=== PATIENT | male | born 1960 | race Hispanic/Latino ===

== ENCOUNTER 2016-06-25 11:46 | Inpatient (IN) | payer MEDICAID ==
[2016-06-25] MEDS ORDERED: ZOFRAN ONE (12:04)
[2016-06-25] MEDS ORDERED: DILAUDID ONE (12:04)
[2016-06-25] MEDS ORDERED: ZOFRAN IV ONE (12:32)
[2016-06-25] MEDS ORDERED: DILAUDID IV ONE ×2 (12:32→15:14)
--- NOTE | 2016-06-25 12:42 | Emergency Department Report ---
HPI - General Chief Complaint: Dyspnea/Respdistress Time Seen by Provider: 06/25/16 12:20 - HPI HPI: Chief complaint: Tachycardia and SVT HPI: Patient is a 56-year-old male with a history of hypertension, diabetes, SVT , chronic left hip pain status post hip replacement with a neuro stimulator in place as well as 3 back surgeries presents with a rapid heartbeat since about 7: 00 this morning. Patient tried numerous vagal maneuvers without success and therefore came to the emergency department. Patient states he felt lightheaded upon standing but did not completely pass out. Patient states he has been taking all of his medications. Patient states she's been having polyuria and polydipsia for the last 3-4 days but states his sugar last night was 180. Patient did not check his blood sugar this morning. Patient was seen by me previously for similar problem and converted his SVT with Adenocard. Patient was seen in consultation with [facility] and was to follow up as an outpatient for possible ablation but never followed up. Patient has had a negative cardiac cath. Mode of arrival: [private car] Source: [Patient] [old chart] Began: Upon awakening this morning Duration: From 7 this morning until arrival in the emergency department Context: See above Quality: Left hip pain no chest pain Severity: Chronic left hip pain Improved with: Nothing Worsened with: Nothing Associated signs and symptoms: Left hip pain ED Past Medical Hx - Past Medical History Hx Hypertension: Yes Hx Congestive Heart Failure: No Hx Diabetes: Yes Hx Asthma: No Hx COPD: No Additional medical history: back injury-2010. RSD, peripheral neuropathy. AVN LEFT HIP. OBESITY - Surgical History Additional Surgical History: 3 back surgeries, foot surg ,NEURO STIMULATOR - Social History Smoking Status: Unknown if ever smoked Substance Use Type: None - Medications Home Medications: Home Medications Medication Instructions Recorded Confirmed Last Taken Type Pregabalin [Lyrica] 100 mg PO TID 04/22/14 06/25/16 06/06/15 History metFORMIN [Glucophage] 500 mg PO QDAY 05/13/15 06/25/16 06/06/15 History Lisinopril [Zestril TAB] 5 mg PO QDAY #30 tablet 05/16/15 06/25/16 06/06/15 Rx Metoprolol [Lopressor TAB] 50 mg PO BID #60 tablet 05/16/15 06/25/1616 Rx oxyCODONE /ACETAMINOPHEN [Percocet 1 tab PO Q6HR PRN #10 tablet 09/08/15 Unknown Rx 5/325] Metoprolol [Lopressor TAB] 50 mg PO BID #60 tablet 04/03/16 06/25/16 Unknown Rx Oxycodone HCl/Acetaminophen 1 each PO Q6HR PRN #20 tablet 04/03/16 06/25/16 Unknown Rx [Percocet 10/325 mg] ED Review of Systems ROS: Stated complaint: ELEVATED HR/DIZZY/SOB Other details as noted in HPI ROS Constitutional: No fever ENT: No uri symptoms Cardiovascular: No chest pain Respiratory: No cough GI: No nausea vomiting or diarrhea : No dysuria Skin: No rash Neuro: No focal weakness or numbness Psych: No depression Dean/lymph: No edema Musculoskeletal: Chronic back and left hip pain Physical Exam - Physical Exam Vital Signs: Vital Signs 06/25/16 11:54 Temperature 98.0 F Pulse Rate 162 H Respiratory 26 H Rate Blood Pressure 135/104 O2 Sat by Pulse 96 Oximetry Physical Exam: GENERAL: The patient is an obese male with a rapid heartbeat and mild diaphoresis. HEENT: Normocephalic. Atraumatic. Extraocular motions are intact. Patient has moist mucous membranes. NECK: Supple. No meningitic signs are noted. There is no adenopathy noted. CHEST/LUNGS: Clear to auscultation. There is no respiratory distress noted. HEART/CARDIOVASCULAR: Regular. There is tachycardia. There is no gallop rub or murmur. ABDOMEN: Abdomen is soft, nontender. Patient has normal bowel sounds. There is no abdominal distention. SKIN: There is no rash. There is no edema. There is no diaphoresis. NEURO: The patient is awake, alert, and oriented. The patient is cooperative. The patient has normal speech. MUSCULOSKELETAL: There is pain to range of motion of the patient's left hip. ED Course Vital Signs 06/25/16 11:54 Temperature 98.0 F Pulse Rate 162 H Respiratory 26 H Rate Blood Pressure 135/104 O2 Sat by Pulse 96 Oximetry - Reevaluation(s) Reevaluation #1: 06/25/16 1 Patient cardioverted with 12 mg of IV Adenocard after failing 6 mg IV. Because of his elevated blood sugar patient was given 2 L of normal saline and 5 units of regular insulin IV. Patient will be admitted to the hospitalist. ED Medical Decision Making - Lab Data Result diagrams: 06/25/16 12:54 06/25/16 12:54 Laboratory Tests 06/25/16 06/25/16 06/25/16 12:54 12:54 15:55 VBG pH 7.397 Calcium 9.7 Total Creatine Kinase 83 CK-MB (CK-2) 2.8 CK-MB (CK-2) Rel Index 3.3 Troponin T < 0.010 - EKG Data -: EKG Interpreted by Me Rate: tachycardia (SVT at rate of 164) Critical care attestation.: If time is entered above; I have spent that time in minutes in the direct care of this critically ill patient, excluding procedure time. ED Disposition Clinical Impression: Left hip pain, SVT (supraventricular tachycardia), Hyperglycemia Disposition: OP ADMITTED IP TO THIS HOSP Is pt being admited?: Yes Does the pt Need Aspirin: Yes Condition: Fair Referrals: PRIMARY CARE, [Primary Care Provider] - 3-5 Days Time of Disposition: 16:00 (admit to the hospitalist)
--- NOTE | 2016-06-25 12:55 | Admit Criteria Form ---
Admission Criteria Documentation: CARDIOLOGY GRG Clinical Indications for Admission to Inpatient Care ( Place 'X' for any and all applicable criteria): Hospital admission is needed for appropriate care of the patient because of ANY ONE of the following (1): [ X] I. Hemodynamic instability as indicated by ALL of the following (1)(2)(3 )(4)(5) [X ]a) Vital signs or other findings not as expected for chronic patient condition or baseline [X ]b) Instability indicated by ANY ONE of the following: [ ]i) Hypotension [ X]ii) Symptomatic Tachycardia unresponsive to treatment ( e.g., analgesia, fluids, sedation as indicated) [ ]iii) Inadequate perfusion indicated by ANY ONE of the following: [ ] 1) Lactic acidosis (> 2 mmol/L) [ ] 2) New abnormal capillary refill (> 3 seconds) [ ] 3) Reduced urine output [ ] 4) New altered mental status [ ]iv) Orthostatic vital sign changes unresponsive to treatment (e.g., fluids) [ ]v) IV inotropic or vasopressor medication required to maintain adequate blood pressure or perfusion [ ] II. Severe heart failure as indicated by ANY ONE of the following(17)(18) [ ]a) Respiratory distress [ ]b) Hypotension [ ]c) Anasarca (refractory to outpatient therapy) [ ]d) Cardiac arrhythmias of immediate concern [ ]e) Myocardial ischemia [ ] III. Cardiac arrhythmias or findings of immediate concern indicated by ANY ONE of the following (19)(20): [ ] a) Heart rhythms that are inherently dangerous or unstable indicated by ANY ONE of the following (21)(22)(23): [ ] i) Resuscitated ventricular fibrillation or cardiac arrest [ ] ii) Ventricular escape rhythm [ ] iii) Sustained ventricular tachycardia (30 seconds or more of ventricular rhythm at greater than 100 beats per minute) [ ] iv) Nonsustained ventricular tachycardia and ANY ONE of the following: [ ] 1) Suspected cardiac ischemia as cause or consequence of ventricular tachycardia [ ] 2) In setting of acute myocarditis [ ] b) Unstable cardiac conduction defects indicated by ANY ONE of the following(23)(24)(25) [ ] i) Type II second-degree atrioventricular block [ ]ii) Third-degree atrioventricular block [ ]iii) New-onset left bundle branch block with suspected myocardial ischemia [ ]c) Any heart rhythm and ANY ONE of the following (21)(22)(26)(27) (28) [ ] i) Continuous long-term ECG monitoring needed (e.g., initiation of drug requiring monitoring for more than 24 hours) [ ] ii) Patient has automatic implanted cardioverter defibrillator that is repeatedly firing, malfunctioning, or in need of immediate adjustment of settings beyond the scope of ambulatory or observation care [ ]d) Heart rhythms of concern due to ANY ONE of the following: [ ] i) Hypotension [ ] ii) Respiratory distress [ ] iii) Association with other significant symptoms (e.g., bradycardia with syncope or ongoing dizziness, supraventricular tachycardia with chest pain (14)(15)(17) [ ] IV. Monitoring for cardiac contusion beyond the scope of observation care needed [A](30)(31)(32) [ ] V. Surgical or device complication (e.g., valve replacement complication , pacemaker dysfunction) (35)(41)(44)(45)(46) [ ] . Inpatient palliative care needed. [B](49) Also use Inpatient Palliative Care Criteria [ ] VII. Nonbacterial thrombotic (marantic) endocarditis (36)(43)(47)(48) [ ] VIII. Cardiology condition, symptom, or finding for which emergency and observation care has failed or are not considered appropriate. [ ] IX. Acute valvular disease requiring inpatient as indicated by ANY ONE of the following (41) [ ]a) Acute valvular regurgitation (42) [ ]b) Noninfectious valvulitis (43) [ ]c) Obstructive valve thrombosis [ ]d) Paravalvular leak [ ]e) Other significant valvular disorder remaining after emergency or observation level of care (as appropriate) [ ]X. Pericardial disease requiring inpatient treatment as indicated by ANY ONE of the following (33)(34)(35)(36)(37) [ ]a) Suspected tamponade (38)(39)(40) [ ]b) Hemopericardium [ ]c) Other significant pericardial disorder remaining after emergency or observation level of care (as appropriate) [ ] XI. Cardiac ischemia beyond scope of emergency and observation care. [ ] XII. Hypertension requiring inpatient treatment as indicated by ANY ONE of the following (6)(7)(8) [ ]a) SBP greater than 220 mm Hg or DBP greater than 120 mmHg despite treatment [ ]b) SBP greater than 140 mm Hg or DBP greater than 100 mm Hg with evidence of acute end organ damage as indicated by ANY ONE of the following [ ] i) Altered mental status [ ] ii) Acute renal failure as indicated by new onset of ANY ONE of the following (9)(10)(11)(12)(13) [ ]1) 3-fold rise in serum creatinine from baseline [ ]2) Serum creatinine greater than 4 mg/dL ( 354 micromoles/L) with acute rise greater than 0.5 mg/dL (44.2 micromoles/L) [ ]3) Reduction of more than 75% in estimated glomerular filtration rate from baseline [ ]4) Estimated glomerular filtration rate less than 35 mL/min/1.73m2 (0.59 mL/sec/1.73m2) in child up to 18 years of age [ ]5) Cessation of urine output indicated by ALL of the following [ ]A. Adequate volume status [ ]B. Inadequate urine output as indicated by ANY ONE of the following [ ]a. Urine output less than 0.3 mL/kg/hr for 24 hours [ ]b. Anuria (urine output less than 0.1 mL/kg/hr) for 12 hours [ ] iii) Aortic dissection [ ] iv) Myocardial Ischemia [ ] v) Left ventricular heart failure [ ]vi) Retinal Hemorrhage [ ]vii) Other significant finding [ ]c) Hypertension in child requiring inpatient treatment as indicated by ALL of the following(14)(15)(16) [ ] i) Outpatient treatment not effective, not available, or not appropriate [ ]ii) SBP or DBP greater than 95th percentile for age [ ]iii) Evidence of acute end organ damage as indicated by ANY ONE of the following [ ]1) Altered mental status [ ]2) Acute renal failure as indicated by new onset of ANY ONE of the following(9)(10)(11)(12)(13) [ ]A. 3-fold rise in serum creatinine from baseline [ ]B. Serum creatinine greater than 4 mg/dL (354 micromoles/L) with acute rise greater than 0.5 mg/dL (44.2 micromoles/L) [ ]C. Reduction of more than 75% in estimated glomerular filtration rate from baseline [ ]D. Estimated glomerular filtration rate less than 35 mL/min/1.73m2 (0.59 mL/sec/1.73m2) in child up to 18 years of age [ ]E. Cessation of urine output indicated by ALL of the following [ ]a. Adequate volume status [ ]b. Inadequate urine output as indicated by ANY ONE of the following [ ]i) Urine output less than 0.3 mL/kg/hr for 24 hours [ ]ii) Anuria ( urine output less than 0.1 mL/kg/hr) for 12 hours [ ]3) Severe headache [ ]4) Visual disturbance [ ]5) Retinal hemorrhage [ ]6) Other significant finding [ ]XIII. Complications of transplanted heart indicated by ANY ONE of the following(61): [ ]a) Acute graft rejection requiring inpatient management (eg, intravenous immunosuppression)(62)(63) [ ]b) Acute graft heart failure indicated by ANY ONE of the following(64): [ ]i) Hemodynamic instability [ ]ii) Cardiac arrhythmias of immediate concern [ ]iii) Pulmonary edema that is very severe (eg, mechanical ventilation needed, imminent or likely, need for 100% oxygen to keep oxygen saturation above 90%) [ ]iv) Pulmonary edema that is persistent as indicated by ALL of the following: [ ]1) New need for oxygen therapy to keep oxygen saturation above 90% (or increased FiO2 need from baseline) [ ]2) Has not improved sufficiently with emergency department or observation care IV diuretics or other heart failure treatments[E] [ ]v) Altered mental status that is severe or persistent [ ]vi) Increased creatinine (new on laboratory test) with reduction of more than 50% in estimated glomerular filtration rate from baseline [ ]vii) Progressively (ongoing) rising creatinine (known from past laboratory test) with reduction of more than 25% in estimated glomerular filtration rate from baseline [ ]viii) Acute renal failure [ ]ix) Acute peripheral ischemia (eg, examination shows pulseless, cool, mottled, or cyanotic extremity) [ ]x) Pulmonary artery catheter monitoring needed [ ]xi) Other sign or symptom of heart failure requiring inpatient treatment (ie, too severe or not responsive to outpatient and observation care treatment) [ ]c) Infection requiring inpatient management (eg, Hemodynamic instability, need for intravenous antimicrobial treatment)(66)(67)(68)(69)(70) [ ]d) Cardiac allograft vasculopathy requiring inpatient management ( eg evidence of cardiac ischemia)(71) [ ]e) Other complication of transplanted heart (eg, stroke, severe pulmonary hypertension, severe valvular dysfunction) requiring inpatient management(72) The original [facility] [employer] content created by [facility] [employer] ([employer]) has been revised. The portions of the content which have been revised are identified through the use of italic text or in bold, and [facility] has neither reviewed nor approved the modified material. All other unmodified content is copyright [facility] [employer] ([employer]). Please see references footnoted in the original [facility] [employer] edition 2016 Admission Criteria Met: Yes
[2016-06-25 13:20] LABS: Basophils % (Auto) 0.6 % (0.0-1.8); Eosinophils % (Auto) 2.1 % (0.0-4.3); Hematocrit 55.9 % (35.5-45.6); Hemoglobin 18.5 gm/dl (11.8-15.2); Mean Corpuscular HGB Conc 33 % (32-34); Mean Corpuscular Hemoglobin 31 pg (28-32); Mean Corpuscular Volume 94 fl (84-94); Platelet Count 162 K/mm3 (140-440); Red Blood Count 5.94 M/mm3 (3.65-5.03); Red Cell Distribution Width 15.3 % (13.2-15.2); White Blood Count 9.1 K/mm3 (4.5-11.0)
[2016-06-25 14:20] LABS: Creatine Kinase MB 2.8 ng/mL (0.0-4.0)
[2016-06-25 14:21] LABS: Anion Gap 32 mmol/L; BUN/Creatinine Ratio 24.28; Blood Urea Nitrogen 17 mg/dL (9-20); Calcium 9.7 mg/dL (8.4-10.2); Carbon Dioxide 15 mmol/L (22-30); Chloride 95.3 mmol/L (98-107); Creatine Kinase 83 units/L (55-170); Glucose 410 mg/dL (75-100); Sodium 137 mmol/L (137-145)
[2016-06-25] MEDS ORDERED: NACL 0.9% 1000 ML IV ONE (15:10)
--- NOTE | 2016-06-25 15:48 | XRay Report ---
LEFT HIP, 2 VIEWS History: Left hip pain. Findings: Left hip prosthesis with surrounding heterotopic calcifications appears unchanged since 04/03/16. No fracture or malalignment is appreciated on x-ray. Impression: No acute injury appreciated.
--- NOTE | 2016-06-25 15:49 | XRay Report ---
AP CHEST: HISTORY: Short of breath AP view of the chest demonstrates a normal mediastinal and cardiac contour with clear lungs and normal bony and soft tissue structures. IMPRESSION: Unremarkable AP chest.
[2016-06-25] MEDS ORDERED: PERCOCET 5/325 PO PRN (16:06)
[2016-06-25] MEDS ORDERED: D50W (25GM) IV PRN (16:11)
--- NOTE | 2016-06-25 16:21 | History and Physical Report ---
History of Present Illness Date of examination: 06/25/16 Chief complaint: Shortness of breath History of present illness: Patient is a 56-year-old man with history of SVT, type 2 diabetes mellitus, hypertension, chronic pain syndrome due to arthritis status post left hip replacement with neurostimulator who presents with shortness of breath that started around 7 AM this morning. Patient did try multiple vagal maneuvers without success therefore he came to emergency department. Patient states is compliant with his medication. Patient admits to having polyuria and his polydipsia for last 3-4 pains. Patient denies any chest pain, nausea vomiting. He was diaphoretic when his heart rate was found to be 162. He was given Adenocard and converted. He was told by doctor at [facility] that he needs ablation but he did not following up. Medications and Allergies Allergies Allergy/AdvReac Type Severity Reaction Status Date / Time No Known Allergies Allergy Verified 06/07/15 11:18 Home Medications Medication Instructions Recorded Confirmed Last Taken Type Pregabalin [Lyrica] 100 mg PO TID 04/22/14 06/25/16 06/06/15 History metFORMIN [Glucophage] 500 mg PO QDAY 05/13/15 06/25/16 06/06/15 History Lisinopril [Zestril TAB] 5 mg PO QDAY #30 tablet 05/16/15 06/25/16 06/06/15 Rx Metoprolol [Lopressor TAB] 50 mg PO BID #60 tablet 05/16/15 06/25/16 06/06/15 Rx oxyCODONE /ACETAMINOPHEN [Percocet 1 tab PO Q6HR PRN #10 tablet 09/08/15 Unknown Rx 5/325] Metoprolol [Lopressor TAB] 50 mg PO BID #60 tablet 04/03/16 06/25/16 Unknown Rx Oxycodone HCl/Acetaminophen 1 each PO Q6HR PRN #20 tablet 04/03/16 06/25/16 Unknown Rx [Percocet 10/325 mg] Active Meds: Active Medications Dextrose (D50w (25gm)) 50 ml IV PRN PRN PRN Reason: Hypoglycemia Heparin Sodium (Porcine) (Heparin) 5,000 unit SUB-Q Q8HR YAEL Insulin Aspart (Novolog) 0 units SUB-Q ACHS YAEL PRN Reason: Protocol Lisinopril (Zestril) 5 mg PO QDAY YAEL Metformin HCl (Glucophage) 500 mg PO QDDIAB YAEL Metoprolol Tartrate (Lopressor) 50 mg PO BID YAEL Oxycodone/Acetaminophen (Percocet 5/325) 1 tab PO Q6HR PRN PRN Reason: Pain Pregabalin (Lyrica) 75 mg PO TID YAEL Pregabalin (Lyrica) 25 mg PO TID YAEL Review of Systems All systems: negative (as HPI and all other ROS reviewed and negative.) Exam - Physical Exam Narrative exam: GEN: WDWN, obese NAD, AWAKE, ALERT, ORIENTATED 3 HEENT: NCAT, PERRL, EOMI, OP CLEAR NECK: SUPPLE, NO THYROMEGALY, NO JVD, NO LAD CVS: Regular tachycardic, NORMAL S1S2 LUNGS/CHEST: CTA B, NORMAL CHEST EXPANSION B, GOOD AIR ENTRY B ABD: SOFT NTND, GBS, NO REBOUND OR GUARDING EXT/SKIN: NO SIGNIFICANT EDEMA OR RASH MSK:LROM left hip NEURO: CN 2-12 GROSSLY INTACT, NO FOCAL NEW DEFICITS PSY: CALM - Constitutional Vitals: Temp Pulse Resp BP Pulse Ox 98.0 F 108 H 20 126/96 100 06/25/16 11:54 06/25/16 13:03 06/25/16 13:03 06/25/16 13:03 06/25/16 13:03 Results - Labs CBC & Chem 7: 06/25/16 12:54 06/25/16 12:54 Labs: Abnormal lab results 06/25/16 06/25/16 Range/Units 12:54 12:54 RBC 5.94 H (3.65-5.03) M/mm3 Hgb 18.5 H (11.8-15.2) gm/dl Hct 55.9 H (35.5-45.6) % RDW 15.3 H (13.2-15.2) % [place] % (Auto) 7.8 H (0.0-7.3) % Chloride 95.3 L (98-107) mmol/L Carbon Dioxide 15 L (22-30) mmol/L Creatinine 0.7 L (0.8-1.5) mg/dL Glucose 410 H (75-100) mg/dL - Imaging and Cardiology EKG: image reviewed Assessment and Plan Patient is a 56-year-old man with a history of SVT, type 2 diabetes mellitus, hypertension, chronic pain syndrome due to arthritis status post left hip replacement with neurostimulator who presents with severe constant acute shortness of breath w/o aggravating and relieving factors that started around 7 AM this morning. Patient did try multiple vagal maneuvers without success; therefore, he came to emergency department. Patient states is compliant with his medications. Patient admits to having polyuria and polydipsia for last 3-4 days. Patient denies any chest pain, nausea vomiting. He was diaphoretic when his heart rate was found to be 162. He was given Adenocard and converted. He was told by doctor at [facility] that he needs ablation but he did not following up. 1. SVT: Consult cardiology, continue beta tonia 2. Uncontrolled type 2 diabetes mellitus: As sliding scale insulin 3. Hypertension, chronic stable Hopefully can be discharge after [employer] evaluation
[2016-06-25] MEDS ORDERED: ASPIRIN PO ONE (16:23)
--- NOTE | 2016-06-25 16:40 | Consultation ---
History of Present Illness Consult date: 06/25/16 Requesting physician: BO PRICE Consult reason: other (SVT) History of present illness: The patient is a 56 year old male with a history of paroxysmal SVT, hypertension , diabetes, chronic pain who presented with acute onset palpitations and shortness of breath that started this morning at 7:00am. He tried numerous vagal maneuvers without success and therefore came to the emergency department. He states that he felt lightheaded upon standing but did not lose consciousness. No chest pain. EKG showed SVT with HR 160s. He received adenosine 6mg followed by 12mg and subsequently converted to sinus rhythm. He states he has about 8 episodes of SVT within the past one year. He reports compliance with all of his medications including lopressor. Past History Past Medical History: diabetes, hypertension, hyperlipidemia, other (paroxysmal SVT, chronic back pain) Past Surgical History: total hip replacement (left hip), Other (back surgery x 3 ) Family history: no significant family history Medications and Allergies Allergies Allergy/AdvReac Type Severity Reaction Status Date / Time No Known Allergies Allergy Verified 06/07/15 11:18 Home Medications Medication Instructions Recorded Confirmed Last Taken Type Pregabalin [Lyrica] 100 mg PO TID 04/22/14 06/25/16 06/06/15 History metFORMIN [Glucophage] 500 mg PO QDAY 05/13/15 06/25/16 06/06/15 History Lisinopril [Zestril TAB] 5 mg PO QDAY #30 tablet 05/16/15 06/25/16 06/06/15 Rx Metoprolol [Lopressor TAB] 50 mg PO BID #60 tablet 05/16/15 06/25/16 06/06/15 Rx oxyCODONE /ACETAMINOPHEN [Percocet 1 tab PO Q6HR PRN #10 tablet 09/08/15 Unknown Rx 5/325] Metoprolol [Lopressor TAB] 50 mg PO BID #60 tablet 04/03/16 06/25/16 Unknown Rx Oxycodone HCl/Acetaminophen 1 each PO Q6HR PRN #20 tablet 04/03/16 06/25/16 Unknown Rx [Percocet 10/325 mg] Active Meds: Active Medications Dextrose (D50w (25gm)) 50 ml IV PRN PRN PRN Reason: Hypoglycemia Heparin Sodium (Porcine) (Heparin) 5,000 unit SUB-Q Q8HR [facility] Insulin Aspart (Novolog) 0 units SUB-Q ACHS [facility] PRN Reason: Protocol Lisinopril (Zestril) 5 mg PO QDAY [facility] Metformin HCl (Glucophage) 500 mg PO QDDIAB [facility] Metoprolol Tartrate (Lopressor) 50 mg PO BID [facility] Oxycodone/Acetaminophen (Percocet 5/325) 1 tab PO Q6HR PRN PRN Reason: Pain Pregabalin (Lyrica) 75 mg PO TID [facility] Pregabalin (Lyrica) 25 mg PO TID [facility] Review of Systems Constitutional: no fever, no chills Ears, nose, mouth and throat: no nasal congestion, no nasal discharge, no sinus pressure Cardiovascular: palpitations, lightheadedness, shortness of breath, no chest pain Respiratory: shortness of breath, no cough, no congestion Gastrointestinal: no abdominal pain, no nausea, no vomiting, no diarrhea Genitourinary Male: no dysuria, no hematuria Musculoskeletal: no neck stiffness, no neck pain, no myalgias Integumentary: no rash, no pruritis Neurological: no parathesias, no numbness, no tingling, no headaches Endocrine: no cold intolerance, no heat intolerance Hematologic/Lymphatic: no easy bruising, no easy bleeding Allergic/Immunologic: no urticaria, no wheezing Physical Examination Vital Signs Temp Pulse Resp BP Pulse Ox 98.0 F 162 H 26 H 135/104 96 06/25/16 11:54 06/25/16 11:54 06/25/16 11:54 06/25/16 11:54 06/25/16 11:54 General appearance: no acute distress, obese HEENT: Positive: Normocephaly, Mucus Membranes Moist Neck: Positive: neck supple, trachea midline Cardiac: Positive: Reg Rate and Rhythm, S1/S2 Lungs: Positive: clear to auscultation Neuro: Positive: Grossly Intact Abdomen: Positive: Soft, Active Bowel Sounds. Negative: Tender Skin: Positive: Clear Extremities: Present: normal. Absent: edema Results 06/25/16 12:54 06/25/16 12:54 Cardiac Enzymes 06/25/16 06/25/16 06/25/16 Range/Units 12:54 12:54 12:54 WBC 9.1 (4.5-11.0) K/mm3 RBC 5.94 H (3.65-5.03) M/mm3 Hgb 18.5 H (11.8-15.2) gm/dl Hct 55.9 H (35.5-45.6) % MCV 94 (84-94) fl MCH 31 (28-32) pg MCHC 33 (32-34) % RDW 15.3 H (13.2-15.2) % Plt Count 162 (140-440) K/mm3 Lymph % (Auto) 20.8 (13.4-35.0) % Garrard % (Auto) 7.8 H (0.0-7.3) % Eos % (Auto) 2.1 (0.0-4.3) % Baso % (Auto) 0.6 (0.0-1.8) % Lymph # 1.9 (1.2-5.4) K/mm3 Garrard # 0.7 (0.0-0.8) K/mm3 Eos # 0.2 (0.0-0.4) K/mm3 Baso # 0.1 (0.0-0.1) K/mm3 Seg Neutrophils % 68.7 (40.0-70.0) % Seg Neutrophils # 6.3 (1.8-7.7) K/mm3 VBG pH (7.320-7.420) Sodium 137 (137-145) mmol/L Potassium 5.0 (3.6-5.0) mmol/L Chloride 95.3 L (98-107) mmol/L Carbon Dioxide 15 L (22-30) mmol/L Anion Gap 32 mmol/L BUN 17 (9-20) mg/dL Creatinine 0.7 L (0.8-1.5) mg/dL Estimated GFR > 60 ml/min BUN/Creatinine Ratio 24.28 % Glucose 410 H (75-100) mg/dL Calcium 9.7 (8.4-10.2) mg/dL Total Creatine Kinase 83 (55-170) units/L CK-MB (CK-2) 2.8 (0.0-4.0) ng/mL CK-MB (CK-2) Rel Index 3.3 (0-4) Troponin T < 0.010 (0.00-0.029) ng/mL Ketones (0.2-2.8) mg/dL 06/25/16 06/25/16 Range/Units 15:55 15:55 WBC (4.5-11.0) K/mm3 RBC (3.65-5.03) M/mm3 Hgb (11.8-15.2) gm/dl Hct (35.5-45.6) % MCV (84-94) fl MCH (28-32) pg MCHC (32-34) % RDW (13.2-15.2) % Plt Count (140-440) K/mm3 Lymph % (Auto) (13.4-35.0) % Garrard % (Auto) (0.0-7.3) % Eos % (Auto) (0.0-4.3) % Baso % (Auto) (0.0-1.8) % Lymph # (1.2-5.4) K/mm3 Garrard # (0.0-0.8) K/mm3 Eos # (0.0-0.4) K/mm3 Baso # (0.0-0.1) K/mm3 Seg Neutrophils % (40.0-70.0) % Seg Neutrophils # (1.8-7.7) K/mm3 VBG pH 7.397 (7.320-7.420) Sodium (137-145) mmol/L Potassium (3.6-5.0) mmol/L Chloride (98-107) mmol/L Carbon Dioxide (22-30) mmol/L Anion Gap mmol/L BUN (9-20) mg/dL Creatinine (0.8-1.5) mg/dL Estimated GFR ml/min BUN/Creatinine Ratio % Glucose (75-100) mg/dL Calcium (8.4-10.2) mg/dL Total Creatine Kinase (55-170) units/L CK-MB (CK-2) (0.0-4.0) ng/mL CK-MB (CK-2) Rel Index (0-4) Troponin T (0.00-0.029) ng/mL Ketones 2.3 (0.2-2.8) mg/dL CBC 06/25/16 Range/Units 12:54 WBC 9.1 (4.5-11.0) K/mm3 RBC 5.94 H (3.65-5.03) M/mm3 Hgb 18.5 H (11.8-15.2) gm/dl Hct 55.9 H (35.5-45.6) % Plt Count 162 (140-440) K/mm3 Lymph # 1.9 (1.2-5.4) K/mm3 Garrard # 0.7 (0.0-0.8) K/mm3 Eos # 0.2 (0.0-0.4) K/mm3 Baso # 0.1 (0.0-0.1) K/mm3 Comprehensive Metabolic Panel 06/25/16 Range/Units 12:54 Sodium 137 (137-145) mmol/L Potassium 5.0 (3.6-5.0) mmol/L Chloride 95.3 L (98-107) mmol/L Carbon Dioxide 15 L (22-30) mmol/L BUN 17 (9-20) mg/dL Creatinine 0.7 L (0.8-1.5) mg/dL Glucose 410 H (75-100) mg/dL Calcium 9.7 (8.4-10.2) mg/dL - Imaging and Cardiology Echo: pending, report reviewed (04/2015: EF 55%) EKG: image reviewed EKG interpretations - Telemetry EKG Rhythm: Sinus Rhythm - EKG Ventricular dysrhythmias: sustained ventricular tac Assessment and Plan Paroxysmal SVT converted to SR following IV adenosine continue PO lopressor 50mg BID [facility] 04/2015: patent coronaries, normal LV function Echo 04/2015: EF 55%, await repeat schedule EP consult for SVT ablation as an OP Hypertension stable continue loperssor, lisinopril Diabetes Hyperlipidemia Chronic back pain s/p TENS unit placement 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 Lopez who agrees with the assessment and plan of care. Thank you Dr. Price for allowing us to participate in the care of this patient.
[2016-06-25] MEDS: NOVOLOG SUB-Q SCH ×2 (17:47→22:25)
[2016-06-25] MEDS ORDERED: NON-FORMULARY (Pregabalin [Lyrica] 100 MG) PO SCH (20:00)
[2016-06-25] MEDS: LYRICA PO SCH ×2 (20:21)
[2016-06-25] MEDS ORDERED: LEVEMIR SUB-Q SCH (22:00)
[2016-06-25] MEDS: HEPARIN SUB-Q SCH (22:06)
[2016-06-25] MEDS: LOPRESSOR PO SCH (22:06)
[2016-06-25] MEDS ORDERED: ZOFRAN IV PRN (23:04)
[2016-06-25] MEDS: DILAUDID IV PRN (23:12)
[2016-06-26] MEDS: HEPARIN SUB-Q SCH ×2 (04:44→05:29)
[2016-06-26] MEDS: DILAUDID IV PRN ×3 (04:44→14:10)
[2016-06-26] MEDS ORDERED: GLUCOPHAGE PO SCH (08:00)
[2016-06-26 08:32] VITALS: BP 162/88
[2016-06-26] MEDS: NOVOLOG SUB-Q SCH ×2 (09:30→14:10)
[2016-06-26 09:38] LABS: Hematocrit 48.7 % (35.5-45.6); Hemoglobin 16.7 gm/dl (11.8-15.2); Mean Corpuscular HGB Conc 34 % (32-34); Mean Corpuscular Hemoglobin 32 pg (28-32); Mean Corpuscular Volume 92 fl (84-94); Platelet Count 170 K/mm3 (140-440); Red Blood Count 5.31 M/mm3 (3.65-5.03); White Blood Count 8.7 K/mm3 (4.5-11.0)
[2016-06-26 09:52] LABS: Anion Gap 22 mmol/L; BUN/Creatinine Ratio 21.66; Blood Urea Nitrogen 13 mg/dL (9-20); Calcium 8.7 mg/dL (8.4-10.2); Carbon Dioxide 21 mmol/L (22-30); Chloride 96.3 mmol/L (98-107); Glucose 224 mg/dL (75-100); Potassium 4.4 mmol/L (3.6-5.0); Sodium 135 mmol/L (137-145)
[2016-06-26] MEDS ORDERED: ZESTRIL PO SCH (10:00)
--- NOTE | 2016-06-26 10:18 | Progress Note ---
Assessment and Plan Paroxysmal SVT converted to SR following IV adenosine continue PO lopressor 50mg BID 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 Await echo findings. Follow up appointment with Dr. Recinos in the [facility] office on 07/03/16 at 1:30 pm. The patient has been seen in conjunction with Dr. Lopez who agrees with the assessment and plan of care. Subjective Date of service: 06/26/16 Principal diagnosis: paroxysmal SVT Interval history: The patient is resting in bed. He feels fatigued. Sinus rhythm on the monitor. No further SVT noted on the monitor overnight. Objective Last Vital Signs Temp 97.9 F 06/26/16 08:00 Pulse 78 06/26/16 08:00 Resp 20 06/26/16 08:00 BP 162/88 06/26/16 08:00 Pulse Ox 95 06/26/16 08:00 - Physical Examination General: No Apparent Distress HEENT: Positive: Normocephaly, Mucus Membranes Moist Neck: Positive: neck supple, trachea midline Cardiac: Positive: Reg Rate and Rhythm, S1/S2 Lungs: Positive: clear to auscultation Neuro: Positive: Grossly Intact Abdomen: Positive: Soft, Active Bowel Sounds. Negative: Tender Skin: Positive: Clear Extremities: Present: normal. Absent: edema - Labs and Meds CBC 06/26/16 Range/Units 09:13 WBC 8.7 (4.5-11.0) K/mm3 RBC 5.31 H (3.65-5.03) M/mm3 Hgb 16.7 H (11.8-15.2) gm/dl Hct 48.7 H D (35.5-45.6) % Plt Count 170 (140-440) K/mm3 Comprehensive Metabolic Panel 06/26/16 Range/Units 09:13 Sodium 135 L (137-145) mmol/L Potassium 4.4 (3.6-5.0) mmol/L Chloride 96.3 L (98-107) mmol/L Carbon Dioxide 21 L (22-30) mmol/L BUN 13 (9-20) mg/dL Creatinine 0.6 L (0.8-1.5) mg/dL Glucose 224 H (75-100) mg/dL Calcium 8.7 (8.4-10.2) mg/dL - Imaging and Cardiology EKG: image reviewed Echo: pending, report reviewed (04/2015: EF 55%) - Telemetry EKG Rhythm: Sinus Rhythm - EKG Ventricular dysrhythmias: sustained ventricular tac
[2016-06-26] MEDS: LYRICA PO SCH ×4 (10:20→14:09)
[2016-06-26] MEDS: LOPRESSOR PO SCH (10:21)
--- NOTE | 2016-06-26 10:50 | Discharge Summary ---
Providers - Providers Date of Admission: 06/25/16 16:04 Date of discharge: 06/26/16 Attending physician: HEMALATHA SEBASTIAN 06/25/16 16:08 Consult to Physician [CONS] Routine Consulting Provider: HARLAN ZHU Reason For Exam: SVT, pt known to you Place consult to:: Marino AYALA Notified:: y Was contact made?: Yes If yes, spoke with:: ana Time called:: 16:20 Primary care physician: DIRECTOR OF STRATEGY & MOBILE Hospitalization Reason for admission: PSVT Condition: Fair Procedures: ECHO- technical suboptimal; normal EF Hospital course: Mr. Duron presented to the ER with palpitations and was found to be in SVT; he was cardioverted using adenosine back to sinus; he was seen by the nut process helper and was cleared for discharge by the nut process helper; he had no recurrence while he was in the hospital. He was advised to follow up with for EP evalaution and possible ablation. condition at discharge-stable 31 minutes spent on discharge Disposition: DISCHARGED TO HOME OR SELFCARE - Discharge Diagnoses (1) Left hip pain Status: Acute (2) SVT (supraventricular tachycardia) Status: Acute (3) Diabetes mellitus Status: Chronic Qualifiers: Diabetes mellitus type: D Diabetes mellitus complication status: D Diabetes mellitus complication detail: D Diabetic retinopathy severity: D Proliferative retinopathy type: P Diabetes mellitus macular edema: D Diabetes mellitus director long term care insulin use: D Laterality: L Chronic kidney disease stage: C (4) Obesity (BMI 35.0-39.9 without comorbidity) Status: Chronic Core Measure Documentation - Palliative Care Palliative Care/ Comfort Measures: Not Applicable - Core Measures Any of the following diagnoses?: none Exam - Constitutional Vitals: Temp Pulse Resp BP Pulse Ox 97.9 F 78 20 162/88 95 06/26/16 08:00 06/26/16 08:00 06/26/16 08:00 06/26/16 08:00 06/26/16 08:00 General appearance: Present: no acute distress, well-nourished - EENT Eyes: Present: PERRL, EOM intact. Absent: scleral icterus, conjunctival injection ENT: hearing intact, clear oral mucosa, no oropharyngeal erythema, no poor dentition - Neck Neck: Present: supple. Absent: enlarged thyroid, masses or JVD - Respiratory Respiratory: negative: diminished, rales, rhonchi, wheezing - Cardiovascular Rhythm: regular Heart Sounds: Present: S1 & S2. Absent: gallop - Extremities Extremities: no ischemia, pulses intact, pulses symmetrical, No edema Peripheral Pulses: within normal limits - Abdominal General gastrointestinal: Present: soft, non-tender, non-distended Male genitourinary: Present: deferred - Rectal Rectal Exam: deferred - Integumentary Integumentary: Present: clear - Musculoskeletal Musculoskeletal: strength equal bilaterally - Psychiatric Psychiatric: appropriate mood/affect, intact judgment & insight - Neurologic Neurologic: CNII-XII intact, moves all extremities Plan Activity: no restrictions Weight Bearing Status: Weight Bear as Tolerated Diet: low fat, low cholesterol, low salt Follow up with: PRIMARY CARE, [Primary Care Provider] - 3-5 Days MISTI MA MD [Staff Physician] - 07/03/16 1:30 pm Prescriptions: oxyCODONE /ACETAMINOPHEN [Percocet 5/325 mg] 1 tab PO Q6HR PRN #10 tablet PRN Reason: Pain
[2016-06-26] MEDS ORDERED: FLUARIX QUAD 2016-2017(36 MOS+) IM ONE (12:00)
== END 2016-06-26 15:13 | disposition home or self-care (01) | DRG 309 ==
LOC: ED 11:46 → 4A 16:04
PROVIDERS: ADMIT Internal Medicine; ATTEND Hospitalist
DX: I47.1 Supraventricular tachycardia (principal); M87.9 Osteonecrosis, unspecified; Z68.41 Body mass index [BMI] 40.0-44.9, adult; E66.9 Obesity, unspecified; I10 Essential (primary) hypertension; E11.65 Type 2 diabetes mellitus with hyperglycemia; G89.4 Chronic pain syndrome; Z96.642 Presence of left artificial hip joint; M19.90 Unspecified osteoarthritis, unspecified site; E78.5 Hyperlipidemia, unspecified; M54.9 Dorsalgia, unspecified; Z79.899 Other long term (current) drug therapy
CPT/HCPCS: 36415; 71010; 80048; 82010; 82550; 82553; 82805; 82962; 84443; 84484; 85025; 85027; 90686; 93005; 93010; 93306; 96374; 96375; 96376; J0153; J1170; J1644; J1815; J1818; J2405; J7030

== ENCOUNTER 2016-09-13 15:57 | Emergency (ER) | payer MEDICAID ==
[2016-09-13] MEDS ORDERED: VALIUM IM ONE ×2 (16:30→19:00)
[2016-09-13 17:36] LABS: Basophils % (Auto) 0.7 % (0.0-1.8); Eosinophils % (Auto) 0.7 % (0.0-4.3); Hematocrit 41.7 % (35.5-45.6); Hemoglobin 13.8 gm/dl (11.8-15.2); Mean Corpuscular HGB Conc 33 % (32-34); Mean Corpuscular Hemoglobin 32 pg (28-32); Mean Corpuscular Volume 96 fl (84-94); Platelet Count 203 K/mm3 (140-440); Red Blood Count 4.35 M/mm3 (3.65-5.03); Red Cell Distribution Width 17.6 % (13.2-15.2); White Blood Count 9.3 K/mm3 (4.5-11.0)
[2016-09-13 17:51] LABS: Anion Gap 22 mmol/L; BUN/Creatinine Ratio 18.33; Blood Urea Nitrogen 11 mg/dL (9-20); Calcium 9.4 mg/dL (8.4-10.2); Carbon Dioxide 20 mmol/L (22-30); Chloride 98.6 mmol/L (98-107); Creatine Kinase 87 units/L (55-170); Glucose 185 mg/dL (75-100); Potassium 4.1 mmol/L (3.6-5.0); Sodium 136 mmol/L (137-145)
[2016-09-13 18:17] LABS: Urine Drugs of Abuse Note Disclamer
--- NOTE | 2016-09-13 19:03 | Emergency Department Report ---
HPI - General Chief Complaint: Weakness Time Seen by Provider: 09/13/16 16:25 - HPI HPI: The patient is a 56-year-old male with a history of chronic back pain, presents for evaluation recurrence of back pain, and new onset shakiness in the hands. The patient states that his back pain recurred earlier today, one at 2 hours prior to arrival, he has because this is onset, 10/10 in severity, throbbing in quality. He also states that he has experienced shaking and jitteriness of the bilateral hands after taking a by mouth given to him by a friend that he thought was Percocet but does not believe that it was. He states that he typically takes Percocet daily for his back pain. The patient denies recent blunt trauma to the back, fall, fever, saddle anesthesia, paresthesias, numbness or tingling in the legs, leg weakness, urine or bowel incontinence or retention, difficulty ambulating, focal neurological deficits, headache, neck pain or stiffness. ED Past Medical Hx - Past Medical History Hx Hypertension: Yes Hx Congestive Heart Failure: No Hx Diabetes: Yes Hx Asthma: No Hx COPD: No Additional medical history: back injury-2010. RSD, peripheral neuropathy. AVN LEFT HIP. OBESITY - Surgical History Additional Surgical History: 3 back surgeries, foot surg ,NEURO STIMULATOR - Social History Smoking Status: Unknown if ever smoked - Medications Home Medications: Home Medications Medication Instructions Recorded Confirmed Last Taken Type metFORMIN [Glucophage] 500 mg PO QDAY 05/13/15 06/25/16 06/06/15 History Lisinopril [Zestril TAB] 5 mg PO QDAY #30 tablet 05/16/15 06/25/16 06/06/15 Rx Metoprolol [Lopressor TAB] 50 mg PO BID #60 tablet 05/16/15 06/25/16 06/06/15 Rx Metoprolol [Lopressor TAB] 50 mg PO BID #60 tablet 04/03/16 06/25/16 Unknown Rx Oxycodone HCl/Acetaminophen 1 each PO Q6HR PRN #20 tablet 04/03/16 06/25/16 Unknown Rx [Percocet 10/325 mg] oxyCODONE /ACETAMINOPHEN [Percocet 1 tab PO Q6HR PRN #10 tablet 06/26/16 Unknown Rx 5/325 mg] Pregabalin [Lyrica] 100 mg PO TID #20 capsule 09/13/16 Unknown Rx ED Review of Systems ROS: Stated complaint: TOOK TO MUCH RX Other details as noted in HPI Constitutional: denies: fever; reports tremor ENT: denies: throat or neck pain Respiratory: denies: cough, shortness of breath Cardiovascular: denies: chest pain Endocrine: denies unexplained weight loss or gain Gastrointestinal: denies: abdominal pain, nausea Genitourinary: denies: dysuria Musculoskeletal: reports back pain denies: leg swelling Skin: denies: rash Neurological: denies: headache Hematological/Lymphatic: denies: easy bleeding or easy bruising Psych: denies sadness or hopelessness Physical Exam - Physical Exam Vital Signs: Vital Signs 09/13/16 09/13/16 09/13/16 16:00 16:10 16:20 Temperature Pulse Rate 140 H 102 H Respiratory 17 22 Rate Blood Pressure 149/89 O2 Sat by Pulse 98 94 95 Oximetry 09/13/16 09/13/16 09/13/16 16:24 16:30 16:40 Temperature 99 F Pulse Rate 110 H 97 H 99 H Respiratory 22 24 23 Rate Blood Pressure 149/89 149/89 127/87 O2 Sat by Pulse 95 93 97 Oximetry 09/13/16 09/13/16 09/13/16 16:50 17:00 17:11 Temperature Pulse Rate 103 H 102 H 98 H Respiratory 24 19 28 H Rate Blood Pressure 132/106 132/106 O2 Sat by Pulse 94 94 96 Oximetry 09/13/16 09/13/16 09/13/16 17:21 17:31 17:41 Temperature Pulse Rate 103 H 98 H 96 H Respiratory 23 24 22 Rate Blood Pressure 122/81 120/85 120/85 O2 Sat by Pulse 96 95 96 Oximetry 09/13/16 09/13/16 17:51 17:56 Temperature Pulse Rate 110 H Respiratory 32 H 20 Rate Blood Pressure 130/76 O2 Sat by Pulse 94 97 Oximetry Physical Exam: General: well-nourished, well-developed, no acute distress Head: Normocephalic, atraumatic Eyes: normal sclera ENT: Mucous membranes are pale and dry Neck: trachea midline, neck supple, No neck stiffness, no cervical adenopathy Respiratory: Breath sounds equal bilaterally, no wheezing, rales, or rhonchi Cardio: S1 and S2 present, no murmurs, rubs, gallops, capillary refill is delayed Abdomen: Normoactive bowel sounds, soft abdomen, no rigidity, no guarding or rebound tenderness Musc: Tenderness to palpation present to bilateral lumbar paraspinal musculature , no midline tenderness, pain is elicited with flexion at the hip, normal active range of motion at the hips intact, no spinous step-off or obvious deformity, ipsi-lateral and contralateral straight leg raise tests are negative. On extremity testing, compartments are soft and pliable, no obvious gross motor strength deficit, 5+ motor strength, including extension of the great toe bilaterally, no muscular atrophy, spasticity, fasciculations, or clonus, no obvious gross sensation deficit including web space between 1st and 2nd toes, reflexes 2+ & symmetric on DTR testing at the knee and ankle joints, distal pulses intact. Skin: No rash Neuro: no facial drooping, normal speech Psych: Normal affect ED Course Vital Signs 09/13/16 09/13/16 09/13/16 16:00 16:10 16:20 Temperature Pulse Rate 140 H 102 H Respiratory 17 22 Rate Blood Pressure 149/89 O2 Sat by Pulse 98 94 95 Oximetry 09/13/16 09/13/16 09/13/16 16:24 16:30 16:40 Temperature 99 F Pulse Rate 110 H 97 H 99 H Respiratory 22 24 23 Rate Blood Pressure 149/89 149/89 127/87 O2 Sat by Pulse 95 93 97 Oximetry 09/13/16 09/13/16 09/13/16 16:50 17:00 17:11 Temperature Pulse Rate 103 H 102 H 98 H Respiratory 24 19 28 H Rate Blood Pressure 132/106 132/106 O2 Sat by Pulse 94 94 96 Oximetry 09/13/16 09/13/16 09/13/16 17:21 17:31 17:41 Temperature Pulse Rate 103 H 98 H 96 H Respiratory 23 24 22 Rate Blood Pressure 122/81 120/85 120/85 O2 Sat by Pulse 96 95 96 Oximetry 09/13/16 09/13/16 17:51 17:56 Temperature Pulse Rate 110 H Respiratory 32 H 20 Rate Blood Pressure 130/76 O2 Sat by Pulse 94 97 Oximetry ED Medical Decision Making - Lab Data Result diagrams: 09/13/16 17:08 09/13/16 17:08 - Medical Decision Making The patient was seen and examined by myself. The patient is placed on a cafeteria monitor and continuous pulse ox. On initial evaluation, the patient was found to be in no distress. No findings on exam concerning for cauda equina syndrome, spinal stenosis, or epidural abscess . As the patient has no midline tenderness on exam, no neuro deficits, and no findings concerning for emergent etiology of their back pain, imaging will not be obtained at this time. The patient is given IM Valium for his back pain. The patient was reevaluated and reported that their pain was significantly improved. Additionally the patient' s intention tremor has resolved, and the patient has no intention or resting tremor, and he remains without any neuro deficits on exam. The patient is stable for discharge with outpatient follow-up. The patient is given follow-up and return instructions. The patient expressed understanding and agreed with the plan. The patient is discharged in stable condition. Critical care attestation.: If time is entered above; I have spent that time in minutes in the direct care of this critically ill patient, excluding procedure time. ED Disposition Clinical Impression: Acute bilateral low back pain without sciatica, Tremor of both hands, Hyperglycemia, Dehydration Disposition: DISCHARGED TO HOME OR SELFCARE Is pt being admited?: No Does the pt Need Aspirin: No Condition: Stable Instructions: Musculoskeletal Pain (ED) Referrals: PRIMARY CARE [Primary Care Provider] - 3-5 Days Time of Disposition: 19:03
[2016-09-13 21:26] VITALS: BP 119/73
== END 2016-09-13 22:12 | disposition home or self-care (01) ==
LOC: ED 15:57
DX: E86.0 Dehydration (principal); M54.5 Low back pain; E11.65 Type 2 diabetes mellitus with hyperglycemia
CPT/HCPCS: 36415; 80048; 80307; 82010; 82550; 84443; 85025; 93005; 93010; 96372; 99284; G0480; J3360; 80320

== ENCOUNTER 2016-12-08 13:03 | Outpatient (CLI) | payer MEDICAID ==
[2016-12-08] MEDS ORDERED: XYLOCAINE TOPICAL 4% TP ONE ×2 (13:39→13:40)
[2016-12-08] MEDS ORDERED: SODIUM CHLORIDE FLUSH SYRINGE 10 ML IV ONE (15:01)
== END 2016-12-08 13:04 | disposition home or self-care (01) ==
LOC: WOUND 13:03
PROVIDERS: ATTEND Surgery
DX: E11.622 Type 2 diabetes mellitus with other skin ulcer (principal); L97.811 Non-pressure chronic ulcer of other part of right lower leg limited to breakdown of skin; H53.8 Other visual disturbances; I10 Essential (primary) hypertension; Z72.89 Other problems related to lifestyle; Z96.642 Presence of left artificial hip joint; Z96.651 Presence of right artificial knee joint
CPT/HCPCS: 11042; G0463

== ENCOUNTER 2016-12-15 11:10 | Outpatient (CLI) | payer MEDICAID ==
[2016-12-15] MEDS ORDERED: XYLOCAINE TOPICAL 2% TP ONE ×2 (11:31→11:42)
== END 2016-12-15 11:11 | disposition home or self-care (01) ==
LOC: WOUND 11:10
PROVIDERS: ATTEND Surgery
DX: E11.622 Type 2 diabetes mellitus with other skin ulcer (principal); L97.812 Non-pressure chronic ulcer of other part of right lower leg with fat layer exposed; I10 Essential (primary) hypertension; Z96.653 Presence of artificial knee joint, bilateral; Z72.89 Other problems related to lifestyle

== ENCOUNTER 2016-12-22 11:05 | Outpatient (CLI) | payer MEDICAID ==
[2016-12-22] MEDS ORDERED: XYLOCAINE TOPICAL 4% TP ONE ×2 (11:24→12:00)
== END 2016-12-22 11:06 | disposition home or self-care (01) ==
LOC: WOUND 11:05
PROVIDERS: ATTEND Surgery
DX: E11.622 Type 2 diabetes mellitus with other skin ulcer (principal); L97.812 Non-pressure chronic ulcer of other part of right lower leg with fat layer exposed; E11.9 Type 2 diabetes mellitus without complications; I10 Essential (primary) hypertension; Z96.642 Presence of left artificial hip joint; Z96.651 Presence of right artificial knee joint; Z72.89 Other problems related to lifestyle
CPT/HCPCS: 87075; 87116

== ENCOUNTER 2016-12-29 11:12 | Outpatient (CLI) | payer MEDICAID ==
[2016-12-29] MEDS ORDERED: XYLOCAINE TOPICAL 2% TP ONE ×2 (11:54)
[2016-12-29] MEDS ORDERED: AD OINTMENT TP ONE (12:10)
[2016-12-30] MEDS ORDERED: AD OINTMENT TP SCH (10:00)
== END 2016-12-29 11:13 | disposition home or self-care (01) ==
LOC: WOUND 11:12
PROVIDERS: ATTEND Surgery
DX: E11.622 Type 2 diabetes mellitus with other skin ulcer (principal); L97.812 Non-pressure chronic ulcer of other part of right lower leg with fat layer exposed; I10 Essential (primary) hypertension; Z96.651 Presence of right artificial knee joint; Z96.642 Presence of left artificial hip joint; Z72.89 Other problems related to lifestyle
CPT/HCPCS: 99215; A6250; G0463

== ENCOUNTER 2017-01-05 11:09 | Outpatient (CLI) | payer MEDICAID ==
[2017-01-05] MEDS ORDERED: XYLOCAINE TOPICAL 4% TP ONE ×2 (11:39→11:49)
[2017-01-05] MEDS ORDERED: LOTRISONE TP ONE (11:57)
[2017-01-05] MEDS ORDERED: LOTRISONE TP SCH (12:00)
== END 2017-01-05 11:10 | disposition home or self-care (01) ==
LOC: WOUND 11:09
PROVIDERS: ATTEND Surgery
DX: E11.622 Type 2 diabetes mellitus with other skin ulcer (principal); L97.812 Non-pressure chronic ulcer of other part of right lower leg with fat layer exposed; I10 Essential (primary) hypertension; Z96.642 Presence of left artificial hip joint; Z96.641 Presence of right artificial hip joint
CPT/HCPCS: 97597

== ENCOUNTER 2017-01-12 11:10 | Outpatient (CLI) | payer MEDICAID ==
[2017-01-12] MEDS ORDERED: XYLOCAINE TOPICAL 4% TP ONE (11:35)
[2017-01-12] MEDS ORDERED: XYLOCAINE TOPICAL 2% ONE (11:36)
[2017-01-12] MEDS ORDERED: XYLOCAINE TOPICAL 2% TP ONE (12:42)
== END 2017-01-12 11:11 | disposition home or self-care (01) ==
LOC: WOUND 11:10
PROVIDERS: ATTEND Surgery
DX: E11.622 Type 2 diabetes mellitus with other skin ulcer (principal); L97.811 Non-pressure chronic ulcer of other part of right lower leg limited to breakdown of skin; I10 Essential (primary) hypertension; Z96.643 Presence of artificial hip joint, bilateral; Z72.89 Other problems related to lifestyle

== ENCOUNTER 2017-01-19 11:03 | Outpatient (CLI) | payer MEDICAID ==
[2017-01-19] MEDS ORDERED: XYLOCAINE TOPICAL 2% ONE (11:24)
[2017-01-19] MEDS ORDERED: XYLOCAINE TOPICAL 2% TP ONE (16:31)
== END 2017-01-19 11:04 | disposition home or self-care (01) ==
LOC: WOUND 11:03
PROVIDERS: ATTEND Surgery
DX: E11.622 Type 2 diabetes mellitus with other skin ulcer (principal); L97.812 Non-pressure chronic ulcer of other part of right lower leg with fat layer exposed; I10 Essential (primary) hypertension; Z96.642 Presence of left artificial hip joint; Z96.641 Presence of right artificial hip joint; Z72.89 Other problems related to lifestyle

== ENCOUNTER 2018-11-18 12:20 | Inpatient (IN) | payer MEDICAID ==
[2018-11-18] MEDS ORDERED: TYLENOL PO PRN (14:12)
[2018-11-18] MEDS ORDERED: ZOFRAN IV PRN (14:12)
[2018-11-18] MEDS ORDERED: SODIUM CHLORIDE FLUSH SYRINGE 10 ML IV PRN (14:12)
--- NOTE | 2018-11-18 14:12 | History and Physical Report ---
History of Present Illness Date of examination: 11/18/18 Date of admission: 10/18/18 Chief complaint: L Leg redness for 2 months History of present illness: 58 year old male with pmh of T2dm,HTN and HLD+Obesity comes to office with severe redness and a open ulcer on LLE below knee.Patient has been having this peoblem for past few monthhs and was treated with oral abx.patient was advised admission and follow up with wound clinic but did not comply. Patient had L Knee replacement following which he developed recurrent infection of soft tissue below knee.Worsening over last week.No fever or chills.No SOB.No recent travel. Past History Past Medical History: arthritis, diabetes, hypertension, hyperlipidemia, other (Obesity) Past Surgical History: total knee replacement ([place]) Social history: lives with family, full code. denies: smoking Family history: hypertension Medications and Allergies Allergies Allergy/AdvReac Type Severity Reaction Status Date / Time No Known Allergies Allergy Verified 06/07/15 11:18 Home Medications Medication Instructions Recorded Confirmed Last Taken Type metFORMIN [Glucophage] 500 mg PO QDAY 05/13/15 11/19/18 06/06/15 History Lisinopril [Zestril TAB] 5 mg PO QDAY #30 tablet 05/16/15 11/19/18 06/06/15 Rx Metoprolol [Lopressor TAB] 50 mg PO BID #60 tablet 05/16/15 11/19/18 06/06/15 Rx Metoprolol [Lopressor TAB] 50 mg PO BID #60 tablet 04/03/16 11/19/18 Unknown Rx Oxycodone HCl/Acetaminophen 1 each PO Q6HR PRN #20 tablet 04/03/16 11/19/18 Unknown Rx [Percocet 10/325 mg] oxyCODONE /ACETAMINOPHEN [Percocet 1 tab PO Q6HR PRN #10 tablet 06/26/16 11/19/18 Unknown Rx 5/325 mg] Pregabalin [Lyrica] 100 mg PO TID #20 capsule 09/13/16 11/19/18 Unknown Rx Review of Systems All systems: negative Integumentary: redness (LLE with 5cmx 5cm open ulcer 1mm depth and Erythema from below knee to ankle.Anteriorlly) Exam - Constitutional General appearance: Present: no acute distress, well-nourished - EENT Eyes: Present: PERRL ENT: hearing intact, clear oral mucosa - Neck Neck: Present: supple, normal ROM - Respiratory Respiratory effort: normal Respiratory: bilateral: CTA - Cardiovascular Heart rate: 78 Rhythm: regular Heart Sounds: Present: S1 & S2. Absent: rub, click - Extremities Extremities: no ischemia, pulses intact, pulses symmetrical, No edema Extremity abnormal: erythema (LLE with open ulcer 5cm x 5cm) Peripheral Pulses: within normal limits - Abdominal General gastrointestinal: Present: soft, non-tender, non-distended, normal bowel sounds Male genitourinary: Present: normal - Integumentary Integumentary: Present: clear, warm, dry - Musculoskeletal Musculoskeletal: gait normal, strength equal bilaterally - Psychiatric Psychiatric: appropriate mood/affect, intact judgment & insight - Neurologic Neurologic: CNII-XII intact, moves all extremities Results - Labs CBC & Chem 7: 11/18/18 17:02 11/18/18 17:02 Labs: Short CBC 11/18/18 Range/Units 17:02 WBC 11.1 H (4.5-11.0) K/mm3 Hgb 16.8 H (11.8-15.2) gm/dl Hct 49.0 H (35.5-45.6) % Plt Count 204 (140-440) K/mm3 BMP 11/18/18 17:02 Sodium 143 Potassium 3.9 Chloride 104.8 Carbon Dioxide 24 BUN 11 Creatinine 0.6 L Glucose 136 H Calcium 9.9 Liver Function 11/18/18 Range/Units 17:02 Total Bilirubin 0.60 (0.1-1.2) mg/dL AST 60 H (5-40) units/L ALT 48 (7-56) units/L Alkaline Phosphatase 93 (35-129) units/L Albumin 4.3 (3.9-5) g/dL - Imaging and Cardiology Imaging and Cardiology: Bilateral Lower extremity Venous and Arterial duplex scan No DVT No occlusions Assessment and Plan Advance Directives: Yes (Full code) VTE prophylaxis?: Chemical Plan of care discussed with patient/family: Yes - Patient Problems (1) Cellulitis of left lower extremity without foot Current Visit: Yes Status: Acute Plan to address problem: IV Unasyn and IV Vancomycin initiated Surgery consult requested Wound care consult requested (2) Diabetes mellitus, type 2 Current Visit: No Status: Chronic Qualifiers: 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 insulin use: without assisted use Plan to address problem: COnt oral Hypoglycemics and coverage (3) Obesity Current Visit: No Status: Chronic Qualifiers: Body mass index: BMI 45.0-49.9 Plan to address problem: [facility]unselled [facility] referral as outpatient (4) HTN (hypertension) Current Visit: Yes Status: Acute Plan to address problem: Cont antihypertensives (5) HLD (hyperlipidemia) Current Visit: Yes Status: Chronic Qualifiers: Hyperlipidemia type: mixed hyperlipidemia Qualified Code(s): E78.2 - Mixed hyperlipidemia Plan to address problem: Cont Fenofibrate and statins (6) DVT prophylaxis Current Visit: No Status: Acute Plan to address problem: On Lovenox and GI prophylaxis
[2018-11-18] MEDS ORDERED: NON-FORMULARY (Oxycodone Hcl/Acetaminophen [Percocet 10/325 Mg] 1 EACH) PO PRN (14:21)
[2018-11-18] MEDS ORDERED: GLUCOPHAGE PO SCH (15:00)
[2018-11-18] MEDS ORDERED: VANCOMYCIN PHARMACY TO DOSE IV SCH (15:00)
[2018-11-18] MEDS ORDERED: NACL 0.9% 1000 ML 1,000 ML IV SCH (16:55)
--- NOTE | 2018-11-18 16:55 | Consultation ---
History of Present Illness Consult date: 11/18/18 Chief complaint: left leg cellulitis - History of present illness History of present illness: 58 yo M with hx of DM, obesity, and bilateral knee replacement presents as a direct admission to the hospital from Dr. Murphy's office. Patient admitted for left leg cellulitis. The patient states that the issue with the leg started after his knee replacement at [place]. Since then he is unable to get around. He has had the redness over the left calf for the past several months. He was treated by Dr. Murphy with oral antibiotics and the patient states he got better. Once he stopped the abx the redness returned. He did not follow up with Dr. Murphy again until today who sent him for admission. He has seen his orthopedic surgeon post op and with his knee complaints. He states he was prescribed some pain medication. No f/c, cp, sob. Denies new wounds, insect bites, etc. Medications and Allergies Allergies Allergy/AdvReac Type Severity Reaction Status Date / Time No Known Allergies Allergy Verified 06/07/15 11:18 Home Medications Medication Instructions Recorded Confirmed Last Taken Type metFORMIN [Glucophage] 500 mg PO QDAY 05/13/15 06/25/16 06/06/15 History Lisinopril [Zestril TAB] 5 mg PO QDAY #30 tablet 05/16/15 06/25/16 06/06/15 Rx Metoprolol [Lopressor TAB] 50 mg PO BID #60 tablet 05/16/15 06/25/16 06/06/15 Rx Metoprolol [Lopressor TAB] 50 mg PO BID #60 tablet 04/03/16 06/25/16 Unknown Rx Oxycodone HCl/Acetaminophen 1 each PO Q6HR PRN #20 tablet 04/03/16 06/25/16 Unknown Rx [Percocet 10/325 mg] oxyCODONE /ACETAMINOPHEN [Percocet 1 tab PO Q6HR PRN #10 tablet 06/26/16 Unknown Rx 5/325 mg] Pregabalin [Lyrica] 100 mg PO TID #20 capsule 09/13/16 Unknown Rx Active Meds: Active Medications Acetaminophen (Tylenol) 650 mg PO Q4H PRN PRN Reason: Pain MILD(1-3)/Fever >100.5/VILLARREAL Enoxaparin Sodium (Lovenox) 40 mg SUB-Q QDAY [facility] Famotidine (Pepcid) 20 mg PO BID [facility] Hydromorphone HCl (Dilaudid) 1 mg IV Q3H PRN PRN Reason: Pain , Severe (7-10) Sodium Chloride (Nacl 0.9% 1000 Ml) 1,000 mls @ 75 mls/hr IV DIRECT YAEL Stop: 11/19/18 09:00 Ampicillin Sodium/Sulbactam Sodium (Unasyn/Ns 3 Gm/100 Ml) 3 gm in 100 mls @ 100 mls/hr IV Q6HR YAEL; Protocol Insulin Glargine (Lantus) 30 units SUB-Q QHS YAEL Insulin Human Lispro (Humalog) 0 unit SUB-Q ACHS YAEL; Protocol Lisinopril (Zestril) 5 mg PO QDAY [facility] Metformin HCl (Glucophage) 500 mg PO QDDIAB [facility] Metoprolol Tartrate (Lopressor) 50 mg PO BID [facility] Miscellaneous Medication (Oxycodone Hcl/Acetaminophen [Percocet 10/325 Mg]) 1 each PO Q6HR PRN PRN Reason: Pain Miscellaneous Medication (Pregabalin [Lyrica]) 100 mg PO TID [facility] Ondansetron HCl (Zofran) 4 mg IV Q8H PRN PRN Reason: Nausea And Vomiting Oxycodone/Acetaminophen (Percocet 5/325) 1 tab PO Q6H PRN PRN Reason: Pain, Moderate (4-6) Sodium Chloride (Sodium Chloride Flush Syringe 10 Ml) 10 ml IV BID [facility] Sodium Chloride (Sodium Chloride Flush Syringe 10 Ml) 10 ml IV PRN PRN PRN Reason: LINE FLUSH Review of Systems All systems: negative (10 PT ROS performed and negative except for that listed in HPI) Exam Narrative exam: Gen: AAOx3. NAD ENT: no scleral icterus or conjunctival pallor CV: s1, S2+ Resp: even and unlabored Ext: LLE cellulitis and edema of lateral and anterior part of calf. No fluctuance or crepitus. Chronic wound of anterior calf. No drainage. Bounding DP pulse. Assessment and Plan 58 yo M with cellulitis of left leg Plan: 1. HbA1C 2. venous duplex and art duplex of LLE 3. IV abx 4. elevation 5. if does not improve over 48-72 hours with IV abx, recommend CT scan of left leg. 6. CBC, BMP pending No surgical intervention planned at this time. Thank you, please call with questions or concerns
[2018-11-18] MEDS: PERCOCET 5/325 PO PRN (17:23)
[2018-11-18] MEDS: LOVENOX SUB-Q SCH (17:26)
[2018-11-18 17:31] LABS: Basophils # (Auto) 0.1 K/mm3 (0.0-0.1); Basophils % (Auto) 1.1 % (0.0-1.8); Eosinophils # (Auto) 0.1 K/mm3 (0.0-0.4); Eosinophils % (Auto) 1.1 % (0.0-4.3); Hemoglobin 16.8 gm/dl (11.8-15.2); Lymphocytes # (Auto) 2.4 K/mm3 (1.2-5.4); Lymphocytes % (Auto) 21.9 % (13.4-35.0); Mean Corpuscular HGB Conc 34 % (32-34); Mean Corpuscular Volume 92 fl (84-94); Monocytes # (Auto) 0.8 K/mm3 (0.0-0.8); Monocytes % (Auto) 6.8 % (0.0-7.3); Platelet Count 204 K/mm3 (140-440); Red Blood Count 5.34 M/mm3 (3.65-5.03); Red Cell Distribution Width 14.9 % (13.2-15.2)
[2018-11-18 17:52] LABS: Alanine Aminotransferase 48 units/L (7-56); Albumin 4.3 g/dL (3.9-5); BUN/Creatinine Ratio 18; Blood Urea Nitrogen 11 mg/dL (9-20); Calcium 9.9 mg/dL (8.4-10.2); Hemolysis Index 7
[2018-11-18] MEDS: LOPRESSOR PO SCH ×2 (19:09→22:23)
[2018-11-18] MEDS: ZESTRIL PO SCH (19:09)
[2018-11-18] MEDS: DILAUDID IV PRN ×2 (19:15→22:21)
[2018-11-18] MEDS: PEPCID PO SCH (19:15)
--- NOTE | 2018-11-18 19:26 | Vascular Lab Report ---
PROCEDURE: VL VENOUS DUPLEX LE LT TECHNIQUE: TECHNIQUE: Real-time color duplex sonography was performed of the deep venous system of t he left lower extremity and images are submitted for interpretation. HISTORY: LLE redness and swelling COMPARISONS: None FINDINGS: Left: There is normal compressibility of the common and superficial femoral veins and the popliteal v ein. Normal venous waveforms are demonstrated throughout. No echogenic thrombus is demonstrated. Linden r flow demonstrated in the posterior tibialis and peroneal veins. IMPRESSION: No evidence of deep venous thrombosis This document is electronically signed by Deepika Hamilton MD., November 18 2018 07:24:47 PM ET
[2018-11-18] MEDS: HumaLOG SUB-Q SCH ×2 (19:38→23:52)
[2018-11-18] MEDS ORDERED: NON-FORMULARY (Pregabalin [Lyrica] 100 MG) PO SCH (20:00)
--- NOTE | 2018-11-18 20:24 | Vascular Lab Report ---
PROCEDURE: VL ARTERIAL DUPLEX LE BILAT TECHNIQUE: Real-time color duplex sonography was performed of the bilateral lower extremity arterial systems and images are submitted for interpretation. Segmental pressures were performed of the bilat eral lower extremities HISTORY: PAD,cellulitis COMPARISONS: None . FINDINGS: Right: There is triphasic flow throughout Velocities: Common femoral artery: Peak systolic 103.7 cm/s Proximal superficial femoral artery: Peak systolic 97.2 cm/s Mid superficial femoral artery: Peak systolic 99.0 cm/s Distal superficial femoral artery: Peak systolic 76.5 cm/s Proximal deep femoral artery: Peak systolic 70.7 cm/s Distal popliteal artery: Peak systolic 102.8 cm/s Distal posterior tibialis artery: Peak systolic 126.5 cm/s Proximal anterior tibialis artery: Peak systolic 106.3 cm/s Proximal dorsalis pedis artery: Peak systolic 90.4 cm/s Left: There is triphasic flow throughout Velocities: Common femoral artery: Peak systolic 124.9 cm/s Proximal superficial femoral artery: Peak systolic 126.8 cm/s Mid superficial femoral artery: Peak systolic 98.3 cm/s Distal superficial femoral artery: Peak systolic 99.2 cm/s Proximal deep femoral artery: Peak systolic 84.5 cm/s Distal popliteal artery: Peak systolic 99.2 cm/s Distal posterior tibialis artery: Peak systolic 117.3 cm/s Proximal anterior tibialis artery: Peak systolic 128.1 cm/s Proximal dorsalis pedis artery: Peak systolic 109.9 cm/s IMPRESSION: No significant stenosis or occlusions This document is electronically signed by Deepika Hamilton MD., November 18 2018 08:22:31 PM ET
[2018-11-18] MEDS: UNASYN/NS 3 GM/100 ML 3 GM/100 ML BAG IV SCH ×2 (20:47→23:53)
[2018-11-18] MEDS: SODIUM CHLORIDE FLUSH SYRINGE 10 ML IV SCH ×2 (20:48→22:03)
--- NOTE | 2018-11-18 21:42 | Event Note ---
Date: 11/18/18 Notified by RN that patient does not have IV access. He is a difficult stick. Using bedside ultrasound, a left EJ was identified and a 20 gauge IV placed using ultrasound guidance. IV slightly positional but did draw back blood through both ports and flushes easily. Secured with tegaderm and tape. Patient tolerated well. Attempted IV in right forearm but unsuccessful due to very small veins. Midline consult ordered for am.
[2018-11-18] MEDS: LYRICA PO SCH (22:22)
[2018-11-18] MEDS: LANTUS SUB-Q SCH (22:26)
[2018-11-18] MEDS: VANCOMYCIN 2,000 MG in NACL 0.9% 500 ML 500 ML IV SCH (22:43)
[2018-11-19] MEDS: DILAUDID IV PRN ×6 (01:25→21:50)
[2018-11-19] MEDS: UNASYN/NS 3 GM/100 ML 3 GM/100 ML BAG IV SCH ×5 (05:04→18:56)
[2018-11-19] MEDS: PERCOCET 5/325 PO PRN (06:55)
[2018-11-19 07:00] LABS: Basophils # (Auto) 0.1 K/mm3 (0.0-0.1); Basophils % (Auto) 1.1 % (0.0-1.8); Eosinophils # (Auto) 0.3 K/mm3 (0.0-0.4); Eosinophils % (Auto) 2.8 % (0.0-4.3); Hematocrit 47.7 % (35.5-45.6); Hemoglobin 16.1 gm/dl (11.8-15.2); Lymphocytes # (Auto) 2.3 K/mm3 (1.2-5.4); Lymphocytes % (Auto) 24.8 % (13.4-35.0); Mean Corpuscular HGB Conc 34 % (32-34); Mean Corpuscular Volume 93 fl (84-94); Monocytes # (Auto) 0.8 K/mm3 (0.0-0.8); Monocytes % (Auto) 8.1 % (0.0-7.3); Platelet Count 195 K/mm3 (140-440); Red Blood Count 5.13 M/mm3 (3.65-5.03); Red Cell Distribution Width 14.7 % (13.2-15.2)
[2018-11-19 07:23] LABS: BUN/Creatinine Ratio 17; Blood Urea Nitrogen 12 mg/dL (9-20); Calcium 8.9 mg/dL (8.4-10.2); Hemolysis Index 18
[2018-11-19] MEDS: GLUCOPHAGE PO SCH ×2 (09:12→09:17)
[2018-11-19] MEDS: LOVENOX SUB-Q SCH ×2 (09:12→09:21)
[2018-11-19] MEDS: LYRICA PO SCH ×3 (09:13→20:13)
[2018-11-19] MEDS: PEPCID PO SCH ×2 (09:13→21:49)
[2018-11-19] MEDS: ZESTRIL PO SCH (09:13)
[2018-11-19] MEDS: HumaLOG SUB-Q SCH ×4 (09:14→22:18)
[2018-11-19] MEDS: LOPRESSOR PO SCH ×2 (09:14→21:49)
[2018-11-19] MEDS: VANCOMYCIN 2,000 MG in NACL 0.9% 500 ML 500 ML IV SCH ×3 (10:24→21:51)
--- NOTE | 2018-11-19 11:56 | Progress Note ---
Assessment and Plan 58 yo M with cellulitis of left leg Plan: 1. HbA1C 9.1 2. venous duplex and art duplex of LLE - negative for DVT or arterial disease 3. IV abx 4. elevation 5. if does not improve over 48-72 hours with IV abx, recommend CT scan of left leg. 6. WBC improved and within normal limits. No surgical intervention planned at this time. Thank you, please call with questions or concerns Subjective Date of service: 11/19/18 Narrative: Pt seen and examined. States he feels better. No f/c. Pain in left leg is controlled. EJ stopped working early this am. PICC nurse placed peripheral IV and will be back to place PICC Objective Vital Signs - 12hr 11/19/18 11/19/18 11/19/18 01:25 01:55 03:42 Temperature Pulse Rate Pulse Rate [ 98 H Apical] Respiratory 18 18 18 Rate Blood Pressure O2 Sat by Pulse 99 Oximetry 11/19/18 11/19/18 11/19/18 05:02 05:21 06:55 Temperature 98.4 F Pulse Rate 67 Pulse Rate [ Apical] Respiratory 18 20 18 Rate Blood Pressure 126/65 O2 Sat by Pulse 93 Oximetry 11/19/18 10:23 Temperature Pulse Rate Pulse Rate [ Apical] Respiratory 16 Rate Blood Pressure O2 Sat by Pulse Oximetry - General physical appearance Narrative Exam: Gen: AAOx3. NAD CV: s1, S2+ resp: even and unlabored Ext: LLE cellulitis mildly improved. Wound on anterior calf is dry without drainage or necrosis. - Labs 11/19/18 06:08 11/19/18 06:08 Diabetes panel 11/18/18 11/18/18 11/19/18 Range/Units 17:02 17:02 06:08 Sodium 143 142 (137-145) mmol/L Potassium 3.9 4.3 (3.6-5.0) mmol/L Chloride 104.8 105.6 (98-107) mmol/L Carbon Dioxide 24 23 (22-30) mmol/L BUN 11 12 (9-20) mg/dL Creatinine 0.6 L 0.7 L (0.8-1.5) mg/dL Glucose 136 H 157 H (75-100) mg/dL Hemoglobin A1c 9.1 H (4-6) % Calcium 9.9 8.9 (8.4-10.2) mg/dL AST 60 H (5-40) units/L ALT 48 (7-56) units/L Alkaline Phosphatase 93 (35-129) units/L Total Protein 7.8 (6.3-8.2) g/dL Albumin 4.3 (3.9-5) g/dL Calcium panel 11/18/18 11/19/18 Range/Units 17:02 06:08 Calcium 9.9 8.9 (8.4-10.2) mg/dL Albumin 4.3 (3.9-5) g/dL Pituitary panel 11/18/18 11/19/18 Range/Units 17:02 06:08 Sodium 143 142 (137-145) mmol/L Potassium 3.9 4.3 (3.6-5.0) mmol/L Chloride 104.8 105.6 (98-107) mmol/L Carbon Dioxide 24 23 (22-30) mmol/L BUN 11 12 (9-20) mg/dL Creatinine 0.6 L 0.7 L (0.8-1.5) mg/dL Glucose 136 H 157 H (75-100) mg/dL Calcium 9.9 8.9 (8.4-10.2) mg/dL Adrenal panel 11/18/18 11/19/18 Range/Units 17:02 06:08 Sodium 143 142 (137-145) mmol/L Potassium 3.9 4.3 (3.6-5.0) mmol/L Chloride 104.8 105.6 (98-107) mmol/L Carbon Dioxide 24 23 (22-30) mmol/L BUN 11 12 (9-20) mg/dL Creatinine 0.6 L 0.7 L (0.8-1.5) mg/dL Glucose 136 H 157 H (75-100) mg/dL Calcium 9.9 8.9 (8.4-10.2) mg/dL Total Bilirubin 0.60 (0.1-1.2) mg/dL AST 60 H (5-40) units/L ALT 48 (7-56) units/L Alkaline Phosphatase 93 (35-129) units/L Total Protein 7.8 (6.3-8.2) g/dL Albumin 4.3 (3.9-5) g/dL
[2018-11-19] MEDS: SODIUM CHLORIDE FLUSH SYRINGE 10 ML IV SCH ×2 (13:57→22:02)
--- NOTE | 2018-11-19 15:17 | XRay Report ---
PROCEDURE: XR CHEST 1V AP TECHNIQUE: Chest, portable upright HISTORY: Left arm PICC placement COMPARISON: 06/25/2016 FINDINGS: There is a left PICC line. Its tip is not well visualized. It may be in the brachiocephalic approachi ng the SVC. The heart size is normal. There is no pulmonary vascular congestion seen. Mediastinal contours are normal. Lungs are clear. There is no pleural effusion seen. There is no pneumothorax seen. IMPRESSION: PICC line tip not well visualized, possibly in the left brachiocephalic vein approaching the SVC. This document is electronically signed by Rachele Becker MD., November 19 2018 03:16:10 PM ET
--- NOTE | 2018-11-19 17:57 | Progress Note ---
Assessment and Plan /Cellulitis of left lower extremity without foot IV Unasyn and IV Vancomycin initiated Surgery consult requested - no plan for surgery Wound care consult requested / Diabetes mellitus, type 2 COnt oral Hypoglycemics and SSI coverage /Obesity COunselled [facility] surgery referral as outpatient if applicable /HTN (hypertension) Cont antihypertensives /HLD (hyperlipidemia) Cont Fenofibrate and statins / DVT prophylaxis On Lovenox and GI prophylaxis Brief history:58 yo M with hx of DM, obesity, and bilateral knee replacement p resents as a direct admission to the hospital from Dr. Murphy's office. Patient admitted for left leg cellulitis. Hospitalist physical: GENERAL: well-developed morbidly obese white male lying on bed appeared to be in no discomfort. HEENT: Normocephalic. Atraumatic. No conjunctival congestion or icterus. Patient has moist mucous membranes. NECK: Supple. Trachea midline. CHEST/LUNGS: Clear to auscultated bilaterally, breathing nonlabored. No wheezes crackles or rhonchi. HEART/CARDIOVASCULAR: Regular in rate and rhythm. S1 and S2 positive. ABDOMEN: Abdomen is soft, nontender. Patient has normal bowel sounds. SKIN: There is no rash. Warm and dry. NEURO: No focal motor deficit. Follows command. MUSCULOSKELETAL: No joint effusion or tenderness. EXTRIMITY: No edema, no cyanosis or clubbing. Extensive left lower extremity erythema, tenderness and mild swelling extending from left ankle to left knee mainly on the anterior mediolateral surface. PSYCH: Cooperative. Subjective Date of service: 11/19/18 Interval history: Patient seen and examined. Medical records and medication list reviewed. No acute event overnight noted by the RN. Patient denies any chest pain or difficulty breathing. Patient is tolerating diet. Complains of left lower extremity pain and swelling Discussed plan of care at bedside with patient. Objective - Constitutional Vitals: Vital Signs - 12hr 11/19/18 11/19/18 11/19/18 06:55 10:23 12:26 Temperature 98.1 F Pulse Rate 64 Respiratory 18 16 15 Rate Blood Pressure 124/59 O2 Sat by Pulse 95 Oximetry - Labs CBC & Chem 7: 11/19/18 06:08 11/19/18 06:08 Labs: Abnormal lab results 11/18/18 11/18/18 11/19/18 Range/Units 19:41 21:22 06:08 RBC 5.13 H (3.65-5.03) M/mm3 Hgb 16.1 H (11.8-15.2) gm/dl Hct 47.7 H (35.5-45.6) % [place]clennan % (Auto) 8.1 H (0.0-7.3) % Creatinine (0.8-1.5) mg/dL Glucose (75-100) mg/dL POC Glucose 200 H 203 H (70-105) 11/19/18 11/19/18 11/19/18 Range/Units 06:08 08:00 12:31 RBC (3.65-5.03) M/mm3 Hgb (11.8-15.2) gm/dl Hct (35.5-45.6) % [place]clennan % (Auto) (0.0-7.3) % Creatinine 0.7 L (0.8-1.5) mg/dL Glucose 157 H (75-100) mg/dL POC Glucose 207 H 190 H (70-105)
[2018-11-19] MEDS: LANTUS SUB-Q SCH (22:17)
[2018-11-20] MEDS: DILAUDID IV PRN ×7 (02:11→21:53)
[2018-11-20] MEDS: UNASYN/NS 3 GM/100 ML 3 GM/100 ML BAG IV SCH ×4 (05:02→18:28)
[2018-11-20] MEDS: VANCOMYCIN 2,000 MG in NACL 0.9% 500 ML 500 ML IV SCH ×3 (05:13→21:57)
[2018-11-20] MEDS: GLUCOPHAGE PO SCH (08:27)
[2018-11-20] MEDS: HumaLOG SUB-Q SCH ×4 (09:44→21:57)
[2018-11-20] MEDS: LOVENOX SUB-Q SCH (09:45)
[2018-11-20] MEDS: LYRICA PO SCH ×5 (09:45→21:57)
[2018-11-20] MEDS: ZESTRIL PO SCH (09:45)
[2018-11-20] MEDS: LOPRESSOR PO SCH ×2 (09:46→21:54)
[2018-11-20] MEDS: PEPCID PO SCH ×2 (09:46→21:53)
--- NOTE | 2018-11-20 11:45 | Progress Note ---
Assessment and Plan /Cellulitis of left lower extremity without foot negative venous doppler IV Unasyn and IV Vancomycin initiated Surgery consult requested - no plan for surgery Wound care consult requested -pending blood cx ordered / Diabetes mellitus, type 2 COnt oral Hypoglycemics and SSI coverage A1c 9.1 /Left knee pain - plan for arthocentesis tomorrow /Obesity COunselled [facility] surgery referral as outpatient if applicable /HTN (hypertension) Cont antihypertensives /HLD (hyperlipidemia) Cont Fenofibrate and statins / DVT prophylaxis On Lovenox and GI prophylaxis Brief history: 58 yo M with hx of DM, obesity, and bilateral knee replacement presents as a direct admission to the hospital from Dr. Murphy's office. Patient admitted for left leg cellulitis. Hospitalist physical: GENERAL: well-developed morbidly obese white male lying on bed appeared to be in no discomfort. HEENT: Normocephalic. Atraumatic. No conjunctival congestion or icterus. Patient has moist mucous membranes. NECK: Supple. Trachea midline. CHEST/LUNGS: Clear to auscultated bilaterally, breathing nonlabored. No wheezes crackles or rhonchi. HEART/CARDIOVASCULAR: Regular in rate and rhythm. S1 and S2 positive. ABDOMEN: Abdomen is soft, nontender. Patient has normal bowel sounds. SKIN: There is no rash. Warm and dry. NEURO: No focal motor deficit. Follows command. MUSCULOSKELETAL: left knee effusion or tenderness. EXTRIMITY: No edema, no cyanosis or clubbing. Extensive left lower extremity e rythema, tenderness and mild swelling extending from left ankle to left knee mainly on the anterior mediolateral surface. PSYCH: Cooperative. Subjective Date of service: 11/20/18 Interval history: Patient seen and examined. Medical records and medication list reviewed. No acute event overnight noted by the RN. Patient denies any chest pain or difficulty breathing. Patient is tolerating diet. Complains of left knee pain and swelling Discussed plan of care at bedside with patient. Objective - Constitutional Vitals: Vital Signs - 12hr 11/19/18 11/20/18 11/20/18 23:52 06:08 08:30 Temperature 97.9 F 98.3 F Pulse Rate 78 65 Respiratory 20 20 16 Rate Blood Pressure 154/72 153/78 O2 Sat by Pulse 94 94 Oximetry - Labs CBC & Chem 7: 11/19/18 06:08 06/29/19 06:08 Labs: Abnormal lab results 11/19/18 11/19/18 11/19/18 Range/Units 12:31 18:19 21:36 POC Glucose 190 H 132 H 163 H (70-105) 11/20/18 Range/Units 08:37 POC Glucose 162 H (70-105)
[2018-11-20] MEDS ORDERED: XANAX PO PRN (12:00)
[2018-11-20] MEDS: SODIUM CHLORIDE FLUSH SYRINGE 10 ML IV SCH ×2 (13:08→21:56)
--- NOTE | 2018-11-20 15:18 | Progress Note ---
Assessment and Plan 58 yo M with cellulitis of left leg Plan: 1. HbA1C 9.1, strict glucose control 2. venous duplex and art duplex of LLE - negative for DVT or arterial disease 3. IV abx 4. elevation 5. wound care consult pending - will see pt with marble machine tender tomorrow No surgical intervention planned at this time. Patient will need outpatient follow up in wound care center on dc. Thank you, please call with questions or concerns Subjective Date of service: 11/20/18 Narrative: Pt seen and examined. States swelling and soreness in left leg is better but still c/o pain in his knee. No f/c. Objective Vital Signs - 12hr 11/20/18 11/20/18 11/20/18 06:08 08:30 12:06 Temperature 98.3 F 98.2 F Pulse Rate 65 65 Respiratory 20 16 16 Rate Blood Pressure 153/78 136/65 O2 Sat by Pulse 94 94 Oximetry - General physical appearance Narrative Exam: Gen: AAOx3. NAD CV: S1, S2+ resp: even and unlabored Ext: LLE cellulitis and edema improving. Wound on anterior calf with superficial layer sloughing. Underlying wound bed is red and clean. Some slough around the edges of the wound. Packed with alginate and coversite dressing - Labs 11/19/18 06:08 11/19/18 06:08
[2018-11-20] MEDS: LANTUS SUB-Q SCH (21:55)
[2018-11-20] MEDS ORDERED: GLUCOTROL PO SCH (22:00)
[2018-11-20] MEDS ORDERED: TRICOR PO SCH (22:00)
[2018-11-20] MEDS ORDERED: NON-FORMULARY (Fenofibrate [Fenofibrate] 160 MG) PO SCH (22:00)
[2018-11-21] MEDS: UNASYN/NS 3 GM/100 ML 3 GM/100 ML BAG IV SCH ×2 (01:09→05:50)
[2018-11-21] MEDS: DILAUDID IV PRN ×2 (01:14→04:34)
[2018-11-21] MEDS: VANCOMYCIN 2,000 MG in NACL 0.9% 500 ML 500 ML IV SCH (05:51)
[2018-11-21 06:48] VITALS: BP 141/74
[2018-11-21] MEDS ORDERED: TRIPLE ANTIBIOTIC TP NR (07:25)
--- NOTE | 2018-11-21 09:45 | Event Note ---
Date: 11/21/18 patient wants to leave for family urgency Left knee joint aspiration, wound consult and blood cx pending will call prescription to pharmacy when blood cx result available
--- NOTE | 2018-11-21 09:47 | Discharge Summary ---
Providers - Providers Date of Admission: 11/18/18 15:02 Date of discharge: 11/21/18 Attending physician: MARIZA MORRIS 11/18/18 14:13 Consult to Physician [CONS] Routine Comment: Consulting Provider: RAN TALAVERA Physician Instructions: Reason For Exam: cellulitis 11/18/18 14:18 Consult to Wound/ET Nurse [CONS] Routine Reason For Exam: wound eval 11/18/18 21:07 Consult to Wound/ET Nurse [CONS] Routine Reason For Exam: wound eval 11/19/18 09:59 Consult to PICC Line RN [CONS] Routine Reason For Exam: piccline placement Type Line:: PICC Primary care physician: TELLY MURPHY Hospitalization Pertinent studies: CXR Venous duplex LE Hospital course: Brief history: 58 yo M with hx of DM, obesity, and bilateral knee replacement presents as a direct admission to the hospital from Dr. Murphy's office. Patient admitted for left leg cellulitis. He had negative venous doppler, placed on IV Unasyn and IV Vancomycin, Surgery consult requested - no plan for surgery. Wound care consulted, blood cx ordered, but patient left AMA and wanted to f/u with his PCP outpt for further management. Discharge diagnosis : /Cellulitis of left lower extremity without foot / Diabetes mellitus, type 2, A1c 9.1 /Left knee pain - planned for arthocentesis but he left AMA /Obesity, COunselled /HTN (hypertension), Cont antihypertensives /HLD (hyperlipidemia), Cont Fenofibrate and statins / DVT prophylaxis On Lovenox and GI prophylaxis Hospitalist physical: GENERAL: well-developed morbidly obese white male lying on bed appeared to be in no discomfort. HEENT: Normocephalic. Atraumatic. No conjunctival congestion or icterus. Patient has moist mucous membranes. NECK: Supple. Trachea midline. CHEST/LUNGS: Clear to auscultated bilaterally, breathing nonlabored. No wheezes crackles or rhonchi. HEART/CARDIOVASCULAR: Regular in rate and rhythm. S1 and S2 positive. ABDOMEN: Abdomen is soft, nontender. Patient has normal bowel sounds. SKIN: There is no rash. Warm and dry. NEURO: No focal motor deficit. Follows command. MUSCULOSKELETAL: left knee effusion or tenderness. EXTRIMITY: No edema, no cyanosis or clubbing. Extensive left lower extremity erythema, tenderness and mild swelling extending from left ankle to left knee mainly on the anterior mediolateral surface. PSYCH: Cooperative. Disposition: DC-[id number] LEFT AGAINST MED ADVICE Core Measure Documentation - Palliative Care Palliative Care/ Comfort Measures: Not Applicable - Core Measures Any of the following diagnoses?: none Exam - Constitutional Vitals: Temp Pulse Resp BP Pulse Ox 99.1 F 68 20 141/74 93 11/21/18 06:00 11/21/18 06:00 11/21/18 06:00 11/21/18 06:00 11/21/18 06:00 Plan Activity: advance as tolerated Weight Bearing Status: Weight Bear as Tolerated Diet: low carbohydrate Wound: keep clean and dry Follow up with: TELLY MURPHY MD [Primary Care Provider] - 7 Days
== END 2018-11-21 07:55 | disposition left against medical advice (07) | DRG 603 ==
LOC: 3A 12:20 → UNDOADMOB 12:20 → 3A 15:01 → OBSVTOIN 15:02
PROVIDERS: ADMIT Internal Medicine; ATTEND Internal Medicine
PROC: 02HV33Z Insertion of Infusion Device into Superior Vena Cava, Percutaneous Approach (ICD-10-PCS; principal; 2018-11-19)
DX: L03.116 Cellulitis of left lower limb (principal); E11.9 Type 2 diabetes mellitus without complications; E66.9 Obesity, unspecified; Z68.41 Body mass index [BMI] 40.0-44.9, adult; E78.2 Mixed hyperlipidemia; Z53.21 Procedure and treatment not carried out due to patient leaving prior to being seen by health care provider; R65.10 Systemic inflammatory response syndrome (SIRS) of non-infectious origin without acute organ dysfunction; I10 Essential (primary) hypertension; Z96.653 Presence of artificial knee joint, bilateral; Z82.49 Family history of ischemic heart disease and other diseases of the circulatory system; Z79.899 Other long term (current) drug therapy; Z79.84 Long term (current) use of oral hypoglycemic drugs; Z71.3 Dietary counseling and surveillance
CPT/HCPCS: 36415; 71045; 80048; 80053; 80202; 82962; 83036; 85025; 87040; 87116; 93925; G0378; A6250; A9270-GY; G0379; J0295; J1170; J1650; J1815; J3370; J7040

== ENCOUNTER 2019-02-21 10:59 | Observation (INO) | payer MEDICAID ==
[2019-02-21] MEDS ORDERED: D50W (25GM) Syringe IV PRN (11:50)
[2019-02-21] MEDS ORDERED: VANCOMYCIN PHARMACY TO DOSE IV SCH (12:00)
[2019-02-21] MEDS ORDERED: NACL 0.9% 1000 ML 1,000 ML IV SCH (13:00)
[2019-02-21] MEDS ORDERED: UNASYN/NS 3 GM/100 ML 3 GM/100 ML BAG IV SCH (14:00)
[2019-02-21 14:24] LABS: Basophils % (Auto) 0.3 % (0.0-1.8); Eosinophils # (Auto) 0.3 K/mm3 (0.0-0.4); Eosinophils % (Auto) 3.4 % (0.0-4.3); Hemoglobin 15.5 gm/dl (11.8-15.2); Lymphocytes % (Auto) 23.9 % (13.4-35.0); Mean Corpuscular HGB Conc 34 % (32-34); Mean Corpuscular Volume 92 fl (84-94); Monocytes # (Auto) 0.7 K/mm3 (0.0-0.8); Monocytes % (Auto) 8.2 % (0.0-7.3); Platelet Count 162 K/mm3 (140-440); Red Blood Count 4.87 M/mm3 (3.65-5.03); Red Cell Distribution Width 14.5 % (13.2-15.2)
[2019-02-21 14:49] LABS: Alanine Aminotransferase 46 units/L (7-56); Albumin 4.2 g/dL (3.9-5); BUN/Creatinine Ratio 17; Blood Urea Nitrogen 10 mg/dL (9-20); Calcium 9.3 mg/dL (8.4-10.2); Hemolysis Index 14
[2019-02-21] MEDS ORDERED: PERCOCET 5/325 PO PRN (15:06)
[2019-02-21] MEDS ORDERED: XANAX PO PRN (15:06)
[2019-02-21] MEDS ORDERED: VANCOMYCIN 2,000 MG in NACL 0.9% 500 ML 500 ML IV ONE (15:30)
[2019-02-21] MEDS ORDERED: GLUCOTROL PO SCH (17:00)
[2019-02-21] MEDS: DILAUDID IV PRN ×2 (17:27→22:06)
[2019-02-21] MEDS: UNASYN/NS 3 GM/100 ML 3 GM/100 ML BAG IV SCH (17:28)
[2019-02-21] MEDS: HumaLOG SUB-Q SCH ×2 (17:59→22:21)
[2019-02-21] MEDS: LOPRESSOR PO SCH ×2 (17:59→21:51)
[2019-02-21] MEDS: PREGABALIN PO SCH ×4 (17:59→20:08)
[2019-02-21] MEDS ORDERED: NON-FORMULARY (Pregabalin [Lyrica] 200 MG) PO SCH (20:00)
--- NOTE | 2019-02-21 20:56 | History and Physical Report ---
History of Present Illness Date of admission: 02/21/19 13:20 Chief complaint: My leg is red History of present illness: 59 YO Male with Obesity Hypoventilation Syndrome, HTN, DM complicated by Neuropathy, HLD, Chronic Pain admitted directly at the request of Dr. Murphy. Pt was seen and evaluated by PCP and found to have LLE cellulitis. Pt acknowledges pain and redness to his left leg. Pt denies fever, chills, CP, Palpitations, NVD, Trauma, falls, unilateral leg swelling, calf pain, hemoptysis, or recent ill contacts. Pt seen and evaluated upon arrival. Pt initiated on IV antibiotic therapy. CBC, CMP, ordered and pending at time of evaluation. Past History Past Medical History: diabetes, hypertension Past Surgical History: total hip replacement, Other (Back surgery, carpal tunel surgery) Social history: . denies: smoking, alcohol abuse, prescription drug abuse Family history: diabetes, hypertension Medications and Allergies Allergies Allergy/AdvReac Type Severity Reaction Status Date / Time No Known Allergies Allergy Verified 06/07/15 11:18 Home Medications Medication Instructions Recorded Confirmed Last Taken Type Metoprolol [Lopressor TAB] 50 mg PO BID #60 tablet 04/03/16 02/21/19 02/21/19 08:00 Rx oxyCODONE /ACETAMINOPHEN [Percocet 1 tab PO Q6HR PRN #10 tablet 06/26/16 02/21/19 02/21/19 07:00 Rx 5/325 mg] ALPRAZolam [Xanax TAB] 1 mg PO TID PRN 11/19/18 02/21/19 02/17/19 22:00 History AtorvaSTATin [Lipitor] 20 mg PO HS 11/19/18 02/21/19 02/20/19 22:00 History Fenofibrate 160 mg PO HS 11/19/18 02/21/19 02/20/19 22:00 History Insulin Glargine [Lantus VIAL] 70 units SQ QHS 11/19/18 02/21/19 02/20/19 22:00 History Pregabalin [Lyrica] 200 mg PO TID 11/19/18 02/21/19 02/21/19 08:00 History glipiZIDE [Glucotrol] 10 mg PO BID 11/19/18 02/21/19 02/21/19 08:00 History Active Meds: Active Medications Alprazolam (Xanax) 1 mg PO TID PRN PRN Reason: Anxiety Atorvastatin Calcium (Lipitor) 20 mg PO HS [facility] Dextrose (D50w (25gm) Syringe) 50 ml IV PRN PRN PRN Reason: Hypoglycemia Fenofibrate (Tricor) 145 mg PO QHS YAEL Glipizide (Glucotrol) 10 mg PO BIDDIAB [facility] Last Admin: 02/21/19 17:27 Dose: 10 mg Documented by: Hydromorphone HCl (Dilaudid) 1 mg IV Q4HR PRN PRN Reason: SEV PAIN Last Admin: 02/21/19 17:27 Dose: 1 mg Documented by: Sodium Chloride (Nacl 0.9% 1000 Ml) 1,000 mls @ 75 mls/hr IV DIRECT [facility] Stop: 02/22/19 02:19 Last Admin: 02/21/19 17:30 Dose: 75 mls/hr Documented by: Ampicillin Sodium/Sulbactam Sodium (Unasyn/Ns 3 Gm/100 Ml) 3 gm in 100 mls @ 100 mls/hr IV Q6HR [facility]; Protocol Last Admin: 02/21/19 17:28 Dose: 100 mls/hr Documented by: Vancomycin HCl 2,000 mg/ (Sodium Chloride) 540 mls @ 250 mls/hr IV Q12H [facility] Insulin Human Lispro (Humalog) 0 unit SUB-Q ACHS [facility]; Protocol Last Admin: 02/21/19 17:59 Dose: 3 unit Documented by: Metoprolol Tartrate (Lopressor) 50 mg PO BID [facility] Last Admin: 02/21/19 17:59 Dose: 50 mg Documented by: Oxycodone/Acetaminophen (Percocet 5/325) 1 tab PO Q6HR PRN PRN Reason: Pain, Moderate (4-6) Last Admin: 02/21/19 19:12 Dose: 1 tab Documented by: Pregabalin (Pregabalin) 50 mg PO TID [facility] Last Admin: 02/21/19 20:07 Dose: Not Given Documented by: Pregabalin (Pregabalin) 150 mg PO TID [facility] Last Admin: 02/21/19 20:08 Dose: Not Given Documented by: Review of Systems Constitutional: weight gain, no weight loss, no fever, no chills, no sweats Ears, nose, mouth and throat: no ear pain, no ear discharge, no tinnitis, no decreased hearing, no nose pain, no sinus pressure Cardiovascular: no orthopnea, no palpitations, no edema, no lightheadedness Respiratory: no cough, no cough with sputum, no excessive sputum, no hemoptysis, no shortness of breath Gastrointestinal: no abdominal pain, no nausea, no vomiting, no diarrhea, no change in bowel habits, no hematemesis Genitourinary Male: no hematuria, no flank pain, no urinary hesitancy, no nocturia, no incontinence Rectal: no pain, no incontinence, no bleeding Musculoskeletal: no neck pain, no shooting arm pain, no arm numbness/tingling, no low back pain Integumentary: redness, no bullae, no darkening of skin, no depigmentation Neurological: no transient paralysis, no paralysis, no parathesias, no numbness, no tingling, no seizures Psychiatric: no anxiety, no memory loss, no insomnia, no hypersomnia, no change in appetite, no change in libido, no disorientation Endocrine: no cold intolerance, no heat intolerance, no excessive thirst, no polydipsia, no polyuria Hematologic/Lymphatic: no easy bruising, no easy bleeding, no lymphadenopathy Allergic/Immunologic: no urticaria, no allergic rhinitis, no persistent infections, no anaphylaxis, no angioedema Exam - Constitutional Vitals: Temp Pulse Resp BP Pulse Ox 97.9 F 71 20 142/71 93 02/21/19 17:04 02/21/19 17:04 02/21/19 17:04 02/21/19 17:04 02/21/19 17:04 General appearance: Present: mild distress - EENT Eyes: Present: PERRL ENT: hearing intact, clear oral mucosa - Neck Neck: Present: supple, normal ROM - Respiratory Respiratory effort: normal Respiratory: bilateral: CTA - Cardiovascular Heart Sounds: Present: S1 & S2. Absent: rub, click - Extremities Extremities: pulses symmetrical Extremity abnormal: edema, erythema, tenderness Peripheral Pulses: within normal limits - Abdominal General gastrointestinal: Present: soft, non-tender, non-distended, normal bowel sounds Male genitourinary: Present: normal - Integumentary Integumentary: Present: clear, warm, dry - Musculoskeletal Musculoskeletal: gait normal, strength equal bilaterally - Psychiatric Psychiatric: appropriate mood/affect, intact judgment & insight - Neurologic Neurologic: CNII-XII intact, moves all extremities Results - Labs CBC & Chem 7: 02/21/19 13:52 02/21/19 13:52 Labs: Abnormal lab results 02/21/19 02/21/19 02/21/19 Range/Units 13:52 13:52 13:52 Hgb 15.5 H (11.8-15.2) gm/dl [place] % (Auto) 8.2 H (0.0-7.3) % Creatinine 0.6 L (0.8-1.5) mg/dL Glucose 263 H (75-100) mg/dL POC Glucose (70-105) Hemoglobin A1c 9.6 H (4-6) % AST 56 H (5-40) units/L 02/21/19 Range/Units 17:16 Hgb (11.8-15.2) gm/dl [place] % (Auto) (0.0-7.3) % Creatinine (0.8-1.5) mg/dL Glucose (75-100) mg/dL POC Glucose 217 H (70-105) Hemoglobin A1c (4-6) % AST (5-40) units/L Assessment and Plan - Patient Problems (1) Cellulitis Current Visit: No Status: Acute Qualifiers: Site of cellulitis of extremity: lower extremity Laterality: left Plan to address problem: IV antibiotic therapy, CBC, CMP,. supportive care. wound care. (2) HTN (hypertension) Current Visit: No Status: Acute Qualifiers: Hypertension type: essential hypertension Qualified Code(s): I10 - Essential (primary) hypertension Plan to address problem: monitor bp q shift, continue medical management. (3) Obesity (BMI 35.0-39.9 without comorbidity) Current Visit: No Status: Chronic Plan to address problem: Balanced diet, increased physical activity at discharge, supportive care. (4) Obesity hypoventilation syndrome Current Visit: Yes Status: Acute Plan to address problem: supplemental oxygen, nebulizer therapy, NIPPV as clinically indicated. (5) DVT prophylaxis Current Visit: No Status: Acute Plan to address problem: SCD to BLE while in bed, pt ambulatory
[2019-02-21] MEDS ORDERED: NON-FORMULARY (Fenofibrate [Fenofibrate] 160 MG) PO SCH (22:00)
[2019-02-21] MEDS: TRICOR PO SCH (22:05)
[2019-02-22] MEDS: UNASYN/NS 3 GM/100 ML 3 GM/100 ML BAG IV SCH ×4 (00:29→17:24)
[2019-02-22] MEDS: DILAUDID IV PRN ×5 (03:30→22:28)
[2019-02-22] MEDS: VANCOMYCIN 2,000 MG in NACL 0.9% 500 ML 500 ML IV SCH ×2 (06:54→18:56)
[2019-02-22] MEDS: PREGABALIN PO SCH ×6 (08:11→21:01)
--- NOTE | 2019-02-22 08:25 | Progress Note ---
Assessment and Plan Assessment and plan: 59-year-old man who presents to the hospital with redness of left lower extremity. It began after he bumped his left leg on dinner tray that was sent by the couch. Some skin was broken after which she started having intense pain redness and swelling of the leg. While he was in the ER on the day of admission he states that he accidentally bumped his right leg and since then, he is also had pain swelling tenderness of his right leg also. -Patient is also complaining of left knee swelling and pain, his left knee has not been same after he had knee replacement 18 months ago Patient states that he was put in Unna boot last year, and had a lot of improvement in his symptoms from it. Past medical history; hypertension and diabetes Diagnosis Left lower extremity cellulitis Peripheral vascular disease Hypertension Obesity Plan Antibiotics Continue home meds Optimize insulins -Wound care consult, ID consult, PICC line was ordered by his primary care physician, has been placed -Obtain left knee x-ray, vascular studies of lower extremities. Will speak to wound care about possibly providing compression/ulna dressing if deemed necessary DVT prophylaxis with Lovenox History Interval history: Complaining of bilateral lower extremity erythema swelling and tenderness Review of systems Constitutional: No fevers, no malaise, no joint pains CVS: No chest pain, no orthopnea, no pedal edema GI: No abdominal pain, no diarrhea, no vomiting, no constipation Respiratory: No shortness of breath, no wheezing, no coughing Hospitalist Physical - Physical exam Narrative exam: General.: Appears well, no distress, nontoxic HEENT: Moist mucous membranes, extraocular muscles intact, no lymphadenopathy Neck: supple Cardiac: S1-S2 heard Lungs: clear to auscultation bilaterally Abdomen: soft , nontender, nondistended, bowel sounds positive Extremities: Left leg swelling, redness and tenderness, There is a 2 x 2.5 cm erosion on the left li Right leg swelling erythema, there is also an erosion on the right lower extremity, 1x1cm on R lateral lower leg Skin: no rash or lesions Neurologic: no gross focal deficits Psych: calm, and cooperative - Constitutional Vitals: Temp Pulse Resp BP Pulse Ox 97.9 F 72 26 H 133/67 93 02/22/19 05:24 02/22/19 05:24 02/22/19 05:24 02/22/19 05:24 02/22/19 05:24 General appearance: Present: mild distress Results - Labs CBC & Chem 7: 02/21/19 13:52 02/21/19 13:52 Labs: Laboratory Last Values WBC 8.5 K/mm3 (4.5-11.0) 02/21/19 13:52 RBC 4.87 M/mm3 (3.65-5.03) 02/21/19 13:52 Hgb 15.5 gm/dl (11.8-15.2) H 02/21/19 13:52 Hct 45.0 % (35.5-45.6) 02/21/19 13:52 MCV 92 fl (84-94) 02/21/19 13:52 MCH 32 pg (28-32) 02/21/19 13:52 MCHC 34 % (32-34) 02/21/19 13:52 RDW 14.5 % (13.2-15.2) 02/21/19 13:52 Plt Count 162 K/mm3 (140-440) 02/21/19 13:52 Lymph % (Auto) 23.9 % (13.4-35.0) 02/21/19 13:52 [place] % (Auto) 8.2 % (0.0-7.3) H 02/21/19 13:52 Eos % (Auto) 3.4 % (0.0-4.3) 02/21/19 13:52 Baso % (Auto) 0.3 % (0.0-1.8) 02/21/19 13:52 Lymph # 2.0 K/mm3 (1.2-5.4) 02/21/19 13:52 [place] # 0.7 K/mm3 (0.0-0.8) 02/21/19 13:52 Eos # 0.3 K/mm3 (0.0-0.4) 02/21/19 13:52 Baso # 0.0 K/mm3 (0.0-0.1) 02/21/19 13:52 Seg Neutrophils % 64.2 % (40.0-70.0) 02/21/19 13:52 Seg Neutrophils # 5.4 K/mm3 (1.8-7.7) 02/21/19 13:52 Sodium 138 mmol/L (137-145) 02/21/19 13:52 Potassium 4.3 mmol/L (3.6-5.0) 02/21/19 13:52 Chloride 100.9 mmol/L (98-107) 02/21/19 13:52 Carbon Dioxide 23 mmol/L (22-30) 02/21/19 13:52 Anion Gap 18 mmol/L 02/21/19 13:52 BUN 10 mg/dL (9-20) 02/21/19 13:52 Creatinine 0.6 mg/dL (0.8-1.5) L 02/21/19 13:52 Estimated GFR > 60 ml/min 02/21/19 13:52 BUN/Creatinine Ratio 17 % 02/21/19 13:52 Glucose 263 mg/dL (75-100) H 02/21/19 13:52 POC Glucose 213 (70-105) H 02/22/19 07:46 Hemoglobin A1c 9.6 % (4-6) H 02/21/19 13:52 Calcium 9.3 mg/dL (8.4-10.2) 02/21/19 13:52 Total Bilirubin 0.50 mg/dL (0.1-1.2) 02/21/19 13:52 AST 56 units/L (5-40) H 02/21/19 13:52 ALT 46 units/L (7-56) 02/21/19 13:52 Alkaline Phosphatase 88 units/L (35-129) 02/21/19 13:52 Total Protein 7.5 g/dL (6.3-8.2) 02/21/19 13:52 Albumin 4.2 g/dL (3.9-5) 02/21/19 13:52 Albumin/Globulin Ratio 1.3 % 02/21/19 13:52 Active Medications - Current Medications Current Medications: Generic Name Dose Route Start Last Admin Trade Name Freq PRN Reason Stop Dose Admin Alprazolam 1 mg 02/21/19 15:06 Xanax PO TID PRN Anxiety Atorvastatin Calcium 20 mg 02/21/19 22:00 02/21/19 22:05 Lipitor PO 20 mg HS YAEL Administration Dextrose 50 ml 02/21/19 11:50 D50w (25gm) Syringe IV PRN PRN Hypoglycemia Fenofibrate 145 mg 02/21/19 22:00 02/21/19 22:05 Tricor PO 145 mg QHS YAEL Administration Hydromorphone HCl 1 mg 02/21/19 11:57 02/22/19 08:11 Dilaudid IV 1 mg Q4HR PRN Administration SEV PAIN Ampicillin Sodium/Sulbactam Sodium 3 gm in 100 mls @ 100 mls/hr 02/21/19 16:00 02/22/19 05:59 Unasyn/Ns 3 Gm/100 Ml IV 100 mls/hr Q6HR YAEL Administration Protocol Vancomycin HCl 2,000 mg/ 540 mls @ 250 mls/hr 02/22/19 06:00 02/22/19 06:54 Sodium Chloride IV 250 mls/hr Q12H YAEL Administration Insulin Human Isoph/Insulin Regular 30 unit 02/22/19 08:00 Humulin 70/30 SUB-Q BIDDIAB YAEL Insulin Human Lispro 0 unit 02/21/19 16:30 02/21/19 22:21 Humalog SUB-Q 3 unit ACHS YAEL Administration Protocol Metoprolol Tartrate 50 mg 02/21/19 16:00 02/21/19 21:51 Lopressor PO Not Given BID YAEL Oxycodone/Acetaminophen 1 tab 02/21/19 15:06 02/21/19 19:12 Percocet 5/325 PO 1 tab Q6HR PRN Administration Pain, Moderate (4-6) Pregabalin 50 mg 02/21/19 15:30 02/22/19 08:11 Pregabalin PO 50 mg TID YAEL Administration Pregabalin 150 mg 02/21/19 15:30 02/22/19 08:11 Pregabalin PO 150 mg TID YAEL Administration
[2019-02-22] MEDS: HumaLOG SUB-Q SCH ×5 (08:30→22:32)
[2019-02-22] MEDS: LOPRESSOR PO SCH ×2 (09:11→21:12)
--- NOTE | 2019-02-22 10:41 | Discharge Summary ---
Providers - Providers Date of Admission: 02/21/19 13:20 Attending physician: KELLIE VELEZ MD 02/21/19 12:28 PICC Line Placement [Consult to PICC Line RN] [CONS] Urgent Reason For Exam: POOR IV ACCESS, IV ANTIBIOTIC THERAPY Type Line:: PICC 02/21/19 13:43 Consult to Wound/ET Nurse [CONS] Routine Reason For Exam: wound eval Primary care physician: TELLY BOWENS Hospitalization Condition: Fair Hospital course: 59-year-old man who presents to the hospital with redness of left lower extremity. It began after he bumped his left leg on dinner tray that was sent by the couch. Some skin was broken after which she started having intense pain redness and swelling of the leg. While he was in the ER on the day of admission he states that he accidentally bumped his right leg and since then, he is also had pain swelling tenderness of his right leg also. -Patient is also complaining of left knee swelling and pain, his left knee has not been same after he had knee replacement 18 months ago Patient states that he was put in Unna boot last year, and had a lot of improvement in his symptoms from it. Past medical history; hypertension and diabetes Diagnosis Left lower extremity cellulitis Peripheral vascular disease Hypertension Obesity Left knee swelling/misalignment Uncontrolled DM Plan Antibiotics Continued home meds Optimized insulins -Wound care consult appreciated, ID consult appreciated -vascular studies showed superficial clot in R peronial, warm compresses, received wound care in hospital CT of left knee cw misalignment , to follow-up with his orthopedic surgeon at [facility] DVT prophylaxis with Lovenox d/c on ceftin 500 mg po bid total 7 days per ID recs Disposition: -01 TO HOME OR SELFCARE Time spent for discharge: 33 mins Core Measure Documentation - Palliative Care Palliative Care/ Comfort Measures: Not Applicable - Core Measures Any of the following diagnoses?: none Exam - Constitutional Vitals: Temp Pulse Resp BP Pulse Ox 97.9 F 83 26 H 138/69 93 02/22/19 05:24 02/22/19 09:11 02/22/19 05:24 02/22/19 09:11 02/22/19 05:24 General appearance: Present: no acute distress, well-nourished - EENT Eyes: Present: PERRL ENT: hearing intact, clear oral mucosa - Neck Neck: Present: supple, normal ROM - Respiratory Respiratory effort: normal Respiratory: bilateral: CTA - Cardiovascular Heart Sounds: Present: S1 & S2. Absent: rub, click - Extremities Extremities: pulses symmetrical, No edema Extremity abnormal: other (Left knee appears to be in balance/misaligned, there is soft tissue swelling on the lateral aspect of the knee) Peripheral Pulses: within normal limits - Abdominal General gastrointestinal: Present: soft, non-tender, non-distended, normal bowel sounds Male genitourinary: Present: normal - Integumentary Integumentary: Present: clear, warm, dry (Left leg swelling, redness and tenderness, There is a 2 x 2.5 cm erosion on the left li) - Musculoskeletal Musculoskeletal: gait normal, strength equal bilaterally - Psychiatric Psychiatric: appropriate mood/affect, intact judgment & insight - Neurologic Neurologic: CNII-XII intact, moves all extremities Plan Follow up with: TELLY BOWENS MD [Primary Care Provider] - 7 Days Prescriptions: cefUROXime [Ceftin] 250 mg PO Q12H #8 tablet RX: Lispro Insulin [HumaLOG] 7 unit SUB-Q AC #1 vial RX: Insulin Glargine [Lantus VIAL] 40 units SQ BID #1 vial RX: oxyCODONE /ACETAMINOPHEN [Percocet 5/325 mg] 1 tab PO Q6HR PRN #20 tablet PRN Reason: Pain
--- NOTE | 2019-02-22 16:18 | XRay Report ---
LEFT KNEE HISTORY: Pain and swelling. COMPARISON: None. TECHNIQUE: 3 views of the left knee obtained. FINDINGS: Bones: Status post total joint replacement with normal alignment of the femoral and tibial components of the prosthesis. However, there is abnormal lucency surrounding the tibial component and there is abnormal depression of the tibial component. The femoral component of the prosthesis has a more norm al appearance with its interface with bone. No fracture. Soft tissues: Moderate diffuse soft tissue edema with no soft tissue air. Additional findings: No joint effusion. IMPRESSION: Status post total knee arthroplasty. Abnormal lucency and slight tilt of the tibial component of the prosthesis suggests loosening of the prosthesis. Osteomyelitis is also a possibility. Signer Name: Eddie Jolly MD Signed: 02/22/2019 4:14 PM Workstation Name: [id number]
[2019-02-22] MEDS: TEMOVATE TP SCH ×2 (17:31→21:13)
[2019-02-22] MEDS: LOVENOX SUB-Q SCH (21:11)
[2019-02-22] MEDS: TRICOR PO SCH (21:11)
[2019-02-22] MEDS: LANTUS SUB-Q SCH (22:31)
[2019-02-23] MEDS: UNASYN/NS 3 GM/100 ML 3 GM/100 ML BAG IV SCH ×4 (00:30→20:06)
[2019-02-23] MEDS: DILAUDID IV PRN ×5 (03:55→21:51)
[2019-02-23] MEDS: VANCOMYCIN 2,000 MG in NACL 0.9% 500 ML 500 ML IV SCH ×2 (05:20→19:54)
--- NOTE | 2019-02-23 08:02 | Progress Note ---
Assessment and Plan Assessment and plan: 59-year-old man who presents to the hospital with redness of left lower extremity. It began after he bumped his left leg on dinner tray that was sent by the couch. Some skin was broken after which she started having intense pain redness and swelling of the leg. While he was in the ER on the day of admission he states that he accidentally bumped his right leg and since then, he is also had pain swelling tenderness of his right leg also. -Patient is also complaining of left knee swelling and pain, his left knee has not been same after he had knee replacement 18 months ago Patient states that he was put in Unna boot last year, and had a lot of improvement in his symptoms from it. Past medical history; hypertension and diabetes Diagnosis Left lower extremity cellulitis Peripheral vascular disease Hypertension Obesity Left knee swelling/misalignment? Plan Antibiotics Continue home meds Optimize insulins -Wound care consult, ID consult, PICC line was ordered by his primary care physician, has been placed -Obtain vascular studies of lower extremities. Will speak to wound care about possibly providing compression/ulna dressing if deemed necessary -Left knee x-ray shows lucencies and misalignment will obtain MRI, as osteomyelitis is not ruled out, will most likely to follow-up with his orthopedic surgeon at [place] DVT prophylaxis with Lovenox History Interval history: Complaining of bilateral lower extremity erythema swelling and tenderness -He is also complaining of left knee swelling and deformity. He states that it never really normalized after he had knee replacement over a year and a half ago Review of systems Constitutional: No fevers, no malaise, no joint pains CVS: No chest pain, no orthopnea, no pedal edema GI: No abdominal pain, no diarrhea, no vomiting, no constipation Respiratory: No shortness of breath, no wheezing, no coughing Hospitalist Physical - Physical exam Narrative exam: General.: Appears well, no distress, nontoxic HEENT: Moist mucous membranes, extraocular muscles intact, no lymphadenopathy Neck: supple Cardiac: S1-S2 heard Lungs: clear to auscultation bilaterally Abdomen: soft , nontender, nondistended, bowel sounds positive Extremities: Left leg swelling, redness and tenderness, There is a 2 x 2.5 cm erosion on the left li Right leg swelling erythema, there is also an erosion on the right lower extremity, 1x1cm on R lateral lower leg Skin: no rash or lesions Left knee appears to be in balance/misaligned, there is soft tissue swelling on the lateral aspect of the knee Neurologic: no gross focal deficits Psych: calm, and cooperative - Constitutional Vitals: Temp Pulse Resp BP Pulse Ox 98.2 F 81 17 149/74 92 02/22/19 21:07 02/22/19 21:12 02/23/19 04:25 02/22/19 21:12 02/22/19 22:05 General appearance: Present: mild distress Results - Labs CBC & Chem 7: 02/21/19 13:52 02/21/19 13:52 Labs: Laboratory Last Values WBC 8.5 K/mm3 (4.5-11.0) 02/21/19 13:52 RBC 4.87 M/mm3 (3.65-5.03) 02/21/19 13:52 Hgb 15.5 gm/dl (11.8-15.2) H 02/21/19 13:52 Hct 45.0 % (35.5-45.6) 02/21/19 13:52 MCV 92 fl (84-94) 02/21/19 13:52 MCH 32 pg (28-32) 02/21/19 13:52 MCHC 34 % (32-34) 02/21/19 13:52 RDW 14.5 % (13.2-15.2) 02/21/19 13:52 Plt Count 162 K/mm3 (140-440) 02/21/19 13:52 Lymph % (Auto) 23.9 % (13.4-35.0) 02/21/19 13:52 [place] % (Auto) 8.2 % (0.0-7.3) H 02/21/19 13:52 Eos % (Auto) 3.4 % (0.0-4.3) 02/21/19 13:52 Baso % (Auto) 0.3 % (0.0-1.8) 02/21/19 13:52 Lymph # 2.0 K/mm3 (1.2-5.4) 02/21/19 13:52 [place] # 0.7 K/mm3 (0.0-0.8) 02/21/19 13:52 Eos # 0.3 K/mm3 (0.0-0.4) 02/21/19 13:52 Baso # 0.0 K/mm3 (0.0-0.1) 02/21/19 13:52 Seg Neutrophils % 64.2 % (40.0-70.0) 02/21/19 13:52 Seg Neutrophils # 5.4 K/mm3 (1.8-7.7) 02/21/19 13:52 Sodium 138 mmol/L (137-145) 02/21/19 13:52 Potassium 4.3 mmol/L (3.6-5.0) 02/21/19 13:52 Chloride 100.9 mmol/L (98-107) 02/21/19 13:52 Carbon Dioxide 23 mmol/L (22-30) 02/21/19 13:52 Anion Gap 18 mmol/L 02/21/19 13:52 BUN 10 mg/dL (9-20) 02/21/19 13:52 Creatinine 0.6 mg/dL (0.8-1.5) L 02/21/19 13:52 Estimated GFR > 60 ml/min 02/21/19 13:52 BUN/Creatinine Ratio 17 % 02/21/19 13:52 Glucose 263 mg/dL (75-100) H 02/21/19 13:52 POC Glucose 318 (70-105) H 02/22/19 21:45 Hemoglobin A1c 9.6 % (4-6) H 02/21/19 13:52 Calcium 9.3 mg/dL (8.4-10.2) 02/21/19 13:52 Total Bilirubin 0.50 mg/dL (0.1-1.2) 02/21/19 13:52 AST 56 units/L (5-40) H 02/21/19 13:52 ALT 46 units/L (7-56) 02/21/19 13:52 Alkaline Phosphatase 88 units/L (35-129) 02/21/19 13:52 Total Protein 7.5 g/dL (6.3-8.2) 02/21/19 13:52 Albumin 4.2 g/dL (3.9-5) 02/21/19 13:52 Albumin/Globulin Ratio 1.3 % 02/21/19 13:52 Active Medications - Current Medications Current Medications: Generic Name Dose Route Start Last Admin Trade Name Freq PRN Reason Stop Dose Admin Alprazolam 1 mg 02/21/19 15:06 Xanax PO TID PRN Anxiety Atorvastatin Calcium 20 mg 02/21/19 22:00 02/22/19 21:12 Lipitor PO 20 mg HS YAEL Administration Clobetasol Propionate 1 applic 02/22/19 15:00 02/22/19 21:13 Temovate TP 1 applic BID YAEL Administration Dextrose 50 ml 02/21/19 11:50 D50w (25gm) Syringe IV PRN PRN Hypoglycemia Enoxaparin Sodium 40 mg 02/22/19 22:00 02/22/19 21:11 Lovenox SUB-Q 40 mg QDAY@2200 YAEL Administration Fenofibrate 145 mg 02/21/19 22:00 02/22/19 21:11 Tricor PO 145 mg QHS YAEL Administration Hydromorphone HCl 1 mg 02/21/19 11:57 02/23/19 03:55 Dilaudid IV 1 mg Q4HR PRN Administration SEV PAIN Ampicillin Sodium/Sulbactam Sodium 3 gm in 100 mls @ 100 mls/hr 02/21/19 16:00 02/23/19 05:20 Unasyn/Ns 3 Gm/100 Ml IV 100 mls/hr Q6HR YAEL Administration Protocol Vancomycin HCl 2,000 mg/ 540 mls @ 250 mls/hr 02/22/19 06:00 02/23/19 05:20 Sodium Chloride IV 250 mls/hr Q12H YAEL Administration Insulin Glargine 35 units 02/22/19 22:00 02/22/19 22:31 Lantus SUB-Q 35 units BID YAEL Administration Insulin Human Lispro 0 unit 02/21/19 16:30 02/22/19 22:32 Humalog SUB-Q 8 unit ACHS YAEL Administration Protocol Insulin Human Lispro 5 unit 02/22/19 16:30 02/22/19 17:24 Humalog SUB-Q 5 unit AC YAEL Administration Metoprolol Tartrate 50 mg 02/21/19 16:00 02/22/19 21:12 Lopressor PO 50 mg BID YAEL Administration Oxycodone/Acetaminophen 1 tab 02/21/19 15:06 02/21/19 19:12 Percocet 5/325 PO 1 tab Q6HR PRN Administration Pain, Moderate (4-6) Pregabalin 50 mg 02/21/19 15:30 02/22/19 21:00 Pregabalin PO 50 mg TID YAEL Administration Pregabalin 150 mg 02/21/19 15:30 02/22/19 21:01 Pregabalin PO 150 mg TID YAEL Administration Nutrition/Malnutrition Assess - Dietary Evaluation Nutrition/Malnutrition Findings: Nutrition Notes Start: 02/22/19 09:46 Freq: Status: Active Protocol: Document 02/22/19 09:47 RS (Rec: 02/22/19 10:32 RS [id number]) Co-Sign 02/22/19 09:47 NHALL Nutrition Notes 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 Will assess upon further consult or LOS. Per ADL report patient consuming 100% of meals. Percent of energy/protein needs met: 100%/100% Burn Absent Trauma Absent Nutrition Intervention Anticipated Discharge Needs: Consistent CHO diet
[2019-02-23] MEDS: PREGABALIN PO SCH ×6 (09:01→23:41)
[2019-02-23] MEDS: HumaLOG SUB-Q SCH ×7 (09:04→22:00)
[2019-02-23] MEDS: LOPRESSOR PO SCH ×2 (11:13→23:39)
[2019-02-23] MEDS: LANTUS SUB-Q SCH ×2 (11:14→22:00)
--- NOTE | 2019-02-23 11:58 | Consultation ---
History of Present Illness - Reason for Consult Consult date: 02/23/19 bilateral leg cullilitis Requesting physician: KELLIE VELEZ - History of Present Illness 59 y/o male with diabetes, obesity, bilateral leg chronic edema/discoloration and right TKR done in 2017 and left TKR and left THP done [place] [address] Salinas in [facility]., admitted on 02/21/2019 due to worsening left calf edema,erythema and tenderness. he developed an open wound 2 weeks before admission and since then edema has worsened. He also reports he has had left knee swelling and tenderness since the surgery. He has not seen her Ortho provdider recently for this. He was once evaluated by vascular. Denies any fever, chills, N/V/D. Of note, he was admitted on 11/21/2018 for left leg cellulitis. He had negative venous Doppler, patient left AMA and wanted to f/u with his PCP outpt for further management. In the ED, temp 98.2, HR 70, R 18, BP 149/83. WBC 8.5. Creat 0.6. Left knee XR shows status post total knee arthroplasty. Abnormal lucency and slight tilt of the tibial component of the prosthesis suggests loosening of the prosthesis. Osteomyelitis is also a possibility. ID consulted for further management. Review of Systems: General: no fever, chills, no malaise Cutaneous: no rash, pruritus Head: no headaches or injury Eyes: no changes in vision, eye pain, double vision Ears: no ear pain, ear discharge, ringing or hearing loss Nose: no nose bleeding, stuffiness Mouth & throat: no bleeding gums, no horseness, no dental problems, or swollen glands Neck: no pain, node enlargement/lumps, tyroid enlargement or tenderness Respiratory: no SOB, no cough, no ROSEN, wheezing, sputum, hemoptysis, pleuritic chest pain Cardiovascular: no chest pain, leg edema, cyanosis, ROSEN, orthopnea Musculoskeletal: +left knee edema, left calf ulcers Gastrointestinal: no nausea, no vomiting, no hematemesis, diarrhea, constipation, melena, bright red blood in stools, fecal incontinence, jaundice Genitourinary/Reproductive: no frequent urination, dysuria, hematuria, inco ntinence Neurogical: no seizures, no headaches, no weakness, no paresthesias, no loss of speech or vision; no memory loss, no vertigo, no tremors, no numbness Psychiatric: stable mood; no excessive anxiety, sadness or moodiness Past History Past Medical History: diabetes, hypertension Past Surgical History: total hip replacement, Other (Back surgery, carpal tunel surgery) Social history: . denies: smoking, alcohol abuse, prescription drug abuse Family history: diabetes, hypertension Medications and Allergies Allergies Allergy/AdvReac Type Severity Reaction Status Date / Time No Known Allergies Allergy Verified 06/07/15 11:18 Home Medications Medication Instructions Recorded Confirmed Last Taken Type Metoprolol [Lopressor TAB] 50 mg PO BID #60 tablet 04/03/16 02/21/19 02/21/19 08:00 Rx oxyCODONE /ACETAMINOPHEN [Percocet 1 tab PO Q6HR PRN #10 tablet 06/26/16 02/21/19 02/21/19 07:00 Rx 5/325 mg] ALPRAZolam [Xanax TAB] 1 mg PO TID PRN 11/19/18 02/21/19 02/17/19 22:00 History AtorvaSTATin [Lipitor] 20 mg PO HS 11/19/18 02/21/19 02/20/19 22:00 History Fenofibrate 160 mg PO HS 11/19/18 02/21/19 02/20/19 22:00 History Insulin Glargine [Lantus VIAL] 70 units SQ QHS 11/19/18 02/21/19 02/20/19 22:00 History Pregabalin [Lyrica] 200 mg PO TID 11/19/18 02/21/19 02/21/19 08:00 History glipiZIDE [Glucotrol] 10 mg PO BID 11/19/18 02/21/19 02/21/19 08:00 History Active Meds: Active Medications Alprazolam (Xanax) 1 mg PO TID PRN PRN Reason: Anxiety Atorvastatin Calcium (Lipitor) 20 mg PO [facility] Last Admin: 02/22/19 21:12 Dose: 20 mg Documented by: Clobetasol Propionate (Temovate) 1 applic TP BID [facility] Last Admin: 02/22/19 21:13 Dose: 1 applic Documented by: Dextrose (D50w (25gm) Syringe) 50 ml IV PRN PRN PRN Reason: Hypoglycemia Enoxaparin Sodium (Lovenox) 40 mg SUB-Q QDAY@2200 [facility] Last Admin: 02/22/19 21:11 Dose: 40 mg Documented by: Fenofibrate (Tricor) 145 mg PO QHS [facility] Last Admin: 02/22/19 21:11 Dose: 145 mg Documented by: Hydromorphone HCl (Dilaudid) 1 mg IV Q4HR PRN PRN Reason: SEV PAIN Last Admin: 02/23/19 08:56 Dose: 1 mg Documented by: Ampicillin Sodium/Sulbactam Sodium (Unasyn/Ns 3 Gm/100 Ml) 3 gm in 100 mls @ 100 mls/hr IV Q6HR [facility]; Protocol Last Admin: 02/23/19 05:20 Dose: 100 mls/hr Documented by: Vancomycin HCl 2,000 mg/ (Sodium Chloride) 540 mls @ 250 mls/hr IV Q12H [facility] Last Admin: 02/23/19 05:20 Dose: 250 mls/hr Documented by: Insulin Glargine (Lantus) 35 units SUB-Q BID [facility] Last Admin: 02/23/19 11:14 Dose: 35 units Documented by: Insulin Human Lispro (Humalog) [facility]; Protocol Last Admin: 02/23/19 09:05 Dose: 4 unit Documented by: Insulin Human Lispro (Humalog) 5 unit SUB-Q AC [facility] Last Admin: 02/23/19 09:04 Dose: 5 unit Documented by: Metoprolol Tartrate (Lopressor) 50 mg PO BID [facility] Last Admin: 02/23/19 11:13 Dose: 50 mg Documented by: Oxycodone/Acetaminophen (Percocet 5/325) 1 tab PO Q6HR PRN PRN Reason: Pain, Moderate (4-6) Last Admin: 02/21/19 19:12 Dose: 1 tab Documented by: Pregabalin (Pregabalin) 50 mg PO TID [facility] Last Admin: 02/23/19 09:01 Dose: 50 mg Documented by: Pregabalin (Pregabalin) 150 mg PO TID [facility] Last Admin: 02/23/19 09:01 Dose: 150 mg Documented by: Physical Examination - Physical Exam Narrative exam: General appearance: Alert in NAD Eyes: anicteric sclerae, moist conjunctivae; no lid-lag; PERRLA HENT: Atraumatic; oropharynx clear with moist mucous membranes and no mucosal ulcerations/no oral thrush; normal hard and soft palate. Lungs: CTA, with normal respiratory effort and no intercostal retractions CV: RRR no murmur Abdomen: Soft, non-tender; no masses or hepatosplenomegaly Extremities: +left knee chronic edema and mild tenderness/ +left calf marked erythema, edema and superficial inner wounds Skin: No rash. Psych: Appropriate affect, alert and oriented to person, place and time. Neuro: alert and oriented x 3. Moving all extermities - Constitutional Vitals: Vital Signs Temp Pulse Resp BP Pulse Ox 98.2 F 81 17 146/72 92 02/22/19 21:07 02/22/19 21:12 02/23/19 04:25 02/23/19 11:13 02/22/19 22:05 Temperature -Last 24 Hours Temperature 98.2 F Temperature 98.2 F Results - Labs CBC & Chem 7: 02/21/19 13:52 02/21/19 13:52 Labs: Abnormal lab results 02/22/19 02/22/19 02/23/19 Range/Units 16:37 21:45 08:02 POC Glucose 261 H 318 H 271 H (70-105) Assessment and Plan Cultures: none (previous MRSA screening 11/19/2018 negative) Assessment: 59 y/o male with diabetes, obesity, bilateral leg chronic edema/discoloration and right TKR done in 2017 and left TKR and left THP done [place] [address] Salinas in [facility], admitted on 02/21/2019 due to worsening left calf edema,erythema and tenderness: 1) Left calf cellulitis: on top of possibly venous stasis ulcers. Ulcers developed 2 weeks before admission. Patient with bilateral leg chronic edema/discoloration. Will continue leg elevation, wound care and unasyn+vancomycin for now. 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 Osteomyelitis is also a possibility. This may represent a low-virulent organism like Coag negative Staph or P. acne. Patient is currently stable no evidence of sepsis. Will hold off on aspirating at this point as he is stable and on IV abx for calf cellulitis. He wants to f/u with his Ortho provider Dr Salinas to schedule office joint aspiration to determine surgical plan. Educated about early signs of sepsis. 3) Bilateral leg chronic edema/discoloration: possibly stasis dermatitis from venous insufficiency, needs f/u with vascular. Will check art US to determine patency of art circulation. Recommendations: Continue leg elevation Wound care check CRP Continue unasyn + vancomycin with PK consult for now. Hold off on joint aspiration at this point as he is stable and on IV abx for calf cellulitis. He wants to f/u with his Ortho provider Dr Salinas to schedule office joint aspiration to determine surgical plan. Educated about early signs of sepsis. Follow up with vascular for management of venous ulcer Will follow. Alexus Sanford MD Infectious Diseases [employer] [facility] ([facility]) M [phone] O [phone]
--- NOTE | 2019-02-23 15:49 | Vascular Lab Report ---
DUPLEX DOPPLER LOWER EXTREMITY VEINS, BILATERAL INDICATION: Bilateral calf pain and swelling. TECHNIQUE: Duplex doppler imaging was performed through the veins of both lower extremities using ve nous compression and other maneuvers. COMPARISON: No relevant prior imaging study available. FINDINGS: Right Common femoral vein: Negative. Right Superficial femoral vein: Negative. Right Popliteal vein: Negative. Right Calf veins: Positive for thrombosis in the right peroneal vein from the calf to the ankle.. Left Common femoral vein: Negative. Left Superficial femoral vein: Negative. Left Popliteal vein: Negative. Left Calf veins: Negative. Additional findings: None.. IMPRESSION: No sonographic evidence for DVT in either lower extremity. Positive for superficial venous thrombosi s in the right peroneal vein. Signer Name: Bob He Jr, MD Signed: 02/23/2019 3:45 PM Workstation Name: [id number]
[2019-02-23] MEDS: TEMOVATE TP SCH ×2 (18:35→22:00)
[2019-02-23] MEDS: LOVENOX SUB-Q SCH (21:57)
[2019-02-23] MEDS: TRICOR PO SCH (21:58)
[2019-02-24] MEDS: UNASYN/NS 3 GM/100 ML 3 GM/100 ML BAG IV SCH ×3 (00:46→11:17)
[2019-02-24] MEDS: DILAUDID IV PRN ×3 (01:58→09:32)
[2019-02-24] MEDS: VANCOMYCIN 2,000 MG in NACL 0.9% 500 ML 500 ML IV SCH (05:50)
[2019-02-24] MEDS: HumaLOG SUB-Q SCH ×4 (07:30→11:30)
--- NOTE | 2019-02-24 07:34 | Vascular Lab Report ---
DUPLEX DOPPLER LOWER EXTREMITY ARTERIAL, BILATERAL INDICATION: Bilateral lower extremity pain and swelling. TECHNIQUE: Arterial duplex examination of both lower extremities performed using B-mode, color flow and spectral Doppler assessment. FINDINGS: RIGHT: Common Femoral Artery: PSV 111 cm/sec. Triphasic waveform. Proximal SFA: PSV 118 cm/sec. Triphasic waveform. Mid SFA: PSV 123 cm/sec. Triphasic waveform. Distal SFA: PSV 81 cm/sec. Triphasic waveform. Popliteal artery: PSV 88 cm/sec. Triphasic waveform. Posterior tibial artery: PSV 83 cm/sec. Triphasic waveform. Anterior tibial artery: PSV 90 cm/sec. Triphasic waveform. Dorsalis Pedis Artery: PSV 82 cm/sec. Triphasic waveform. LEFT: External iliac artery: PSV 133 cm/sec. Triphasic waveform. Proximal SFA: PSV 125 cm/sec. Triphasic waveform. Mid SFA: PSV 102 cm/sec. Triphasic waveform. Distal SFA: PSV 89 cm/sec. Triphasic waveform. Popliteal artery: PSV 105 cm/sec. Triphasic waveform. Posterior tibial artery: PSV 94 cm/sec. Triphasic waveform. Anterior tibial artery: PSV 84 cm/sec. Triphasic waveform. Dorsalis Pedis Artery: PSV 85 cm/sec. Triphasic waveform. IMPRESSION: No significant lower extremity peripheral artery disease. Doppler Waveform: * Triphasic is normal. * Biphasic is abnormal if clear transition from triphasic signal along vascular tree. * Monophasic is abnormal. Signer Name: Bob He Jr, MD Signed: 02/24/2019 7:29 AM Workstation Name: [id number]
[2019-02-24] MEDS: PREGABALIN PO SCH ×4 (08:00→13:24)
[2019-02-24] MEDS: TEMOVATE TP SCH (10:00)
[2019-02-24] MEDS: LOPRESSOR PO SCH (10:00)
[2019-02-24] MEDS: LANTUS SUB-Q SCH (11:20)
--- NOTE | 2019-02-24 11:48 | Cat Scan Report ---
CT lower extremity LT w con INDICATION / CLINICAL INFORMATION: left knee swelling pain. TECHNIQUE: All CT scans at this location are performed using CT dose reduction for ALARA by means of automated e xposure control. COMPARISON: Radiographs dated 02/22/2019 FINDINGS: A left knee prosthesis is present giving significant metallic artifact. There is a small joint effusi on present. There is a suggestion of lucency around the tibial component with anterior tilt. No large soft tissue fluid collection is seen. No abnormalities are seen in the lower extremity except for so me subcutaneous edema in the ankle IMPRESSION: Left knee prosthesis is present giving significant metallic artifact. There is a hint of lucency arou nd the tibial component with anterior tilt suggesting possible loosening. This less likely represents osteomyelitis. A small joint effusion is present. Signer Name: Samir Key MD FACJanice Signed: 02/24/2019 11:44 AM Workstation Name: [id number]
[2019-02-24 12:57] VITALS: BP 154/74
--- NOTE | 2019-02-24 12:57 | Progress Note ---
Assessment and Plan Cultures: none (previous MRSA screening 11/19/2018 negative) Assessment: 59 y/o male with diabetes, obesity, bilateral leg chronic edema/discoloration and right TKR done in 2017 and left TKR and left THP done [place] [address] Salinas in [facility], admitted on 02/21/2019 due to worsening left calf edema,erythema and tenderness: 1) Left calf cellulitis: improving; on top of possibly venous stasis ulcers. Ulcers developed 2 weeks before admission. Patient with bilateral leg chronic edema/discoloration. Will continue leg elevation, wound care and unasyn+vancomycin for now. Ok to d/c home on ceftin po. 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 Osteomyelitis is also a possibility. This may represent a low-virulent organism like a Coag negative Staph or P. acne. Patient is currently stable no evidence of sepsis. CT knee shows a hint of lucency around the tibial component with anterior tilt suggesting possible loosening. This less likely represents osteomyelitis. A small joint effusion is present. Will hold off on aspirating at this point as he is stable and on IV abx for calf cellulitis. He wants to f/u with his Ortho provider Dr Salinas to schedule office joint aspiration to determine surgical plan. Educated about early signs of sepsis. CRP=0.9. 3) Bilateral leg chronic edema/discoloration: possibly stasis dermatitis from venous insufficiency, needs f/u with vascular. Will check art US to determine patency of art circulation. Recommendations: Continue leg elevation Wound care Ok to d/c home on ceftin 500 mg po bid total 7 days f/u with Ortho Dr Salinas to r/o prosthetic joint infection v/s mechanical malfunction. If aspiration is scheduled patient should be off abx for 2-3 weeks to increase yield. ID clinic f/u in 2 weeks after seeing ortho Educated about early signs of sepsis. Follow up with vascular for management of venous ulcer Will sign off thanks Will follow. Alexus Sanford MD Infectious Diseases [employer] [facility] ([facility]) M [phone] O [phone] Subjective Date of service: 02/24/19 Principal diagnosis: cellulitis Interval history: Patient feels better, calf erythema better. no fever Objective - Exam Narrative Exam: General appearance: Alert in NAD Eyes: anicteric sclerae, moist conjunctivae; no lid-lag; PERRLA HENT: Atraumatic; oropharynx clear with moist mucous membranes and no mucosal ulcerations/no oral thrush; normal hard and soft palate. Lungs: CTA, with normal respiratory effort and no intercostal retractions CV: RRR no murmur Abdomen: Soft, non-tender; no masses or hepatosplenomegaly Extremities: +left knee chronic edema and mild tenderness/ +left calf erythema, edema - better and superficial inner wounds Skin: No rash. Psych: Appropriate affect, alert and oriented to person, place and time. Neuro: alert and oriented x 3. Moving all extermities - Constitutional Vitals: Vital Signs Temp Pulse Resp BP Pulse Ox 98.8 F 67 18 138/72 94 02/24/19 06:20 02/24/19 06:20 02/24/19 06:20 02/24/19 06:20 02/24/19 06:20 Temperature -Last 24 Hours Temperature 98.8 F Temperature 99.0 F Temperature 99.0 F - Labs CBC & Chem 7: 02/21/19 13:52 02/21/19 13:52 Labs: Abnormal lab results 02/23/19 02/23/19 02/23/19 Range/Units 12:11 17:58 21:36 POC Glucose 233 H 254 H 207 H (70-105) 02/24/19 02/24/19 Range/Units 07:45 11:33 POC Glucose 208 H 252 H (70-105)
[2019-02-24] MEDS ORDERED: TRIPLE ANTIBIOTIC TP ONE (13:30)
== END 2019-02-24 14:20 | disposition home or self-care (01) ==
LOC: UNDOADMIN 10:59 → 3A 10:59 → INTOOBSV 13:20
PROVIDERS: ADMIT Internal Medicine; ATTEND Internal Medicine
DX: L03.116 Cellulitis of left lower limb (principal); I10 Essential (primary) hypertension; E66.9 Obesity, unspecified; I73.9 Peripheral vascular disease, unspecified; R60.0 Localized edema; E11.9 Type 2 diabetes mellitus without complications; E66.2 Morbid (severe) obesity with alveolar hypoventilation; Z96.649 Presence of unspecified artificial hip joint; Z68.35 Body mass index [BMI] 35.0-35.9, adult; Z79.4 Long term (current) use of insulin
CPT/HCPCS: 36415; 73562; 73701; 80053; 80202; 82962; 83036; 84443; 85025; 86140; 93925; 93970; 96365; 96366; 96367; 96368; 96372; 96375; 96376; A9270; G0378; G0379; J0295; J1170; J1650; J3370; J7030; J7040; J1815

== ENCOUNTER 2019-04-03 19:02 | Emergency (ER) | payer MEDICAID ==
[2019-04-03] MEDS ORDERED: MORPHINE 4 MG/1 ML INJ ONE (19:41)
[2019-04-03] MEDS ORDERED: ONDANSETRON 4 MG/2 ML INJ ONE (19:41)
[2019-04-03] MEDS ORDERED: MORPHINE 4 MG/1 ML INJ IM ONE (19:50)
[2019-04-03] MEDS ORDERED: ONDANSETRON 4 MG/2 ML INJ IM ONE (19:50)
[2019-04-03] MEDS ORDERED: SODIUM CHLORIDE 0.9% 1000 ML IV SOLN IV ONE (19:56)
[2019-04-03] MEDS ORDERED: PIPERACILLIN/TAZOBACTAM 3.375 3.375 GM/50 ML BAG IV ONE (19:57)
[2019-04-03] MEDS ORDERED: VANCOMYCIN 1,000 MG/20 ML IV ONE (20:00)
[2019-04-03] MEDS ORDERED: HYDROmorphone 1 MG/1 ML INJ ONE (20:46)
--- NOTE | 2019-04-03 20:59 | Emergency Department Report ---
ED General Adult HPI - General Chief complaint: Extremity Problem,Nontraumatic Stated complaint: SEPTIC/KNEE PAIN Time Seen by Provider: 04/03/19 19:56 Source: patient, EMS Mode of arrival: Stretcher Limitations: No Limitations - History of Present Illness Initial comments: Patient is 59 years old morbidly obese male with history of diabetes. Patient h ad total replacement of the left knee at [facility] on March 23. Patient presented to the ER complaining off left knee swelling and redness and fever up to 103. Patient stated that he noticed the changes to the left knee skin color and swelling yesterday. Patient denied any recent trauma. Patient also denied any cough or urinary symptoms. No chest pain, shortness of breath or abdominal pain. Nurses were unable to obtain IV access and patient. I placed a right subclavian central vein for fluids and medication. Severity scale (0 -10): 10 - Related Data Home Medications Medication Instructions Recorded Confirmed Last Taken ALPRAZolam [Xanax TAB] 1 mg PO TID PRN 11/19/18 02/21/19 02/17/19 22:00 AtorvaSTATin [Lipitor] 20 mg PO HS 11/19/18 02/21/19 02/20/19 22:00 Fenofibrate 160 mg PO HS 11/19/18 02/21/19 02/20/19 22:00 Pregabalin [Lyrica] 200 mg PO TID 11/19/18 02/21/19 02/21/19 08:00 Previous Rx's Medication Instructions Recorded Last Taken Type Metoprolol [Lopressor TAB] 50 mg PO BID #60 tablet 04/03/16 02/21/19 08:00 Rx Insulin Glargine [Lantus VIAL] 40 units SQ BID #1 vial 02/24/19 Unknown Rx Lispro Insulin [HumaLOG] 7 unit SUB-Q AC #1 vial 02/24/19 Unknown Rx cefUROXime [Ceftin] 250 mg PO Q12H #8 tablet 02/24/19 Unknown Rx oxyCODONE /ACETAMINOPHEN [Percocet 1 tab PO Q6HR PRN #20 tablet 02/24/19 Unknown Rx 5/325 mg] Allergies Allergy/AdvReac Type Severity Reaction Status Date / Time No Known Allergies Allergy Verified 06/07/15 11:18 ED Review of Systems ROS: Stated complaint: SEPTIC/KNEE PAIN Other details as noted in HPI Comment: All other systems reviewed and negative Constitutional: chills, fever Respiratory: denies: cough, shortness of breath, SOB with exertion Cardiovascular: denies: chest pain, palpitations Gastrointestinal: denies: abdominal pain, nausea, vomiting, diarrhea, constipation, hematemesis, melena, hematochezia Genitourinary: denies: urgency, frequency, hematuria, testicular pain Musculoskeletal: denies: back pain Skin: change in color (left knee cellulitis) Neurological: denies: headache, weakness ED Past Medical Hx - Past Medical History Hx Hypertension: Yes Hx Congestive Heart Failure: No Hx Diabetes: Yes Hx Deep Vein Thrombosis: (unknown) Hx Arthritis: Yes Hx Asthma: No Hx COPD: No Additional medical history: back injury-2011. RSD, peripheral neuropathy. AVN LEFT HIP. OBESITY - Surgical History Hx Pacemaker: No Hx Internal Defibrillator: No Additional Surgical History: 3 back surgeries, foot surg ,NEURO STIMULATOR, left and right knee replacements and left hip - Social History Smoking Status: Never Smoker Substance Use Type: Alcohol - Medications Home Medications: Home Medications Medication Instructions Recorded Confirmed Last Taken Type Metoprolol [Lopressor TAB] 50 mg PO BID #60 tablet 04/03/16 02/21/19 02/21/19 08:00 Rx ALPRAZolam [Xanax TAB] 1 mg PO TID PRN 11/19/18 02/21/19 02/17/19 22:00 History AtorvaSTATin [Lipitor] 20 mg PO HS 11/19/18 02/21/19 02/20/19 22:00 History Fenofibrate 160 mg PO HS 11/19/18 02/21/19 02/20/19 22:00 History Pregabalin [Lyrica] 200 mg PO TID 11/19/18 02/21/19 02/21/19 08:00 History Insulin Glargine [Lantus VIAL] 40 units SQ BID #1 vial 02/24/19 Unknown Rx Lispro Insulin [HumaLOG] 7 unit SUB-Q AC #1 vial 02/24/19 Unknown Rx cefUROXime [Ceftin] 250 mg PO Q12H #8 tablet 02/24/19 Unknown Rx oxyCODONE /ACETAMINOPHEN [Percocet 1 tab PO Q6HR PRN #20 tablet 02/24/19 Unknown Rx 5/325 mg] ED Physical Exam - General Limitations: No Limitations General appearance: alert, in no apparent distress - Head Head exam: Present: atraumatic, normocephalic, normal inspection - Eye Eye exam: Present: normal appearance - ENT ENT exam: Present: normal exam, mucous membranes moist - Neck Neck exam: Present: normal inspection, full ROM. Absent: tenderness, meningismus, lymphadenopathy, thyromegaly - Respiratory Respiratory exam: Present: normal lung sounds bilaterally - Cardiovascular Cardiovascular Exam: Present: tachycardia - GI/Abdominal GI/Abdominal exam: Present: soft, normal bowel sounds. Absent: distended, ten derness, guarding, rebound, rigid, organomegaly, mass, bruit, pulsatile mass, hernia - Expanded Lower Extremity Exam Left Knee exam: Present: tenderness, swelling, ecchymosis, erythema, effusion Foot/Toe exam: Present: normal inspection, full ROM Neuro vascular tendon exam: Present: no vascular compromise - Back Exam Back exam: Present: normal inspection, full ROM. Absent: CVA tenderness (R), CVA tenderness (L) - Neurological Exam Neurological exam: Present: alert, oriented X3, CN II-XII intact - Skin Skin exam: Present: warm, intact, normal color ED Course Vital Signs 04/03/19 04/03/19 04/03/19 19:12 19:55 19:57 Temperature 100.9 F H Pulse Rate 106 H Respiratory 22 22 20 Rate Blood Pressure 142/66 Blood Pressure [Left] O2 Sat by Pulse 97 Oximetry 04/03/19 04/03/19 04/03/19 20:16 21:02 21:16 Temperature Pulse Rate 113 H 105 H Respiratory 22 22 21 Rate Blood Pressure Blood Pressure 160/55 126/69 [Left] O2 Sat by Pulse 92 91 Oximetry 04/03/19 04/03/19 21:57 22:46 Temperature 98.6 F Pulse Rate 100 H Respiratory 21 22 Rate Blood Pressure Blood Pressure 127/57 [Left] O2 Sat by Pulse 94 Oximetry - Central Line Placement Right SC Consent Obtained: emergent situation Time Out Performed: Yes Patient Placed on Monitor/Pulse Ox: Yes Prep: mask, gown, gloves Central Line Prep: Povidone-Iodine 1%, Chlorhexidine scrub, sterile drapes applied Local Anesthesia Used: Lidocaine 1% Central Line Lumen Inserted: triple Bloods Obtained for Lab: Yes Central Line Position: good blood return, all ports aspirated, flus, sutured in place with 2-0 Dressing Applied: Tegaderm, sterile gauze/tape Post Procedure X-Ray: tip of catheter in good p Patient Tolerated Procedure: well Complications: none ED Medical Decision Making - Lab Data Result diagrams: 04/03/19 20:53 04/03/19 20:53 - Radiology Data Radiology results: report reviewed - Medical Decision Making Patient is 59 years old morbidly obese male with history of diabetes. Patient had total replacement of the left knee at [facility] on March 23. Patient presented to the ER complaining off left knee swelling and redness and fever up to 103. Patient stated that he noticed the changes to the left knee skin color and swelling yesterday. Patient denied any recent trauma. Patient also denied any cough or urinary symptoms. No chest pain, shortness of breath or abdominal pain. Nurses were unable to obtain IV access and patient. I placed a right s ubclavian central vein for fluids and medication. Patient found to be septic with a lactic acid of 2.4. Source is most likely from the left knee given the clinical presentation. Patient received Zosyn and vancomycin. Patient also received a normal saline. Patient received morphine and Dilaudid for pain. I discussed the patient was Dr. Carrillo from [facility]. He accepted the patient to be transferred to [facility] for Dr. Everett Salinas. Critical Care Time: Yes Critical care time in (mins) excluding proc time.: 30 Critical care attestation.: If time is entered above; I have spent that time in minutes in the direct care of this critically ill patient, excluding procedure time. ED Disposition Clinical Impression: Sepsis, Infection of left knee, Septic arthritis Disposition: DC/TX-70 ANOTHER TYPE HLTHCARE Is pt being admited?: No Condition: Stable Referrals: PRIMARY CARE, [Primary Care Provider] - 3-5 Days
[2019-04-03] MEDS ORDERED: VANCOMYCIN 2,000 MG in SODIUM CHLORIDE 0.9% 500 ML 500 ML IV ONE (21:00)
[2019-04-03] MEDS ORDERED: HYDROmorphone 1 MG/1 ML INJ IV ONE ×3 (21:01→22:55)
[2019-04-03 21:09] LABS: Hematocrit 42.2 % (35.5-45.6); Hemoglobin 14.5 gm/dl (11.8-15.2); Mean Corpuscular HGB Conc 34 % (32-34); Mean Corpuscular Volume 91 fl (84-94); Red Blood Count 4.63 M/mm3 (3.65-5.03); Red Cell Distribution Width 14.6 % (13.2-15.2)
[2019-04-03 21:28] LABS: Platelet Count 193 K/mm3 (140-440)
[2019-04-03 21:32] LABS: Alanine Aminotransferase 45 units/L (7-56); Albumin 4.1 g/dL (3.9-5); BUN/Creatinine Ratio 14; Blood Urea Nitrogen 10 mg/dL (9-20); Calcium 9.4 mg/dL (8.4-10.2); Hemolysis Index 25
[2019-04-03 22:47] VITALS: BP 127/57
--- NOTE | 2019-04-03 23:12 | XRay Report ---
CHEST 1 VIEW INDICATION / CLINICAL INFORMATION: right subclavian central line placement. COMPARISON: 11/19/2018 FINDINGS: SUPPORT DEVICES: Right subclavian central venous line has been placed. The tip is in the expected loc ation of the SVC and appears to be in satisfactory position. HEART / MEDIASTINUM: No significant abnormality. LUNGS / PLEURA: Borderline interstitial pulmonary edema. The lungs are otherwise grossly clear. No la rge pleural effusion.. No pneumothorax. ADDITIONAL FINDINGS: No significant additional findings. IMPRESSION: 1. Satisfactory positioning of central venous line. No pneumothorax. 2. Borderline interstitial pulmonary edema. Signer Name: Seble Muniz MD Signed: 04/03/2019 11:07 PM Workstation Name: [id number]
--- NOTE | 2019-04-03 23:13 | XRay Report ---
Left knee, 2 views INDICATION: Postop pain and swelling FINDINGS: There has been recent left total knee replacement. No definite fracture is seen. There is l ittle if any joint fluid. There is however a large amount of soft tissue swelling anterior to the kne e in the subcutaneous tissues which may represent postoperative hematoma. There is generalized edema of the left leg as well. Signer Name: Sky Dimas MD Signed: 04/03/2019 11:09 PM Workstation Name: [id number]
[2019-04-04 00:20] LABS: Anisocytosis 1+; Basophils % (Manual) 0 % (0.0-1.8); Total Cells Counted 100
[2019-04-04 00:21] LABS: Platelet Estimate Consistent w Auto
== END 2019-04-03 23:55 | disposition other institution (70) ==
LOC: ED 19:02
DX: A41.9 Sepsis, unspecified organism (principal); M00.862 Arthritis due to other bacteria, left knee; I10 Essential (primary) hypertension; E11.40 Type 2 diabetes mellitus with diabetic neuropathy, unspecified; E66.9 Obesity, unspecified; Z68.41 Body mass index [BMI] 40.0-44.9, adult; Z79.899 Other long term (current) drug therapy; Z79.4 Long term (current) use of insulin; Z96.652 Presence of left artificial knee joint
CPT/HCPCS: 36415; 36556; 71045; 73560; 80053; 82140; 85007; 85025; 87040; 96365; 96366; 96367; 96372; 96375; 96376; 99291; J1170; J2270; J2405; J2543; J3370; J7030; J7040

== ENCOUNTER 2019-10-26 13:27 | Outpatient (CLI) | payer MEDICAID | END 2019-10-26 13:28 | disposition home or self-care (01) | LOC: WOUND 13:27 | PROVIDERS: ATTEND Surgery | DX: T87.89 Other complications of amputation stump (principal); E11.622 Type 2 diabetes mellitus with other skin ulcer; L97.122 Non-pressure chronic ulcer of left thigh with fat layer exposed; L97.811 Non-pressure chronic ulcer of other part of right lower leg limited to breakdown of skin; E11.621 Type 2 diabetes mellitus with foot ulcer; L97.511 Non-pressure chronic ulcer of other part of right foot limited to breakdown of skin; G89.4 Chronic pain syndrome; I10 Essential (primary) hypertension; Z96.642 Presence of left artificial hip joint; Z96.653 Presence of artificial knee joint, bilateral; Y83.5 Amputation of limb(s) as the cause of abnormal reaction of the patient, or of later complication, without mention of misadventure at the time of the procedure | CPT/HCPCS: 11042; G0463; 99204; 99214 ==

== ENCOUNTER 2019-11-02 14:04 | Outpatient (CLI) | payer MEDICAID ==
[2019-11-02] MEDS ORDERED: LIDOCAINE (4%) 40 MG/ML TOPICAL SOLN 50 ML BOTTLE TP ONE (14:08)
[2019-11-02] MEDS ORDERED: LIDOCAINE (1%) 10 MG/1 ML VIAL 20 ML MDV INFILTRATI ONE (14:31)
== END 2019-11-02 14:05 | disposition home or self-care (01) ==
LOC: WOUND 14:04
PROVIDERS: ATTEND Surgery
DX: T87.89 Other complications of amputation stump (principal); E11.622 Type 2 diabetes mellitus with other skin ulcer; L97.122 Non-pressure chronic ulcer of left thigh with fat layer exposed; L97.811 Non-pressure chronic ulcer of other part of right lower leg limited to breakdown of skin; E11.621 Type 2 diabetes mellitus with foot ulcer; L97.511 Non-pressure chronic ulcer of other part of right foot limited to breakdown of skin; G89.4 Chronic pain syndrome; I10 Essential (primary) hypertension; Z96.642 Presence of left artificial hip joint; Z96.653 Presence of artificial knee joint, bilateral; Y83.5 Amputation of limb(s) as the cause of abnormal reaction of the patient, or of later complication, without mention of misadventure at the time of the procedure

== ENCOUNTER 2019-11-09 14:02 | Outpatient (CLI) | payer MEDICAID ==
[2019-11-09] MEDS ORDERED: LIDOCAINE (4%) 40 MG/ML TOPICAL SOLN 50 ML BOTTLE TP ONE (14:16)
[2019-11-09] MEDS ORDERED: SODIUM CHLORIDE 0.9% IRR 500 ML BOTTLE IR ONE (14:53)
== END 2019-11-09 14:03 | disposition home or self-care (01) ==
LOC: WOUND 14:02
PROVIDERS: ATTEND Surgery
DX: T87.89 Other complications of amputation stump (principal); E11.622 Type 2 diabetes mellitus with other skin ulcer; L97.122 Non-pressure chronic ulcer of left thigh with fat layer exposed; L97.811 Non-pressure chronic ulcer of other part of right lower leg limited to breakdown of skin; G89.4 Chronic pain syndrome; I10 Essential (primary) hypertension; Z96.642 Presence of left artificial hip joint; Z96.653 Presence of artificial knee joint, bilateral; Y83.5 Amputation of limb(s) as the cause of abnormal reaction of the patient, or of later complication, without mention of misadventure at the time of the procedure

== ENCOUNTER 2019-11-22 07:58 | Outpatient (CLI) | payer MEDICAID ==
[2019-11-22] MEDS ORDERED: LIDOCAINE (4%) 40 MG/ML TOPICAL SOLN 50 ML BOTTLE TP ONE (08:30)
== END 2019-11-22 07:59 | disposition home or self-care (01) ==
LOC: WOUND 07:58
PROVIDERS: ATTEND Surgery
DX: T87.89 Other complications of amputation stump (principal); E11.622 Type 2 diabetes mellitus with other skin ulcer; L97.122 Non-pressure chronic ulcer of left thigh with fat layer exposed; L97.811 Non-pressure chronic ulcer of other part of right lower leg limited to breakdown of skin; G89.4 Chronic pain syndrome; I10 Essential (primary) hypertension; Z96.642 Presence of left artificial hip joint; Z96.653 Presence of artificial knee joint, bilateral; Y83.5 Amputation of limb(s) as the cause of abnormal reaction of the patient, or of later complication, without mention of misadventure at the time of the procedure

== ENCOUNTER 2019-12-07 14:04 | Outpatient (CLI) | payer MEDICAID ==
[2019-12-07] MEDS ORDERED: LIDOCAINE (4%) 40 MG/ML TOPICAL SOLN 50 ML BOTTLE TP ONE (14:17)
== END 2019-12-07 14:05 | disposition home or self-care (01) ==
LOC: WOUND 14:04
PROVIDERS: ATTEND Surgery
DX: T87.89 Other complications of amputation stump (principal); E11.622 Type 2 diabetes mellitus with other skin ulcer; L97.122 Non-pressure chronic ulcer of left thigh with fat layer exposed; L97.811 Non-pressure chronic ulcer of other part of right lower leg limited to breakdown of skin; G89.4 Chronic pain syndrome; I10 Essential (primary) hypertension; Z96.642 Presence of left artificial hip joint; Z96.653 Presence of artificial knee joint, bilateral; Y83.5 Amputation of limb(s) as the cause of abnormal reaction of the patient, or of later complication, without mention of misadventure at the time of the procedure

== ENCOUNTER 2020-01-24 10:59 | Outpatient (CLI) | payer MEDICAID ==
[2020-01-24] MEDS ORDERED: LIDOCAINE (4%) 40 MG/ML TOPICAL SOLN 50 ML BOTTLE TP ONE (11:11)
== END 2020-01-24 11:00 | disposition home or self-care (01) ==
LOC: WOUND 10:59
PROVIDERS: ATTEND Internal Medicine
DX: E11.622 Type 2 diabetes mellitus with other skin ulcer (principal); L97.812 Non-pressure chronic ulcer of other part of right lower leg with fat layer exposed; L97.122 Non-pressure chronic ulcer of left thigh with fat layer exposed; S81.801D Unspecified open wound, right lower leg, subsequent encounter; G89.4 Chronic pain syndrome; I10 Essential (primary) hypertension; Z96.642 Presence of left artificial hip joint; Z96.653 Presence of artificial knee joint, bilateral; X58.XXXD Exposure to other specified factors, subsequent encounter

== ENCOUNTER 2020-02-01 10:53 | Outpatient (CLI) | payer MEDICAID ==
[2020-02-01] MEDS ORDERED: LIDOCAINE (4%) 40 MG/ML TOPICAL SOLN 50 ML BOTTLE TP ONE (10:55)
[2020-02-01] MEDS ORDERED: VITAMIN A & D OINT 56.7 GM TP SCH (12:00)
== END 2020-02-01 10:54 | disposition home or self-care (01) ==
LOC: WOUND 10:53
PROVIDERS: ATTEND Surgery
DX: E11.622 Type 2 diabetes mellitus with other skin ulcer (principal); L97.812 Non-pressure chronic ulcer of other part of right lower leg with fat layer exposed; L97.122 Non-pressure chronic ulcer of left thigh with fat layer exposed; S81.801D Unspecified open wound, right lower leg, subsequent encounter; G89.4 Chronic pain syndrome; I10 Essential (primary) hypertension; Z96.642 Presence of left artificial hip joint; Z96.653 Presence of artificial knee joint, bilateral; X58.XXXD Exposure to other specified factors, subsequent encounter
CPT/HCPCS: 11042; 11045; A6250

== ENCOUNTER 2020-07-10 14:01 | Outpatient (CLI) | payer MEDICAID ==
[2020-07-10] MEDS ORDERED: LIDOCAINE (4%) 40 MG/ML TOPICAL SOLN 50 ML BOTTLE TP SCH (14:30)
== END 2020-07-10 14:02 | disposition home or self-care (01) ==
LOC: WOUND 14:01
PROVIDERS: ATTEND Surgery
DX: E11.622 Type 2 diabetes mellitus with other skin ulcer (principal); L97.812 Non-pressure chronic ulcer of other part of right lower leg with fat layer exposed; L97.122 Non-pressure chronic ulcer of left thigh with fat layer exposed; S81.801D Unspecified open wound, right lower leg, subsequent encounter; G89.4 Chronic pain syndrome; I10 Essential (primary) hypertension; Z96.642 Presence of left artificial hip joint; Z96.653 Presence of artificial knee joint, bilateral; X58.XXXD Exposure to other specified factors, subsequent encounter

== ENCOUNTER 2020-12-04 10:35 | Inpatient (IN) | payer MEDICAID ==
[2020-12-04] MEDS ORDERED: ACETAMINOPHEN 325 MG TAB PO PRN (12:04)
[2020-12-04] MEDS ORDERED: oxyCODONE /ACETAMINOPHEN 5-325MG TAB PO PRN (13:44)
[2020-12-04] MEDS: HYDROmorphone 1 MG/1 ML INJ IV PRN ×2 (16:04→20:29)
[2020-12-04] MEDS: AMPICILLIN/SULBACTA 3GM/100ML 3 GM/100 ML BAG IV SCH ×2 (18:00→23:06)
[2020-12-04] MEDS ORDERED: ALPRAZolam 1 MG TAB PO PRN (22:09)
[2020-12-04] MEDS ORDERED: HYDROcodone/ACETAMINOPHEN 5-325 MG TAB PO PRN (22:09)
[2020-12-04] MEDS ORDERED: OXYCODONE 15 MG TAB PO PRN (22:15)
--- NOTE | 2020-12-04 22:19 | History and Physical Report ---
History of Present Illness Date of examination: 12/04/20 Date of admission: 12/04/20 13:25 Chief complaint: Right lower extremity redness for 1 week History of present illness: 60-year-old male well-known to me from my primary care office with history of insulin-dependent diabetes, hypertension, peripheral vascular disease, peripheral neuropathy and hyperlipidemia came to the office yesterday with right lower extremity severe redness and 2 superficial ulcers. Redness is extending from below the knee to the right foot. Of note patient had a left AKA because of the persistent left lower leg cellulitis. Now the right lower extremity is involved with severe redness and pain and superficial ulcers. Pain is been going on for about 7 to 10 days. No fever or chills. Pain is about 7 or 6-7 on a scale of 1-10. No exacerbating or relieving factors. Pain is localized to below the knee up to the foot. No recent exposure to cold virus. No shortness of breath. No chest pain. Past History Past Medical History: diabetes, hypertension, hyperlipidemia, PVD, other Past Surgical History: Other (L AKA) Social history: lives with family, full code Family history: hypertension Medications and Allergies Allergies Allergy/AdvReac Type Severity Reaction Status Date / Time No Known Allergies Allergy Verified 06/07/15 11:18 Home Medications Medication Instructions Recorded Confirmed Last Taken Type Fenofibrate 160 mg PO HS 11/19/18 12/05/20 1 Day Ago History ~12/04/20 Insulin Aspart (Nf) [NovoLOG 100 18 unit SQ AC 07/05/19 12/05/20 1 Day Ago History UNITS/ML VIAL] ~12/04/20 18 units ALPRAZolam [Xanax TAB] 1 mg PO TID PRN #12 07/13/19 12/05/20 3 Days Ago Rx ~12/02/20 1 mg AtorvaSTATin [Lipitor] 20 mg PO HS #30 07/13/19 12/05/20 1 Day Ago Rx ~12/04/20 Metoprolol [Lopressor TAB] 100 mg PO BID #60 07/13/19 12/05/20 1 Day Ago Rx ~12/04/20 Oxycodone HCl [roxiCODONE] 15 mg PO Q4HR #12 07/13/19 12/05/20 1 Day Ago Rx ~12/04/20 15 mg Pregabalin [Lyrica] 200 mg PO TID #90 cap 07/13/19 12/05/20 1 Day Ago Rx ~12/04/20 200 mg Fenofibrate 160 mg PO HS 07/17/20 12/05/20 1 Day Ago History ~12/04/20 OXYCODONE hcl [Oxycodone] 15 mg PO PRN 07/17/20 12/05/20 1 Day Ago History ~12/04/20 15 mg HYDROcodone/APAP 5-325 [[place] 2 each PO Q6H PRN 2 Days #6 tablet 07/21/20 12/05/20 Unknown Rx 5-325 mg TAB] Sulfamethoxazole/Trimethoprim 2 each PO BID #28 tablet 07/21/20 12/05/20 Unknown Rx [Bactrim DS TAB] cephALEXin [Keflex] 500 mg PO Q6HR #28 capsule 07/21/20 12/05/20 Unknown Rx Active Meds: Active Medications Acetaminophen (Acetaminophen 325 Mg Tab) 650 mg PO Q4H PRN PRN Reason: Pain MILD(1-3)/Fever >100.5/VILLARREAL Hydrocodone Bitart/Acetaminophen (Hydrocodone/Acetaminophen 5-325 Mg Tab) 2 each PO Q6H PRN PRN Reason: Pain, Moderate (4-6) Alprazolam (Alprazolam 1 Mg Tab) 1 mg PO TID PRN PRN Reason: Anxiety Atorvastatin Calcium (Atorvastatin 20 Mg Tab) 20 mg PO HS YAEL Hydromorphone HCl (Hydromorphone 1 Mg/1 Ml Inj) 2 mg IV Q3H PRN PRN Reason: Pain , Severe (7-10) Last Admin: 12/04/20 20:29 Dose: 2 mg Documented by: Ampicillin Sodium/Sulbactam Sodium (Unasyn/Ns 3 Gm/100 Ml) 3 gm in 100 mls @ 100 mls/hr IV Q6HR [facility]; Protocol Last Admin: 12/04/20 18:00 Dose: 100 mls/hr Documented by: Insulin Glargine (Insulin Glargine 100 Units/Ml) 80 units SUB-Q QHS YAEL Insulin Human Lispro (Insulin Lispro 100 Unit/Ml) 0 unit SUB-Q ACHS YAEL; Protocol Metoprolol Tartrate (Metoprolol Tartrate 50 Mg Tab) 100 mg PO BID YAEL Miscellaneous Medication (Fenofibrate [Fenofibrate]) 160 mg PO HS YAEL Miscellaneous Medication (Insulin Aspart (Nf)) 18 unit SQ AC YAEL Miscellaneous Medication (Oxycodone Hcl [Roxicodone]) 15 mg PO Q4HR YAEL Miscellaneous Medication (Pregabalin [Lyrica]) 200 mg PO TID YAEL Oxycodone/Acetaminophen (Oxycodone /Acetaminophen 5-325mg Tab) 2 tab PO Q6H PRN PRN Reason: Pain, Moderate (4-6) Sodium Chloride (Sodium Chloride 0.9% 10 Ml Flush Syringe) 10 ml IV BID YAEL Sodium Chloride (Sodium Chloride 0.9% 10 Ml Flush Syringe) 10 ml IV PRN PRN PRN Reason: LINE FLUSH Review of Systems All systems: negative Constitutional: no weight loss, no weight gain, no fever, no chills, no sweats, no night sweats Ears, nose, mouth and throat: no ear pain, no ear discharge, no tinnitis, no d ecreased hearing Cardiovascular: no chest pain, no orthopnea, no palpitations, no rapid/irregular heart beat, no edema Respiratory: no cough, no cough with sputum, no excessive sputum, no hemoptysis Gastrointestinal: no abdominal pain, no nausea, no vomiting, no diarrhea, no constipation, no change in bowel habits, no hematemesis, no coffee ground emesis Genitourinary Male: no dysuria, no hematuria, no flank pain, no discharge Musculoskeletal: leg numbness/tingling, no neck stiffness, no neck pain, no shooting arm pain, no arm numbness/tingling, no low back pain Integumentary: rash (Erythema right lower extremity extending from below knee to the right foot), wounds, blisters (On the right lower extremity) Neurological: no head injury, no transient paralysis Psychiatric: anxiety Endocrine: no cold intolerance, no heat intolerance, no polyphagia Allergic/Immunologic: no urticaria, no allergic rhinitis, no wheezing Exam - Constitutional Vitals: Temp Pulse Resp BP Pulse Ox 98.6 F 81 20 140/73 94 12/04/20 14:06 12/04/20 17:01 12/04/20 16:04 12/04/20 14:06 12/04/20 18:44 General appearance: Present: no acute distress, well-nourished - EENT Eyes: Present: PERRL ENT: hearing intact, clear oral mucosa - Neck Neck: Present: supple, normal ROM - Respiratory Respiratory effort: normal Respiratory: bilateral: CTA - Cardiovascular Heart rate: 78 Rhythm: regular Heart Sounds: Present: S1 & S2. Absent: rub, click - Extremities Extremities: No edema Extremity abnormal: edema, erythema (Severe erythema from the right below-knee to the right foot with 2 superficial ulcers), other (Severe erythema from right below-knee to the right foot) Peripheral Pulses: within normal limits - Abdominal General gastrointestinal: Present: soft, non-tender, non-distended, normal bowel sounds Male genitourinary: Present: normal - Rectal Rectal Exam: deferred - Integumentary Integumentary: Present: clear, warm, dry - Musculoskeletal Musculoskeletal: gait normal, strength equal bilaterally - Psychiatric Psychiatric: appropriate mood/affect, intact judgment & insight - Neurologic Neurologic: CNII-XII intact, moves all extremities - Allied Health Allied health notes reviewed: nursing, case management HEART Score - HEART Score History: Slightly suspicious Risk factors: > 3 risk factors or hx of atherosclerotic disease Troponin: < normal limit - Critical Actions Critical Actions: 0-3 pts:0.9-1.7%risk of adverse cardiac event.Candidate for discharge Results - Labs CBC & Chem 7: 12/04/20 22:47 12/04/20 22:47 Labs: Laboratory Last Values POC Glucose 376 mg/dL (70-105) H 12/04/20 21:29 - Imaging and Cardiology Venous US: pending Swanson/IV: Voiding Method Urinal Assessment and Plan Advance Directives: Yes (Full code) VTE prophylaxis?: Chemical Plan of care discussed with patient/family: Yes - Patient Problems (1) Cellulitis of right lower extremity Current Visit: No Status: Acute Plan to address problem: Patient initiated on IV Unasyn and IV vancomycin. Has severe cellulitis. Of the lower right lower extremity. With 2 open ulcers. We will get surgery consult. Also ID consult. (2) Generalized anxiety disorder Current Visit: No Status: Chronic Plan to address problem: Patient on anxiolytics 3 times a day. (3) HLD (hyperlipidemia) Current Visit: No Status: Chronic Qualifiers: Hyperlipidemia type: mixed hyperlipidemia Plan to address problem: Continue fenofibrate and statins. (4) Hypertension Current Visit: Yes Status: Chronic Qualifiers: Hypertension type: primary hypertension Qualified Code(s): I10 - Essential (primary) hypertension Plan to address problem: Continue antihypertensives. (5) IDDM (insulin dependent diabetes mellitus) Current Visit: Yes Status: Chronic Plan to address problem: Continue Lantus and Humalog. Adjust insulin dosage. Depending on hemoglobin A1c results. Accu-Cheks AC at bedtime and high-dose sliding scale coverage Dietitian consult regarding diabetes and diet (6) Peripheral neuropathy Current Visit: Yes Status: Chronic Plan to address problem: Patient is on Lyrica 200 mg twice a day (7) DVT prophylaxis Current Visit: No Status: Acute Plan to address problem: Subcu heparin and GI prophylaxis.
[2020-12-04] MEDS: INSULIN LISPRO 100 UNIT/ML SUB-Q SCH (22:47)
[2020-12-04] MEDS: METOPROLOL TARTRATE 100 MG TAB PO SCH (23:05)
[2020-12-04] MEDS: INSULIN GLARGINE 100 UNITS/ML SUB-Q SCH (23:05)
[2020-12-04 23:16] LABS: Basophils # (Auto) 0.1 K/mm3 (0.0-0.1); Basophils % (Auto) 1.1 % (0.0-1.8); Eosinophils # (Auto) 0.3 K/mm3 (0.0-0.4); Eosinophils % (Auto) 2.9 % (0.0-4.3); Hematocrit 46.4 % (35.5-45.6); Hemoglobin 15.9 gm/dl (11.8-15.2); Lymphocytes # (Auto) 1.8 K/mm3 (1.2-5.4); Lymphocytes % (Auto) 20.9 % (13.4-35.0); Mean Corpuscular HGB Conc 34 % (32-34); Mean Corpuscular Volume 93 fl (84-94); Monocytes # (Auto) 0.8 K/mm3 (0.0-0.8); Platelet Count 156 K/mm3 (140-440); Red Blood Count 4.98 M/mm3 (3.65-5.03); Red Cell Distribution Width 14.6 % (13.2-15.2)
[2020-12-04 23:31] LABS: Alanine Aminotransferase 62 units/L (7-56); Blood Urea Nitrogen 8 mg/dL (9-20); Calcium 8.9 mg/dL (8.4-10.2); Hemolysis Index 14
[2020-12-04 23:34] LABS: BUN/Creatinine Ratio 16
[2020-12-05] MEDS: HYDROmorphone 1 MG/1 ML INJ IV PRN ×6 (00:44→21:17)
[2020-12-05] MEDS: AMPICILLIN/SULBACTA 3GM/100ML 3 GM/100 ML BAG IV SCH ×3 (05:46→18:13)
--- NOTE | 2020-12-05 07:53 | Progress Note ---
Assessment and Plan Assessment and plan: (1) Cellulitis of right lower extremity Current Visit: No Status: Acute Plan to address problem: Patient initiated on IV Unasyn and IV vancomycin. Has severe cellulitis. Of the lower right lower extremity. With 2 open ulcers. We will get surgery consult. Also ID consult. (2) Generalized anxiety disorder Current Visit: No Status: Chronic Plan to address problem: Patient on anxiolytics 3 times a day. (3) HLD (hyperlipidemia) Current Visit: No Status: Chronic Qualifiers: Hyperlipidemia type: mixed hyperlipidemia Plan to address problem: Continue fenofibrate and statins. (4) Hypertension Current Visit: Yes Status: Chronic Qualifiers: Hypertension type: primary hypertension Qualified Code(s): I10 - Essential (primary) hypertension Plan to address problem: Continue antihypertensives. (5) IDDM (insulin dependent diabetes mellitus) Current Visit: Yes Status: Chronic Plan to address problem: Continue Lantus and Humalog. Adjust insulin dosage. Depending on hemoglobin A1c results. Accu-Cheks AC at bedtime and high-dose sliding scale coverage Dietitian consult regarding diabetes and diet (6) Peripheral neuropathy Current Visit: Yes Status: Chronic Plan to address problem: Patient is on Lyrica 200 mg twice a day (7) DVT prophylaxis Current Visit: No Status: Acute Plan to address problem: Subcu heparin and GI prophylaxis. 12/05/2020 -Patient was admitted for right lower extremity cellulitis and ID/general surgery was consulted. -Patient is on IV Unasyn and vancomycin -Patient's blood sugar is uncontrolled, he is on 80 units of Lantus and 18 units of Humalog before meal. Despite that his blood sugar is very high. Will check hemoglobin A1c. Patient is followed with Dr. Murphy in the office. -Wound care consulted. History Interval history: Patient was seen and evaluated this morning, patient has pain on the right leg Patient is admitted for right lower extremity cellulitis Hospitalist Physical - Physical exam Narrative exam: Not in cardiopulmonary distress. The patient is morbidly obese. Vital signs as documented. Head exam is unremarkable. No scleral icterus . Neck is without jugular venous distension, thyromegaly, or carotid bruits. Lungs are clear to auscultation. Cardiac exam reveals regular rate and Rhythm. Abdominal exam reveals normal bowel sounds, nontender, no organomegaly. Extremities right lower extremity cellulitis extending from the right knee down to the foot. Left AKA DIRECTOR PHYSICAL: Alert and oriented 3. No focal weakness. - Constitutional Vitals: Temp Pulse Resp BP Pulse Ox 98.0 F 70 20 141/68 94 12/05/20 05:39 12/05/20 05:39 12/05/20 05:39 12/05/20 05:39 12/05/20 05:39 General appearance: Present: no acute distress, well-nourished HEART Score - HEART Score Risk factors: > 3 risk factors or hx of atherosclerotic disease Troponin: < normal limit - Critical Actions Critical Actions: 0-3 pts:0.9-1.7%risk of adverse cardiac event.Candidate for discharge Results - Labs CBC & Chem 7: 12/04/20 22:47 12/04/20 22:47 Labs: Laboratory Last Values WBC 8.8 K/mm3 (4.5-11.0) 12/04/20 22:47 RBC 4.98 M/mm3 (3.65-5.03) 12/04/20 22:47 Hgb 15.9 gm/dl (11.8-15.2) H 12/04/20 22:47 Hct 46.4 % (35.5-45.6) H 12/04/20 22:47 MCV 93 fl (84-94) 12/04/20 22:47 MCH 32 pg (28-32) 12/04/20 22:47 MCHC 34 % (32-34) 12/04/20 22:47 RDW 14.6 % (13.2-15.2) 12/04/20 22:47 Plt Count 156 K/mm3 (140-440) 12/04/20 22:47 Lymph % (Auto) 20.9 % (13.4-35.0) 12/04/20 22:47 [place] % (Auto) 9.0 % (0.0-7.3) H 12/04/20 22:47 Eos % (Auto) 2.9 % (0.0-4.3) 12/04/20 22:47 Baso % (Auto) 1.1 % (0.0-1.8) 12/04/20 22:47 Lymph # (Auto) 1.8 K/mm3 (1.2-5.4) 12/04/20 22:47 [place] # (Auto) 0.8 K/mm3 (0.0-0.8) 12/04/20 22:47 Eos # (Auto) 0.3 K/mm3 (0.0-0.4) 12/04/20 22:47 Baso # (Auto) 0.1 K/mm3 (0.0-0.1) 12/04/20 22:47 Seg Neutrophils % 66.1 % (40.0-70.0) 12/04/20 22:47 Seg Neutrophils # 5.8 K/mm3 (1.8-7.7) 12/04/20 22:47 Sodium 137 mmol/L (137-145) 12/04/20 22:47 Potassium 4.2 mmol/L (3.6-5.0) 12/04/20 22:47 Chloride 100.6 mmol/L (98-107) 12/04/20 22:47 Carbon Dioxide 22 mmol/L (22-30) 12/04/20 22:47 Anion Gap 19 mmol/L 12/04/20 22:47 BUN 8 mg/dL (9-20) L 12/04/20 22:47 Creatinine 0.5 mg/dL (0.8-1.3) L 12/04/20 22:47 Estimated GFR > 60 ml/min 12/04/20 22:47 BUN/Creatinine Ratio 16 % 12/04/20 22:47 Glucose 286 mg/dL (75-100) H 12/04/20 22:47 POC Glucose 292 mg/dL (70-105) H 12/05/20 07:31 Calcium 8.9 mg/dL (8.4-10.2) 12/04/20 22:47 Total Bilirubin 0.60 mg/dL (0.1-1.2) 12/04/20 22:47 AST 52 units/L (5-40) H 12/04/20 22:47 ALT 62 units/L (7-56) H 12/04/20 22:47 Alkaline Phosphatase 91 units/L (35-129) 12/04/20 22:47 Total Protein 7.2 g/dL (6.3-8.2) 12/04/20 22:47 Albumin 4.0 g/dL (3.9-5) 12/04/20 22:47 Albumin/Globulin Ratio 1.3 % 12/04/20 22:47 [place]/IV: Voiding Method Urinal Active Medications - Current Medications Current Medications: Generic Name Dose Route Start Last Admin Trade Name Freq PRN Reason Stop Dose Admin Acetaminophen 650 mg 12/04/20 12:04 Acetaminophen 325 Mg Tab PO Q4H PRN Pain MILD(1-3)/Fever >100.5/VILLARREAL Alprazolam 1 mg 12/04/20 22:09 Alprazolam 1 Mg Tab PO TID PRN Anxiety Atorvastatin Calcium 20 mg 12/05/20 22:00 Atorvastatin 20 Mg Tab PO HS YAEL Fenofibrate 145 mg 12/05/20 22:00 Fenofibrate 145 Mg Tab PO HS YAEL Heparin Sodium (Porcine) 5,000 unit 12/05/20 10:00 Heparin 5,000 Unit/1 Ml Vial SUB-Q Q12HR YAEL Hydromorphone HCl 2 mg 12/04/20 12:04 12/05/20 05:48 Hydromorphone 1 Mg/1 Ml Inj IV 2 mg Q3H PRN Administration Pain , Severe (7-10) Ampicillin Sodium/Sulbactam Sodium 3 gm in 100 mls @ 100 mls/hr 12/04/20 18:00 12/05/20 05:46 Unasyn/Ns 3 Gm/100 Ml IV 100 mls/hr Q6HR [facility] Administration Protocol Insulin Glargine 80 units 12/04/20 22:00 12/04/20 23:05 Insulin Glargine 100 Units/Ml SUB-Q 80 units QHS [facility] Administration Insulin Human Lispro 18 unit 12/05/20 07:30 Insulin Lispro 100 Unit/Ml SUB-Q AC YAEL Insulin Human Lispro 0 unit 12/04/20 23:15 12/04/20 22:47 Insulin Lispro 100 Unit/Ml SUB-Q 10 unit ACHS [facility] Administration Protocol Metoprolol Tartrate 100 mg 12/04/20 23:00 12/04/20 23:05 Metoprolol Tartrate 100 Mg Tab PO 100 mg BID@0800,1700 [facility] Administration Pregabalin 150 mg 12/05/20 08:00 Pregabalin 75 Mg Cap PO TID YAEL Pregabalin 50 mg 12/05/20 08:00 Pregabalin 50 Mg Cap PO TID [facility] Sodium Chloride 10 ml 12/04/20 22:00 12/04/20 22:23 Sodium Chloride 0.9% 10 Ml Flush Syringe IV 10 ml BID YAEL Administration Sodium Chloride 10 ml 12/04/20 12:04 Sodium Chloride 0.9% 10 Ml Flush Syringe IV PRN PRN LINE FLUSH
[2020-12-05] MEDS ORDERED: VANCOMYCIN PHARMACY TO DOSE IV SCH (08:00)
[2020-12-05] MEDS: INSULIN LISPRO 100 UNIT/ML SUB-Q SCH ×7 (08:18→22:16)
--- NOTE | 2020-12-05 09:52 | Vascular Lab Report ---
DUPLEX DOPPLER LOWER EXTREMITY VEINS, RIGHT INDICATION / CLINICAL INFORMATION: Right lower extremity cellulitis. TECHNIQUE: Duplex doppler imaging was performed through the veins of the right lower extremity using venous comp ression and other maneuvers. COMPARISON: None available. FINDINGS: RIGHT COMMON FEMORAL VEIN: Negative. RIGHT FEMORAL VEIN: Negative. RIGHT POPLITEAL VEIN: Negative. RIGHT CALF VEINS: Negative. ADDITIONAL FINDINGS: None. IMPRESSION: 1. No sonographic evidence for DVT in the right lower extremity. Signer Name: Mitch Francois MD Signed: 12/05/2020 9:47 AM Workstation Name: [id number]
[2020-12-05] MEDS: HEPARIN 5,000 UNIT/1 ML VIAL SUB-Q SCH ×2 (10:11→21:13)
[2020-12-05] MEDS: METOPROLOL TARTRATE 100 MG TAB PO SCH ×2 (10:17→18:15)
[2020-12-05] MEDS: PREGABALIN 50 MG CAP PO SCH ×3 (10:17→21:13)
[2020-12-05] MEDS: PREGABALIN 75 MG CAP PO SCH ×3 (10:17→21:12)
[2020-12-05] MEDS: VANCOMYCIN 2,000 MG in SODIUM CHLORIDE 0.9% 500 ML 500 ML IV SCH ×2 (10:18→21:15)
--- NOTE | 2020-12-05 10:36 | Vascular Lab Report ---
DUPLEX DOPPLER LOWER EXTREMITY ARTERIAL, RIGHT INDICATION / CLINICAL INFORMATION: Peripheral arterial disease. TECHNIQUE: Arterial duplex examination of the right lower extremity performed using B-mode, color andrés w and spectral Doppler assessment. COMPARISON: Bilateral lower extremity arterial Doppler 02/23/2019. FINDINGS: RIGHT: Common Femoral Artery: PSV 141 cm/sec. Triphasic waveform. Proximal SFA: PSV 140 cm/sec. Triphasic waveform. Mid SFA: PSV 119 cm/sec. Triphasic waveform. Distal SFA: PSV 129 cm/sec. Triphasic waveform. Popliteal artery: PSV 120 cm/sec. Triphasic waveform. Posterior tibial artery: PSV 90 cm/sec. Triphasic waveform. Dorsalis Pedis Artery: PSV 90 cm/sec. Triphasic waveform. Right DAVY: Not performed. IMPRESSION: 1. No hemodynamically significant right lower extremity peripheral artery disease. Ankle-Brachial Index (DAVY): - Calcified arteries > 1.4 - Normal = 0.9-1.4 - Mild PAD = 0.7-0.89 - Moderate PAD = 0.51-0.69 - Severe PAD < 0.5 Doppler Waveform: - Triphasic is normal. - Biphasic is abnormal if clear transition from triphasic signal along vascular tree. - Monophasic is abnormal. Scribed by: Vane Deleon RDMS, RVT Scribed: 12/05/2020 9:31 AM I have reviewed the images, agree with this report, and edited this report as needed. Signer Name: Mitch Francois MD Signed: 12/05/2020 10:32 AM Workstation Name: [employer]
--- NOTE | 2020-12-05 12:41 | Consultation ---
History of Present Illness - Reason for Consult Consult date: 12/05/20 - History of Present Illness 60-year-old man past diabetes, hypertension, PAD presents with right lower extremity ulcers. He notes pain and redness began approximately 7 days prior to admission extends from the knee to the foot. Notably the patient had a left AKA due to persistent cellulitis. He otherwise denies complaints. Afebrile since admission with a white count of 8.8 no cultures currently available. Currently on vancomycin and Unasyn. Imaging personally reviewed: Arterial ultrasound: No significant PAD Doppler: No evidence of DVT. Review of Systems: Bold if positive, otherwise negative General: fevers, chills, rigors HEENT: visual disturbance, diplopia, eye pain Respiratory: cough, sputum, hemoptysis, shortness of breath Cardiovascular: chest pain, syncope Gastrointestinal: nausea, vomiting, diarrhea, abdominal pain Genitourinary: dysuria, hematuria, flank pain Musculoskeletal: neck pain, back pain, joint pain, edema Neurologic: headaches, seizures Hematologic: easy bruising or bleeding Endocrine: night sweats, acute weight loss Skin: rash, jaundice, redness Psychiatric: suicidal, homicidal ideation Past History Past Medical History: diabetes, hypertension, hyperlipidemia, PVD, other Past Surgical History: Other (L AKA) Social history: lives with family, full code Family history: hypertension Medications and Allergies Allergies Allergy/AdvReac Type Severity Reaction Status Date / Time sulfamethoxazole Allergy Itching Verified 12/05/20 07:05 [From Bactrim] trimethoprim [From Bactrim] Allergy Itching Verified 12/05/20 07:05 Home Medications Medication Instructions Recorded Confirmed Last Taken Type Fenofibrate 160 mg PO HS 11/19/18 12/05/20 1 Day Ago History ~12/04/20 Insulin Aspart (Nf) [NovoLOG 100 18 unit SQ AC 07/05/19 12/05/20 1 Day Ago History UNITS/ML VIAL] ~12/04/20 18 units ALPRAZolam [Xanax TAB] 1 mg PO TID PRN #12 07/13/19 12/05/20 3 Days Ago Rx ~12/02/20 1 mg AtorvaSTATin [Lipitor] 20 mg PO HS #30 07/13/19 12/05/20 1 Day Ago Rx ~12/04/20 Metoprolol [Lopressor TAB] 100 mg PO BID #60 07/13/19 12/05/20 1 Day Ago Rx ~12/04/20 Oxycodone HCl [roxiCODONE] 15 mg PO Q4HR #12 07/13/19 12/05/20 1 Day Ago Rx ~12/04/20 15 mg Pregabalin [Lyrica] 200 mg PO TID #90 cap 07/13/19 12/05/20 1 Day Ago Rx ~12/04/20 200 mg Fenofibrate 160 mg PO HS 07/17/20 12/05/20 1 Day Ago History ~12/04/20 OXYCODONE hcl [Oxycodone] 15 mg PO PRN 07/17/20 12/05/20 1 Day Ago History ~12/04/20 15 mg HYDROcodone/APAP 5-325 [[place] 2 each PO Q6H PRN 2 Days #6 tablet 07/21/20 12/05/20 Unknown Rx 5-325 mg TAB] Sulfamethoxazole/Trimethoprim 2 each PO BID #28 tablet 07/21/20 12/05/20 Unknown Rx [Bactrim DS TAB] cephALEXin [Keflex] 500 mg PO Q6HR #28 capsule 07/21/20 12/05/20 Unknown Rx Active Meds: Active Medications Acetaminophen (Acetaminophen 325 Mg Tab) 650 mg PO Q4H PRN PRN Reason: Pain MILD(1-3)/Fever >100.5/VILLARREAL Alprazolam (Alprazolam 1 Mg Tab) 1 mg PO TID PRN PRN Reason: Anxiety Atorvastatin Calcium (Atorvastatin 20 Mg Tab) 20 mg PO HS YAEL Fenofibrate (Fenofibrate 145 Mg Tab) 145 mg PO HS YAEL Heparin Sodium (Porcine) (Heparin 5,000 Unit/1 Ml Vial) 5,000 unit SUB-Q Q12HR YAEL Last Admin: 12/05/20 10:11 Dose: 5,000 unit Documented by: Hydromorphone HCl (Hydromorphone 1 Mg/1 Ml Inj) 2 mg IV Q3H PRN PRN Reason: Pain , Severe (7-10) Last Admin: 12/05/20 10:12 Dose: 2 mg Documented by: Ampicillin Sodium/Sulbactam Sodium (Unasyn/Ns 3 Gm/100 Ml) 3 gm in 100 mls @ 100 mls/hr IV Q6HR YAEL; Protocol Last Admin: 12/05/20 05:46 Dose: 100 mls/hr Documented by: Vancomycin HCl 2,000 mg/ (Sodium Chloride) 540 mls @ 250 mls/hr IV Q12H [facility] Last Admin: 12/05/20 10:18 Dose: 250 mls/hr Documented by: Insulin Glargine (Insulin Glargine 100 Units/Ml) 80 units SUB-Q QHS [facility] Last Admin: 12/04/20 23:05 Dose: 80 units Documented by: Insulin Human Lispro (Insulin Lispro 100 Unit/Ml) 18 unit SUB-Q AC [facility] Last Admin: 12/05/20 08:18 Dose: 18 unit Documented by: Insulin Human Lispro (Insulin Lispro 100 Unit/Ml) 0 unit SUB-Q ACHS [facility]; Protocol Last Admin: 12/05/20 08:19 Dose: 6 unit Documented by: Metoprolol Tartrate (Metoprolol Tartrate 100 Mg Tab) 100 mg PO BID@0800,1700 [facility] Last Admin: 12/05/20 10:17 Dose: 100 mg Documented by: Pregabalin (Pregabalin 75 Mg Cap) 150 mg PO TID [facility] Last Admin: 12/05/20 10:17 Dose: 150 mg Documented by: Pregabalin (Pregabalin 50 Mg Cap) 50 mg PO TID [facility] Last Admin: 12/05/20 10:17 Dose: 50 mg Documented by: Sodium Chloride (Sodium Chloride 0.9% 10 Ml Flush Syringe) 10 ml IV BID [facility] Last Admin: 12/05/20 10:18 Dose: 10 ml Documented by: Sodium Chloride (Sodium Chloride 0.9% 10 Ml Flush Syringe) 10 ml IV PRN PRN PRN Reason: LINE FLUSH Physical Examination - Physical Exam Narrative exam: Physical Exam: Constitutional: Alert, cooperative. No acute distress Head, Ears, Nose: Normocephalic, atraumatic. External ears, nose normal Eyes: Conjunctivae/corneas clear. No icterus. No ptosis. Neck: Supple, no meningeal signs Oral: dentition fair, no thrush Cardiovascular: S1, S2 normal. Respiratory: Good air entry, clear to auscultation bilaterally GI: Soft, non-tender; bowel sounds normal. No peritoneal signs. Musculoskeletal: Left AKA, right leg redness with 2+ edema knee to foot, scattered stasis ulcers Skin: No rash or abscess Hem/Lymphatic: No palpable cervical or supraclavicular nodes. No lymphangitis Psych: Mood ok. Affect normal Neurological: Awake, alert, oriented. No gross abnormality - Constitutional Vitals: Vital Signs Temp Pulse Resp BP Pulse Ox 98.0 F 70 20 141/68 94 12/05/20 05:39 12/05/20 05:39 12/05/20 05:39 12/05/20 05:39 12/05/20 05:39 Temperature -Last 24 Hours Temperature 98.0 F Temperature 98.5 F Temperature 98.6 F Results - Labs CBC & Chem 7: 12/04/20 22:47 12/04/20 22:47 Labs: Abnormal lab results 12/04/20 12/04/20 12/04/20 Range/Units 14:52 21:29 22:47 Hgb 15.9 H (11.8-15.2) gm/dl Hct 46.4 H (35.5-45.6) % [place] % (Auto) 9.0 H (0.0-7.3) % BUN (9-20) mg/dL Creatinine (0.8-1.3) mg/dL Glucose (75-100) mg/dL POC Glucose 390 H 376 H (70-105) mg/dL Hemoglobin A1c (4-6) % AST (5-40) units/L ALT (7-56) units/L 12/04/20 12/05/20 12/05/20 Range/Units 22:47 05:59 07:31 Hgb (11.8-15.2) gm/dl Hct (35.5-45.6) % [place] % (Auto) (0.0-7.3) % BUN 8 L (9-20) mg/dL Creatinine 0.5 L (0.8-1.3) mg/dL Glucose 286 H (75-100) mg/dL POC Glucose 292 H (70-105) mg/dL Hemoglobin A1c 11.3 H (4-6) % AST 52 H (5-40) units/L ALT 62 H (7-56) units/L 12/05/20 Range/Units 11:40 Hgb (11.8-15.2) gm/dl Hct (35.5-45.6) % [place] % (Auto) (0.0-7.3) % BUN (9-20) mg/dL Creatinine (0.8-1.3) mg/dL Glucose (75-100) mg/dL POC Glucose 267 H (70-105) mg/dL Hemoglobin A1c (4-6) % AST (5-40) units/L ALT (7-56) units/L Assessment and Plan Cultures: None A/P: 60-year-old man past diabetes, hypertension, PAD presents with RLE cell ulitis vs venous stasis. #RLE cellulitis: worse for the past week. Likely some level of venous stasis as well. Afebrile, normal white count. he has minimal feeling in the leg, rash is warm and non-blanching #Venous stasis dermatitis: he notes his leg was not normal prior to this episode, and he has some venous stasis ulcers as well. #PAD #Sulfa allergy: recently broke out in itchy hives Recs: -Continue vancomycin for now, goal trough 10-20 -Stopped unasyn -Started ceftriaxone 2g q24h -If improved over next 1-2 days will DC with home antibiotics. Thank you for the consult, we will continue to follow. MD [facility] O: [phone] F: [phone]
--- NOTE | 2020-12-05 15:27 | Consultation ---
History of Present Illness Consult date: 12/05/20 Chief complaint: RLE cellulitis - History of present illness History of present illness: 60 yo male with chronic right leg ulcers secondary to venous hypertension. He presented to the ED b/o increased right leg swelling and redness. Past History Past Medical History: diabetes, hypertension, hyperlipidemia, PVD, other Past Surgical History: Other (L AKA) Social history: lives with family, full code Family history: hypertension Medications and Allergies Allergies Allergy/AdvReac Type Severity Reaction Status Date / Time sulfamethoxazole Allergy Itching Verified 12/05/20 07:05 [From Bactrim] trimethoprim [From Bactrim] Allergy Itching Verified 12/05/20 07:05 Home Medications Medication Instructions Recorded Confirmed Last Taken Type Fenofibrate 160 mg PO HS 11/19/18 12/05/20 1 Day Ago History ~12/04/20 Insulin Aspart (Nf) [NovoLOG 100 18 unit SQ AC 07/05/19 12/05/20 1 Day Ago History UNITS/ML VIAL] ~12/04/20 18 units ALPRAZolam [Xanax TAB] 1 mg PO TID PRN #12 07/13/19 12/05/20 3 Days Ago Rx ~12/02/20 1 mg AtorvaSTATin [Lipitor] 20 mg PO HS #30 07/13/19 12/05/20 1 Day Ago Rx ~12/04/20 Metoprolol [Lopressor TAB] 100 mg PO BID #60 07/13/19 12/05/20 1 Day Ago Rx ~12/04/20 Oxycodone HCl [roxiCODONE] 15 mg PO Q4HR #12 07/13/19 12/05/20 1 Day Ago Rx ~12/04/20 15 mg Pregabalin [Lyrica] 200 mg PO TID #90 cap 07/13/19 12/05/20 1 Day Ago Rx ~12/04/20 200 mg Fenofibrate 160 mg PO HS 07/17/20 12/05/20 1 Day Ago History ~12/04/20 OXYCODONE hcl [Oxycodone] 15 mg PO PRN 07/17/20 12/05/20 1 Day Ago History ~12/04/20 15 mg HYDROcodone/APAP 5-325 [[place] 2 each PO Q6H PRN 2 Days #6 tablet 07/21/20 12/05/20 Unknown Rx 5-325 mg TAB] Sulfamethoxazole/Trimethoprim 2 each PO BID #28 tablet 07/21/20 12/05/20 Unknown Rx [Bactrim DS TAB] cephALEXin [Keflex] 500 mg PO Q6HR #28 capsule 07/21/20 12/05/20 Unknown Rx Active Meds: Active Medications Acetaminophen (Acetaminophen 325 Mg Tab) 650 mg PO Q4H PRN PRN Reason: Pain MILD(1-3)/Fever >100.5/VILLARREAL Alprazolam (Alprazolam 1 Mg Tab) 1 mg PO TID PRN PRN Reason: Anxiety Atorvastatin Calcium (Atorvastatin 20 Mg Tab) 20 mg PO HS YAEL Fenofibrate (Fenofibrate 145 Mg Tab) 145 mg PO HS YAEL Heparin Sodium (Porcine) (Heparin 5,000 Unit/1 Ml Vial) 5,000 unit SUB-Q Q12HR YAEL Last Admin: 12/05/20 10:11 Dose: 5,000 unit Documented by: Hydromorphone HCl (Hydromorphone 1 Mg/1 Ml Inj) 2 mg IV Q3H PRN PRN Reason: Pain , Severe (7-10) Last Admin: 12/05/20 14:53 Dose: 2 mg Documented by: Ampicillin Sodium/Sulbactam Sodium (Unasyn/Ns 3 Gm/100 Ml) 3 gm in 100 mls @ 100 mls/hr IV Q6HR [facility]; Protocol Last Admin: 12/05/20 12:34 Dose: 100 mls/hr Documented by: Vancomycin HCl 2,000 mg/ (Sodium Chloride) 540 mls @ 250 mls/hr IV Q12H YAEL Last Admin: 12/05/20 10:18 Dose: 250 mls/hr Documented by: Insulin Glargine (Insulin Glargine 100 Units/Ml) 80 units SUB-Q QHS YAEL Last Admin: 12/04/20 23:05 Dose: 80 units Documented by: Insulin Human Lispro (Insulin Lispro 100 Unit/Ml) 18 unit SUB-Q AC [facility] Last Admin: 12/05/20 12:32 Dose: 18 unit Documented by: Insulin Human Lispro (Insulin Lispro 100 Unit/Ml) 0 unit SUB-Q ACHS [facility]; Protocol Last Admin: 12/05/20 12:33 Dose: 6 unit Documented by: Metoprolol Tartrate (Metoprolol Tartrate 100 Mg Tab) 100 mg PO BID@0800,1700 [facility] Last Admin: 12/05/20 10:17 Dose: 100 mg Documented by: Pregabalin (Pregabalin 75 Mg Cap) 150 mg PO TID [facility] Last Admin: 12/05/20 13:26 Dose: 150 mg Documented by: Pregabalin (Pregabalin 50 Mg Cap) 50 mg PO TID [facility] Last Admin: 12/05/20 13:26 Dose: 50 mg Documented by: Sodium Chloride (Sodium Chloride 0.9% 10 Ml Flush Syringe) 10 ml IV BID [facility] Last Admin: 12/05/20 10:18 Dose: 10 ml Documented by: Sodium Chloride (Sodium Chloride 0.9% 10 Ml Flush Syringe) 10 ml IV PRN PRN PRN Reason: LINE FLUSH Review of Systems All systems: negative (none) Exam Vital Signs Temp Pulse Resp BP Pulse Ox 98.6 F 82 18 140/73 94 12/04/20 14:06 12/04/20 14:06 12/04/20 14:06 12/04/20 14:06 12/04/20 14:06 - General physical appearance Positive: well developed, well nourished, no distress - Eyes Positive: PERRL, normal occular movement - ENT Positive: normal pinna, normal nares, normal mucosa, no hearing loss, no congestion - Neck Positive: no masses, no bruits, trachea midline, no venous distension - Respiratory Positive: normal expansion, normal respiratory effort, clear to auscultation - Cardiovascular Rhythm: regular Heart Sounds: Present: S1 & S2. Absent: rub, click - Extremities Extremities: no ischemia, pulses symmetrical, No edema - Breasts Breasts: normal, no mass, no skin changes - Abdomen Abdomen: Present: soft, bowel sounds normal. Absent: tender, distended Hernia: none - Genitourinary Male Genitourinary: normal Female Genitourinary: normal - Integumentary other (The right leg is cellulitic from just below the knee to the ankle. Edema is moderate. Right DP pulse is 2+. There is a superficial clean ulcer over the right anterior leg. ) - Neurologic Neurologic: alert and oriented to time, place and person, motor strength and sensation are grossly intact - Musculoskeletal normal gait, normal posture - Psychiatric Psychiatric: appropriate mood/affect, intact judgment & insight Results - Labs 12/04/20 22:47 12/04/20 22:47 Abnormal lab results 12/04/20 12/04/20 12/04/20 Range/Units 21:29 22:47 22:47 Hgb 15.9 H (11.8-15.2) gm/dl Hct 46.4 H (35.5-45.6) % [place] % (Auto) 9.0 H (0.0-7.3) % BUN 8 L (9-20) mg/dL Creatinine 0.5 L (0.8-1.3) mg/dL Glucose 286 H (75-100) mg/dL POC Glucose 376 H (70-105) mg/dL Hemoglobin A1c (4-6) % AST 52 H (5-40) units/L ALT 62 H (7-56) units/L 12/05/20 12/05/20 12/05/20 Range/Units 05:59 07:31 11:40 Hgb (11.8-15.2) gm/dl Hct (35.5-45.6) % [place] % (Auto) (0.0-7.3) % BUN (9-20) mg/dL Creatinine (0.8-1.3) mg/dL Glucose (75-100) mg/dL POC Glucose 292 H 267 H (70-105) mg/dL Hemoglobin A1c 11.3 H (4-6) % AST (5-40) units/L ALT (7-56) units/L Diabetes panel 12/04/20 12/05/20 Range/Units 22:47 05:59 Sodium 137 (137-145) mmol/L Potassium 4.2 (3.6-5.0) mmol/L Chloride 100.6 (98-107) mmol/L Carbon Dioxide 22 (22-30) mmol/L BUN 8 L (9-20) mg/dL Creatinine 0.5 L (0.8-1.3) mg/dL Glucose 286 H (75-100) mg/dL Hemoglobin A1c 11.3 H (4-6) % Calcium 8.9 (8.4-10.2) mg/dL AST 52 H (5-40) units/L ALT 62 H (7-56) units/L Alkaline Phosphatase 91 (35-129) units/L Total Protein 7.2 (6.3-8.2) g/dL Albumin 4.0 (3.9-5) g/dL Calcium panel 12/04/20 Range/Units 22:47 Calcium 8.9 (8.4-10.2) mg/dL Albumin 4.0 (3.9-5) g/dL Pituitary panel 12/04/20 Range/Units 22:47 Sodium 137 (137-145) mmol/L Potassium 4.2 (3.6-5.0) mmol/L Chloride 100.6 (98-107) mmol/L Carbon Dioxide 22 (22-30) mmol/L BUN 8 L (9-20) mg/dL Creatinine 0.5 L (0.8-1.3) mg/dL Glucose 286 H (75-100) mg/dL Calcium 8.9 (8.4-10.2) mg/dL Adrenal panel 12/04/20 Range/Units 22:47 Sodium 137 (137-145) mmol/L Potassium 4.2 (3.6-5.0) mmol/L Chloride 100.6 (98-107) mmol/L Carbon Dioxide 22 (22-30) mmol/L BUN 8 L (9-20) mg/dL Creatinine 0.5 L (0.8-1.3) mg/dL Glucose 286 H (75-100) mg/dL Calcium 8.9 (8.4-10.2) mg/dL Total Bilirubin 0.60 (0.1-1.2) mg/dL AST 52 H (5-40) units/L ALT 62 H (7-56) units/L Alkaline Phosphatase 91 (35-129) units/L Total Protein 7.2 (6.3-8.2) g/dL Albumin 4.0 (3.9-5) g/dL - Imaging Additional studies: Venous and arterial dopplers of the RLE were reviewed and were unremarkable. Assessment and Plan - Patient Problems (1) Cellulitis of right lower extremity Current Visit: No Status: Acute Plan to address problem: 1) Elevate RLE as much as possible. 2) Antibiotics per ID 3) Pt can f/u in the [facility]. 4) Wound care nurse consult.
[2020-12-05] MEDS: FENOFIBRATE 145 MG TAB PO SCH (21:15)
[2020-12-05] MEDS: INSULIN GLARGINE 100 UNITS/ML SUB-Q SCH (22:19)
[2020-12-06] MEDS: AMPICILLIN/SULBACTA 3GM/100ML 3 GM/100 ML BAG IV SCH ×2 (00:18→06:30)
[2020-12-06] MEDS: HYDROmorphone 1 MG/1 ML INJ IV PRN ×6 (00:18→20:20)
[2020-12-06] MEDS ORDERED: INSULIN LISPRO 100 UNIT/ML SUB-Q SCH (07:37)
--- NOTE | 2020-12-06 07:42 | Progress Note ---
Assessment and Plan Assessment and plan: (1) Cellulitis of right lower extremity Current Visit: No Status: Acute Plan to address problem: Patient initiated on IV Unasyn and IV vancomycin. Has severe cellulitis. Of the lower right lower extremity. With 2 open ulcers. We will get surgery consult. Also ID consult. (2) Generalized anxiety disorder Current Visit: No Status: Chronic Plan to address problem: Patient on anxiolytics 3 times a day. (3) HLD (hyperlipidemia) Current Visit: No Status: Chronic Qualifiers: Hyperlipidemia type: mixed hyperlipidemia Plan to address problem: Continue fenofibrate and statins. (4) Hypertension Current Visit: Yes Status: Chronic Qualifiers: Hypertension type: primary hypertension Qualified Code(s): I10 - Essential (primary) hypertension Plan to address problem: Continue antihypertensives. (5) IDDM (insulin dependent diabetes mellitus) Current Visit: Yes Status: Chronic Plan to address problem: Continue Lantus and Humalog. Adjust insulin dosage. Depending on hemoglobin A1c results. Accu-Cheks AC at bedtime and high-dose sliding scale coverage Dietitian consult regarding diabetes and diet (6) Peripheral neuropathy Current Visit: Yes Status: Chronic Plan to address problem: Patient is on Lyrica 200 mg twice a day (7) DVT prophylaxis Current Visit: No Status: Acute Plan to address problem: Subcu heparin and GI prophylaxis. 12/05/2020 -Patient was admitted for right lower extremity cellulitis and ID/general surgery was consulted. -Patient is on IV Unasyn and vancomycin -Patient's blood sugar is uncontrolled, he is on 80 units of Lantus and 18 units of Humalog before meal. Despite that his blood sugar is very high. Will check hemoglobin A1c. Patient is followed with Dr. Murphy in the office. -Wound care consulted. 12/06/2020 -Patient was seen by ID and changed Unasyn to ceftriaxone and recommend to continue vancomycin, recommend to discharge in 1 to 2 days if patient's condition improve -Patient was seen by general surgery and said this is due to stasis ulcer, recommend to her wound care evaluation and outpatient wound care follow-up -Blood sugar is uncontrolled and I have increased premeal insulin to 20 units. Hemoglobin A1c is 11.3 and need to follow-up with his primary care physician Dr. Murphy office. History Interval history: Patient was seen and evaluated this morning, patient has pain on the right leg Patient is admitted for right lower extremity cellulitis Hospitalist Physical - Physical exam Narrative exam: Not in cardiopulmonary distress. The patient is morbidly obese. Vital signs as documented. Head exam is unremarkable. No scleral icterus . Neck is without jugular venous distension, thyromegaly, or carotid bruits. Lungs are clear to auscultation. Cardiac exam reveals regular rate and Rhythm. Abdominal exam reveals normal bowel sounds, nontender, no organomegaly. Extremities right lower extremity cellulitis extending from the right knee down to the foot. 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 No focal weakness. - Constitutional Vitals: Temp Pulse Resp BP Pulse Ox 98.2 F 144 H 16 129/93 93 12/06/20 05:48 12/06/20 05:48 12/06/20 05:48 12/06/20 05:48 12/06/20 05:48 General appearance: Present: no acute distress, well-nourished HEART Score - HEART Score Risk factors: > 3 risk factors or hx of atherosclerotic disease Troponin: < normal limit - Critical Actions Critical Actions: 0-3 pts:0.9-1.7%risk of adverse cardiac event.Candidate for discharge Results - Labs CBC & Chem 7: 12/04/20 22:47 12/04/20 22:47 Labs: Laboratory Last Values WBC 8.8 K/mm3 (4.5-11.0) 12/04/20 22:47 RBC 4.98 M/mm3 (3.65-5.03) 12/04/20 22:47 Hgb 15.9 gm/dl (11.8-15.2) H 12/04/20 22:47 Hct 46.4 % (35.5-45.6) H 12/04/20 22:47 MCV 93 fl (84-94) 12/04/20 22:47 MCH 32 pg (28-32) 12/04/20 22:47 MCHC 34 % (32-34) 12/04/20 22:47 RDW 14.6 % (13.2-15.2) 12/04/20 22:47 Plt Count 156 K/mm3 (140-440) 12/04/20 22:47 Lymph % (Auto) 20.9 % (13.4-35.0) 12/04/20 22:47 [place] % (Auto) 9.0 % (0.0-7.3) H 12/04/20 22:47 Eos % (Auto) 2.9 % (0.0-4.3) 12/04/20 22:47 Baso % (Auto) 1.1 % (0.0-1.8) 12/04/20 22:47 Lymph # (Auto) 1.8 K/mm3 (1.2-5.4) 12/04/20 22:47 [place] # (Auto) 0.8 K/mm3 (0.0-0.8) 12/04/20 22:47 Eos # (Auto) 0.3 K/mm3 (0.0-0.4) 12/04/20 22:47 Baso # (Auto) 0.1 K/mm3 (0.0-0.1) 12/04/20 22:47 Seg Neutrophils % 66.1 % (40.0-70.0) 12/04/20 22:47 Seg Neutrophils # 5.8 K/mm3 (1.8-7.7) 12/04/20 22:47 Sodium 137 mmol/L (137-145) 12/04/20 22:47 Potassium 4.2 mmol/L (3.6-5.0) 12/04/20 22:47 Chloride 100.6 mmol/L (98-107) 12/04/20 22:47 Carbon Dioxide 22 mmol/L (22-30) 12/04/20 22:47 Anion Gap 19 mmol/L 12/04/20 22:47 BUN 8 mg/dL (9-20) L 12/04/20 22:47 Creatinine 0.5 mg/dL (0.8-1.3) L 12/04/20 22:47 Estimated GFR > 60 ml/min 12/04/20 22:47 BUN/Creatinine Ratio 16 % 12/04/20 22:47 Glucose 286 mg/dL (75-100) H 12/04/20 22:47 POC Glucose 349 mg/dL (70-105) H 12/06/20 00:53 Hemoglobin A1c 11.3 % (4-6) H 12/05/20 05:59 Calcium 8.9 mg/dL (8.4-10.2) 12/04/20 22:47 Total Bilirubin 0.60 mg/dL (0.1-1.2) 12/04/20 22:47 AST 52 units/L (5-40) H 12/04/20 22:47 ALT 62 units/L (7-56) H 12/04/20 22:47 Alkaline Phosphatase 91 units/L (35-129) 12/04/20 22:47 Total Protein 7.2 g/dL (6.3-8.2) 12/04/20 22:47 Albumin 4.0 g/dL (3.9-5) 12/04/20 22:47 Albumin/Globulin Ratio 1.3 % 12/04/20 22:47 [place]/IV: Voiding Method Urinal Active Medications - Current Medications Current Medications: Generic Name Dose Route Start Last Admin Trade Name Freq PRN Reason Stop Dose Admin Acetaminophen 650 mg 12/04/20 12:04 Acetaminophen 325 Mg Tab PO Q4H PRN Pain MILD(1-3)/Fever >100.5/VILLARREAL Alprazolam 1 mg 12/04/20 22:09 Alprazolam 1 Mg Tab PO TID PRN Anxiety Atorvastatin Calcium 20 mg 12/05/20 22:00 12/05/20 21:14 Atorvastatin 20 Mg Tab PO 20 mg HS YAEL Administration Fenofibrate 145 mg 12/05/20 22:00 12/05/20 21:15 Fenofibrate 145 Mg Tab PO 145 mg HS YAEL Administration Heparin Sodium (Porcine) 5,000 unit 12/05/20 10:00 12/05/20 21:13 Heparin 5,000 Unit/1 Ml Vial SUB-Q 5,000 unit Q12HR YAEL Administration Hydromorphone HCl 2 mg 12/04/20 12:04 12/06/20 06:30 Hydromorphone 1 Mg/1 Ml Inj IV 2 mg Q3H PRN Administration Pain , Severe (7-10) Ampicillin Sodium/Sulbactam Sodium 3 gm in 100 mls @ 100 mls/hr 12/04/20 18:00 12/06/20 06:30 Unasyn/Ns 3 Gm/100 Ml IV 100 mls/hr Q6HR YAEL Administration Protocol Vancomycin HCl 2,000 mg/ 540 mls @ 250 mls/hr 12/05/20 10:00 12/06/20 03:18 Sodium Chloride IV Infused Q12H YAEL Infusion Insulin Glargine 80 units 12/04/20 22:00 12/05/20 22:19 Insulin Glargine 100 Units/Ml SUB-Q 80 units QHS YAEL Administration Insulin Human Lispro 0 unit 12/04/20 23:15 12/05/20 22:16 Insulin Lispro 100 Unit/Ml SUB-Q 10 unit ACHS YAEL Administration Protocol Insulin Human Lispro 20 unit 12/06/20 07:37 Insulin Lispro 100 Unit/Ml SUB-Q AC YAEL Metoprolol Tartrate 100 mg 12/04/20 23:00 12/05/20 18:15 Metoprolol Tartrate 100 Mg Tab PO 100 mg BID@0800,1700 YAEL Administration Pregabalin 150 mg 12/05/20 08:00 12/05/20 21:12 Pregabalin 75 Mg Cap PO 150 mg TID YAEL Administration Pregabalin 50 mg 12/05/20 08:00 12/05/20 21:13 Pregabalin 50 Mg Cap PO 50 mg TID YAEL Administration Sodium Chloride 10 ml 12/04/20 22:00 12/05/20 21:14 Sodium Chloride 0.9% 10 Ml Flush Syringe IV 10 ml BID YAEL Administration Sodium Chloride 10 ml 12/04/20 12:04 Sodium Chloride 0.9% 10 Ml Flush Syringe IV PRN PRN LINE FLUSH Nutrition/Malnutrition Assess - Dietary Evaluation Nutrition/Malnutrition Findings: Nutrition Notes Start: 12/05/20 13:21 Freq: Status: Active Protocol: Document 12/05/20 13:22 (Rec: 12/05/20 13:26 [email or web address]) Nutrition Notes 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 RN screen for skin risk. Pt with anterior leg wounds. He is eating 100% of meals. A1c in Jun. was 9.7. Pt unsure of why A1c increased. Pt asked to talk about DM education tomorrow. Pt with [facility] MARTE. Left handouts with pt to review. Nutrition Intervention Follow-Up By: 12/06/20 Additional Comments FU for DM education
[2020-12-06] MEDS: INSULIN LISPRO 100 UNIT/ML SUB-Q SCH ×7 (08:38→18:17)
[2020-12-06] MEDS: PREGABALIN 75 MG CAP PO SCH ×3 (08:39→20:21)
[2020-12-06] MEDS: PREGABALIN 50 MG CAP PO SCH ×3 (08:39→20:21)
[2020-12-06] MEDS: METOPROLOL TARTRATE 100 MG TAB PO SCH ×2 (08:40→16:29)
[2020-12-06 09:02] LABS: Blood Urea Nitrogen 8 mg/dL (9-20); Hemolysis Index 264
[2020-12-06 09:29] LABS: BUN/Creatinine Ratio 16
[2020-12-06] MEDS: HEPARIN 5,000 UNIT/1 ML VIAL SUB-Q SCH (09:49)
[2020-12-06] MEDS: cefTRIAXone/NS 2 GM/100 ML 2 GM/100 ML BAG IV SCH (10:01)
[2020-12-06] MEDS: VANCOMYCIN 2,000 MG in SODIUM CHLORIDE 0.9% 500 ML 500 ML IV SCH ×2 (10:16→10:18)
[2020-12-06] MEDS ORDERED: SODIUM POLYSTYRENE 15 GM/60 ML ORAL LIQD PO NR (13:33)
--- NOTE | 2020-12-06 15:28 | Progress Note ---
Assessment and Plan Cultures: None A/P: 60-year-old man past diabetes, hypertension, PAD presents with RLE cellulitis vs venous stasis. #RLE cellulitis: worse for the past week. Likely some level of venous stasis as well. Afebrile, normal white count. he has minimal feeling in the leg, rash is warm and non-blanching #Venous stasis dermatitis: he notes his leg was not normal prior to this episode, and he has some venous stasis ulcers as well. #PAD #Sulfa allergy: recently broke out in itchy hives Recs: -Continue vancomycin for now, goal trough 10-20 -Started ceftriaxone 2g q24h -If improved over weekend can DC with Augmentin 875/125mg q12h and doxycycline 100mg q12h to complete 10 days. -Wound care -Leg elevation Thank you for the consult, we will continue to follow. Treva Zaman MD [facility] ([facility]) O: [phone] F: [phone] Subjective Date of service: 12/06/20 Interval history: Afebrile, no new issues. Objective - Exam Narrative Exam: Physical Exam: Constitutional: Alert, cooperative. No acute distress Head, Ears, Nose: Normocephalic, atraumatic. External ears, nose normal Eyes: Conjunctivae/corneas clear. No icterus. No ptosis. Neck: Supple, no meningeal signs Oral: dentition fair, no thrush Cardiovascular: S1, S2 normal. Respiratory: Good air entry, clear to auscultation bilaterally GI: Soft, non-tender; bowel sounds normal. No peritoneal signs. Musculoskeletal: Left AKA, right leg redness with 2+ edema knee to foot, scattered stasis ulcers Skin: No rash or abscess Hem/Lymphatic: No palpable cervical or supraclavicular nodes. No lymphangitis Psych: Mood ok. Affect normal Neurological: Awake, alert, oriented. No gross abnormality - Constitutional Vitals: Vital Signs Temp Pulse Resp BP Pulse Ox 98.2 F 98 H 16 129/93 93 12/06/20 05:48 12/06/20 08:40 12/06/20 05:48 12/06/20 05:48 12/06/20 05:48 Temperature -Last 24 Hours Temperature 98.2 F Temperature 98.4 F Temperature 99.3 F - Labs CBC & Chem 7: 12/04/20 22:47 12/06/20 08:08 Labs: Abnormal lab results 12/05/20 12/06/20 12/06/20 Range/Units 17:49 00:53 07:39 Sodium (137-145) mmol/L Potassium (3.6-5.0) mmol/L Carbon Dioxide (22-30) mmol/L BUN (9-20) mg/dL Creatinine (0.8-1.3) mg/dL Glucose (75-100) mg/dL POC Glucose 295 H 349 H 303 H (70-105) mg/dL 12/06/20 12/06/20 Range/Units 08:08 10:34 Sodium 129 L D (137-145) mmol/L Potassium 5.5 H D (3.6-5.0) mmol/L Carbon Dioxide 21 L (22-30) mmol/L BUN 8 L (9-20) mg/dL Creatinine 0.5 L (0.8-1.3) mg/dL Glucose 292 H (75-100) mg/dL POC Glucose 301 H (70-105) mg/dL
--- NOTE | 2020-12-06 19:51 | Progress Note ---
Assessment and Plan - Patient Problems (1) Cellulitis of right lower extremity Current Visit: No Status: Acute Plan to address problem: 1) I told pt again that he needs to lie supine or nearly supine and elevate his leg more on pillows. He says he will comply. Subjective Date of service: 12/06/20 Patient Reports: Positive: no new complaints, feels better Objective Vital Signs - 12hr 12/06/20 12/06/20 12/06/20 08:40 10:34 10:35 Temperature 98.0 F Pulse Rate 98 H 127 H 127 H Respiratory 19 Rate Blood Pressure 111/73 O2 Sat by Pulse 89 90 Oximetry 12/06/20 12/06/20 16:29 18:06 Temperature 99.1 F Pulse Rate 86 72 Respiratory 20 Rate Blood Pressure 118/76 O2 Sat by Pulse 91 Oximetry - General physical appearance other (Pt is sitting nearly upright in bed with his leg barely elevated.) - Labs 12/04/20 22:47 12/06/20 08:08 Diabetes panel 12/06/20 Range/Units 08:08 Sodium 129 L D (137-145) mmol/L Potassium 5.5 H D (3.6-5.0) mmol/L Chloride 98.3 (98-107) mmol/L Carbon Dioxide 21 L (22-30) mmol/L BUN 8 L (9-20) mg/dL Creatinine 0.5 L (0.8-1.3) mg/dL Glucose 292 H (75-100) mg/dL Calcium 9.0 (8.4-10.2) mg/dL Calcium panel 12/06/20 Range/Units 08:08 Calcium 9.0 (8.4-10.2) mg/dL Pituitary panel 12/06/20 Range/Units 08:08 Sodium 129 L D (137-145) mmol/L Potassium 5.5 H D (3.6-5.0) mmol/L Chloride 98.3 (98-107) mmol/L Carbon Dioxide 21 L (22-30) mmol/L BUN 8 L (9-20) mg/dL Creatinine 0.5 L (0.8-1.3) mg/dL Glucose 292 H (75-100) mg/dL Calcium 9.0 (8.4-10.2) mg/dL Adrenal panel 12/06/20 Range/Units 08:08 Sodium 129 L D (137-145) mmol/L Potassium 5.5 H D (3.6-5.0) mmol/L Chloride 98.3 (98-107) mmol/L Carbon Dioxide 21 L (22-30) mmol/L BUN 8 L (9-20) mg/dL Creatinine 0.5 L (0.8-1.3) mg/dL Glucose 292 H (75-100) mg/dL Calcium 9.0 (8.4-10.2) mg/dL
[2020-12-07] MEDS: HYDROmorphone 1 MG/1 ML INJ IV PRN ×7 (00:07→20:59)
[2020-12-07] MEDS: VANCOMYCIN 2,000 MG in SODIUM CHLORIDE 0.9% 500 ML 500 ML IV SCH ×3 (00:09→22:34)
[2020-12-07] MEDS: FENOFIBRATE 145 MG TAB PO SCH ×2 (00:09→21:00)
[2020-12-07] MEDS: HEPARIN 5,000 UNIT/1 ML VIAL SUB-Q SCH ×3 (00:09→21:00)
[2020-12-07] MEDS: INSULIN GLARGINE 100 UNITS/ML SUB-Q SCH (00:10)
[2020-12-07] MEDS: INSULIN LISPRO 100 UNIT/ML SUB-Q SCH ×9 (00:11→22:26)
[2020-12-07 09:16] LABS: BUN/Creatinine Ratio 22; Blood Urea Nitrogen 11 mg/dL (9-20); Calcium 9.4 mg/dL (8.4-10.2); Hemolysis Index 14
[2020-12-07] MEDS: METOPROLOL TARTRATE 100 MG TAB PO SCH ×2 (09:39→17:02)
[2020-12-07] MEDS: PREGABALIN 50 MG CAP PO SCH ×3 (09:40→20:58)
[2020-12-07] MEDS: PREGABALIN 75 MG CAP PO SCH ×3 (09:40→20:57)
[2020-12-07] MEDS: cefTRIAXone/NS 2 GM/100 ML 2 GM/100 ML BAG IV SCH (09:42)
--- NOTE | 2020-12-07 10:34 | Progress Note ---
Assessment and Plan - Patient Problems (1) Cellulitis of right lower extremity Current Visit: No Status: Acute Plan to address problem: 1) On entering the room, pt again had his head up and feet down. I again encouraged him to lower his head to level or nearly so and raise the foot of the bed as well as elevate his RLE with pillows. Subjective Date of service: 12/07/20 Patient Reports: Positive: no new complaints Objective Vital Signs - 12hr 12/07/20 09:39 Pulse Rate 90 - Labs 12/04/20 22:47 12/07/20 07:00 Diabetes panel 12/07/20 Range/Units 07:00 Sodium 139 D (137-145) mmol/L Potassium 4.2 D (3.6-5.0) mmol/L Chloride 100.3 (98-107) mmol/L Carbon Dioxide 27 (22-30) mmol/L BUN 11 (9-20) mg/dL Creatinine 0.5 L (0.8-1.3) mg/dL Glucose 271 H (75-100) mg/dL Calcium 9.4 (8.4-10.2) mg/dL Calcium panel 12/07/20 Range/Units 07:00 Calcium 9.4 (8.4-10.2) mg/dL Pituitary panel 12/07/20 Range/Units 07:00 Sodium 139 D (137-145) mmol/L Potassium 4.2 D (3.6-5.0) mmol/L Chloride 100.3 (98-107) mmol/L Carbon Dioxide 27 (22-30) mmol/L BUN 11 (9-20) mg/dL Creatinine 0.5 L (0.8-1.3) mg/dL Glucose 271 H (75-100) mg/dL Calcium 9.4 (8.4-10.2) mg/dL Adrenal panel 12/07/20 Range/Units 07:00 Sodium 139 D (137-145) mmol/L Potassium 4.2 D (3.6-5.0) mmol/L Chloride 100.3 (98-107) mmol/L Carbon Dioxide 27 (22-30) mmol/L BUN 11 (9-20) mg/dL Creatinine 0.5 L (0.8-1.3) mg/dL Glucose 271 H (75-100) mg/dL Calcium 9.4 (8.4-10.2) mg/dL
--- NOTE | 2020-12-07 11:36 | Progress Note ---
Assessment and Plan Assessment and plan: (1) Cellulitis of right lower extremity Current Visit: No Status: Acute Plan to address problem: Patient initiated on IV Unasyn and IV vancomycin. Has severe cellulitis. Of the lower right lower extremity. With 2 open ulcers. We will get surgery consult. Also ID consult. (2) Generalized anxiety disorder Current Visit: No Status: Chronic Plan to address problem: Patient on anxiolytics 3 times a day. (3) HLD (hyperlipidemia) Current Visit: No Status: Chronic Qualifiers: Hyperlipidemia type: mixed hyperlipidemia Plan to address problem: Continue fenofibrate and statins. (4) Hypertension Current Visit: Yes Status: Chronic Qualifiers: Hypertension type: primary hypertension Qualified Code(s): I10 - Essential (primary) hypertension Plan to address problem: Continue antihypertensives. (5) IDDM (insulin dependent diabetes mellitus) Current Visit: Yes Status: Chronic Plan to address problem: Continue Lantus and Humalog. Adjust insulin dosage. Depending on hemoglobin A1c results. Accu-Cheks AC at bedtime and high-dose sliding scale coverage Dietitian consult regarding diabetes and diet (6) Peripheral neuropathy Current Visit: Yes Status: Chronic Plan to address problem: Patient is on Lyrica 200 mg twice a day (7) DVT prophylaxis Current Visit: No Status: Acute Plan to address problem: Subcu heparin and GI prophylaxis. 12/05/2020 -Patient was admitted for right lower extremity cellulitis and ID/general surgery was consulted. -Patient is on IV Unasyn and vancomycin -Patient's blood sugar is uncontrolled, he is on 80 units of Lantus and 18 units of Humalog before meal. Despite that his blood sugar is very high. Will check hemoglobin A1c. Patient is followed with Dr. Murphy in the office. -Wound care consulted. 12/06/2020 -Patient was seen by ID and changed Unasyn to ceftriaxone and recommend to continue vancomycin, recommend to discharge in 1 to 2 days if patient's condition improve -Patient was seen by general surgery and said this is due to stasis ulcer, recommend to her wound care evaluation and outpatient wound care follow-up -Blood sugar is uncontrolled and I have increased premeal insulin to 20 units. Hemoglobin A1c is 11.3 and need to follow-up with his primary care physician Dr. Murphy office. 12/07/2020 -patient tells me he was on more Insulin at home than what he is getting here. At home was on Humulin 45 units Qac and Lantus 50 Qamin am and 100 Qpm. Will resume this dose Cont iv Antibiotics. ID and Surgery following. History Interval history: Patient with right lower ext cellulitis Blood glucose uncontrolled Hospitalist Physical - Physical exam Narrative exam: Not in cardiopulmonary distress. The patient is morbidly obese. Vital signs as documented. Head exam is unremarkable. No scleral icterus . Neck is without jugular venous distension, thyromegaly, or carotid bruits. Lungs are clear to auscultation. Cardiac exam reveals regular rate and Rhythm. Abdominal exam reveals normal bowel sounds, nontender, no organomegaly. Extremities right lower extremity cellulitis extending from the right knee down to the foot. 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 - Constitutional Vitals: Temp Pulse Resp BP Pulse Ox 99.1 F 90 20 118/76 91 12/06/20 18:06 12/07/20 09:39 12/06/20 18:06 12/06/20 18:06 12/06/20 18:06 General appearance: Present: no acute distress, well-nourished HEART Score - HEART Score Risk factors: > 3 risk factors or hx of atherosclerotic disease Troponin: < normal limit - Critical Actions Critical Actions: 0-3 pts:0.9-1.7%risk of adverse cardiac event.Candidate for discharge Results - Labs CBC & Chem 7: 12/04/20 22:47 12/07/20 07:00 Labs: Laboratory Last Values WBC 8.8 K/mm3 (4.5-11.0) 12/04/20 22:47 RBC 4.98 M/mm3 (3.65-5.03) 12/04/20 22:47 Hgb 15.9 gm/dl (11.8-15.2) H 12/04/20 22:47 Hct 46.4 % (35.5-45.6) H 12/04/20 22:47 MCV 93 fl (84-94) 12/04/20 22:47 MCH 32 pg (28-32) 12/04/20 22:47 MCHC 34 % (32-34) 12/04/20 22:47 RDW 14.6 % (13.2-15.2) 12/04/20 22:47 Plt Count 156 K/mm3 (140-440) 12/04/20 22:47 Lymph % (Auto) 20.9 % (13.4-35.0) 12/04/20 22:47 Crenshaw % (Auto) 9.0 % (0.0-7.3) H 12/04/20 22:47 Eos % (Auto) 2.9 % (0.0-4.3) 12/04/20 22:47 Baso % (Auto) 1.1 % (0.0-1.8) 12/04/20 22:47 Lymph # (Auto) 1.8 K/mm3 (1.2-5.4) 12/04/20 22:47 Crenshaw # (Auto) 0.8 K/mm3 (0.0-0.8) 12/04/20 22:47 Eos # (Auto) 0.3 K/mm3 (0.0-0.4) 12/04/20 22:47 Baso # (Auto) 0.1 K/mm3 (0.0-0.1) 12/04/20 22:47 Seg Neutrophils % 66.1 % (40.0-70.0) 12/04/20 22:47 Seg Neutrophils # 5.8 K/mm3 (1.8-7.7) 12/04/20 22:47 Sodium 139 mmol/L (137-145) D 12/07/20 07:00 Potassium 4.2 mmol/L (3.6-5.0) D 12/07/20 07:00 Chloride 100.3 mmol/L (98-107) 12/07/20 07:00 Carbon Dioxide 27 mmol/L (22-30) 12/07/20 07:00 Anion Gap 16 mmol/L 12/07/20 07:00 BUN 11 mg/dL (9-20) 12/07/20 07:00 Creatinine 0.5 mg/dL (0.8-1.3) L 12/07/20 07:00 Estimated GFR > 60 ml/min 12/07/20 07:00 BUN/Creatinine Ratio 22 % 12/07/20 07:00 Glucose 271 mg/dL (75-100) H 12/07/20 07:00 POC Glucose 322 mg/dL (70-105) H 12/07/20 11:09 Hemoglobin A1c 11.3 % (4-6) H 12/05/20 05:59 Calcium 9.4 mg/dL (8.4-10.2) 12/07/20 07:00 Total Bilirubin 0.60 mg/dL (0.1-1.2) 12/04/20 22:47 AST 52 units/L (5-40) H 12/04/20 22:47 ALT 62 units/L (7-56) H 12/04/20 22:47 Alkaline Phosphatase 91 units/L (35-129) 12/04/20 22:47 Total Protein 7.2 g/dL (6.3-8.2) 12/04/20 22:47 Albumin 4.0 g/dL (3.9-5) 12/04/20 22:47 Albumin/Globulin Ratio 1.3 % 12/04/20 22:47 Nasal Screen MRSA (PCR) Negative (Negative) 12/05/20 Unknown Swanson/IV: Voiding Method Urinal Active Medications - Current Medications Current Medications: Generic Name Dose Route Start Last Admin Trade Name Freq PRN Reason Stop Dose Admin Acetaminophen 650 mg 12/04/20 12:04 Acetaminophen 325 Mg Tab PO Q4H PRN Pain MILD(1-3)/Fever >100.5/VILLARREAL Alprazolam 1 mg 12/04/20 22:09 Alprazolam 1 Mg Tab PO TID PRN Anxiety Atorvastatin Calcium 20 mg 12/05/20 22:00 12/07/20 00:09 Atorvastatin 20 Mg Tab PO 20 mg HS YAEL Administration Fenofibrate 145 mg 12/05/20 22:00 12/07/20 00:09 Fenofibrate 145 Mg Tab PO 145 mg HS YAEL Administration Heparin Sodium (Porcine) 5,000 unit 12/05/20 10:00 12/07/20 09:40 Heparin 5,000 Unit/1 Ml Vial SUB-Q 5,000 unit Q12HR YAEL Administration Hydromorphone HCl 2 mg 12/04/20 12:04 12/07/20 09:41 Hydromorphone 1 Mg/1 Ml Inj IV 2 mg Q3H PRN Administration Pain , Severe (7-10) Ceftriaxone Sodium 2 gm in 100 mls @ 200 mls/hr 12/06/20 10:00 12/07/20 09:42 Rocephin/Ns 2 Gm/100 Ml IV 200 mls/hr Q24HR YAEL Administration Vancomycin HCl 2,000 mg/ 540 mls @ 250 mls/hr 12/06/20 10:00 12/07/20 10:08 Sodium Chloride IV 250 mls/hr Q12HR YAEL Administration Insulin Glargine 80 units 12/04/20 22:00 12/07/20 00:10 Insulin Glargine 100 Units/Ml SUB-Q 80 units QHS YAEL Administration Insulin Human Lispro 0 unit 12/04/20 23:15 12/07/20 09:41 Insulin Lispro 100 Unit/Ml SUB-Q 8 unit ACHS YAEL Administration Protocol Insulin Human Lispro 20 unit 12/06/20 09:00 12/07/20 09:41 Insulin Lispro 100 Unit/Ml SUB-Q 20 unit AC YAEL Administration Metoprolol Tartrate 100 mg 12/04/20 23:00 12/07/20 09:39 Metoprolol Tartrate 100 Mg Tab PO 100 mg BID@0800,1700 YAEL Administration Pregabalin 150 mg 12/05/20 08:00 12/07/20 09:40 Pregabalin 75 Mg Cap PO 150 mg TID YAEL Administration Pregabalin 50 mg 12/05/20 08:00 12/07/20 09:40 Pregabalin 50 Mg Cap PO 50 mg TID YAEL Administration Sodium Chloride 10 ml 12/04/20 22:00 12/07/20 09:42 Sodium Chloride 0.9% 10 Ml Flush Syringe IV 10 ml BID YAEL Administration Sodium Chloride 10 ml 12/04/20 12:04 Sodium Chloride 0.9% 10 Ml Flush Syringe IV PRN PRN LINE FLUSH Nutrition/Malnutrition Assess - Dietary Evaluation Nutrition/Malnutrition Findings: Nutrition Notes Start: 12/05/20 13:21 Freq: Status: Active Protocol: Document 12/06/20 12:30 (Rec: 12/06/20 12:32 [id number]) Nutrition Notes Need for Assessment generated from: Education Initial or Follow up Brief Note Current Diagnosis Diabetes,Hypertension, Hyperlipidemia Other Pertinent Diagnosis PVD Current Diet cardiac, consistent CHO Subjective/Other Information Gave pt education how to consume a consistent CHO diet. Encouraged pt to eat a variety of proteins with carbs . Pt tends to eat cereal, popcorn, chips or pasta. #1 Nutrition Diagnosis Food and nutrition-related knowledge deficit Etiology no prior DM diet education As Evidenced by Signs and Symptoms pt had questions about what to eat Nutrition Intervention Teaching Recipient Patient Learning Readiness Good Teaching Methods Discussion,Handout Response to Teaching Verbalize understanding Education Handouts Provided Consistent CHO Nutrition Therapy Barriers to Learning No Barriers RD phone number provided Yes Patient aware of follow up options Yes Revisit per MD consult or patient Sign Off request:
--- NOTE | 2020-12-07 13:14 | Progress Note ---
Assessment and Plan Cultures: None A/P: 60-year-old man past diabetes, hypertension, PAD presents with RLE cellulitis vs venous stasis. #RLE cellulitis: worse for the past week. Likely some level of venous stasis as well. Afebrile, normal white count. he has minimal feeling in the leg, rash is warm and non-blanching #Venous stasis dermatitis: he notes his leg was not normal prior to this episode, and he has some venous stasis ulcers as well. #PAD #Sulfa allergy: recently broke out in itchy hives Recs: -Continue vancomycin for now, goal trough 10-20 -Started ceftriaxone 2g q24h -If improved over weekend can DC with Augmentin 875/125mg q12h and doxycycline 100mg q12h to complete 10 days. -Wound care -Leg elevation Thank you for the consult, we will continue to follow. Treva Zaman MD [facility] ([facility]) O: [phone] F: [phone] Subjective Date of service: 12/07/20 Interval history: Afebrile, normal white count. Poorly compliant with right leg elevation. Objective - Exam Narrative Exam: Physical Exam: Constitutional: Alert, cooperative. No acute distress Head, Ears, Nose: Normocephalic, atraumatic. Eyes: Conjunctivae/corneas clear. No icterus. No ptosis. Neck: Supple, no meningeal signs Oral: dentition fair, no thrush Cardiovascular: S1, S2 normal. Respiratory: Good air entry, clear to auscultation bilaterally GI: Soft, non-tender; bowel sounds normal. No peritoneal signs. Musculoskeletal: Left AKA, right leg redness with 2+ edema knee to foot, scatte red stasis ulcers Skin: No rash or abscess Hem/Lymphatic: No palpable cervical or supraclavicular nodes. No lymphangitis Psych: Mood ok. Affect normal Neurological: Awake, alert, oriented. No gross abnormality - Constitutional Vitals: Vital Signs Temp Pulse Resp BP Pulse Ox 98.3 F 79 18 136/65 93 12/07/20 11:11 12/07/20 11:11 12/07/20 11:11 12/07/20 11:11 12/07/20 11:11 Temperature -Last 24 Hours Temperature 98.3 F Temperature 98.0 F Temperature 98.0 F Temperature 98.0 F Temperature 98.0 F Temperature 98.0 F Temperature 99.1 F - Labs CBC & Chem 7: 12/04/20 22:47 12/07/20 07:00 Labs: Abnormal lab results 12/06/20 12/07/20 12/07/20 Range/Units 21:38 07:00 07:27 Creatinine 0.5 L (0.8-1.3) mg/dL Glucose 271 H (75-100) mg/dL POC Glucose 287 H 303 H (70-105) mg/dL 12/07/20 Range/Units 11:09 Creatinine (0.8-1.3) mg/dL Glucose (75-100) mg/dL POC Glucose 322 H (70-105) mg/dL
[2020-12-07] MEDS ORDERED: INSULIN ISOPHANE SC SCH (16:30)
[2020-12-07] MEDS ORDERED: INSULIN GLARGINE 100 UNITS/ML SUB-Q SCH ×2 (22:00)
[2020-12-07] MEDS ORDERED: LANTUS SC SCH (22:00)
[2020-12-08] MEDS: HYDROmorphone 1 MG/1 ML INJ IV PRN ×7 (00:26→20:59)
[2020-12-08 07:01] LABS: Blood Urea Nitrogen 10 mg/dL (9-20); Calcium 9.3 mg/dL (8.4-10.2); Hemolysis Index 200
[2020-12-08 07:02] LABS: BUN/Creatinine Ratio 20
[2020-12-08] MEDS ORDERED: SODIUM POLYSTYRENE 15 GM/60 ML ORAL LIQD PO ONE (09:00)
[2020-12-08] MEDS: METOPROLOL TARTRATE 100 MG TAB PO SCH ×2 (10:28→17:31)
[2020-12-08] MEDS: PREGABALIN 75 MG CAP PO SCH ×3 (10:28→20:59)
[2020-12-08] MEDS: HEPARIN 5,000 UNIT/1 ML VIAL SUB-Q SCH ×2 (10:28→21:00)
[2020-12-08] MEDS: INSULIN LISPRO 100 UNIT/ML SUB-Q SCH ×6 (10:29→17:34)
[2020-12-08] MEDS: PREGABALIN 50 MG CAP PO SCH ×3 (10:29→20:59)
[2020-12-08] MEDS: INSULIN GLARGINE 100 UNITS/ML SUB-Q SCH (10:29)
--- NOTE | 2020-12-08 10:35 | Progress Note ---
Assessment and Plan Assessment and plan: (1) Cellulitis of right lower extremity Current Visit: No Status: Acute Plan to address problem: Patient initiated on IV Unasyn and IV vancomycin. Has severe cellulitis. Of the lower right lower extremity. With 2 open ulcers. We will get surgery consult. Also ID consult. (2) Generalized anxiety disorder Current Visit: No Status: Chronic Plan to address problem: Patient on anxiolytics 3 times a day. (3) HLD (hyperlipidemia) Current Visit: No Status: Chronic Qualifiers: Hyperlipidemia type: mixed hyperlipidemia Plan to address problem: Continue fenofibrate and statins. (4) Hypertension Current Visit: Yes Status: Chronic Qualifiers: Hypertension type: primary hypertension Qualified Code(s): I10 - Essential (primary) hypertension Plan to address problem: Continue antihypertensives. (5) IDDM (insulin dependent diabetes mellitus) Current Visit: Yes Status: Chronic Plan to address problem: Continue Lantus and Humalog. Adjust insulin dosage. Depending on hemoglobin A1c results. Accu-Cheks AC at bedtime and high-dose sliding scale coverage Dietitian consult regarding diabetes and diet (6) Peripheral neuropathy Current Visit: Yes Status: Chronic Plan to address problem: Patient is on Lyrica 200 mg twice a day (7) DVT prophylaxis Current Visit: No Status: Acute Plan to address problem: Subcu heparin and GI prophylaxis. 12/05/2020 -Patient was admitted for right lower extremity cellulitis and ID/general surgery was consulted. -Patient is on IV Unasyn and vancomycin -Patient's blood sugar is uncontrolled, he is on 80 units of Lantus and 18 units of Humalog before meal. Despite that his blood sugar is very high. Will check hemoglobin A1c. Patient is followed with Dr. Murphy in the office. -Wound care consulted. 12/06/2020 -Patient was seen by ID and changed Unasyn to ceftriaxone and recommend to continue vancomycin, recommend to discharge in 1 to 2 days if patient's condition improve -Patient was seen by general surgery and said this is due to stasis ulcer, recommend to her wound care evaluation and outpatient wound care follow-up -Blood sugar is uncontrolled and I have increased premeal insulin to 20 units. Hemoglobin A1c is 11.3 and need to follow-up with his primary care physician Dr. Murphy office. 12/07/2020 -patient tells me he was on more Insulin at home than what he is getting here. At home was on Humulin 45 units Qac and Lantus 50 Qamin am and 100 Qpm. Will resume this dose Cont iv Antibiotics. ID and Surgery following. Patient given 45 Units Humalog QAC x 1 dose yesterday but blood glucose dropped down to 138s so dose reduced Hyperkalemia. Today. Give Kayexalate and repeat in evening Hopefully dc tomorrow History Interval history: Patient with right lower ext cellulitis Blood glucose was uncontrolled High Potassium 5.2 today Hospitalist Physical - Physical exam Narrative exam: Not in cardiopulmonary distress. The patient is morbidly obese. Vital signs as documented. Head exam is unremarkable. No scleral icterus . Neck is without jugular venous distension, thyromegaly, or carotid bruits. Lungs are clear to auscultation. Cardiac exam reveals regular rate and Rhythm. Abdominal exam reveals normal bowel sounds, nontender, no organomegaly. Extremities right lower extremity cellulitis extending from the right knee down to the foot. 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 No focal weakness. - Constitutional Vitals: Temp Pulse Resp BP Pulse Ox 97.9 F 74 17 157/77 91 12/08/20 04:54 12/08/20 04:54 12/08/20 07:12 12/08/20 04:54 12/08/20 04:54 General appearance: Present: no acute distress, obese HEART Score - HEART Score Risk factors: > 3 risk factors or hx of atherosclerotic disease Troponin: < normal limit - Critical Actions Critical Actions: 0-3 pts:0.9-1.7%risk of adverse cardiac event.Candidate for discharge Results - Labs CBC & Chem 7: 12/04/20 22:47 12/08/20 06:09 Labs: Laboratory Last Values WBC 8.8 K/mm3 (4.5-11.0) 12/04/20 22:47 RBC 4.98 M/mm3 (3.65-5.03) 12/04/20 22:47 Hgb 15.9 gm/dl (11.8-15.2) H 12/04/20 22:47 Hct 46.4 % (35.5-45.6) H 12/04/20 22:47 MCV 93 fl (84-94) 12/04/20 22:47 MCH 32 pg (28-32) 12/04/20 22:47 MCHC 34 % (32-34) 12/04/20 22:47 RDW 14.6 % (13.2-15.2) 12/04/20 22:47 Plt Count 156 K/mm3 (140-440) 12/04/20 22:47 Lymph % (Auto) 20.9 % (13.4-35.0) 12/04/20 22:47 Stevens % (Auto) 9.0 % (0.0-7.3) H 12/04/20 22:47 Eos % (Auto) 2.9 % (0.0-4.3) 12/04/20 22:47 Baso % (Auto) 1.1 % (0.0-1.8) 12/04/20 22:47 Lymph # (Auto) 1.8 K/mm3 (1.2-5.4) 12/04/20 22:47 Stevens # (Auto) 0.8 K/mm3 (0.0-0.8) 12/04/20 22:47 Eos # (Auto) 0.3 K/mm3 (0.0-0.4) 12/04/20 22:47 Baso # (Auto) 0.1 K/mm3 (0.0-0.1) 12/04/20 22:47 Seg Neutrophils % 66.1 % (40.0-70.0) 12/04/20 22:47 Seg Neutrophils # 5.8 K/mm3 (1.8-7.7) 12/04/20 22:47 Sodium 132 mmol/L (137-145) L D 12/08/20 06:09 Potassium 5.2 mmol/L (3.6-5.0) H D 12/08/20 06:09 Chloride 98.9 mmol/L (98-107) 12/08/20 06:09 Carbon Dioxide 25 mmol/L (22-30) 12/08/20 06:09 Anion Gap 13 mmol/L 12/08/20 06:09 BUN 10 mg/dL (9-20) 12/08/20 06:09 Creatinine 0.5 mg/dL (0.8-1.3) L 12/08/20 06:09 Estimated GFR > 60 ml/min 12/08/20 06:09 BUN/Creatinine Ratio 20 % 07/18/21 06:09 Glucose 277 mg/dL (75-100) H 12/08/20 06:09 POC Glucose 274 mg/dL (70-105) H 12/08/20 07:32 Hemoglobin A1c 11.3 % (4-6) H 12/05/20 05:59 Calcium 9.3 mg/dL (8.4-10.2) 12/08/20 06:09 Total Bilirubin 0.60 mg/dL (0.1-1.2) 12/04/20 22:47 AST 52 units/L (5-40) H 12/04/20 22:47 ALT 62 units/L (7-56) H 12/04/20 22:47 Alkaline Phosphatase 91 units/L (35-129) 12/04/20 22:47 Total Protein 7.2 g/dL (6.3-8.2) 12/04/20 22:47 Albumin 4.0 g/dL (3.9-5) 12/04/20 22:47 Albumin/Globulin Ratio 1.3 % 12/04/20 22:47 Nasal Screen MRSA (PCR) Negative (Negative) 12/05/20 Unknown Vancomycin Trough 13.7 ug/mL (5.0-20.0) 12/07/20 20:27 Swanson/IV: Voiding Method Urinal Active Medications - Current Medications Current Medications: Generic Name Dose Route Start Last Admin Trade Name Freq PRN Reason Stop Dose Admin Acetaminophen 650 mg 12/04/20 12:04 Acetaminophen 325 Mg Tab PO Q4H PRN Pain MILD(1-3)/Fever >100.5/VILLARREAL Alprazolam 1 mg 12/04/20 22:09 Alprazolam 1 Mg Tab PO TID PRN Anxiety Atorvastatin Calcium 20 mg 12/05/20 22:00 12/07/20 21:00 Atorvastatin 20 Mg Tab PO 20 mg HS YAEL Administration Fenofibrate 145 mg 12/05/20 22:00 12/07/20 21:00 Fenofibrate 145 Mg Tab PO 145 mg HS YAEL Administration Heparin Sodium (Porcine) 5,000 unit 12/05/20 10:00 12/08/20 10:28 Heparin 5,000 Unit/1 Ml Vial SUB-Q 5,000 unit Q12HR YAEL Administration Hydromorphone HCl 2 mg 12/04/20 12:04 12/08/20 06:42 Hydromorphone 1 Mg/1 Ml Inj IV 2 mg Q3H PRN Administration Pain , Severe (7-10) Ceftriaxone Sodium 2 gm in 100 mls @ 200 mls/hr 12/06/20 10:00 12/07/20 09:42 Rocephin/Ns 2 Gm/100 Ml IV 200 mls/hr Q24HR YAEL Administration Vancomycin HCl 2,000 mg/ 540 mls @ 250 mls/hr 12/06/20 10:00 12/07/20 22:34 Sodium Chloride IV 250 mls/hr Q12HR YAEL Administration Insulin Glargine 20 units 12/07/20 22:00 12/07/20 22:26 Insulin Glargine 100 Units/Ml SUB-Q 20 units QHS YAEL Administration Insulin Glargine 50 units 12/08/20 09:00 12/08/20 10:29 Insulin Glargine 100 Units/Ml SUB-Q 50 units QAMDIAB YAEL Administration Insulin Human Lispro 0 unit 12/04/20 23:15 12/08/20 10:29 Insulin Lispro 100 Unit/Ml SUB-Q 6 unit ACHS YAEL Administration Protocol Insulin Human Lispro 20 unit 12/08/20 08:10 Insulin Lispro 100 Unit/Ml SUB-Q AC YAEL Metoprolol Tartrate 100 mg 12/04/20 23:00 12/08/20 10:28 Metoprolol Tartrate 100 Mg Tab PO 100 mg BID@0800,1700 YAEL Administration Pregabalin 150 mg 12/05/20 08:00 12/08/20 10:28 Pregabalin 75 Mg Cap PO 150 mg TID YAEL Administration Pregabalin 50 mg 12/05/20 08:00 12/08/20 10:29 Pregabalin 50 Mg Cap PO 50 mg TID YAEL Administration Sodium Chloride 10 ml 12/04/20 22:00 12/07/20 21:01 Sodium Chloride 0.9% 10 Ml Flush Syringe IV 10 ml BID YAEL Administration Sodium Chloride 10 ml 12/04/20 12:04 Sodium Chloride 0.9% 10 Ml Flush Syringe IV PRN PRN LINE FLUSH Nutrition/Malnutrition Assess - Dietary Evaluation Nutrition/Malnutrition Findings: Nutrition Notes Start: 12/05/20 13:21 Freq: Status: Active Protocol: Document 12/06/20 12:30 MK (Rec: 12/06/20 12:32 [id number]) Nutrition Notes Need for Assessment generated from: Education Initial or Follow up Brief Note Current Diagnosis Diabetes,Hypertension, Hyperlipidemia Other Pertinent Diagnosis PVD Current Diet cardiac, consistent CHO Subjective/Other Information Gave pt education how to consume a consistent CHO diet. Encouraged pt to eat a variety of proteins with carbs . Pt tends to eat cereal, popcorn, chips or pasta. #1 Nutrition Diagnosis Food and nutrition-related knowledge deficit Etiology no prior DM diet education As Evidenced by Signs and Symptoms pt had questions about what to eat Nutrition Intervention Teaching Recipient Patient Learning Readiness Good Teaching Methods Discussion,Handout Response to Teaching Verbalize understanding Education Handouts Provided Consistent CHO Nutrition Therapy Barriers to Learning No Barriers RD phone number provided Yes Patient aware of follow up options Yes Revisit per MD consult or patient Sign Off request:
[2020-12-08] MEDS: cefTRIAXone/NS 2 GM/100 ML 2 GM/100 ML BAG IV SCH (10:58)
--- NOTE | 2020-12-08 11:24 | Progress Note ---
Assessment and Plan - Patient Problems (1) Cellulitis of right lower extremity Current Visit: No Status: Acute Plan to address problem: 1) Continue elevation of RLE as much as is possible. Subjective Date of service: 12/08/20 Patient Reports: Positive: no new complaints Objective Vital Signs - 12hr 12/08/20 12/08/20 12/08/20 00:26 00:56 03:50 Temperature Pulse Rate Respiratory 19 18 19 Rate Blood Pressure O2 Sat by Pulse Oximetry 12/08/20 12/08/20 12/08/20 04:20 04:54 06:42 Temperature 97.9 F Pulse Rate 74 Respiratory 18 20 18 Rate Blood Pressure 157/77 O2 Sat by Pulse 91 Oximetry 12/08/20 07:12 Temperature Pulse Rate Respiratory 17 Rate Blood Pressure O2 Sat by Pulse Oximetry - Labs 12/04/20 22:47 12/08/20 06:09 Diabetes panel 12/08/20 Range/Units 06:09 Sodium 132 L D (137-145) mmol/L Potassium 5.2 H D (3.6-5.0) mmol/L Chloride 98.9 (98-107) mmol/L Carbon Dioxide 25 (22-30) mmol/L BUN 10 (9-20) mg/dL Creatinine 0.5 L (0.8-1.3) mg/dL Glucose 277 H (75-100) mg/dL Calcium 9.3 (8.4-10.2) mg/dL Calcium panel 12/08/20 Range/Units 06:09 Calcium 9.3 (8.4-10.2) mg/dL Pituitary panel 12/08/20 Range/Units 06:09 Sodium 132 L D (137-145) mmol/L Potassium 5.2 H D (3.6-5.0) mmol/L Chloride 98.9 (98-107) mmol/L Carbon Dioxide 25 (22-30) mmol/L BUN 10 (9-20) mg/dL Creatinine 0.5 L (0.8-1.3) mg/dL Glucose 277 H (75-100) mg/dL Calcium 9.3 (8.4-10.2) mg/dL Adrenal panel 12/08/20 Range/Units 06:09 Sodium 132 L D (137-145) mmol/L Potassium 5.2 H D (3.6-5.0) mmol/L Chloride 98.9 (98-107) mmol/L Carbon Dioxide 25 (22-30) mmol/L BUN 10 (9-20) mg/dL Creatinine 0.5 L (0.8-1.3) mg/dL Glucose 277 H (75-100) mg/dL Calcium 9.3 (8.4-10.2) mg/dL
[2020-12-08] MEDS: VANCOMYCIN 2,000 MG in SODIUM CHLORIDE 0.9% 500 ML 500 ML IV SCH ×2 (11:40→21:02)
--- NOTE | 2020-12-08 13:57 | Progress Note ---
Assessment and Plan Cultures: None A/P: 60-year-old man past diabetes, hypertension, PAD presents with RLE cellulitis vs venous stasis. #RLE cellulitis: worse for the past week. Likely some level of venous stasis as well. Afebrile, normal white count. he has minimal feeling in the leg, rash is warm and non-blanching #Venous stasis dermatitis: he notes his leg was not normal prior to this episode, and he has some venous stasis ulcers as well. #PAD #Sulfa allergy: recently broke out in itchy hives Recs: -Continue vancomycin for now, goal trough 10-20 -ceftriaxone 2g q24h -OK to DC with DC with Augmentin 875/125mg q12h and doxycycline 100mg q12h to complete 10 total days. -Wound care -Leg elevation Thank you for the consult, we will sign off. please call with questions. Treva Zaman MD [facility] ([facility]) O: [phone] F: [phone] Subjective Date of service: 12/08/20 Interval history: Afebrile, normal white count. Complains of ongoing neuropathic pain Objective - Exam Narrative Exam: Physical Exam: Constitutional: Alert, cooperative. No acute distress Head, Ears, Nose: Normocephalic, atraumatic. Eyes: Conjunctivae/corneas clear. No icterus. Neck: Supple, no meningeal signs Oral: dentition fair, no thrush Cardiovascular: S1, S2 normal. Respiratory: Good air entry, clear to auscultation bilaterally GI: Soft, non-tender; bowel sounds normal. No peritoneal signs. Musculoskeletal: Left AKA, right leg redness with improved edema, scattered stasis ulcers Skin: No rash or abscess Hem/Lymphatic: No palpable cervical or supraclavicular nodes. No lymphangitis Psych: Mood ok. Affect normal Neurological: Awake, alert, oriented. No gross abnormality - Constitutional Vitals: Vital Signs Temp Pulse Resp BP Pulse Ox 97.9 F 74 17 157/77 91 12/08/20 04:54 12/08/20 04:54 12/08/20 07:12 12/08/20 04:54 12/08/20 04:54 Temperature -Last 24 Hours Temperature 97.9 F Temperature 98.2 F Temperature 98.3 F - Labs CBC & Chem 7: 12/04/20 22:47 12/08/20 06:09 Labs: Abnormal lab results 12/07/20 12/07/20 12/07/20 Range/Units 16:32 17:39 21:25 Sodium (137-145) mmol/L Potassium (3.6-5.0) mmol/L Creatinine (0.8-1.3) mg/dL Glucose (75-100) mg/dL POC Glucose 138 H 155 H 310 H (70-105) mg/dL 12/08/20 12/08/20 12/08/20 Range/Units 06:09 07:32 10:56 Sodium 132 L D (137-145) mmol/L Potassium 5.2 H D (3.6-5.0) mmol/L Creatinine 0.5 L (0.8-1.3) mg/dL Glucose 277 H (75-100) mg/dL POC Glucose 274 H 319 H (70-105) mg/dL
[2020-12-08] MEDS: FENOFIBRATE 145 MG TAB PO SCH (21:01)
[2020-12-08] MEDS ORDERED: INSULIN GLARGINE 100 UNITS/ML SUB-Q SCH (22:00)
[2020-12-09] MEDS: INSULIN LISPRO 100 UNIT/ML SUB-Q SCH ×7 (00:02→16:30)
[2020-12-09] MEDS: HYDROmorphone 1 MG/1 ML INJ IV PRN ×6 (00:03→15:23)
[2020-12-09] MEDS: INSULIN GLARGINE 100 UNITS/ML SUB-Q SCH (07:30)
[2020-12-09] MEDS: PREGABALIN 75 MG CAP PO SCH ×2 (08:37→15:22)
[2020-12-09] MEDS: PREGABALIN 50 MG CAP PO SCH ×2 (08:38→15:23)
[2020-12-09] MEDS: METOPROLOL TARTRATE 100 MG TAB PO SCH (08:38)
[2020-12-09] MEDS: VANCOMYCIN 2,000 MG in SODIUM CHLORIDE 0.9% 500 ML 500 ML IV SCH (09:21)
[2020-12-09] MEDS: cefTRIAXone/NS 2 GM/100 ML 2 GM/100 ML BAG IV SCH (09:21)
[2020-12-09] MEDS: HEPARIN 5,000 UNIT/1 ML VIAL SUB-Q SCH (09:21)
[2020-12-09 10:18] LABS: Blood Urea Nitrogen 8 mg/dL (9-20); Calcium 9.3 mg/dL (8.4-10.2); Hemolysis Index 61
[2020-12-09 10:22] LABS: BUN/Creatinine Ratio 16
--- NOTE | 2020-12-09 11:07 | Discharge Summary ---
Providers - Providers Date of Admission: 12/04/20 13:25 Date of discharge: 12/09/20 Attending physician: MARIE MENDEZ 12/04/20 12:12 Consult to Wound/ET Nurse [CONS] Urgent Reason For Exam: wound eval 12/04/20 12:14 Midline [Consult to PICC Line RN] [CONS] Urgent Reason For Exam: INTRAVENOUS MEDS, ANTIBIOTICS Type Line:: Midline 12/04/20 18:34 Consult to Wound/ET Nurse [CONS] Routine Reason For Exam: wound eval 12/05/20 06:45 Consult to Physician [CONS] Routine Comment: Consulting Provider: NORM HARRIS Physician Instructions: Reason For Exam: Right lower extremity cellulitis 12/05/20 06:46 Consult to Dietitian/Nutrition [CONS] Routine Physician Instructions: Reason For Exam: Diabetes meal plan Reason for Consult: Diet education Consult to Physician [CONS] Routine Comment: Consulting Provider: KAREN JARVIS Physician Instructions: Reason For Exam: Right lower extremity cellulitis 12/05/20 10:35 Consult to Dietitian/Nutrition [CONS] Routine Physician Instructions: Reason For Exam: Reason for Consult: Diet education 12/05/20 15:29 Consult to Physician [CONS] Routine Comment: Consulting Provider: NORM HARRIS Physician Instructions: Reason For Exam: Right lower extremity cellulitis Primary care physician: TELLY BOWENS Hospitalization Condition: Fair Hospital course: 60-year-old male well-known to me from my primary care office with history of insulin-dependent diabetes, hypertension, peripheral vascular disease, peripheral neuropathy and hyperlipidemia came to the office yesterday with right lower extremity severe redness and 2 superficial ulcers. Redness is extending from below the knee to the right foot. Of note patient had a left AKA because of the persistent left lower leg cellulitis. Now the right lower extremity is involved with severe redness and pain and superficial ulcers. Pain is been going on for about 7 to 10 days. No fever or chills. Pain is about 7 or 6-7 on a scale of 1-10. No exacerbating or relieving factors. Pain is localized to below the knee up to the foot. No recent exposure to cold virus. No shortness of breath. No chest pain. He was admitted, evaluated by ID and Surgeon. (1) Cellulitis of right lower extremity Current Visit: No Status: Acute Plan to address problem: Patient initiated on IV Unasyn and IV vancomycin. Has severe cellulitis. Of the lower right lower extremity. With 2 open ulcers. We will get surgery consult. Also ID consult. (2) Generalized anxiety disorder Current Visit: No Status: Chronic Plan to address problem: Patient on anxiolytics 3 times a day. (3) HLD (hyperlipidemia) Current Visit: No Status: Chronic Qualifiers: Hyperlipidemia type: mixed hyperlipidemia Plan to address problem: Continue fenofibrate and statins. (4) Hypertension Current Visit: Yes Status: Chronic Qualifiers: Hypertension type: primary hypertension Qualified Code(s): I10 - Essential (primary) hypertension Plan to address problem: Continue antihypertensives. (5) IDDM (insulin dependent diabetes mellitus) Current Visit: Yes Status: Chronic Plan to address problem: Continue Lantus and Humalog. Adjust insulin dosage. Depending on hemoglobin A1c results. Accu-Cheks AC at bedtime and high-dose sliding scale coverage Dietitian consult regarding diabetes and diet (6) Peripheral neuropathy Current Visit: Yes Status: Chronic Plan to address problem: Patient is on Lyrica 200 mg twice a day (7) DVT prophylaxis Current Visit: No Status: Acute Plan to address problem: Subcu heparin and GI prophylaxis. 12/05/2020 -Patient was admitted for right lower extremity cellulitis and ID/general surgery was consulted. -Patient is on IV Unasyn and vancomycin -Patient's blood sugar is uncontrolled, he is on 80 units of Lantus and 18 units of Humalog before meal. Despite that his blood sugar is very high. Will check hemoglobin A1c. Patient is followed with Dr. Bowens in the office. -Wound care consulted. 12/06/2020 -Patient was seen by ID and changed Unasyn to ceftriaxone and recommend to continue vancomycin, recommend to discharge in 1 to 2 days if patient's condition improve -Patient was seen by general surgery and said this is due to stasis ulcer, recommend to her wound care evaluation and outpatient wound care follow-up -Blood sugar is uncontrolled and I have increased premeal insulin to 20 units. Hemoglobin A1c is 11.3 and need to follow-up with his primary care physician Dr. Bowens office. 12/07/2020 -patient tells me he was on more Insulin at home than what he is getting here. At home was on Humulin 45 units Qac and Lantus 50 Qamin am and 100 Qpm. Will resume this dose Cont iv Antibiotics. ID and Surgery following. 12/08/20 Patient given 45 Units Humalog QAC x 1 dose yesterday but blood glucose dropped down to 138s so dose reduced Hyperkalemia. Today. Give Kayexalate and repeat in evening Hopefully dc floyd 12/09/20 Patient with cellulitis right lower ext. He is doing better. Was evaluated by ID and he recommended Patient may be dioscharged on Augmentin and Doxycycline. Patient discharged 12/09/20. 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 use (3) Generalized anxiety disorder Status: Chronic (4) HLD (hyperlipidemia) Status: Chronic Qualifiers: Hyperlipidemia type: mixed hyperlipidemia Qualified Code(s): E78.2 - Mixed hyperlipidemia (5) HTN (hypertension) Status: Chronic Qualifiers: Hypertension type: essential hypertension Core Measure Documentation - Palliative Care Palliative Care/ Comfort Measures: Not Applicable - Core Measures Any of the following diagnoses?: none Exam - Constitutional Vitals: Temp Pulse Resp BP Pulse Ox 98.5 F 76 22 170/80 93 12/09/20 05:08 12/09/20 08:38 12/09/20 05:08 12/09/20 08:38 12/09/20 05:08 Plan Activity: advance as tolerated Diet: low fat, low cholesterol, low salt, diabetic Plan of Treatment: 1.Follow up with PCP, Dr. Bowens in 3-5 days 2.Follow up with Dr. Harris at wound clinic in 3-5 days Follow up with: TELLY BOWENS MD [Primary Care Provider] - 7 Days Prescriptions: Amoxicillin/Potassium Clav [Augmentin 875-125 Tablet] 1 each PO BID 7 Days #14 tablet Doxycycline Monohydrate [Doxycycline Monohydrate CAP] 100 mg PO 7XD #14 capsule
[2020-12-09 13:35] VITALS: BP 129/66
[2020-12-09] MEDS ORDERED: NEOMY 3.5 MG/BACIT 400 UNITS/POLY B 5000 UNITS/GM OINT PACKET TP NR (15:32)
== END 2020-12-09 16:05 | disposition home or self-care (01) | DRG 603 ==
LOC: 3A 10:35 → UNDOADMIN 10:35 → 3A 13:25
PROVIDERS: ADMIT Internal Medicine; ATTEND Internal Medicine
PROC: 05HA33Z Insertion of Infusion Device into Left Brachial Vein, Percutaneous Approach (ICD-10-PCS; principal; 2020-12-04)
DX: L03.115 Cellulitis of right lower limb (principal); I10 Essential (primary) hypertension; E11.51 Type 2 diabetes mellitus with diabetic peripheral angiopathy without gangrene; G90.9 Disorder of the autonomic nervous system, unspecified; E11.40 Type 2 diabetes mellitus with diabetic neuropathy, unspecified; F41.1 Generalized anxiety disorder; I87.2 Venous insufficiency (chronic) (peripheral); L97.919 Non-pressure chronic ulcer of unspecified part of right lower leg with unspecified severity; E78.2 Mixed hyperlipidemia; Z79.4 Long term (current) use of insulin; Z89.612 Acquired absence of left leg above knee; Z82.49 Family history of ischemic heart disease and other diseases of the circulatory system; Z88.8 Allergy status to other drugs, medicaments and biological substances; Z88.2 Allergy status to sulfonamides
CPT/HCPCS: 36415; 80048; 80053; 80202; 82962; 83036; 85025; 87641; G0378; A6250; A9270-GY; J0295; J0696; J1170; J1644; J1815; J3370; J7040

== ENCOUNTER 2021-03-05 15:13 | Inpatient (IN) | payer MEDICAID ==
[2021-03-06] MEDS ORDERED: oxyCODONE /ACETAMINOPHEN 5-325MG TAB PO PRN (12:31)
[2021-03-06] MEDS ORDERED: HYDROmorphone 1 MG/1 ML INJ IV PRN (12:31)
[2021-03-06] MEDS ORDERED: ALBUTEROL 2.5 MG/3 ML NEBU IH PRN (12:31)
[2021-03-06] MEDS ORDERED: ONDANSETRON 4 MG/2 ML INJ IV PRN (12:31)
[2021-03-06] MEDS ORDERED: VANCOMYCIN/NS 1 GM/250 ML 1 GM/250 ML BAG IV ONE (12:38)
[2021-03-06] MEDS ORDERED: ALPRAZolam 1 MG TAB PO PRN (12:40)
--- NOTE | 2021-03-06 12:40 | History and Physical Report ---
History of Present Illness Chief complaint: My leg is infected History of present illness: 61 YO Male with Obesity Hypoventilation Syndrome, HTN, DM complicated by Neuropathy, HLD, Chronic Pain Syndrome admitted directly at the request of Dr. Murphy. Pt was seen and evaluated by PCP and found to have lower extremity ce llulitis. Pt acknowledges pain and redness to his left leg. Pt denies fever, chills, CP, Palpitations, NVD, Trauma, falls, unilateral leg swelling, calf pain, hemoptysis, or recent ill contacts. Pt seen and evaluated upon arrival. Pt initiated on IV antibiotic therapy. CBC, CMP, ordered and pending at time of evaluation. Past History Past Medical History: diabetes, hypertension, other (See HPI) Past Surgical History: No surgical history, Other (Reviewed) Social history: . denies: smoking, alcohol abuse Family history: diabetes, hypertension Medications and Allergies Allergies Allergy/AdvReac Type Severity Reaction Status Date / Time sulfamethoxazole Allergy Itching Verified 12/05/20 07:05 [From Bactrim] trimethoprim [From Bactrim] Allergy Itching Verified 12/05/20 07:05 Home Medications Medication Instructions Recorded Confirmed Last Taken Type Fenofibrate 160 mg PO HS 11/19/18 12/05/20 1 Day Ago History ~12/04/20 ALPRAZolam [Xanax TAB] 1 mg PO TID PRN #12 07/13/19 12/05/20 3 Days Ago Rx ~12/02/20 1 mg AtorvaSTATin [Lipitor] 20 mg PO HS #30 07/13/19 12/05/20 1 Day Ago Rx ~12/04/20 Metoprolol [Lopressor TAB] 100 mg PO BID #60 07/13/19 12/05/20 1 Day Ago Rx ~12/04/20 Pregabalin [Lyrica] 200 mg PO TID #90 cap 07/13/19 12/05/20 1 Day Ago Rx ~12/04/20 200 mg Fenofibrate 160 mg PO HS 07/17/20 12/05/20 1 Day Ago History ~12/04/20 HYDROcodone/APAP 5-325 [Floyd 2 each PO Q6H PRN 2 Days #6 tablet 07/21/20 12/05/20 Unknown Rx 5-325 mg TAB] HumuLIN N 45 units SC QAC 12/07/20 12/07/20 12/03/20 History Lantus VIAL 50 units SC QAM 12/07/20 12/07/20 12/04/20 History Lantus VIAL 100 units SC QHS 12/07/20 12/07/20 12/03/20 History Amoxicillin/Potassium Clav 1 each PO BID 7 Days #14 tablet 12/09/20 Unknown Rx [Augmentin 875-125 Tablet] Doxycycline Monohydrate 100 mg PO 7XD #14 capsule 12/09/20 Unknown Rx [Doxycycline Monohydrate CAP] Active Meds: Active Medications Acetaminophen (Acetaminophen 325 Mg Tab) 650 mg PO Q4H PRN PRN Reason: Pain MILD(1-3)/Fever >100.5/VILLARREAL Albuterol (Albuterol 2.5 Mg/3 Ml Nebu) 2.5 mg IH Q4HRT PRN PRN Reason: Shortness Of Breath Hydromorphone HCl (Hydromorphone 1 Mg/1 Ml Inj) 0.5 mg IV Q23H PRN PRN Reason: Pain , Severe (7-10) Vancomycin HCl (Vancomycin/Ns 1 Gm/250 Ml) 1 gm in 250 mls @ 167.007 mls/hr IV ONCE ONE; Protocol Stop: 03/06/21 14:07 Ondansetron HCl (Ondansetron 4 Mg/2 Ml Inj) 4 mg IV Q8H PRN PRN Reason: Nausea And Vomiting Oxycodone/Acetaminophen (Oxycodone /Acetaminophen 5-325mg Tab) 1 tab PO Q16H PRN PRN Reason: Pain, Moderate (4-6) Sodium Chloride (Sodium Chloride 0.9% 10 Ml Flush Syringe) 10 ml IV BID YAEL Sodium Chloride (Sodium Chloride 0.9% 10 Ml Flush Syringe) 10 ml IV PRN PRN PRN Reason: LINE FLUSH Review of Systems Constitutional: no weight loss, no weight gain, no fever, no sweats Ears, nose, mouth and throat: no ear pain, no tinnitis, no decreased hearing Cardiovascular: no chest pain, no orthopnea Respiratory: no cough, no excessive sputum, no shortness of breath Gastrointestinal: no abdominal pain, no vomiting, no constipation Genitourinary Male: no hematuria, no discharge, no urinary frequency, no nocturia Rectal: no pain, no incontinence, no bleeding Musculoskeletal: no neck stiffness, no shooting arm pain, no low back pain, no shooting leg pain Integumentary: no rash Neurological: no head injury, no transient paralysis, no parathesias, no numbness, no tingling Psychiatric: no anxiety, no change in sleep habits, no insomnia, no hypersomnia Endocrine: no cold intolerance, no polyphagia, no polydipsia, no nocturia, no flushing Hematologic/Lymphatic: no easy bruising Allergic/Immunologic: no wheezing Exam - Constitutional General appearance: Present: mild distress, obese - EENT Eyes: Present: PERRL ENT: hearing intact, clear oral mucosa - Neck Neck: Present: supple, normal ROM - Respiratory Respiratory effort: normal Respiratory: bilateral: CTA - Cardiovascular Heart Sounds: Present: S1 & S2. Absent: rub, click - Extremities Extremities: pulses symmetrical, No edema Extremity abnormal: erythema Peripheral Pulses: within normal limits - Abdominal General gastrointestinal: Present: soft, non-tender, non-distended, normal bowel sounds Male genitourinary: Present: normal - Integumentary Integumentary: Present: clear, warm, dry - Musculoskeletal Musculoskeletal: gait normal, strength equal bilaterally - Psychiatric Psychiatric: appropriate mood/affect, intact judgment & insight - Neurologic Neurologic: CNII-XII intact, moves all extremities Results - Labs CBC & Chem 7: 03/06/21 15:51 03/06/21 15:51 Assessment and Plan - Patient Problems (1) Cellulitis Current Visit: No Status: Acute Qualifiers: Site of cellulitis of extremity: lower extremity Laterality: left Plan to address problem: CBC, CMP, IV antibiotic therapy, (2) Obesity hypoventilation syndrome Current Visit: Yes Status: Acute Plan to address problem: Balanced diet, increase physical activity discharge, outpatient pulmonary follow-up for sleep study. (3) Hypertension Current Visit: Yes Status: Acute Qualifiers: Hypertension type: primary hypertension Qualified Code(s): I10 - Essential (primary) hypertension Plan to address problem: Monitor blood pressure every shift, continue medical management (4) Diabetes Current Visit: Yes Status: Acute Plan to address problem: Consistent carbohydrate diet, insulin therapy, hypoglycemia protocol (5) Chronic pain syndrome Current Visit: Yes Status: Acute Plan to address problem: Pain control, resume prehospital pain management protocol. (6) DVT prophylaxis Current Visit: No Status: Acute Plan to address problem: SCDs bilateral lower extremities while in bed, prophylactic anticoagulation (7) Advance care planning Current Visit: Yes Status: Acute Plan to address problem: Disease education conducted, care plan discussed, diagnoses discussed, patient is full code, patient knowledges understanding agreement with care plan, +30 minutes.
[2021-03-06] MEDS ORDERED: DEXTROSE 50% IN WATER (25GM) 50 ML SYRINGE IV PRN (12:41)
[2021-03-06] MEDS ORDERED: NON-FORMULARY EACH (Pregabalin [Lyrica] 200 MG Capsule) PO SCH (14:00)
[2021-03-06] MEDS ORDERED: VANCOMYCIN 2,000 MG in SODIUM CHLORIDE 0.9% 500 ML 500 ML IV ONE (15:00)
[2021-03-06] MEDS: METOPROLOL TARTRATE 100 MG TAB PO SCH ×2 (16:00→21:23)
[2021-03-06] MEDS: PREGABALIN 50 MG CAP PO SCH ×2 (16:00→21:23)
[2021-03-06 16:07] LABS: Basophils # (Auto) 0.1 K/mm3 (0.0-0.1); Basophils % (Auto) 1.3 % (0.0-1.8); Eosinophils # (Auto) 0.2 K/mm3 (0.0-0.4); Eosinophils % (Auto) 2.3 % (0.0-4.3); Hemoglobin 15.9 gm/dl (11.8-15.2); Lymphocytes # (Auto) 1.7 K/mm3 (1.2-5.4); Lymphocytes % (Auto) 18.2 % (13.4-35.0); Mean Corpuscular HGB Conc 35 % (32-34); Mean Corpuscular Volume 90 fl (84-94); Monocytes # (Auto) 0.7 K/mm3 (0.0-0.8); Monocytes % (Auto) 7.4 % (0.0-7.3); Platelet Count 152 K/mm3 (140-440); Red Blood Count 5.02 M/mm3 (3.65-5.03); Red Cell Distribution Width 14.1 % (13.2-15.2)
[2021-03-06 16:51] LABS: Alanine Aminotransferase 44 units/L (7-56); Albumin 4.1 g/dL (3.9-5); BUN/Creatinine Ratio 11; Blood Urea Nitrogen 9 mg/dL (9-20); Calcium 9.5 mg/dL (8.4-10.2); Hemolysis Index 14
[2021-03-06] MEDS: HYDROmorphone 1 MG/1 ML INJ IV PRN ×2 (18:18→21:25)
[2021-03-06] MEDS: FENOFIBRATE 145 MG TAB PO SCH (21:23)
[2021-03-06] MEDS: ENOXAPARIN 40 MG/0.4 ML INJ SUB-Q SCH (21:24)
[2021-03-06] MEDS ORDERED: METOPROLOL TARTRATE 50 MG TAB PO SCH (22:00)
[2021-03-06] MEDS ORDERED: NON-FORMULARY EACH (Fenofibrate [Fenofibrate] 160 MG Tablet) PO SCH (22:00)
[2021-03-06] MEDS: ACETAMINOPHEN 325 MG TAB PO PRN (23:04)
[2021-03-07] MEDS: HYDROmorphone 1 MG/1 ML INJ IV PRN ×7 (00:35→21:49)
[2021-03-07] MEDS: INSULIN LISPRO 100 UNIT/ML SUB-Q SCH ×6 (00:48→18:28)
[2021-03-07] MEDS: ACETAMINOPHEN 325 MG TAB PO PRN (03:39)
[2021-03-07] MEDS: VANCOMYCIN 1,500 MG in SODIUM CHLORIDE 0.9% 500 ML 500 ML IV SCH ×2 (03:41→15:28)
[2021-03-07 05:09] LABS: Basophils # (Auto) 0.1 K/mm3 (0.0-0.1); Basophils % (Auto) 1.2 % (0.0-1.8); Eosinophils # (Auto) 0.3 K/mm3 (0.0-0.4); Eosinophils % (Auto) 2.6 % (0.0-4.3); Hematocrit 48.6 % (35.5-45.6); Lymphocytes # (Auto) 1.1 K/mm3 (1.2-5.4); Lymphocytes % (Auto) 10.6 % (13.4-35.0); Mean Corpuscular HGB Conc 35 % (32-34); Mean Corpuscular Volume 92 fl (84-94); Monocytes # (Auto) 0.6 K/mm3 (0.0-0.8); Monocytes % (Auto) 6.2 % (0.0-7.3); Platelet Count 167 K/mm3 (140-440); Red Blood Count 5.29 M/mm3 (3.65-5.03); Red Cell Distribution Width 14.3 % (13.2-15.2)
[2021-03-07 05:31] LABS: Alanine Aminotransferase 40 units/L (7-56); Albumin 4.1 g/dL (3.9-5); Blood Urea Nitrogen 12 mg/dL (9-20); Calcium 9.3 mg/dL (8.4-10.2); Hemolysis Index 9
[2021-03-07 06:11] LABS: BUN/Creatinine Ratio 17
[2021-03-07] MEDS: PREGABALIN 50 MG CAP PO SCH ×3 (08:04→21:48)
[2021-03-07] MEDS: METOPROLOL TARTRATE 100 MG TAB PO SCH ×2 (11:07→21:48)
[2021-03-07] MEDS ORDERED: FLU VACC QUAD 2021-22(6MOS UP)/PF 60 MCG/0.5 ML SYRINGE IM ONE (12:00)
--- NOTE | 2021-03-07 14:48 | Consultation ---
History of Present Illness - Reason for Consult Consult date: 03/07/21 - History of Present Illness 61-year-old male past medical history obesity hypoventilation syndrome, hypertension, diabetes, chronic pain, previous left AKA presented to hospital at the request of his primary care doctor. He was noted to have lower extremity cellulitis and complains of pain and redness to the left leg. He otherwise denies any other symptoms, is unsure how he developed the cellulitis. He is well-known to me from previous. He has a history of total knee replacement in this knee. During his last admission we treated with ceftriaxone and vancomycin, then discharge with Augmentin and doxycycline. Singular low-grade temperature to 100.3 with a white count of 10. Review of Systems: Bold if positive, otherwise negative General: fevers, chills, rigors HEENT: visual disturbance, diplopia, eye pain Respiratory: cough, sputum, hemoptysis, shortness of breath Cardiovascular: chest pain, syncope Gastrointestinal: nausea, vomiting, diarrhea, abdominal pain Genitourinary: dysuria, hematuria, flank pain Musculoskeletal: neck pain, back pain, joint pain, edema Neurologic: headaches, seizures Hematologic: easy bruising or bleeding Endocrine: night sweats, acute weight loss Skin: rash, jaundice, redness Psychiatric: suicidal, homicidal ideation Past History Past Medical History: diabetes, hypertension, other (See HPI) Past Surgical History: No surgical history, Other (Reviewed) Social history: . denies: smoking, alcohol abuse Family history: diabetes, hypertension Medications and Allergies Allergies Allergy/AdvReac Type Severity Reaction Status Date / Time sulfamethoxazole Allergy Itching Verified 12/05/20 07:05 [From Bactrim] trimethoprim [From Bactrim] Allergy Itching Verified 12/05/20 07:05 Home Medications Medication Instructions Recorded Confirmed Last Taken Type ALPRAZolam [Xanax TAB] 1 mg PO TID PRN #12 07/13/19 03/06/21 3 Days Ago Rx ~12/02/20 1 mg AtorvaSTATin [Lipitor] 20 mg PO HS #30 07/13/19 03/06/21 1 Day Ago Rx ~12/04/20 Metoprolol [Lopressor TAB] 100 mg PO BID #60 07/13/19 03/06/21 1 Day Ago Rx ~12/04/20 Pregabalin [Lyrica] 200 mg PO TID #90 cap 07/13/19 03/06/21 1 Day Ago Rx ~12/04/20 200 mg Fenofibrate 160 mg PO HS 07/17/20 03/06/21 1 Day Ago History ~12/04/20 HumuLIN N 35 units SC QA 12/07/20 03/06/21 12/03/20 History Lantus VIAL 50 units SC QA 12/07/20 03/06/21 03/06/21 06:00 History Lantus VIAL 100 units SC QHS 12/07/20 03/06/21 03/05/21 10:00 History Active Meds: Active Medications Acetaminophen (Acetaminophen 325 Mg Tab) 650 mg PO Q4H PRN PRN Reason: Pain MILD(1-3)/Fever >100.5/VILLARREAL Last Admin: 03/07/21 03:39 Dose: 650 mg Documented by: Albuterol (Albuterol 2.5 Mg/3 Ml Nebu) 2.5 mg IH Q4HRT PRN PRN Reason: Shortness Of Breath Alprazolam (Alprazolam 1 Mg Tab) 1 mg PO TID PRN PRN Reason: Anxiety Atorvastatin Calcium (Atorvastatin 20 Mg Tab) 20 mg PO [facility] Last Admin: 03/06/21 21:23 Dose: 20 mg Documented by: Dextrose (Dextrose 50% In Water (25gm) 50 Ml Syringe) 50 ml IV Q30MIN PRN; Protocol PRN Reason: Hypoglycemia Enoxaparin Sodium (Enoxaparin 40 Mg/0.4 Ml Inj) 40 mg SUB-Q QDAY@2200 YAEL; Protocol Last Admin: 03/06/21 21:24 Dose: 40 mg Documented by: Fenofibrate (Fenofibrate 145 Mg Tab) 145 mg PO QHS [facility] Last Admin: 03/06/21 21:23 Dose: 145 mg Documented by: Hydromorphone HCl (Hydromorphone 1 Mg/1 Ml Inj) 2 mg IV Q3H PRN PRN Reason: Pain , Severe (7-10) Last Admin: 03/07/21 11:30 Dose: 2 mg Documented by: Vancomycin HCl 1,500 mg/ (Sodium Chloride) 530 mls @ 333.333 mls/hr IV Q12H [facility] Last Admin: 03/07/21 03:41 Dose: 333.333 mls/hr Documented by: Insulin Human Lispro (Insulin Lispro 100 Unit/Ml) 0 unit SUB-Q Q6HR [facility]; Protocol Last Admin: 03/07/21 06:51 Dose: 9 unit Documented by: Metoprolol Tartrate (Metoprolol Tartrate 100 Mg Tab) 100 mg PO BID [facility] Last Admin: 03/07/21 11:07 Dose: 100 mg Documented by: Ondansetron HCl (Ondansetron 4 Mg/2 Ml Inj) 4 mg IV Q8H PRN PRN Reason: Nausea And Vomiting Oxycodone/Acetaminophen (Oxycodone /Acetaminophen 5-325mg Tab) 1 tab PO Q16H PRN PRN Reason: Pain, Moderate (4-6) Pregabalin (Pregabalin 50 Mg Cap) 200 mg PO TID [facility] Last Admin: 03/07/21 08:04 Dose: 200 mg Documented by: Sodium Chloride (Sodium Chloride 0.9% 10 Ml Flush Syringe) 10 ml IV BID [facility] Last Admin: 03/07/21 11:09 Dose: 10 ml Documented by: Sodium Chloride (Sodium Chloride 0.9% 10 Ml Flush Syringe) 10 ml IV PRN PRN PRN Reason: LINE FLUSH Physical Examination - Physical Exam Narrative exam: Physical Exam: Constitutional: Alert, cooperative. No acute distress Head, Ears, Nose: Normocephalic, atraumatic. External ears, nose normal Eyes: Conjunctivae/corneas clear. No icterus. No ptosis. Neck: Supple, no meningeal signs Oral: dentition fair, no thrush Cardiovascular: S1, S2 normal. Respiratory: Good air entry, clear to auscultation bilaterally GI: Soft, non-tender; bowel sounds normal. No peritoneal signs. Musculoskeletal: Left AKA, rigth leg with chronic venous stasis dermatitis. possible superinfection, very warm. Skin: No rash or abscess Hem/Lymphatic: No palpable cervical or supraclavicular nodes. No lymphangitis Psych: Mood ok. Affect normal Neurological: Awake, alert, oriented. No gross abnormality - Constitutional Vitals: Vital Signs Temp Pulse Resp BP Pulse Ox 98.0 F 67 20 133/83 92 03/07/21 12:10 03/07/21 12:10 03/07/21 12:10 03/07/21 12:10 03/07/21 12:10 Temperature -Last 24 Hours Temperature 98.0 F Temperature 99.0 F Temperature 100.3 F Temperature 99.0 F Temperature 98.5 F Results - Labs CBC & Chem 7: 03/07/21 04:37 03/07/21 04:37 Labs: Abnormal lab results 03/06/21 03/06/21 03/06/21 Range/Units 15:51 15:51 17:06 RBC (3.65-5.03) M/mm3 Hgb 15.9 H (11.8-15.2) gm/dl Hct (35.5-45.6) % MCHC 35 H (32-34) % Lymph % (Auto) (13.4-35.0) % [place] % (Auto) 7.4 H (0.0-7.3) % Lymph # (Auto) (1.2-5.4) K/mm3 Seg Neutrophils % 70.8 H (40.0-70.0) % Seg Neutrophils # (1.8-7.7) K/mm3 Sodium (137-145) mmol/L Chloride (98-107) mmol/L Creatinine (0.8-1.3) mg/dL Glucose 275 H (75-100) mg/dL POC Glucose 291 H (70-105) mg/dL AST 47 H (5-40) units/L 03/06/21 03/07/21 03/07/21 Range/Units 22:09 00:42 04:37 RBC 5.29 H (3.65-5.03) M/mm3 Hgb 17.0 H (11.8-15.2) gm/dl Hct 48.6 H (35.5-45.6) % MCHC 35 H (32-34) % Lymph % (Auto) 10.6 L (13.4-35.0) % [place] % (Auto) (0.0-7.3) % Lymph # (Auto) 1.1 L (1.2-5.4) K/mm3 Seg Neutrophils % 79.4 H (40.0-70.0) % Seg Neutrophils # 7.9 H (1.8-7.7) K/mm3 Sodium (137-145) mmol/L Chloride (98-107) mmol/L Creatinine (0.8-1.3) mg/dL Glucose (75-100) mg/dL POC Glucose 245 H 233 H (70-105) mg/dL AST (5-40) units/L 03/07/21 03/07/21 03/07/21 Range/Units 04:37 06:14 12:12 RBC (3.65-5.03) M/mm3 Hgb (11.8-15.2) gm/dl Hct (35.5-45.6) % MCHC (32-34) % Lymph % (Auto) (13.4-35.0) % [place] % (Auto) (0.0-7.3) % Lymph # (Auto) (1.2-5.4) K/mm3 Seg Neutrophils % (40.0-70.0) % Seg Neutrophils # (1.8-7.7) K/mm3 Sodium 135 L (137-145) mmol/L Chloride 97.4 L (98-107) mmol/L Creatinine 0.7 L (0.8-1.3) mg/dL Glucose 266 H (75-100) mg/dL POC Glucose 271 H 258 H (70-105) mg/dL AST (5-40) units/L Assessment and Plan Cultures: None A/P: 61-year-old male past medical history obesity hypoventilation syndrome, hypertension, diabetes, chronic pain, previous right AKA #Right leg cellulitis: recurrent; Has history of venous stasis ulcers and baseline venous stasis dermatitis. Worsening pain and warmth. #Venous stasis dermatitis: makes telling new cellulitis difficult #DM2: tight glycemic control for best outcomes. Recs: -Continue vancomycin goal trough 10-20 -Ordered Doppler of right leg to rule out DVT. Thank you for the consult, we will continue to follow. MD [facility] ([facility] O: [phone] F: [phone]
--- NOTE | 2021-03-07 15:04 | Progress Note ---
Assessment and Plan Assessment and plan: 61 YO Male with Obesity Hypoventilation Syndrome, HTN, DM complicated by Neuropathy, HLD, Chronic Pain Syndrome admitted directly at the request of Dr. Murphy. Pt was seen and evaluated by PCP and found to have lower extremity cellulitis. Pt acknowledges pain and redness to his left leg. Pt denies fever, chills, CP, Palpitations, NVD, Trauma, falls, unilateral leg swelling, calf pain, hemoptysis, or recent ill contacts. Pt seen and evaluated upon arrival. Pt initiated on IV antibiotic therapy. CBC, CMP, ordered and pending at time of evaluation. 03/07: Consult vascular for follow up ID consult and wound care Continue abx, monitor and control Blood glucose (1) Cellulitis Current Visit: No Status: Acute Qualifiers: Site of cellulitis of extremity: lower extremity Laterality: left Plan to address problem: CBC, CMP, IV antibiotic therapy, (2) Obesity hypoventilation syndrome Current Visit: Yes Status: Acute Plan to address problem: Balanced diet, increase physical activity discharge, outpatient pulmonary follow-up for sleep study. (3) Hypertension Current Visit: Yes Status: Acute Qualifiers: Hypertension type: primary hypertension Qualified Code(s): I10 - Essential (primary) hypertension Plan to address problem: Monitor blood pressure every shift, continue medical management (4) Diabetes Current Visit: Yes Status: Acute Plan to address problem: Consistent carbohydrate diet, insulin therapy, hypoglycemia protocol (5) Chronic pain syndrome Current Visit: Yes Status: Acute Plan to address problem: Pain control, resume prehospital pain management protocol. (6) DVT prophylaxis Current Visit: No Status: Acute Plan to address problem: SCDs bilateral lower extremities while in bed, prophylactic anticoagulation (7) Advance care planning Current Visit: Yes Status: Acute Plan to address problem: Disease education conducted, care plan discussed, diagnoses discussed, patient is full code, patient knowledges understanding agreement with care plan, +30 minutes. History Interval history: Patient seen and examined, No New complaints, still with complaints of lower ext Hospitalist Physical - Physical exam Narrative exam: VITAL SIGNS: Reviewed. GENERAL: The patient appears normally developed, Vital signs as documented. HEAD: No signs of head trauma. EYES: Pupils are equal. Extraocular motions intact. EARS: Hearing grossly intact. MOUTH: Oropharynx is normal. NECK: No adenopathy, no JVD. CHEST: Chest with clear breath sounds bilaterally. No wheezes, rales, or rhonchi. CARDIAC: Regular rate and rhythm. S1 and S2, without murmurs, gallops, or rubs . VASCULAR: No Edema. Peripheral pulses normal and equal in all extremities. ABDOMEN: Soft, non tender and non distended. No rebound or guarding, and no masses palpated. Bowel Sounds normal. MUSCULOSKELETAL: Extremities without clubbing, cyanosis. Bilater formation, Poor palpable pulses right DP AND PT. Noted edema lower ext- Left AKA NEUROLOGIC EXAM: Alert and oriented x 3 No focal sensory or strength deficits. Speech normal. Follows commands. PSYCHIATRIC: Mood normal. SKIN: detail exam as documented in skin assessment - Constitutional Vitals: Temp Pulse Resp BP Pulse Ox 98.0 F 67 20 133/83 92 03/07/21 12:10 03/07/21 12:10 03/07/21 12:10 03/07/21 12:10 03/07/21 12:10 General appearance: Present: mild distress, obese Results - Labs CBC & Chem 7: 03/07/21 04:37 03/07/21 04:37 Labs: Laboratory Last Values WBC 10.0 K/mm3 (4.5-11.0) 03/07/21 04:37 RBC 5.29 M/mm3 (3.65-5.03) H 03/07/21 04:37 Hgb 17.0 gm/dl (11.8-15.2) H 03/07/21 04:37 Hct 48.6 % (35.5-45.6) H 03/07/21 04:37 MCV 92 fl (84-94) 03/07/21 04:37 MCH 32 pg (28-32) 03/07/21 04:37 MCHC 35 % (32-34) H 03/07/21 04:37 RDW 14.3 % (13.2-15.2) 03/07/21 04:37 Plt Count 167 K/mm3 (140-440) 03/07/21 04:37 Lymph % (Auto) 10.6 % (13.4-35.0) L 03/07/21 04:37 [place] % (Auto) 6.2 % (0.0-7.3) 03/07/21 04:37 Eos % (Auto) 2.6 % (0.0-4.3) 03/07/21 04:37 Baso % (Auto) 1.2 % (0.0-1.8) 03/07/21 04:37 Lymph # (Auto) 1.1 K/mm3 (1.2-5.4) L 03/07/21 04:37 [place] # (Auto) 0.6 K/mm3 (0.0-0.8) 03/07/21 04:37 Eos # (Auto) 0.3 K/mm3 (0.0-0.4) 03/07/21 04:37 Baso # (Auto) 0.1 K/mm3 (0.0-0.1) 03/07/21 04:37 Seg Neutrophils % 79.4 % (40.0-70.0) H 03/07/21 04:37 Seg Neutrophils # 7.9 K/mm3 (1.8-7.7) H 03/07/21 04:37 Sodium 135 mmol/L (137-145) L 03/07/21 04:37 Potassium 4.3 mmol/L (3.6-5.0) 03/07/21 04:37 Chloride 97.4 mmol/L (98-107) L 03/07/21 04:37 Carbon Dioxide 22 mmol/L (22-30) 03/07/21 04:37 Anion Gap 20 mmol/L 03/07/21 04:37 BUN 12 mg/dL (9-20) 03/07/21 04:37 Creatinine 0.7 mg/dL (0.8-1.3) L 03/07/21 04:37 Estimated GFR > 60 ml/min 03/07/21 04:37 BUN/Creatinine Ratio 17 % 03/07/21 04:37 Glucose 266 mg/dL (75-100) H 03/07/21 04:37 POC Glucose 258 mg/dL (70-105) H 03/07/21 12:12 Calcium 9.3 mg/dL (8.4-10.2) 03/07/21 04:37 Total Bilirubin 0.90 mg/dL (0.1-1.2) 03/07/21 04:37 AST 36 units/L (5-40) 03/07/21 04:37 ALT 40 units/L (7-56) 03/07/21 04:37 Alkaline Phosphatase 73 units/L (35-129) 03/07/21 04:37 Total Protein 7.6 g/dL (6.3-8.2) 03/07/21 04:37 Albumin 4.1 g/dL (3.9-5) 03/07/21 04:37 Albumin/Globulin Ratio 1.2 % 03/07/21 04:37 Swanson/IV: Voiding Method Urinal Active Medications - Current Medications Current Medications: Generic Name Dose Route Start Last Admin Trade Name Freq PRN Reason Stop Dose Admin Acetaminophen 650 mg 03/06/21 12:31 03/07/21 03:39 Acetaminophen 325 Mg Tab PO 650 mg Q4H PRN Administration Pain MILD(1-3)/Fever >100.5/VILLARREAL Albuterol 2.5 mg 03/06/21 12:31 Albuterol 2.5 Mg/3 Ml Nebu IH Q4HRT PRN Shortness Of Breath Alprazolam 1 mg 03/06/21 12:40 Alprazolam 1 Mg Tab PO TID PRN Anxiety Atorvastatin Calcium 20 mg 03/06/21 22:00 03/06/21 21:23 Atorvastatin 20 Mg Tab PO 20 mg HS YAEL Administration Dextrose 50 ml 03/06/21 12:41 Dextrose 50% In Water (25gm) 50 Ml Syringe IV Q30MIN PRN Hypoglycemia Protocol Enoxaparin Sodium 40 mg 03/06/21 22:00 03/06/21 21:24 Enoxaparin 40 Mg/0.4 Ml Inj SUB-Q 40 mg QDAY@2200 YAEL Administration Protocol Fenofibrate 145 mg 03/06/21 22:00 03/06/21 21:23 Fenofibrate 145 Mg Tab PO 145 mg QHS YAEL Administration Hydromorphone HCl 2 mg 03/06/21 15:36 03/07/21 11:30 Hydromorphone 1 Mg/1 Ml Inj IV 2 mg Q3H PRN Administration Pain , Severe (7-10) Vancomycin HCl 1,500 mg/ 530 mls @ 333.333 mls/hr 03/07/21 03:00 03/07/21 03:41 Sodium Chloride IV 333.333 mls/hr Q12H YAEL Administration Insulin Human Lispro 0 unit 03/06/21 13:00 03/07/21 06:51 Insulin Lispro 100 Unit/Ml SUB-Q 9 unit Q6HR YAEL Administration Protocol Metoprolol Tartrate 100 mg 03/06/21 13:00 03/07/21 11:07 Metoprolol Tartrate 100 Mg Tab PO 100 mg BID YAEL Administration Miscellaneous Medication 100 units 03/07/21 22:00 Lantus Vial SC QHS YAEL Ondansetron HCl 4 mg 03/06/21 12:31 Ondansetron 4 Mg/2 Ml Inj IV Q8H PRN Nausea And Vomiting Oxycodone/Acetaminophen 1 tab 03/06/21 12:31 Oxycodone /Acetaminophen 5-325mg Tab PO Q16H PRN Pain, Moderate (4-6) Pregabalin 200 mg 03/06/21 14:00 03/07/21 08:04 Pregabalin 50 Mg Cap PO 200 mg TID YAEL Administration Sodium Chloride 10 ml 03/06/21 22:00 03/07/21 11:09 Sodium Chloride 0.9% 10 Ml Flush Syringe IV 10 ml BID YAEL Administration Sodium Chloride 10 ml 03/06/21 12:31 Sodium Chloride 0.9% 10 Ml Flush Syringe IV PRN PRN LINE FLUSH
--- NOTE | 2021-03-07 16:00 | Consultation ---
History of Present Illness - Reason for Consult Consult date: 03/07/21 Right Lower Extremity PVD with Ulceration Requesting physician: SOPHIE LEA - History of Present Illness The patient is a 61-year-old male who presents with ulcers on his right lower extremity. 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 Shortly after his amputation he developed ulcers involving his right lower extremity. He states he had a similar problem with his left lower extremity and was treated with an Unna boot. He has been going to wound care for his right lower extremity however he has required multiple hospitalizations and has not ever totally healed his wounds. He was admitted with cellulitis and pain of the right lower extremity. He has no additional complaints at this time. Past History Past Medical History: diabetes, hypertension, hyperlipidemia, other (Neuropathy, venous insufficiency) Past Surgical History: No surgical history, Other (Left total knee replacement x2, left above-knee amputation) Social history: . denies: smoking, alcohol abuse Family history: diabetes, hypertension Medications and Allergies Allergies Allergy/AdvReac Type Severity Reaction Status Date / Time sulfamethoxazole Allergy Itching Verified 12/05/20 07:05 [From Bactrim] trimethoprim [From Bactrim] Allergy Itching Verified 12/05/20 07:05 Home Medications Medication Instructions Recorded Confirmed Last Taken Type ALPRAZolam [Xanax TAB] 1 mg PO TID PRN #12 07/13/19 03/06/21 3 Days Ago Rx ~12/02/20 1 mg AtorvaSTATin [Lipitor] 20 mg PO HS #30 07/13/19 03/06/21 1 Day Ago Rx ~12/04/20 Metoprolol [Lopressor TAB] 100 mg PO BID #60 07/13/19 03/06/21 1 Day Ago Rx ~12/04/20 Pregabalin [Lyrica] 200 mg PO TID #90 cap 07/13/19 03/06/21 1 Day Ago Rx ~12/04/20 200 mg Fenofibrate 160 mg PO HS 07/17/20 03/06/21 1 Day Ago History ~12/04/20 HumuLIN N 35 units SC QAC 12/07/20 03/06/21 12/03/20 History Lantus VIAL 50 units SC QAM 12/07/20 03/06/21 03/06/21 06:00 History Lantus VIAL 100 units SC QHS 12/07/20 03/06/21 03/05/21 10:00 History Active Meds: Active Medications Acetaminophen (Acetaminophen 325 Mg Tab) 650 mg PO Q4H PRN PRN Reason: Pain MILD(1-3)/Fever >100.5/VILLARREAL Last Admin: 03/07/21 03:39 Dose: 650 mg Documented by: Albuterol (Albuterol 2.5 Mg/3 Ml Nebu) 2.5 mg IH Q4HRT PRN PRN Reason: Shortness Of Breath Alprazolam (Alprazolam 1 Mg Tab) 1 mg PO TID PRN PRN Reason: Anxiety Atorvastatin Calcium (Atorvastatin 20 Mg Tab) 20 mg PO HS COUNT INCLUDES THE [facility] Last Admin: 03/06/21 21:23 Dose: 20 mg Documented by: Dextrose (Dextrose 50% In Water (25gm) 50 Ml Syringe) 50 ml IV Q30MIN PRN; Protocol PRN Reason: Hypoglycemia Enoxaparin Sodium (Enoxaparin 40 Mg/0.4 Ml Inj) 40 mg SUB-Q QDAY@2200 YAEL; Protocol Last Admin: 03/06/21 21:24 Dose: 40 mg Documented by: Fenofibrate (Fenofibrate 145 Mg Tab) 145 mg PO QHS COUNT INCLUDES THE [facility] Last Admin: 03/06/21 21:23 Dose: 145 mg Documented by: Hydromorphone HCl (Hydromorphone 1 Mg/1 Ml Inj) 2 mg IV Q3H PRN PRN Reason: Pain , Severe (7-10) Last Admin: 03/07/21 15:29 Dose: 2 mg Documented by: Vancomycin HCl 1,500 mg/ (Sodium Chloride) 530 mls @ 333.333 mls/hr IV Q12H COUNT INCLUDES THE [facility] Last Admin: 03/07/21 15:28 Dose: 333.333 mls/hr Documented by: Insulin Glargine (Insulin Glargine 100 Units/Ml) 100 units SUB-Q QHS COUNT INCLUDES THE [facility] Insulin Human Lispro (Insulin Lispro 100 Unit/Ml) 0 unit SUB-Q Q6HR COUNT INCLUDES THE [facility]; Protocol Last Admin: 03/07/21 06:51 Dose: 9 unit Documented by: Metoprolol Tartrate (Metoprolol Tartrate 100 Mg Tab) 100 mg PO BID COUNT INCLUDES THE [facility] Last Admin: 03/07/21 11:07 Dose: 100 mg Documented by: Ondansetron HCl (Ondansetron 4 Mg/2 Ml Inj) 4 mg IV Q8H PRN PRN Reason: Nausea And Vomiting Oxycodone/Acetaminophen (Oxycodone /Acetaminophen 5-325mg Tab) 1 tab PO Q16H PRN PRN Reason: Pain, Moderate (4-6) Pregabalin (Pregabalin 50 Mg Cap) 200 mg PO TID COUNT INCLUDES THE [facility] Last Admin: 03/07/21 15:29 Dose: 200 mg Documented by: Sodium Chloride (Sodium Chloride 0.9% 10 Ml Flush Syringe) 10 ml IV BID COUNT INCLUDES THE [facility] Last Admin: 03/07/21 11:09 Dose: 10 ml Documented by: Sodium Chloride (Sodium Chloride 0.9% 10 Ml Flush Syringe) 10 ml IV PRN PRN PRN Reason: LINE FLUSH Review of Systems All systems: negative Exam - Constitutional Vitals: Temp Pulse Resp BP Pulse Ox 98.0 F 67 20 133/83 92 03/07/21 12:10 03/07/21 12:10 03/07/21 15:29 03/07/21 12:10 03/07/21 12:10 General appearance: Present: no acute distress - Respiratory Respiratory effort: normal - Cardiovascular Rhythm: regular - Extremities Extremities: pulses intact (Palpable right dorsalis pedis and posterior tibial pulse), abnormal (Dermatosclerosis of the right calf with a small medial lateral and superficial ulceration of the right calf measuring approximately 4 x 5 cm. There is no evidence of infection within the ulceration.) Extremity abnormal: other (Well-healed left above-knee amputation) - Abdominal General gastrointestinal: Present: soft, non-tender Male genitourinary: Present: deferred - Rectal Rectal Exam: deferred Results - Labs CBC & Chem 7: 03/07/21 04:37 03/07/21 04:37 Labs: Abnormal lab results 03/06/21 03/06/21 03/06/21 Range/Units 15:51 15:51 17:06 RBC (3.65-5.03) M/mm3 Hgb 15.9 H (11.8-15.2) gm/dl Hct (35.5-45.6) % MCHC 35 H (32-34) % Lymph % (Auto) (13.4-35.0) % [place] % (Auto) 7.4 H (0.0-7.3) % Lymph # (Auto) (1.2-5.4) K/mm3 Seg Neutrophils % 70.8 H (40.0-70.0) % Seg Neutrophils # (1.8-7.7) K/mm3 Sodium (137-145) mmol/L Chloride (98-107) mmol/L Creatinine (0.8-1.3) mg/dL Glucose 275 H (75-100) mg/dL POC Glucose 291 H (70-105) mg/dL AST 47 H (5-40) units/L 03/06/21 03/07/21 03/07/21 Range/Units 22:09 00:42 04:37 RBC 5.29 H (3.65-5.03) M/mm3 Hgb 17.0 H (11.8-15.2) gm/dl Hct 48.6 H (35.5-45.6) % MCHC 35 H (32-34) % Lymph % (Auto) 10.6 L (13.4-35.0) % [place] % (Auto) (0.0-7.3) % Lymph # (Auto) 1.1 L (1.2-5.4) K/mm3 Seg Neutrophils % 79.4 H (40.0-70.0) % Seg Neutrophils # 7.9 H (1.8-7.7) K/mm3 Sodium (137-145) mmol/L Chloride (98-107) mmol/L Creatinine (0.8-1.3) mg/dL Glucose (75-100) mg/dL POC Glucose 245 H 233 H (70-105) mg/dL AST (5-40) units/L 03/07/21 03/07/21 03/07/21 Range/Units 04:37 06:14 12:12 RBC (3.65-5.03) M/mm3 Hgb (11.8-15.2) gm/dl Hct (35.5-45.6) % MCHC (32-34) % Lymph % (Auto) (13.4-35.0) % [place] % (Auto) (0.0-7.3) % Lymph # (Auto) (1.2-5.4) K/mm3 Seg Neutrophils % (40.0-70.0) % Seg Neutrophils # (1.8-7.7) K/mm3 Sodium 135 L (137-145) mmol/L Chloride 97.4 L (98-107) mmol/L Creatinine 0.7 L (0.8-1.3) mg/dL Glucose 266 H (75-100) mg/dL POC Glucose 271 H 258 H (70-105) mg/dL AST (5-40) units/L Assessment and Plan The patient is a 61-year-old male who presents with ulcerations of his right lower extremity. The patient had an arterial duplex in November 2020 that demonstrated triphasic flow throughout his right lower extremity and on physical exam he has easily palpable pulses. The patient has dermatosclerosis and his exam is consistent with venous insufficiency. I discussed this diagnosis with the patient and the steps for work-up as well as treatment towards healing his ulceration. At this time I recommend elevation as well as compression which may just require Jose Miguel bandage in the hospital setting. Ultimately his work-up and management will take place in the outpatient setting where he will require a venous reflux study to evaluate his deep and superficial system for venous reflux. Depending on the findings he will likely require closure of his superficial veins which is a procedure that is performed in the outpatient setting. I also discussed the need for compression socks which he should wear whenever he is not lying in bed. The patient expressed understanding of the plan and agrees. I will provide him with a card and have him follow-up in the outpatient setting upon discharge.
--- NOTE | 2021-03-07 17:31 | Vascular Lab Report ---
DUPLEX DOPPLER LOWER EXTREMITY VEINS, BILATERAL INDICATION / CLINICAL INFORMATION: r/o DVT. TECHNIQUE: Duplex doppler imaging was performed through the veins of both lower extremities using pedro ous compression and other maneuvers. COMPARISON: None available. FINDINGS: RIGHT COMMON FEMORAL VEIN: Negative. RIGHT FEMORAL VEIN: Negative. RIGHT POPLITEAL VEIN: Negative. RIGHT CALF VEINS: Negative. LEFT COMMON FEMORAL VEIN: Negative. LEFT FEMORAL VEIN: Negative. LEFT POPLITEAL VEIN: Negative. LEFT CALF VEINS: Negative. ADDITIONAL FINDINGS: None. IMPRESSION: 1. No sonographic evidence for DVT in either lower extremity. Signer Name: Steven Vazquez MD Signed: 03/07/2021 5:27 PM Workstation Name: [id number]to
[2021-03-07] MEDS: FENOFIBRATE 145 MG TAB PO SCH (21:48)
[2021-03-07] MEDS: ENOXAPARIN 40 MG/0.4 ML INJ SUB-Q SCH (21:51)
[2021-03-07] MEDS: INSULIN GLARGINE 100 UNITS/ML SUB-Q SCH (21:52)
[2021-03-07] MEDS ORDERED: LANTUS SC SCH (22:00)
[2021-03-08] MEDS: INSULIN LISPRO 100 UNIT/ML SUB-Q SCH ×4 (00:52→17:03)
[2021-03-08] MEDS: HYDROmorphone 1 MG/1 ML INJ IV PRN ×7 (00:52→21:54)
[2021-03-08] MEDS: VANCOMYCIN 1,500 MG in SODIUM CHLORIDE 0.9% 500 ML 500 ML IV SCH ×2 (03:05→16:36)
[2021-03-08] MEDS: PREGABALIN 50 MG CAP PO SCH ×3 (09:22→20:27)
[2021-03-08] MEDS: METOPROLOL TARTRATE 100 MG TAB PO SCH ×2 (09:27→21:51)
[2021-03-08] MEDS ORDERED: VANCOMYCIN PHARMACY TO DOSE IV SCH (10:00)
--- NOTE | 2021-03-08 12:19 | Progress Note ---
Assessment and Plan Assessment and plan: 61 YO Male with Obesity Hypoventilation Syndrome, HTN, DM complicated by Neuropathy, HLD, Chronic Pain Syndrome admitted directly at the request of Dr. Murphy. Pt was seen and evaluated by PCP and found to have lower extremity cellulitis. Pt acknowledges pain and redness to his left leg. Pt denies fever, chills, CP, Palpitations, NVD, Trauma, falls, unilateral leg swelling, calf pain, hemoptysis, or recent ill contacts. Pt seen and evaluated upon arrival. Pt initiated on IV antibiotic therapy. CBC, CMP, ordered and pending at time of evaluation. 03/07: Consult vascular for follow up ID consult and wound care Continue abx, monitor and control Blood glucose 03/08: Continue supportive care. Vascular recommends outpatient management for the dermatosclerosis with venous insufficiency. Jose Miguel bandage while in the hospital on anticipating the wound care will put this in place of discussed with nursing staff for this. Await further recommendation by ID prior to discharge anticipate discharge on Wednesday to ensure all home health arrangement is made and also better pain control. (1) Cellulitis Current Visit: No Status: Acute Qualifiers: Site of cellulitis of extremity: lower extremity Laterality: left Plan to address problem: CBC, CMP, IV antibiotic therapy, (2) Obesity hypoventilation syndrome Current Visit: Yes Status: Acute Plan to address problem: Balanced diet, increase physical activity discharge, outpatient pulmonary follow-up for sleep study. (3) Hypertension Current Visit: Yes Status: Acute Qualifiers: Hypertension type: primary hypertension Qualified Code(s): I10 - Essential (primary) hypertension Plan to address problem: Monitor blood pressure every shift, continue medical management (4) Diabetes Current Visit: Yes Status: Acute Plan to address problem: Consistent carbohydrate diet, insulin therapy, hypoglycemia protocol (5) Chronic pain syndrome Current Visit: Yes Status: Acute Plan to address problem: Pain control, resume prehospital pain management protocol. (6) DVT prophylaxis Current Visit: No Status: Acute Plan to address problem: SCDs bilateral lower extremities while in bed, prophylactic anticoagulation (7) Advance care planning Current Visit: Yes Status: Acute Plan to address problem: Disease education conducted, care plan discussed, diagnoses discussed, patient is full code, patient knowledges understanding agreement with care plan, +30 minutes. History Interval history: Patient seen and examined, No New complaints, still with complaints of lower ext pain with movement. Hospitalist Physical - Physical exam Narrative exam: VITAL SIGNS: Reviewed. GENERAL: The patient appears normally developed, Vital signs as documented. HEAD: No signs of head trauma. EYES: Pupils are equal. Extraocular motions intact. EARS: Hearing grossly intact. MOUTH: Oropharynx is normal. NECK: No adenopathy, no JVD. CHEST: Chest with clear breath sounds bilaterally. No wheezes, rales, or rhonchi. CARDIAC: Regular rate and rhythm. S1 and S2, without murmurs, gallops, or rubs. VASCULAR: No Edema. Peripheral pulses normal and equal in all extremities. ABDOMEN: Soft, non tender and non distended. No rebound or guarding, and no masses palpated. Bowel Sounds normal. MUSCULOSKELETAL: Extremities without clubbing, cyanosis. BilSter formation, chronic venous stasis, poor palpable pulses right DP AND PT. Noted edema lower ext- Left AKA NEUROLOGIC EXAM: Alert and oriented x 3 No focal sensory or strength deficits. Speech normal. Follows commands. PSYCHIATRIC: Mood normal. SKIN: detail exam as documented in skin assessment - Constitutional Vitals: Temp Pulse Resp BP Pulse Ox 98.5 F 65 20 124/67 91 03/08/21 09:30 03/08/21 09:30 03/08/21 11:00 03/08/21 09:30 03/08/21 11:00 General appearance: Present: mild distress, obese Results - Labs CBC & Chem 7: 03/07/21 04:37 03/07/21 04:37 Labs: Laboratory Last Values WBC 10.0 K/mm3 (4.5-11.0) 03/07/21 04:37 RBC 5.29 M/mm3 (3.65-5.03) H 03/07/21 04:37 Hgb 17.0 gm/dl (11.8-15.2) H 03/07/21 04:37 Hct 48.6 % (35.5-45.6) H 03/07/21 04:37 MCV 92 fl (84-94) 03/07/21 04:37 MCH 32 pg (28-32) 03/07/21 04:37 MCHC 35 % (32-34) H 03/07/21 04:37 RDW 14.3 % (13.2-15.2) 03/07/21 04:37 Plt Count 167 K/mm3 (140-440) 03/07/21 04:37 Lymph % (Auto) 10.6 % (13.4-35.0) L 03/07/21 04:37 [place] % (Auto) 6.2 % (0.0-7.3) 03/07/21 04:37 Eos % (Auto) 2.6 % (0.0-4.3) 03/07/21 04:37 Baso % (Auto) 1.2 % (0.0-1.8) 03/07/21 04:37 Lymph # (Auto) 1.1 K/mm3 (1.2-5.4) L 03/07/21 04:37 [place] # (Auto) 0.6 K/mm3 (0.0-0.8) 03/07/21 04:37 Eos # (Auto) 0.3 K/mm3 (0.0-0.4) 03/07/21 04:37 Baso # (Auto) 0.1 K/mm3 (0.0-0.1) 03/07/21 04:37 Seg Neutrophils % 79.4 % (40.0-70.0) H 03/07/21 04:37 Seg Neutrophils # 7.9 K/mm3 (1.8-7.7) H 03/07/21 04:37 Sodium 135 mmol/L (137-145) L 03/07/21 04:37 Potassium 4.3 mmol/L (3.6-5.0) 03/07/21 04:37 Chloride 97.4 mmol/L (98-107) L 03/07/21 04:37 Carbon Dioxide 22 mmol/L (22-30) 03/07/21 04:37 Anion Gap 20 mmol/L 03/07/21 04:37 BUN 12 mg/dL (9-20) 03/07/21 04:37 Creatinine 0.7 mg/dL (0.8-1.3) L 03/07/21 04:37 Estimated GFR > 60 ml/min 03/07/21 04:37 BUN/Creatinine Ratio 17 % 03/07/21 04:37 Glucose 266 mg/dL (75-100) H 03/07/21 04:37 POC Glucose 268 mg/dL (70-105) H 03/08/21 11:18 Calcium 9.3 mg/dL (8.4-10.2) 03/07/21 04:37 Total Bilirubin 0.90 mg/dL (0.1-1.2) 03/07/21 04:37 AST 36 units/L (5-40) 03/07/21 04:37 ALT 40 units/L (7-56) 03/07/21 04:37 Alkaline Phosphatase 73 units/L (35-129) 03/07/21 04:37 Total Protein 7.6 g/dL (6.3-8.2) 03/07/21 04:37 Albumin 4.1 g/dL (3.9-5) 03/07/21 04:37 Albumin/Globulin Ratio 1.2 % 03/07/21 04:37 Swanson/IV: Voiding Method Toilet Active Medications - Current Medications Current Medications: Generic Name Dose Route Start Last Admin Trade Name Freq PRN Reason Stop Dose Admin Acetaminophen 650 mg 03/06/21 12:31 03/07/21 03:39 Acetaminophen 325 Mg Tab PO 650 mg Q4H PRN Administration Pain MILD(1-3)/Fever >100.5/VILLARREAL Albuterol 2.5 mg 03/06/21 12:31 Albuterol 2.5 Mg/3 Ml Nebu IH Q4HRT PRN Shortness Of Breath Alprazolam 1 mg 03/06/21 12:40 Alprazolam 1 Mg Tab PO TID PRN Anxiety Atorvastatin Calcium 20 mg 03/06/21 22:00 03/07/21 21:48 Atorvastatin 20 Mg Tab PO 20 mg HS YAEL Administration Dextrose 50 ml 03/06/21 12:41 Dextrose 50% In Water (25gm) 50 Ml Syringe IV Q30MIN PRN Hypoglycemia Protocol Enoxaparin Sodium 40 mg 03/06/21 22:00 03/07/21 21:51 Enoxaparin 40 Mg/0.4 Ml Inj SUB-Q 40 mg QDAY@2200 YAEL Administration Protocol Fenofibrate 145 mg 03/06/21 22:00 03/07/21 21:48 Fenofibrate 145 Mg Tab PO 145 mg QHS YAEL Administration Hydromorphone HCl 2 mg 03/06/21 15:36 03/08/21 09:23 Hydromorphone 1 Mg/1 Ml Inj IV 2 mg Q3H PRN Administration Pain , Severe (7-10) Vancomycin HCl 1,500 mg/ 530 mls @ 333.333 mls/hr 03/07/21 03:00 03/08/21 03:05 Sodium Chloride IV 333.333 mls/hr Q12H YAEL Administration Insulin Glargine 100 units 03/07/21 22:00 03/07/21 21:52 Insulin Glargine 100 Units/Ml SUB-Q 100 units QHS YAEL Administration Insulin Human Lispro 0 unit 03/06/21 13:00 03/08/21 12:13 Insulin Lispro 100 Unit/Ml SUB-Q 9 unit Q6HR YAEL Administration Protocol Metoprolol Tartrate 100 mg 03/06/21 13:00 03/08/21 09:27 Metoprolol Tartrate 100 Mg Tab PO 100 mg BID YAEL Administration Ondansetron HCl 4 mg 03/06/21 12:31 Ondansetron 4 Mg/2 Ml Inj IV Q8H PRN Nausea And Vomiting Oxycodone/Acetaminophen 1 tab 03/06/21 12:31 Oxycodone /Acetaminophen 5-325mg Tab PO Q16H PRN Pain, Moderate (4-6) Pregabalin 200 mg 03/06/21 14:00 03/08/21 09:22 Pregabalin 50 Mg Cap PO 200 mg TID YAEL Administration Sodium Chloride 10 ml 03/06/21 22:00 03/08/21 09:23 Sodium Chloride 0.9% 10 Ml Flush Syringe IV 10 ml BID YAEL Administration Sodium Chloride 10 ml 03/06/21 12:31 Sodium Chloride 0.9% 10 Ml Flush Syringe IV PRN PRN LINE FLUSH Nutrition/Malnutrition Assess - Dietary Evaluation Nutrition/Malnutrition Findings: Nutrition Notes Start: 03/07/21 14:49 Freq: Status: Active Protocol: Document 03/07/21 14:49 KRISTEN (Rec: 03/07/21 15:08 KRISTEN [email or web address]) Nutrition Notes Need for Assessment generated from: fence 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 Current Diet Cardiac/Consistent Carbohydrates Diet (since L ). Labs/Tests 03/07: Na 135, Cl 97.4, Cr 0.6 , Glu 266. Pertinent Medications 03/07: Nutritionally unremarkable. Height 6 ft 1 in Weight 136 kg [place] Body Weight (kg) 83.63 BMI 39.5 Weight Status Obese Percent of energy/protein needs met: Prescribed C/CC Diet provides for energy/protein needs (1, 977 Kcal/86 g) during LOS. Burn Absent Trauma Absent GI Symptoms None Food Allergy No Skin Integrity/Comment Clear, warm, dry. #1 Nutrition Diagnosis No nutrition diagnosis at this time Comments: Pt's Integumentary does not present any risk at the time, according to Progress Notes. Is patient on ventilator? No Is Patient Ambulatory and/or Out of Bed Yes REE-(Hubbard-St. Jeor-ambulatory/OOB) [ 2871.544 NUTR.MSJOOB] Kcal/Kg value to use for calculation 15 Approximate Energy Requirements Using 0 kcal/Kg Calculation Used for Recommendations Kcal/kg Additional Notes Protein: 1.0-1.2 g/Kg/day; 84- 101 g/day; 336-404 Kcal/day ( from IBW). Fluids: 1.0 ml/Kcal/day, or as per MD. Nutrition Intervention Change Diet Order: Continue Cardiac/Consistent Carbohydrate Diet. Goal #1 Maintain body weight within +/ -3% of current BWt during LOS. Goal #2 Reach and maintain acceptable chemistry lab values during LOS. Follow-Up By: 03/14/21 Additional Comments Continue monitoring acceptance of foods, %PO intake of meals , Hydration, and BM.
[2021-03-08] MEDS: FENOFIBRATE 145 MG TAB PO SCH (21:51)
[2021-03-08] MEDS: ENOXAPARIN 40 MG/0.4 ML INJ SUB-Q SCH (21:51)
[2021-03-08] MEDS: INSULIN GLARGINE 100 UNITS/ML SUB-Q SCH (22:05)
[2021-03-09] MEDS: HYDROmorphone 1 MG/1 ML INJ IV PRN ×7 (01:02→23:52)
[2021-03-09] MEDS: INSULIN LISPRO 100 UNIT/ML SUB-Q SCH ×4 (01:03→17:04)
[2021-03-09] MEDS: VANCOMYCIN 1,500 MG in SODIUM CHLORIDE 0.9% 500 ML 500 ML IV SCH ×3 (02:52→23:46)
[2021-03-09] MEDS: PREGABALIN 50 MG CAP PO SCH ×3 (08:45→23:47)
[2021-03-09] MEDS: METOPROLOL TARTRATE 100 MG TAB PO SCH ×2 (09:16→23:48)
--- NOTE | 2021-03-09 10:16 | Progress Note ---
Assessment and Plan Assessment and plan: 61 YO Male with Obesity Hypoventilation Syndrome, HTN, DM complicated by Neuropathy, HLD, Chronic Pain Syndrome admitted directly at the request of Dr. Murphy. Pt was seen and evaluated by PCP and found to have lower extremity cellulitis. Pt acknowledges pain and redness to his left leg. Pt denies fever, chills, CP, Palpitations, NVD, Trauma, falls, unilateral leg swelling, calf pain, hemoptysis, or recent ill contacts. Pt seen and evaluated upon arrival. Pt initiated on IV antibiotic therapy. CBC, CMP, ordered and pending at time of evaluation. 03/07: Consult vascular for follow up ID consult and wound care Continue abx, monitor and control Blood glucose 03/08: Continue supportive care. Vascular recommends outpatient management for the dermatosclerosis with venous insufficiency. Jose Miguel bandage while in the hospital on anticipating the wound care will put this in place of discussed with nursing staff for this. Await further recommendation by ID prior to discharge anticipate discharge on Wednesday to ensure all home health arrangement is made and also better pain control. 03/09: Possible neuropathic pain we will add gabapentin to his medical regimen. Anticipate discharge in a.m. (1) Cellulitis Current Visit: No Status: Acute Qualifiers: Site of cellulitis of extremity: lower extremity Laterality: left Plan to address problem: CBC, CMP, IV antibiotic therapy, (2) Obesity hypoventilation syndrome Current Visit: Yes Status: Acute Plan to address problem: Balanced diet, increase physical activity discharge, outpatient pulmonary follo w-up for sleep study. (3) Hypertension Current Visit: Yes Status: Acute Qualifiers: Hypertension type: primary hypertension Qualified Code(s): I10 - Essential (primary) hypertension Plan to address problem: Monitor blood pressure every shift, continue medical management (4) Diabetes Current Visit: Yes Status: Acute Plan to address problem: Consistent carbohydrate diet, insulin therapy, hypoglycemia protocol (5) Chronic pain syndrome Current Visit: Yes Status: Acute Plan to address problem: Pain control, resume prehospital pain management protocol. (6) DVT prophylaxis Current Visit: No Status: Acute Plan to address problem: SCDs bilateral lower extremities while in bed, prophylactic anticoagulation (7) Advance care planning Current Visit: Yes Status: Acute Plan to address problem: Disease education conducted, care plan discussed, diagnoses discussed, patient is full code, patient knowledges understanding agreement with care plan, +30 minutes. History Interval history: Patient seen and examined, No New complaints, still with complaints of lower ext pain with movement. Says that the pain is small for better sensation Hospitalist Physical - Physical exam Narrative exam: VITAL SIGNS: Reviewed. GENERAL: The patient appears normally developed, Vital signs as documented. HEAD: No signs of head trauma. EYES: Pupils are equal. Extraocular motions intact. EARS: Hearing grossly intact. MOUTH: Oropharynx is normal. NECK: No adenopathy, no JVD. CHEST: Chest with clear breath sounds bilaterally. No wheezes, rales, or r honchi. CARDIAC: Regular rate and rhythm. S1 and S2, without murmurs, gallops, or rubs. VASCULAR: No Edema. Peripheral pulses normal and equal in all extremities. ABDOMEN: Soft, non tender and non distended. No rebound or guarding, and no masses palpated. Bowel Sounds normal. MUSCULOSKELETAL: Extremities without clubbing, cyanosis. BilSter formation, chronic venous stasis, poor palpable pulses right DP AND PT. Noted edema lower ext- Left AKA NEUROLOGIC EXAM: Alert and oriented x 3 No focal sensory or strength deficits. Speech normal. Follows commands. PSYCHIATRIC: Mood normal. SKIN: detail exam as documented in skin assessment - Constitutional Vitals: Temp Pulse Resp BP Pulse Ox 98.3 F 61 18 117/57 94 03/09/21 05:29 03/09/21 05:29 03/09/21 05:29 03/09/21 05:29 03/09/21 05:29 General appearance: Present: mild distress, obese Results - Labs CBC & Chem 7: 03/07/21 04:37 03/07/21 04:37 Labs: Laboratory Last Values WBC 10.0 K/mm3 (4.5-11.0) 03/07/21 04:37 RBC 5.29 M/mm3 (3.65-5.03) H 03/07/21 04:37 Hgb 17.0 gm/dl (11.8-15.2) H 03/07/21 04:37 Hct 48.6 % (35.5-45.6) H 03/07/21 04:37 MCV 92 fl (84-94) 03/07/21 04:37 MCH 32 pg (28-32) 03/07/21 04:37 MCHC 35 % (32-34) H 03/07/21 04:37 RDW 14.3 % (13.2-15.2) 03/07/21 04:37 Plt Count 167 K/mm3 (140-440) 03/07/21 04:37 Lymph % (Auto) 10.6 % (13.4-35.0) L 03/07/21 04:37 [place] % (Auto) 6.2 % (0.0-7.3) 03/07/21 04:37 Eos % (Auto) 2.6 % (0.0-4.3) 03/07/21 04:37 Baso % (Auto) 1.2 % (0.0-1.8) 03/07/21 04:37 Lymph # (Auto) 1.1 K/mm3 (1.2-5.4) L 03/07/21 04:37 [place] # (Auto) 0.6 K/mm3 (0.0-0.8) 03/07/21 04:37 Eos # (Auto) 0.3 K/mm3 (0.0-0.4) 03/07/21 04:37 Baso # (Auto) 0.1 K/mm3 (0.0-0.1) 03/07/21 04:37 Seg Neutrophils % 79.4 % (40.0-70.0) H 03/07/21 04:37 Seg Neutrophils # 7.9 K/mm3 (1.8-7.7) H 03/07/21 04:37 Sodium 135 mmol/L (137-145) L 03/07/21 04:37 Potassium 4.3 mmol/L (3.6-5.0) 03/07/21 04:37 Chloride 97.4 mmol/L (98-107) L 03/07/21 04:37 Carbon Dioxide 22 mmol/L (22-30) 03/07/21 04:37 Anion Gap 20 mmol/L 03/07/21 04:37 BUN 12 mg/dL (9-20) 03/07/21 04:37 Creatinine 0.7 mg/dL (0.8-1.3) L 03/07/21 04:37 Estimated GFR > 60 ml/min 03/07/21 04:37 BUN/Creatinine Ratio 17 % 03/07/21 04:37 Glucose 266 mg/dL (75-100) H 03/07/21 04:37 POC Glucose 159 mg/dL (70-105) H 03/09/21 05:26 Calcium 9.3 mg/dL (8.4-10.2) 03/07/21 04:37 Total Bilirubin 0.90 mg/dL (0.1-1.2) 03/07/21 04:37 AST 36 units/L (5-40) 03/07/21 04:37 ALT 40 units/L (7-56) 03/07/21 04:37 Alkaline Phosphatase 73 units/L (35-129) 03/07/21 04:37 Total Protein 7.6 g/dL (6.3-8.2) 03/07/21 04:37 Albumin 4.1 g/dL (3.9-5) 03/07/21 04:37 Albumin/Globulin Ratio 1.2 % 03/07/21 04:37 Vancomycin Trough 8.0 ug/mL (5.0-20.0) 03/08/21 14:38 Swanson/IV: Voiding Method Urinal Active Medications - Current Medications Current Medications: Generic Name Dose Route Start Last Admin Trade Name Freq PRN Reason Stop Dose Admin Acetaminophen 650 mg 03/06/21 12:31 03/07/21 03:39 Acetaminophen 325 Mg Tab PO 650 mg Q4H PRN Administration Pain MILD(1-3)/Fever >100.5/VILLARREAL Albuterol 2.5 mg 03/06/21 12:31 Albuterol 2.5 Mg/3 Ml Nebu IH Q4HRT PRN Shortness Of Breath Alprazolam 1 mg 03/06/21 12:40 Alprazolam 1 Mg Tab PO TID PRN Anxiety Atorvastatin Calcium 20 mg 03/06/21 22:00 03/08/21 21:51 Atorvastatin 20 Mg Tab PO 20 mg HS YAEL Administration Dextrose 50 ml 03/06/21 12:41 Dextrose 50% In Water (25gm) 50 Ml Syringe IV Q30MIN PRN Hypoglycemia Protocol Enoxaparin Sodium 40 mg 03/06/21 22:00 03/08/21 21:51 Enoxaparin 40 Mg/0.4 Ml Inj SUB-Q 40 mg QDAY@2200 YAEL Administration Protocol Fenofibrate 145 mg 03/06/21 22:00 03/08/21 21:51 Fenofibrate 145 Mg Tab PO 145 mg QHS YAEL Administration Hydromorphone HCl 2 mg 03/06/21 15:36 03/09/21 08:45 Hydromorphone 1 Mg/1 Ml Inj IV 2 mg Q3H PRN Administration Pain , Severe (7-10) Vancomycin HCl 1,500 mg/ 530 mls @ 333.333 mls/hr 03/09/21 11:00 Sodium Chloride IV Q8H YAEL Insulin Glargine 100 units 03/07/21 22:00 03/08/21 22:05 Insulin Glargine 100 Units/Ml SUB-Q 100 units QHS AYEL Administration Insulin Human Lispro 0 unit 03/06/21 13:00 03/09/21 06:10 Insulin Lispro 100 Unit/Ml SUB-Q 4 unit Q6HR YAEL Administration Protocol Metoprolol Tartrate 100 mg 03/06/21 13:00 03/09/21 09:16 Metoprolol Tartrate 100 Mg Tab PO 100 mg BID YAEL Administration Ondansetron HCl 4 mg 03/06/21 12:31 Ondansetron 4 Mg/2 Ml Inj IV Q8H PRN Nausea And Vomiting Oxycodone/Acetaminophen 1 tab 03/06/21 12:31 Oxycodone /Acetaminophen 5-325mg Tab PO Q16H PRN Pain, Moderate (4-6) Pregabalin 200 mg 03/06/21 14:00 03/09/21 08:45 Pregabalin 50 Mg Cap PO 200 mg TID YAEL Administration Sodium Chloride 10 ml 03/06/21 22:00 03/09/21 09:17 Sodium Chloride 0.9% 10 Ml Flush Syringe IV 10 ml BID YAEL Administration Sodium Chloride 10 ml 03/06/21 12:31 Sodium Chloride 0.9% 10 Ml Flush Syringe IV PRN PRN LINE FLUSH Nutrition/Malnutrition Assess - Dietary Evaluation Nutrition/Malnutrition Findings: Nutrition Notes Start: 03/07/21 14:49 Freq: Status: Active Protocol: Document 03/07/21 14:49 KRISTEN (Rec: 03/07/21 15:08 KRISTEN [id number]) Nutrition Notes Need for Assessment generated from: mystery shopper Initial or Follow up Assessment Current Diagnosis Diabetes,Hypertension, Hyperlipidemia Other Pertinent Diagnosis Obese Hypoventilation Syndrome , Cellulitis L lower extremity . Current Diet Cardiac/Consistent Carbohydrates Diet (since L ). Labs/Tests 03/07: Na 135, Cl 97.4, Cr 0.6 , Glu 266. Pertinent Medications 03/07: Nutritionally unremarkable. Height 6 ft 1 in Weight 136 kg [place] Body Weight (kg) 83.63 BMI 39.5 Weight Status Obese Percent of energy/protein needs met: Prescribed C/CC Diet provides for energy/protein needs (1, 977 Kcal/86 g) during LOS. Burn Absent Trauma Absent GI Symptoms None Food Allergy No Skin Integrity/Comment Clear, warm, dry. #1 Nutrition Diagnosis No nutrition diagnosis at this time Comments: Pt's Integumentary does not present any risk at the time, according to Progress Notes. Is patient on ventilator? No Is Patient Ambulatory and/or Out of Bed Yes [facility] [ 2871.544 NUTR.MSJOOB] Kcal/Kg value to use for calculation 15 Approximate Energy Requirements Using 2040 kcal/Kg Calculation Used for Recommendations Kcal/kg Additional Notes Protein: 1.0-1.2 g/Kg/day; 84- 101 g/day; 336-404 Kcal/day ( from IBW). Fluids: 1.0 ml/Kcal/day, or as per MD. Nutrition Intervention Change Diet Order: Continue Cardiac/Consistent Carbohydrate Diet. Goal #1 Maintain body weight within +/ -3% of current BWt during LOS. Goal #2 Reach and maintain acceptable chemistry lab values during LOS. Follow-Up By: 03/14/21 Additional Comments Continue monitoring acceptance of foods, %PO intake of meals , Hydration, and BM.
[2021-03-09] MEDS: ENOXAPARIN 40 MG/0.4 ML INJ SUB-Q SCH (23:46)
[2021-03-09] MEDS: FENOFIBRATE 145 MG TAB PO SCH (23:47)
[2021-03-10] MEDS: INSULIN GLARGINE 100 UNITS/ML SUB-Q SCH (01:24)
[2021-03-10] MEDS: INSULIN LISPRO 100 UNIT/ML SUB-Q SCH ×2 (01:25→07:24)
[2021-03-10] MEDS: HYDROmorphone 1 MG/1 ML INJ IV PRN ×3 (03:12→10:41)
[2021-03-10] MEDS: VANCOMYCIN 1,500 MG in SODIUM CHLORIDE 0.9% 500 ML 500 ML IV SCH (03:12)
[2021-03-10 04:25] VITALS: BP 128/61
--- NOTE | 2021-03-10 08:25 | Discharge Summary ---
Providers - Providers Date of Admission: 03/06/21 12:51 Attending physician: SOPHIE LEA MD 03/06/21 15:06 Midline [Consult to PICC Line RN] [CONS] Routine Reason For Exam: Multiple antibiotics/ Diffcult for IV access Type Line:: Midline 03/07/21 07:46 Consult to Physician [CONS] Routine Comment: Consulting Provider: FLORA DRAKE Physician Instructions: Reason For Exam: CELLULITIS AND FAILED OUTPATIETN THERPY 03/07/21 10:17 Consult to Wound/ET Nurse [CONS] Urgent Reason For Exam: wound eval 03/07/21 15:00 Consult to Physician [CONS] Routine Comment: Consulting Provider: FRANCHESCA MIGUEL Physician Instructions: Reason For Exam: right lower ext PVD Primary care physician: TELLY BOWENS Hospitalization Reason for admission: Lower extremity cellulitis Hospital course: 61 YO Male with Obesity Hypoventilation Syndrome, HTN, DM complicated by Neuropathy, HLD, Chronic Pain Syndrome admitted directly at the request of Dr. Bowens. Pt was seen and evaluated by PCP and found to have lower extremity cellulitis. Pt acknowledges pain and redness to his left leg. Pt denies fever, chills, CP, Palpitations, NVD, Trauma, falls, unilateral leg swelling, calf pain, hemoptysis, or recent ill contacts. Pt seen and evaluated upon arrival. Pt initiated on IV antibiotic therapy. CBC, CMP, ordered and pending at time of evaluation. 03/07: Consult vascular for follow up ID consult and wound care Continue abx, monitor and control Blood glucose 03/08: Continue supportive care. Vascular recommends outpatient management for the dermatosclerosis with venous insufficiency. Jose Miguel bandage while in the hospital on anticipating the wound care will put this in place of discussed with nursing staff for this. Await further recommendation by ID prior to discharge anticipate discharge on Wednesday to ensure all home health arrangement is made and also better pain control. 03/09: Possible neuropathic pain we will add gabapentin to his medical regimen. Anticipate discharge in a.m. 03/10: Continues to show good improvement. Still some pain patient is currently on pregabalin so gabapentin was not initiated. Counseling provided to the patient about importance of follow-up with vascular team outpatient and also discussed with case management about home health with wound management. Discharge (1) Cellulitis Current Visit: No Status: Acute Qualifiers: Site of cellulitis of extremity: lower extremity Laterality: left Plan to address problem: CBC, CMP, IV antibiotic therapy, (2) Obesity hypoventilation syndrome Current Visit: Yes Status: Acute Plan to address problem: Balanced diet, increase physical activity discharge, outpatient pulmonary follow-up for sleep study. (3) Hypertension Current Visit: Yes Status: Acute Qualifiers: Hypertension type: primary hypertension Qualified Code(s): I10 - Essential (primary) hypertension Plan to address problem: Monitor blood pressure every shift, continue medical management (4) Diabetes Current Visit: Yes Status: Acute Plan to address problem: Consistent carbohydrate diet, insulin therapy, hypoglycemia protocol (5) Chronic pain syndrome Current Visit: Yes Status: Acute Plan to address problem: Pain control, resume prehospital pain management protocol. (6) chronic venous stasis Disposition: [facility] Final Discharge Diagnosis (Prints w/discharge instructions): Cellulitis with chronic venous stasis of the right lower extremity Time spent for discharge: 35-minute Core Measure Documentation - Palliative Care Palliative Care/ Comfort Measures: Not Applicable - Core Measures Any of the following diagnoses?: none Exam - Physical Exam Narrative exam: VITAL SIGNS: Reviewed. GENERAL: The patient appears normally developed, Vital signs as documented. HEAD: No signs of head trauma. EYES: Pupils are equal. Extraocular motions intact. EARS: Hearing grossly intact. MOUTH: Oropharynx is normal. NECK: No adenopathy, no JVD. CHEST: Chest with clear breath sounds bilaterally. No wheezes, rales, or rhonchi. CARDIAC: Regular rate and rhythm. S1 and S2, without murmurs, gallops, or rubs. VASCULAR: No Edema. Peripheral pulses normal and equal in all extremities. ABDOMEN: Soft, non tender and non distended. No rebound or guarding, and no masses palpated. Bowel Sounds normal. MUSCULOSKELETAL: Extremities without clubbing, cyanosis. Blister formation, chronic venous stasis, poor palpable pulses right DP AND PT. Noted edema lower ext- Left AKA NEUROLOGIC EXAM: Alert and oriented x 3 No focal sensory or strength deficits. Speech normal. Follows commands. PSYCHIATRIC: Mood normal. SKIN: detail exam as documented in skin assessment - Constitutional Vitals: Temp Pulse Resp BP Pulse Ox 98.3 F 63 18 128/61 94 03/10/21 04:24 03/10/21 04:24 03/10/21 04:24 03/10/21 04:24 03/10/21 04:24 Plan Activity: advance as tolerated, fall precautions Diet: low fat, diabetic Wound: per your surgeon's advice, per wound nurse instructions Special Instructions: record daily weights, record daily BP diary, record blood sugar diary, physical therapy, occupational therapy, home health RN Follow up with: MAYUR JOHNSON MD [Staff Physician] - 7 Days TELLY BOWENS MD [Primary Care Provider] - 7 Days FLORA DRAKE MD [Staff Physician] - 7 Days Prescriptions: Lantus VIAL 100 units SC QHS #10 ml HumuLIN N 35 units SC QAC #10 ml cephALEXin [Keflex] 500 mg PO Q8HR #30 cap Lantus VIAL 50 units SC QAM #10 ml
[2021-03-10] MEDS ORDERED: INSULIN REGULAR, HUMAN 100 UNITS/1 ML SUB-Q ONE (08:30)
[2021-03-10] MEDS: METOPROLOL TARTRATE 100 MG TAB PO SCH (09:35)
[2021-03-10] MEDS: PREGABALIN 50 MG CAP PO SCH (09:35)
== END 2021-03-10 11:00 | disposition home health service (06) | DRG 603 ==
LOC: 3A 15:13 → UNDOADMIN 15:13 → OBSVTOIN 03-06 12:51 → 3A 03-06 12:51
PROVIDERS: ADMIT Internal Medicine; ATTEND Internal Medicine
PROC: 05HC33Z Insertion of Infusion Device into Left Basilic Vein, Percutaneous Approach (ICD-10-PCS; principal; 2021-03-06)
DX: L03.116 Cellulitis of left lower limb (principal); E66.2 Morbid (severe) obesity with alveolar hypoventilation; G89.4 Chronic pain syndrome; I10 Essential (primary) hypertension; E11.9 Type 2 diabetes mellitus without complications; F10.10 Alcohol abuse, uncomplicated; E78.5 Hyperlipidemia, unspecified; L97.919 Non-pressure chronic ulcer of unspecified part of right lower leg with unspecified severity; Z68.41 Body mass index [BMI] 40.0-44.9, adult; Z83.3 Family history of diabetes mellitus; Z82.49 Family history of ischemic heart disease and other diseases of the circulatory system; Z20.822 Contact with and (suspected) exposure to COVID-19
CPT/HCPCS: 36415; 80053; 80202; 82565; 82962; 85025; 90686; G0378; J1170; J1650; J1815; J3370; J7040

== ENCOUNTER 2021-09-05 11:31 | Inpatient (IN) | payer MEDICAID ==
[2021-09-05] MEDS ORDERED: ONDANSETRON 4 MG/2 ML INJ IV PRN (13:21)
[2021-09-05] MEDS ORDERED: ACETAMINOPHEN 325 MG TAB PO PRN (14:00)
[2021-09-05] MEDS: HYDROcodone/ACETAMINOPHEN 5-325 MG TAB PO PRN (14:41)
[2021-09-05 16:50] LABS: Alanine Aminotransferase 59 units/L (7-56); Albumin 3.7 g/dL (3.9-5); Blood Urea Nitrogen 13 mg/dL (9-20); Calcium 9.2 mg/dL (8.4-10.2); Hemolysis Index 250
[2021-09-05 16:51] LABS: BUN/Creatinine Ratio 26
--- NOTE | 2021-09-05 17:11 | Consultation ---
History of Present Illness Consult date: 09/05/21 Reason for consult: wound care - History of present illness History of present illness: 61 year old male admitted to hospital for treatment of right leg celluliltis. Patient has been admitted for cellulitis as recently as 2 months ago several times as well as outpatient wound care. It is usually treated with antibiotics. He says this feels like his previous cellulitis infections. He says that this is not the worst that his leg is ever been but he does have increased pain compared to prior to several days ago. He denies any drainage from his wounds. He says he is here to get IV antibiotics for treatment. Past History Past Medical History: diabetes, hypertension, hyperlipidemia, PVD Past Surgical History: Other (left AKA) Family history: hypertension Medications and Allergies Allergies Allergy/AdvReac Type Severity Reaction Status Date / Time sulfamethoxazole Allergy Itching Verified 12/05/20 07:05 [From Bactrim] trimethoprim [From Bactrim] Allergy Itching Verified 12/05/20 07:05 Home Medications Medication Instructions Recorded Confirmed Last Taken Type ALPRAZolam [Xanax TAB] 1 mg PO TID PRN #12 07/13/19 07/18/21 07/05/21 21:00 Rx AtorvaSTATin [Lipitor] 20 mg PO HS #30 07/13/19 07/18/21 07/17/21 21:00 Rx Metoprolol [Lopressor TAB] 100 mg PO BID #60 07/13/19 07/18/21 07/18/21 08:00 Rx Pregabalin [Lyrica] 200 mg PO TID #90 cap 07/13/19 07/18/21 07/17/21 Rx Fenofibrate 160 mg PO HS 07/17/20 07/18/21 07/17/21 21:00 History Lantus VIAL 50 units SC QAM #10 ml 03/10/21 07/18/21 07/18/21 08:00 Rx Lantus VIAL 100 units SC QHS #10 ml 03/10/21 07/18/21 07/17/21 21:00 Rx Insulin Regular, Human [Novolin R] 35 units SC AC 07/18/21 07/18/21 Unknown History dilTIAZem [Cardizem] 30 mg PO Q6HR 30 Days #120 tablet 07/23/21 Unknown Rx Active Meds: Active Medications Acetaminophen (Acetaminophen 325 Mg Tab) 650 mg PO Q4H PRN PRN Reason: Pain MILD(1-3)/Fever >100.5/VILLARREAL Hydrocodone Bitart/Acetaminophen (Hydrocodone/Acetaminophen 5-325 Mg Tab) 2 each PO Q6H PRN PRN Reason: Pain, Moderate (4-6) Last Admin: 09/05/21 14:41 Dose: 2 each Heparin Sodium (Porcine) (Heparin 5,000 Unit/1 Ml Vial) 5,000 unit SUB-Q Q12HR YAEL Hydromorphone HCl (Hydromorphone 1 Mg/1 Ml Inj) 2 mg IV Q3H PRN PRN Reason: Pain , Severe (7-10) Ampicillin Sodium/Sulbactam Sodium (Unasyn/Ns 3 Gm/100 Ml) 3 gm in 100 mls @ 100 mls/hr IV Q6HR YAEL; Protocol Insulin Human Lispro (Insulin Lispro 100 Unit/Ml) 0 unit SUB-Q ACHS YAEL; Protocol Ondansetron HCl (Ondansetron 4 Mg/2 Ml Inj) 4 mg IV Q8H PRN PRN Reason: Nausea And Vomiting Sodium Chloride (Sodium Chloride 0.9% 10 Ml Flush Syringe) 10 ml IV BID YAEL Sodium Chloride (Sodium Chloride 0.9% 10 Ml Flush Syringe) 10 ml IV PRN PRN PRN Reason: LINE FLUSH Review of Systems All systems: negative - Integumentary foot/leg ulcers Exam Vital Signs Temp Pulse Resp BP Pulse Ox 97.9 F 83 22 162/95 93 09/05/21 14:45 09/05/21 14:45 09/05/21 14:45 09/05/21 14:45 09/05/21 14:45 - General physical appearance Positive: well developed, no distress, obese - Eyes Positive: PERRL. Negative: icteric - ENT Positive: no hearing loss - Respiratory Positive: normal expansion, normal respiratory effort - Cardiovascular Heart Sounds: Present: S1 & S2 - Extremities Extremities: abnormal Extremity abnormal: other (left AKA, right leg with swelling and erythema from the knee down. several dry ulcers scattered around the calf. soft, no areas of fluctuance, mild tenderness to palpation) Results - Labs 09/05/21 13:33 Abnormal lab results 09/05/21 09/05/21 Range/Units 13:33 16:20 Sodium 131 L (137-145) mmol/L Potassium 5.6 H (3.6-5.0) mmol/L Chloride 95.9 L (98-107) mmol/L Carbon Dioxide 20 L (22-30) mmol/L Creatinine 0.5 L (0.8-1.3) mg/dL Glucose 385 H (75-100) mg/dL POC Glucose 423 H (70-105) mg/dL AST 84 H (5-40) units/L ALT 59 H (7-56) units/L Albumin 3.7 L (3.9-5) g/dL Diabetes panel 09/05/21 Range/Units 13:33 Sodium 131 L (137-145) mmol/L Potassium 5.6 H (3.6-5.0) mmol/L Chloride 95.9 L (98-107) mmol/L Carbon Dioxide 20 L (22-30) mmol/L BUN 13 (9-20) mg/dL Creatinine 0.5 L (0.8-1.3) mg/dL Glucose 385 H (75-100) mg/dL Calcium 9.2 (8.4-10.2) mg/dL AST 84 H (5-40) units/L ALT 59 H (7-56) units/L Alkaline Phosphatase 93 (35-129) units/L Total Protein 7.4 (6.3-8.2) g/dL Albumin 3.7 L (3.9-5) g/dL Calcium panel 09/05/21 Range/Units 13:33 Calcium 9.2 (8.4-10.2) mg/dL Albumin 3.7 L (3.9-5) g/dL Pituitary panel 09/05/21 Range/Units 13:33 Sodium 131 L (137-145) mmol/L Potassium 5.6 H (3.6-5.0) mmol/L Chloride 95.9 L (98-107) mmol/L Carbon Dioxide 20 L (22-30) mmol/L BUN 13 (9-20) mg/dL Creatinine 0.5 L (0.8-1.3) mg/dL Glucose 385 H (75-100) mg/dL Calcium 9.2 (8.4-10.2) mg/dL Adrenal panel 09/05/21 Range/Units 13:33 Sodium 131 L (137-145) mmol/L Potassium 5.6 H (3.6-5.0) mmol/L Chloride 95.9 L (98-107) mmol/L Carbon Dioxide 20 L (22-30) mmol/L BUN 13 (9-20) mg/dL Creatinine 0.5 L (0.8-1.3) mg/dL Glucose 385 H (75-100) mg/dL Calcium 9.2 (8.4-10.2) mg/dL Total Bilirubin 0.50 (0.1-1.2) mg/dL AST 84 H (5-40) units/L ALT 59 H (7-56) units/L Alkaline Phosphatase 93 (35-129) units/L Total Protein 7.4 (6.3-8.2) g/dL Albumin 3.7 L (3.9-5) g/dL Assessment and Plan 61 year old male with recurrent chronic right leg cellulitis. Afebrile and stable. No clinical evidence of abscess that needs to be drained. Recommend IV antibiotics, leg elevation and resumption of out patient wound care. No surgical intervention indicated at this time.
[2021-09-05] MEDS: INSULIN LISPRO 100 UNIT/ML SUB-Q SCH ×2 (17:12→22:30)
--- NOTE | 2021-09-05 18:28 | History and Physical Report ---
History of Present Illness Date of admission: 09/05/21 13:48 Chief complaint: My leg is still infected History of present illness: 61 YO Male with Obesity Hypoventilation Syndrome, HTN, DM complicated by Neuropathy, HLD, Chronic Pain Syndrome admitted directly at the request of Dr. Murphy. Pt was seen and evaluated by PCP and found to have recurrentl lower extremity cellulitis. Pt acknowledges pain and redness to his left leg. Patient treated with oral antibiotic therapy with persistent and worsening symptoms. Patient failed outpatient therapy. Patient seen and evaluated in his room. Pt denies fever, chills, CP, Palpitations, NVD, Trauma, falls, unilateral leg swelling, calf pain, hemoptysis, or recent ill contacts. Pt seen and evaluated upon arrival. Pt initiated on IV antibiotic therapy. CBC, CMP, ordered and pending at time of evaluation. Past History Past Medical History: diabetes, hypertension, hyperlipidemia, PVD Past Surgical History: Other (left AKA) Social history: Family history: hypertension Medications and Allergies Allergies Allergy/AdvReac Type Severity Reaction Status Date / Time sulfamethoxazole Allergy Itching Verified 12/05/20 07:05 [From Bactrim] trimethoprim [From Bactrim] Allergy Itching Verified 12/05/20 07:05 Home Medications Medication Instructions Recorded Confirmed Last Taken Type ALPRAZolam [Xanax TAB] 1 mg PO TID PRN #12 07/13/19 09/05/21 07/05/21 21:00 Rx AtorvaSTATin [Lipitor] 20 mg PO HS #30 07/13/19 09/05/21 07/17/21 21:00 Rx Metoprolol [Lopressor TAB] 100 mg PO BID #60 07/13/19 09/05/21 07/18/21 08:00 Rx Pregabalin [Lyrica] 200 mg PO TID #90 cap 07/13/19 09/05/21 07/17/21 Rx Fenofibrate 160 mg PO HS 07/17/20 09/05/21 07/17/21 21:00 History Lantus VIAL 50 units SC QAM #10 ml 03/10/21 09/05/21 07/18/21 08:00 Rx Lantus VIAL 100 units SC QHS #10 ml 03/10/21 09/05/21 07/17/21 21:00 Rx Insulin Regular, Human [Novolin R] 35 units SC AC 07/18/21 09/05/21 Unknown History dilTIAZem [Cardizem] 30 mg PO Q6HR 30 Days #120 tablet 07/23/21 09/05/21 Unknown Rx Active Meds: Active Medications Acetaminophen (Acetaminophen 325 Mg Tab) 650 mg PO Q4H PRN PRN Reason: Pain MILD(1-3)/Fever >100.5/VILLARREAL Hydrocodone Bitart/Acetaminophen (Hydrocodone/Acetaminophen 5-325 Mg Tab) 2 each PO Q6H PRN PRN Reason: Pain, Moderate (4-6) Last Admin: 09/05/21 14:41 Dose: 2 each Heparin Sodium (Porcine) (Heparin 5,000 Unit/1 Ml Vial) 5,000 unit SUB-Q Q12HR YAEL Hydromorphone HCl (Hydromorphone 1 Mg/1 Ml Inj) 2 mg IV Q3H PRN PRN Reason: Pain , Severe (7-10) Ampicillin Sodium/Sulbactam Sodium (Unasyn/Ns 3 Gm/100 Ml) 3 gm in 100 mls @ 100 mls/hr IV Q6HR YAEL; Protocol Insulin Human Lispro (Insulin Lispro 100 Unit/Ml) 0 unit SUB-Q ACHS YAEL; Protocol Last Admin: 09/05/21 17:12 Dose: 1 unit Ondansetron HCl (Ondansetron 4 Mg/2 Ml Inj) 4 mg IV Q8H PRN PRN Reason: Nausea And Vomiting Sodium Chloride (Sodium Chloride 0.9% 10 Ml Flush Syringe) 10 ml IV BID YAEL Sodium Chloride (Sodium Chloride 0.9% 10 Ml Flush Syringe) 10 ml IV PRN PRN PRN Reason: LINE FLUSH Review of Systems Constitutional: no weight loss, no weight gain, no fever, no chills Ears, nose, mouth and throat: no ear pain, no tinnitis Cardiovascular: no chest pain, no palpitations, no rapid/irregular heart beat, no edema Respiratory: no cough, no hemoptysis, no shortness of breath Gastrointestinal: no abdominal pain, no diarrhea, no change in bowel habits Genitourinary Male: no flank pain, no discharge, no urinary hesitancy, no no cturia Rectal: no pain, no incontinence Musculoskeletal: no neck pain, no arm numbness/tingling Integumentary: no rash, no sores, no jaundice Neurological: no transient paralysis, no parathesias, no tingling Psychiatric: no anxiety, no change in sleep habits, no insomnia Endocrine: no heat intolerance, no excessive thirst Exam - Constitutional Vitals: Temp Pulse Resp BP Pulse Ox 98.5 F 84 22 164/79 92 09/05/21 16:22 09/05/21 16:22 09/05/21 16:22 09/05/21 16:22 09/05/21 16:22 General appearance: Present: mild distress - EENT Eyes: Present: PERRL ENT: hearing intact, clear oral mucosa - Neck Neck: Present: supple, normal ROM - Respiratory Respiratory effort: normal Respiratory: bilateral: CTA - Cardiovascular Heart Sounds: Present: S1 & S2. Absent: rub, click - Extremities Extremities: pulses symmetrical, No edema Peripheral Pulses: within normal limits - Abdominal General gastrointestinal: Present: soft, non-tender, non-distended, normal bowel sounds Male genitourinary: Present: normal - Integumentary Integumentary: Present: clear, warm, dry - Musculoskeletal Musculoskeletal: gait normal, strength equal bilaterally - Psychiatric Psychiatric: appropriate mood/affect, intact judgment & insight - Neurologic Neurologic: CNII-XII intact, moves all extremities Results - Labs CBC & Chem 7: 09/05/21 20:33 09/05/21 13:33 Labs: Abnormal lab results 09/05/21 09/05/21 Range/Units 13:33 16:20 Sodium 131 L (137-145) mmol/L Potassium 5.6 H (3.6-5.0) mmol/L Chloride 95.9 L (98-107) mmol/L Carbon Dioxide 20 L (22-30) mmol/L Creatinine 0.5 L (0.8-1.3) mg/dL Glucose 385 H (75-100) mg/dL POC Glucose 423 H (70-105) mg/dL AST 84 H (5-40) units/L ALT 59 H (7-56) units/L Albumin 3.7 L (3.9-5) g/dL Assessment and Plan - Patient Problems (1) Cellulitis Current Visit: No Status: Acute Qualifiers: Site of cellulitis of extremity: lower extremity Laterality: left Plan to address problem: IV antibiotic therapy, supportive care, surgery team consulted, continue medical management. CBC, CMP, serial physical exam. (2) Diabetes Current Visit: No Status: Acute Plan to address problem: Consistent carbohydrate diet, Accu-Chek, insulin protocol, hypoglycemia protocol, (3) Generalized anxiety disorder Current Visit: No Status: Chronic Plan to address problem: Benzodiazepine therapy as clinically indicated, supportive care (4) HLD (hyperlipidemia) Current Visit: No Status: Chronic Qualifiers: Hyperlipidemia type: mixed hyperlipidemia Qualified Code(s): E78.2 - Mixed hyperlipidemia Plan to address problem: Low-cholesterol diet, statin therapy is clinically indicated. (5) DVT prophylaxis Current Visit: No Status: Acute Plan to address problem: SCD to bilateral extremities while in bed (6) Advance care planning Current Visit: No Status: Acute Plan to address problem: Disease education conducted, care plan discussed, diagnoses discussed, prognosis discussed, patient is full code. Patient knowledges understanding and agreement with care plan, +30 minutes.
[2021-09-05] MEDS: AMPICILLIN/SULBACTA 3GM/100ML 3 GM/100 ML BAG IV SCH (19:38)
[2021-09-05] MEDS: HYDROmorphone 1 MG/1 ML INJ IV PRN ×2 (19:45→23:05)
[2021-09-05 20:46] LABS: Mean Corpuscular HGB Conc 36 % (32-34); Mean Corpuscular Volume 91 fl (84-94); Platelet Count 149 K/mm3 (140-440); Red Blood Count 5.05 M/mm3 (3.65-5.03); Red Cell Distribution Width 14.7 % (13.2-15.2)
[2021-09-05 20:56] LABS: Hematocrit 45.9 % (35.5-45.6); Hemoglobin 16.7 gm/dl (11.8-15.2)
[2021-09-05 22:13] LABS: Basophils % (Manual) 0 % (0.0-1.8); RBC Morphology Normal; Total Cells Counted 100
[2021-09-05] MEDS: HEPARIN 5,000 UNIT/1 ML VIAL SUB-Q SCH (22:26)
[2021-09-06] MEDS: HYDROmorphone 1 MG/1 ML INJ IV PRN ×7 (02:08→22:36)
[2021-09-06] MEDS: AMPICILLIN/SULBACTA 3GM/100ML 3 GM/100 ML BAG IV SCH ×6 (02:12→23:03)
[2021-09-06] MEDS: HEPARIN 5,000 UNIT/1 ML VIAL SUB-Q SCH ×2 (09:10→22:37)
[2021-09-06] MEDS: INSULIN LISPRO 100 UNIT/ML SUB-Q SCH ×4 (09:14→22:36)
--- NOTE | 2021-09-06 21:12 | Progress Note ---
Assessment and Plan - Patient Problems (1) Cellulitis Status: Acute Qualifiers: Site of cellulitis of extremity: lower extremity Laterality: left Plan to address problem: IV antibiotic therapy, supportive care, surgery team consulted, continue medical management. CBC, CMP, serial physical exam. (2) Diabetes Status: Acute Plan to address problem: Consistent carbohydrate diet, Accu-Chek, insulin protocol, hypoglycemia protocol, (3) Generalized anxiety disorder Status: Chronic Plan to address problem: Benzodiazepine therapy as clinically indicated, supportive care (4) HLD (hyperlipidemia) Status: Chronic Qualifiers: Hyperlipidemia type: mixed hyperlipidemia Qualified Code(s): E78.2 - Mixed hyperlipidemia Plan to address problem: Low-cholesterol diet, statin therapy is clinically indicated. (5) DVT prophylaxis Status: Acute Plan to address problem: SCD to bilateral extremities while in bed (6) Advance care planning Status: Acute Plan to address problem: Disease education conducted, care plan discussed, diagnoses discussed, prognosis discussed, patient is full code. Patient knowledges understanding and agreement with care plan, +30 minutes. History Interval history: 61 YO Male HD #2 with Cellulitis who failed outpatient antibiotic therapy, Obesity Hypoventilation Syndrome, HTN, DM complicated by Neuropathy, HLD. Patient acknowledges continued redness and pain to lower extremity. Continue IV antibiotic therapy. Hospitalist Physical - Constitutional Vitals: Temp Pulse Resp BP Pulse Ox 98.6 F 84 18 173/89 98 09/06/21 16:36 09/06/21 16:36 09/06/21 16:36 09/06/21 16:36 09/06/21 20:58 General appearance: Present: mild distress - EENT Eyes: Present: PERRL ENT: hearing intact - Neck Neck: Present: supple - Respiratory Respiratory effort: normal Respiratory: bilateral: CTA - Cardiovascular Rhythm: regular Heart Sounds: Present: S1 & S2 - Extremities Extremity abnormal: edema, erythema, tenderness Peripheral Pulses: within normal limits - Abdominal General gastrointestinal: soft, non-tender, non-distended - Integumentary Integumentary: Present: clear, dry - Psychiatric Psychiatric: appropriate mood/affect, cooperative - Neurologic Neurologic: CNII-XII intact Results - Labs CBC & Chem 7: 09/07/21 23:15 09/05/21 13:33 Labs: Laboratory Last Values WBC 8.0 K/mm3 (4.5-11.0) 09/05/21: RBC 5.05 M/mm3 (3.65-5.03) H 09/05/21 20: Hgb 16.7 gm/dl (11.8-15.2) H 09/05/21: Hct 45.9 % (35.5-45.6) H 09/05/21 20: MCV 91 fl (84-94) 09/05/21: MCH 33 pg (28-32) H 09/05/21: MCHC 36 % (32-34) H 09/05/21: RDW 14.7 % (13.2-15.2) 09/05/21: Plt Count 149 K/mm3 (140-440) 09/05/21: Add Manual Diff Complete 09/05/21: Total Counted 100 09/05/21: Seg Neuts % (Manual) 64.0 % (40.0-70.0) 09/05/21: Band Neutrophils % 0 % 09/05/21: Lymphocytes % (Manual) 23.0 % (13.4-35.0) 09/05/21 20: Reactive Lymphs % (Man) 0 % 09/05/21: Monocytes % (Manual) 9.0 % (0.0-7.3) H 09/05/21: Eosinophils % (Manual) 4.0 % (0.0-4.3) 09/05/21: Basophils % (Manual) 0 % (0.0-1.8) 09/05/21: Metamyelocytes % 0 % 09/05/21: Myelocytes % 0 % 09/05/21: Promyelocytes % 0 % 09/05/21: Blast Cells % 0 % 09/05/21: Nucleated RBC % Not Reportable 09/05/21: Seg Neutrophils # Man 5.1 K/mm3 (1.8-7.7) 09/05/21: Band Neutrophils # 0.0 K/mm3 09/05/21 20:33 Lymphocytes # (Manual) 1.8 K/mm3 (1.2-5.4) 09/05/21:33 Abs React Lymphs (Man) 0.0 K/mm3 09/05/21 20:33 Monocytes # (Manual) 0.7 K/mm3 (0.0-0.8) 09/05/21 20:33 Eosinophils # (Manual) 0.3 K/mm3 (0.0-0.4) 09/05/21 20:33 Basophils # (Manual) 0.0 K/mm3 (0.0-0.1) 09/05/21 20:33 Metamyelocytes # 0.0 K/mm3 09/05/21 20:33 Myelocytes # 0.0 K/mm3 09/05/21 20:33 Promyelocytes # 0.0 K/mm3 09/05/21 20:33 Blast Cells # 0.0 K/mm3 09/05/21 20:33 WBC Morphology Not Reportable 09/05/21 20:33 Hypersegmented Neuts Not Reportable 09/05/21 20:33 Hyposegmented Neuts Not Reportable 09/05/21 20:33 Hypogranular Neuts Not Reportable 09/05/21 20:33 Smudge Cells Not Reportable 09/05/21 20:33 Toxic Granulation Not Reportable 09/05/21 20:33 Toxic Vacuolation Not Reportable 09/05/21 20:33 Dohle Bodies Not Reportable 09/05/21 20:33 Pelger-Huet Anomaly Not Reportable 09/05/21 20:33 Philipp Rods Not Reportable 09/05/21 20:33 Platelet Estimate Not Reportable 09/05/21 20:33 Clumped Platelets Not Reportable 09/05/21 20:33 Plt Clumps, EDTA Not Reportable 09/05/21 20:33 Large Platelets Not Reportable 09/05/21 20:33 Giant Platelets Not Reportable 09/05/21 20:33 Platelet Satelliting Not Reportable 09/05/21 20:33 Plt Morphology Comment Not Reportable 09/05/21 20:33 RBC Morphology Normal 09/05/21 20:33 Dimorphic RBCs Not Reportable 09/05/21 20:33 Polychromasia Not Reportable 09/05/21 20:33 Hypochromasia Not Reportable 09/05/21 20:33 Poikilocytosis Not Reportable 09/05/21 20:33 Anisocytosis Not Reportable 09/05/21 20:33 Microcytosis Not Reportable 09/05/21 20:33 Macrocytosis Not Reportable 09/05/21 20:33 Spherocytes Not Reportable 09/05/21 20:33 Pappenheimer Bodies Not Reportable 09/05/21 20:33 Sickle Cells Not Reportable 09/05/21 20:33 Target Cells Not Reportable 09/05/21 20:33 Tear Drop Cells Not Reportable 09/05/21 20:33 Ovalocytes Not Reportable 09/05/21 20:33 Helmet Cells Not Reportable 09/05/21 20:33 [place] Bodies Not Reportable 09/05/21 20:33 [place] Rings Not Reportable 09/05/21 20:33 [place] Cells Not Reportable 09/05/21 20:33 Bite Cells Not Reportable 09/05/21 20:33 Crenated Cell Not Reportable 09/05/21 20:33 Elliptocytes Not Reportable 09/05/21 20:33 Acanthocytes (Spur) Not Reportable 09/05/21 20:33 Rouleaux Not Reportable 09/05/21 20:33 Hemoglobin C Crystals Not Reportable 09/05/21 20:33 Schistocytes Not Reportable 09/05/21 20:33 Malaria parasites Not Reportable 09/05/21 20:33 José Miguel Bodies Not Reportable 09/05/21 20:33 Hem Pathologist Commnt No 09/05/21 20:33 Sodium 131 mmol/L (137-145) L 09/05/21 13:33 Potassium 5.6 mmol/L (3.6-5.0) H 09/05/21 13:33 Chloride 95.9 mmol/L (98-107) L 09/05/21 13:33 Carbon Dioxide 20 mmol/L (22-30) L 09/05/21 13:33 Anion Gap 21 mmol/L 09/05/21 13:33 BUN 13 mg/dL (9-20) 09/05/21 13:33 Creatinine 0.5 mg/dL (0.8-1.3) L 09/05/21 13:33 Estimated GFR > 60 ml/min 09/05/21 13:33 BUN/Creatinine Ratio 26 % 09/05/21 13:33 Glucose 385 mg/dL (75-100) H 09/05/21 13:33 POC Glucose 360 mg/dL (70-105) H 09/06/21 16:44 Calcium 9.2 mg/dL (8.4-10.2) 09/05/21 13:33 Total Bilirubin 0.50 mg/dL (0.1-1.2) 09/05/21 13:33 AST 84 units/L (5-40) H 09/05/21 13:33 ALT 59 units/L (7-56) H 09/05/21 13:33 Alkaline Phosphatase 93 units/L (35-129) 09/05/21 13:33 Total Protein 7.4 g/dL (6.3-8.2) 09/05/21 13:33 Albumin 3.7 g/dL (3.9-5) L 09/05/21 13:33 Albumin/Globulin Ratio 1.0 % 09/05/21 13:33 Swanson/IV: Voiding Method Urinal Active Medications - Current Medications Current Medications: Generic Name Dose Route Start Last Admin Trade Name Freq PRN Reason Stop Dose Admin Acetaminophen 650 mg 09/05/21 14:00 Acetaminophen 325 Mg Tab PO Q4H PRN Pain MILD(1-3)/Fever >100.5/VILLARREAL Hydrocodone Bitart/Acetaminophen 2 each 09/05/21 14:00 09/05/21 14:41 Hydrocodone/Acetaminophen 5-325 Mg Tab PO 2 each Q6H PRN Administration Pain, Moderate (4-6) Heparin Sodium (Porcine) 5,000 unit 09/05/21 22:00 09/06/21 09:10 Heparin 5,000 Unit/1 Ml Vial SUB-Q 5,000 unit Q12HR YAEL Administration Hydromorphone HCl 2 mg 09/05/21 14:00 09/06/21 19:14 Hydromorphone 1 Mg/1 Ml Inj IV 2 mg Q3H PRN Administration Pain , Severe (7-10) Ampicillin Sodium/Sulbactam Sodium 3 gm in 100 mls @ 100 mls/hr 09/05/21 16:00 09/06/21 17:00 Unasyn/Ns 3 Gm/100 Ml IV 100 mls/hr Q6HR YAEL Administration Protocol Insulin Human Lispro 0 unit 09/05/21 16:30 09/06/21 16:45 Insulin Lispro 100 Unit/Ml SUB-Q 10 unit ACHS YAEL Administration Protocol Ondansetron HCl 4 mg 09/05/21 13:21 Ondansetron 4 Mg/2 Ml Inj IV Q8H PRN Nausea And Vomiting Sodium Chloride 10 ml 09/05/21 22:00 09/06/21 09:19 Sodium Chloride 0.9% 10 Ml Flush Syringe IV 10 ml BID YAEL Administration Sodium Chloride 10 ml 09/05/21 13:21 Sodium Chloride 0.9% 10 Ml Flush Syringe IV PRN PRN LINE FLUSH
[2021-09-07] MEDS: HYDROmorphone 1 MG/1 ML INJ IV PRN ×6 (02:17→21:46)
[2021-09-07] MEDS: AMPICILLIN/SULBACTA 3GM/100ML 3 GM/100 ML BAG IV SCH ×4 (06:05→23:24)
[2021-09-07] MEDS: INSULIN LISPRO 100 UNIT/ML SUB-Q SCH ×4 (08:41→23:23)
[2021-09-07] MEDS: HYDROcodone/ACETAMINOPHEN 5-325 MG TAB PO PRN (10:04)
[2021-09-07] MEDS: HEPARIN 5,000 UNIT/1 ML VIAL SUB-Q SCH ×2 (10:05→21:46)
[2021-09-07 23:35] LABS: Mean Corpuscular HGB Conc 36 % (32-34); Mean Corpuscular Volume 90 fl (84-94); Platelet Count 161 K/mm3 (140-440); Red Blood Count 5.09 M/mm3 (3.65-5.03); Red Cell Distribution Width 14.6 % (13.2-15.2)
[2021-09-07 23:37] LABS: Hematocrit 45.9 % (35.5-45.6); Hemoglobin 16.4 gm/dl (11.8-15.2)
[2021-09-08] MEDS: HYDROmorphone 1 MG/1 ML INJ IV PRN ×6 (01:10→21:58)
[2021-09-08 03:21] LABS: Anisocytosis 1+; Band Neutrophils # (Manual) 0.1 K/mm3; Basophils % (Manual) 0 % (0.0-1.8); Platelet Estimate Consistent w Auto; Total Cells Counted 100
[2021-09-08] MEDS: AMPICILLIN/SULBACTA 3GM/100ML 3 GM/100 ML BAG IV SCH ×3 (05:29→18:39)
[2021-09-08] MEDS: INSULIN LISPRO 100 UNIT/ML SUB-Q SCH ×4 (08:30→21:57)
[2021-09-08] MEDS: HEPARIN 5,000 UNIT/1 ML VIAL SUB-Q SCH ×2 (09:28→21:57)
[2021-09-08] MEDS ORDERED: ALPRAZolam 1 MG TAB PO PRN (11:52)
[2021-09-08] MEDS: METOPROLOL TARTRATE 100 MG TAB PO SCH ×2 (12:28→21:56)
[2021-09-08] MEDS: dilTIAZem 30 MG TAB PO SCH ×2 (12:28→18:41)
[2021-09-08] MEDS: PREGABALIN 50 MG CAP PO SCH ×2 (12:28→21:55)
[2021-09-08] MEDS ORDERED: NON-FORMULARY EACH (Pregabalin [Lyrica] 200 MG Capsule) PO SCH (14:00)
[2021-09-08] MEDS ORDERED: METOPROLOL TARTRATE 50 MG TAB PO SCH (22:00)
[2021-09-08] MEDS ORDERED: NON-FORMULARY EACH (Fenofibrate [Fenofibrate] 160 MG Tablet) PO SCH (22:00)
[2021-09-08] MEDS ORDERED: FENOFIBRATE 145 MG TAB PO SCH (22:00)
[2021-09-09] MEDS: AMPICILLIN/SULBACTA 3GM/100ML 3 GM/100 ML BAG IV SCH ×3 (00:17→11:18)
[2021-09-09] MEDS: dilTIAZem 30 MG TAB PO SCH ×3 (00:18→11:18)
[2021-09-09] MEDS: HYDROmorphone 1 MG/1 ML INJ IV PRN ×5 (01:32→13:23)
[2021-09-09 05:27] VITALS: BP 163/92
[2021-09-09] MEDS: PREGABALIN 50 MG CAP PO SCH ×2 (06:26→13:26)
[2021-09-09] MEDS: INSULIN LISPRO 100 UNIT/ML SUB-Q SCH ×2 (08:43→12:23)
[2021-09-09] MEDS: HEPARIN 5,000 UNIT/1 ML VIAL SUB-Q SCH (10:10)
[2021-09-09] MEDS: METOPROLOL TARTRATE 100 MG TAB PO SCH (10:10)
--- NOTE | 2021-09-10 21:25 | Progress Note ---
Assessment and Plan - Patient Problems (1) Cellulitis Status: Acute Qualifiers: Site of cellulitis of extremity: lower extremity Laterality: left Plan to address problem: IV antibiotic therapy, supportive care, surgery team consulted, continue medical management. CBC, CMP, serial physical exam. (2) Diabetes Status: Acute Plan to address problem: Consistent carbohydrate diet, Accu-Chek, insulin protocol, hypoglycemia protocol, (3) Generalized anxiety disorder Status: Chronic Plan to address problem: Benzodiazepine therapy as clinically indicated, supportive care (4) HLD (hyperlipidemia) Status: Chronic Qualifiers: Hyperlipidemia type: mixed hyperlipidemia Qualified Code(s): E78.2 - Mixed hyperlipidemia Plan to address problem: Low-cholesterol diet, statin therapy is clinically indicated. (5) DVT prophylaxis Status: Acute Plan to address problem: SCD to bilateral extremities while in bed (6) Advance care planning Status: Acute Plan to address problem: Disease education conducted, care plan discussed, diagnoses discussed, prognosis discussed, patient is full code. Patient knowledges understanding and agreement with care plan, +30 minutes. History Interval history: 61 YO Male HD #3 with Cellulitis who failed outpatient antibiotic therapy, Obesity Hypoventilation Syndrome, HTN, DM complicated by Neuropathy, HLD. Patient acknowledges continued redness and pain to lower extremity. Continue IV antibiotic therapy. Hospitalist Physical - Constitutional Vitals: Temp Pulse Resp BP Pulse Ox 97.8 F 68 20 163/92 96 09/09/21 04:31 09/09/21 05:46 09/09/21 07:40 09/09/21 05:46 09/09/21 10:00 General appearance: Present: mild distress - EENT Eyes: Present: PERRL ENT: hearing intact - Neck Neck: Present: supple - Respiratory Respiratory effort: normal Respiratory: bilateral: CTA - Cardiovascular Rhythm: regular Heart Sounds: Present: S1 & S2 - Extremities Extremity abnormal: edema, erythema, pulses diminished, tenderness Peripheral Pulses: within normal limits - Abdominal General gastrointestinal: soft, non-tender, non-distended - Integumentary Integumentary: Present: clear, dry - Psychiatric Psychiatric: cooperative - Neurologic Neurologic: CNII-XII intact Results - Labs CBC & Chem 7: 09/07/21 23:15 09/05/21 13:33 Labs: Laboratory Last Values WBC 7.9 K/mm3 (4.5-11.0) 09/07/21 23:15 RBC 5.09 M/mm3 (3.65-5.03) H 09/07/21 23:15 Hgb 16.4 gm/dl (11.8-15.2) H 09/07/21 23:15 Hct 45.9 % (35.5-45.6) H 09/07/21 23:15 MCV 90 fl (84-94) 09/07/21 23:15 MCH 32 pg (28-32) 09/07/21 23:15 MCHC 36 % (32-34) H 09/07/21 23:15 RDW 14.6 % (13.2-15.2) 09/07/21 23:15 Plt Count 161 K/mm3 (140-440) 09/07/21 23:15 Add Manual Diff Complete 09/07/21 23:15 Total Counted 100 09/07/21 23:15 Seg Neuts % (Manual) 61.0 % (40.0-70.0) 09/07/21 23:15 Band Neutrophils % 1.0 % 09/07/21 23:15 Lymphocytes % (Manual) 14.0 % (13.4-35.0) 09/07/21 23:15 Reactive Lymphs % (Man) 0 % 09/07/21 23:15 Monocytes % (Manual) 14.0 % (0.0-7.3) H 09/07/21 23:15 Eosinophils % (Manual) 10.0 % (0.0-4.3) H 09/07/21 23:15 Basophils % (Manual) 0 % (0.0-1.8) 09/07/21 23:15 Metamyelocytes % 0 % 09/07/21 23:15 Myelocytes % 0 % 09/07/21 23:15 Promyelocytes % 0 % 09/07/21 23:15 Blast Cells % 0 % 09/07/21 23:15 Nucleated RBC % Not Reportable 09/07/21 23:15 Seg Neutrophils # Man 4.8 K/mm3 (1.8-7.7) 09/07/21 23:15 Band Neutrophils # 0.1 K/mm3 09/07/21 23:15 Lymphocytes # (Manual) 1.1 K/mm3 (1.2-5.4) L 09/07/21 23:15 Abs React Lymphs (Man) 0.0 K/mm3 09/07/21 23:15 Monocytes # (Manual) 1.1 K/mm3 (0.0-0.8) H 09/07/21 23:15 Eosinophils # (Manual) 0.8 K/mm3 (0.0-0.4) H 09/07/21 23:15 Basophils # (Manual) 0.0 K/mm3 (0.0-0.1) 09/07/21 23:15 Metamyelocytes # 0.0 K/mm3 09/07/21 23:15 Myelocytes # 0.0 K/mm3 09/07/21 23:15 Promyelocytes # 0.0 K/mm3 09/07/21 23:15 Blast Cells # 0.0 K/mm3 09/07/21 23:15 WBC Morphology Not Reportable 09/07/21 23:15 Hypersegmented Neuts Not Reportable 09/07/21 23:15 Hyposegmented Neuts Not Reportable 09/07/21 23:15 Hypogranular Neuts Not Reportable 09/07/21 23:15 Smudge Cells Not Reportable 09/07/21 23:15 Toxic Granulation Not Reportable 09/07/21 23:15 Toxic Vacuolation Not Reportable 09/07/21 23:15 Dohle Bodies Not Reportable 09/07/21 23:15 Pelger-Huet Anomaly Not Reportable 09/07/21 23:15 Philipp Rods Not Reportable 09/07/21 23:15 Platelet Estimate Consistent w auto 09/07/21 23:15 Clumped Platelets Not Reportable 09/07/21 23:15 Plt Clumps, EDTA Not Reportable 09/07/21 23:15 Large Platelets Not Reportable 09/07/21 23:15 Giant Platelets Not Reportable 09/07/21 23:15 Platelet Satelliting Not Reportable 09/07/21 23:15 Plt Morphology Comment Not Reportable 09/07/21 23:15 RBC Morphology Not Reportable 09/07/21 23:15 Dimorphic RBCs Not Reportable 09/07/21 23:15 Polychromasia Not Reportable 09/07/21 23:15 Hypochromasia Not Reportable 09/07/21 23:15 Poikilocytosis Not Reportable 09/07/21 23:15 Anisocytosis 1+ 09/07/21 23:15 Microcytosis Not Reportable 09/07/21 23:15 Macrocytosis Not Reportable 09/07/21 23:15 Spherocytes Not Reportable 09/07/21 23:15 Pappenheimer Bodies Not Reportable 09/07/21 23:15 Sickle Cells Not Reportable 09/07/21 23:15 Target Cells Not Reportable 09/07/21 23:15 Tear Drop Cells Not Reportable 09/07/21 23:15 Ovalocytes Not Reportable 09/07/21 23:15 Helmet Cells Not Reportable 09/07/21 23:15 [place] Bodies Not Reportable 09/07/21 23:15 [place] Rings Not Reportable 09/07/21 23:15 [place] Cells Not Reportable 09/07/21 23:15 Bite Cells Not Reportable 09/07/21 23:15 Crenated Cell Not Reportable 09/07/21 23:15 Elliptocytes Not Reportable 09/07/21 23:15 Acanthocytes (Spur) Not Reportable 09/07/21 23:15 Rouleaux Not Reportable 09/07/21 23:15 Hemoglobin C Crystals Not Reportable 09/07/21 23:15 Schistocytes Not Reportable 09/07/21 23:15 Malaria parasites Not Reportable 09/07/21 23:15 José Miguel Bodies Not Reportable 09/07/21 23:15 Hem Pathologist Commnt No 09/07/21 23:15 Sodium 131 mmol/L (137-145) L 09/05/21 13:33 Potassium 5.6 mmol/L (3.6-5.0) H 09/05/21 13:33 Chloride 95.9 mmol/L (98-107) L 09/05/21 13:33 Carbon Dioxide 20 mmol/L (22-30) L 09/05/21 13:33 Anion Gap 21 mmol/L 09/05/21 13:33 BUN 13 mg/dL (9-20) 09/05/21 13:33 Creatinine 0.5 mg/dL (0.8-1.3) L 09/05/21 13:33 Estimated GFR > 60 ml/min 09/05/21 13:33 BUN/Creatinine Ratio 26 % 09/05/21 13:33 Glucose 385 mg/dL (75-100) H 09/05/21 13:33 POC Glucose 331 mg/dL (70-105) H 09/09/21 10:57 Calcium 9.2 mg/dL (8.4-10.2) 09/05/21 13:33 Total Bilirubin 0.50 mg/dL (0.1-1.2) 09/05/21 13:33 AST 84 units/L (5-40) H 09/05/21 13:33 ALT 59 units/L (7-56) H 09/05/21 13:33 Alkaline Phosphatase 93 units/L (35-129) 09/05/21 13:33 Total Protein 7.4 g/dL (6.3-8.2) 09/05/21 13:33 Albumin 3.7 g/dL (3.9-5) L 09/05/21 13:33 Albumin/Globulin Ratio 1.0 % 09/05/21 13:33 Swanson/IV: Voiding Method Urinal
--- NOTE | 2021-09-10 21:26 | Progress Note ---
Assessment and Plan - Patient Problems (1) Cellulitis Status: Acute Qualifiers: Site of cellulitis of extremity: lower extremity Laterality: left Plan to address problem: IV antibiotic therapy, supportive care, surgery team consulted, continue medical management. CBC, CMP, serial physical exam. (2) Diabetes Status: Acute Plan to address problem: Consistent carbohydrate diet, Accu-Chek, insulin protocol, hypoglycemia protocol, (3) Generalized anxiety disorder Status: Chronic Plan to address problem: Benzodiazepine therapy as clinically indicated, supportive care (4) HLD (hyperlipidemia) Status: Chronic Qualifiers: Hyperlipidemia type: mixed hyperlipidemia Qualified Code(s): E78.2 - Mixed hyperlipidemia Plan to address problem: Low-cholesterol diet, statin therapy is clinically indicated. (5) DVT prophylaxis Status: Acute Plan to address problem: SCD to bilateral extremities while in bed (6) Advance care planning Status: Acute Plan to address problem: Disease education conducted, care plan discussed, diagnoses discussed, prognosis discussed, patient is full code. Patient knowledges understanding and agreement with care plan, +30 minutes. History Interval history: 61 YO Male HD #3 with Recurrent Cellulitis who failed outpatient antibiotic therapy currently on IV antibiotic therapy, Obesity Hypoventilation Syndrome, HTN, DM complicated by Neuropathy, HLD. Patient acknowledges mild improvement but continued redness and pain to lower extremity. Continue IV antibiotic therapy. Hospitalist Physical - Constitutional Vitals: Temp Pulse Resp BP Pulse Ox 97.8 F 68 20 163/92 96 09/09/21 04:31 09/09/21 05:46 09/09/21 07:40 09/09/21 05:46 09/09/21 10:00 General appearance: Present: mild distress - EENT Eyes: Present: PERRL ENT: hearing intact - Neck Neck: Present: supple, normal ROM - Respiratory Respiratory effort: normal Respiratory: bilateral: CTA - Cardiovascular Rhythm: regular Heart Sounds: Present: S1 & S2 - Extremities Extremities: no ischemia Peripheral Pulses: within normal limits - Abdominal General gastrointestinal: soft, non-tender, non-distended - Integumentary Integumentary: Present: clear, dry - Psychiatric Psychiatric: appropriate mood/affect, cooperative - Neurologic Neurologic: CNII-XII intact Results - Labs CBC & Chem 7: 09/07/21 23:15 09/05/21 13:33 Labs: Laboratory Last Values WBC 7.9 K/mm3 (4.5-11.0) 09/07/21 23:15 RBC 5.09 M/mm3 (3.65-5.03) H 09/07/21 23:15 Hgb 16.4 gm/dl (11.8-15.2) H 09/07/21 23:15 Hct 45.9 % (35.5-45.6) H 09/07/21 23:15 MCV 90 fl (84-94) 09/07/21 23:15 MCH 32 pg (28-32) 09/07/21 23:15 MCHC 36 % (32-34) H 09/07/21 23:15 RDW 14.6 % (13.2-15.2) 09/07/21 23:15 Plt Count 161 K/mm3 (140-440) 09/07/21 23:15 Add Manual Diff Complete 09/07/21 23:15 Total Counted 100 09/07/21 23:15 Seg Neuts % (Manual) 61.0 % (40.0-70.0) 09/07/21 23:15 Band Neutrophils % 1.0 % 09/07/21 23:15 Lymphocytes % (Manual) 14.0 % (13.4-35.0) 09/07/21 23:15 Reactive Lymphs % (Man) 0 % 09/07/21 23:15 Monocytes % (Manual) 14.0 % (0.0-7.3) H 09/07/21 23:15 Eosinophils % (Manual) 10.0 % (0.0-4.3) H 09/07/21 23:15 Basophils % (Manual) 0 % (0.0-1.8) 09/07/21 23:15 Metamyelocytes % 0 % 09/07/21 23:15 Myelocytes % 0 % 09/07/21 23:15 Promyelocytes % 0 % 09/07/21 23:15 Blast Cells % 0 % 09/07/21 23:15 Nucleated RBC % Not Reportable 09/07/21 23:15 Seg Neutrophils # Man 4.8 K/mm3 (1.8-7.7) 09/07/21 23:15 Band Neutrophils # 0.1 K/mm3 09/07/21 23:15 Lymphocytes # (Manual) 1.1 K/mm3 (1.2-5.4) L 09/07/21 23:15 Abs React Lymphs (Man) 0.0 K/mm3 09/07/21 23:15 Monocytes # (Manual) 1.1 K/mm3 (0.0-0.8) H 09/07/21 23:15 Eosinophils # (Manual) 0.8 K/mm3 (0.0-0.4) H 09/07/21 23:15 Basophils # (Manual) 0.0 K/mm3 (0.0-0.1) 09/07/21 23:15 Metamyelocytes # 0.0 K/mm3 09/07/21 23:15 Myelocytes # 0.0 K/mm3 09/07/21 23:15 Promyelocytes # 0.0 K/mm3 09/07/21 23:15 Blast Cells # 0.0 K/mm3 09/07/21 23:15 WBC Morphology Not Reportable 09/07/21 23:15 Hypersegmented Neuts Not Reportable 09/07/21 23:15 Hyposegmented Neuts Not Reportable 09/07/21 23:15 Hypogranular Neuts Not Reportable 09/07/21 23:15 Smudge Cells Not Reportable 09/07/21 23:15 Toxic Granulation Not Reportable 09/07/21 23:15 Toxic Vacuolation Not Reportable 09/07/21 23:15 Dohle Bodies Not Reportable 09/07/21 23:15 Pelger-Huet Anomaly Not Reportable 09/07/21 23:15 Philipp Rods Not Reportable 09/07/21 23:15 Platelet Estimate Consistent w auto 09/07/21 23:15 Clumped Platelets Not Reportable 09/07/21 23:15 Plt Clumps, EDTA Not Reportable 09/07/21 23:15 Large Platelets Not Reportable 09/07/21 23:15 Giant Platelets Not Reportable 09/07/21 23:15 Platelet Satelliting Not Reportable 09/07/21 23:15 Plt Morphology Comment Not Reportable 09/07/21 23:15 RBC Morphology Not Reportable 09/07/21 23:15 Dimorphic RBCs Not Reportable 09/07/21 23:15 Polychromasia Not Reportable 09/07/21 23:15 Hypochromasia Not Reportable 09/07/21 23:15 Poikilocytosis Not Reportable 09/07/21 23:15 Anisocytosis 1+ 09/07/21 23:15 Microcytosis Not Reportable 09/07/21 23:15 Macrocytosis Not Reportable 09/07/21 23:15 Spherocytes Not Reportable 09/07/21 23:15 Pappenheimer Bodies Not Reportable 09/07/21 23:15 Sickle Cells Not Reportable 09/07/21 23:15 Target Cells Not Reportable 09/07/21 23:15 Tear Drop Cells Not Reportable 09/07/21 23:15 Ovalocytes Not Reportable 09/07/21 23:15 Helmet Cells Not Reportable 09/07/21 23:15 [place] Bodies Not Reportable 09/07/21 23:15 [place] Rings Not Reportable 09/07/21 23:15 [place] Cells Not Reportable 09/07/21 23:15 Bite Cells Not Reportable 09/07/21 23:15 Crenated Cell Not Reportable 09/07/21 23:15 Elliptocytes Not Reportable 09/07/21 23:15 Acanthocytes (Spur) Not Reportable 09/07/21 23:15 Rouleaux Not Reportable 09/07/21 23:15 Hemoglobin C Crystals Not Reportable 09/07/21 23:15 Schistocytes Not Reportable 09/07/21 23:15 Malaria parasites Not Reportable 09/07/21 23:15 José Miguel Bodies Not Reportable 09/07/21 23:15 Hem Pathologist Commnt No 09/07/21 23:15 Sodium 131 mmol/L (137-145) L 09/05/21 13:33 Potassium 5.6 mmol/L (3.6-5.0) H 09/05/21 13:33 Chloride 95.9 mmol/L (98-107) L 09/05/21 13:33 Carbon Dioxide 20 mmol/L (22-30) L 09/05/21 13:33 Anion Gap 21 mmol/L 09/05/21 13:33 BUN 13 mg/dL (9-20) 09/05/21 13:33 Creatinine 0.5 mg/dL (0.8-1.3) L 09/05/21 13:33 Estimated GFR > 60 ml/min 09/05/21 13:33 BUN/Creatinine Ratio 26 % 09/05/21 13:33 Glucose 385 mg/dL (75-100) H 09/05/21 13:33 POC Glucose 331 mg/dL (70-105) H 09/09/21 10:57 Calcium 9.2 mg/dL (8.4-10.2) 09/05/21 13:33 Total Bilirubin 0.50 mg/dL (0.1-1.2) 09/05/21 13:33 AST 84 units/L (5-40) H 09/05/21 13:33 ALT 59 units/L (7-56) H 09/05/21 13:33 Alkaline Phosphatase 93 units/L (35-129) 09/05/21 13:33 Total Protein 7.4 g/dL (6.3-8.2) 09/05/21 13:33 Albumin 3.7 g/dL (3.9-5) L 09/05/21 13:33 Albumin/Globulin Ratio 1.0 % 09/05/21 13:33 Swanson/IV: Voiding Method Urinal
--- NOTE | 2021-09-10 21:27 | Discharge Summary ---
Providers - Providers Date of Admission: 09/05/21 13:48 Attending physician: CRISTIANE MELGAR 09/05/21 13:30 Consult to Physician [CONS] Urgent Comment: Consulting Provider: YIN MCPHERSON Physician Instructions: Reason For Exam: RT. LEG CELLULITIS 09/05/21 13:38 Consult to Case Management [CONS] Routine Services Needed at Discharge: Home Health Services Notified:: cm 09/05/21 13:48 PICC Line Insertion [Consult to PICC Line RN] [CONS] Stat Reason For Exam: POOR VEINS, IV ANTIBIOTIC Type Line:: PICC 09/07/21 11:23 Midline [Consult to PICC Line RN] [CONS] Routine Reason For Exam: IV access Type Line:: Midline Primary care physician: TELLY BOWENS Hospitalization Disposition: HOME / SELF CARE / HOMELESS - Discharge Diagnoses (1) Cellulitis Status: Acute Qualifiers: Site of cellulitis of extremity: lower extremity Laterality: left (2) Diabetes Status: Acute (3) Generalized anxiety disorder Status: Chronic (4) HLD (hyperlipidemia) Status: Chronic Qualifiers: Hyperlipidemia type: mixed hyperlipidemia Qualified Code(s): E78.2 - Mixed hyperlipidemia (5) DVT prophylaxis Status: Acute (6) Advance care planning Status: Acute Exam - Constitutional Vitals: Temp Pulse Resp BP Pulse Ox 97.8 F 68 20 163/92 96 09/09/21 04:31 09/09/21 05:46 09/09/21 07:40 09/09/21 05:46 09/09/21 10:00 Plan Follow up with: TELLY BOWENS MD [Primary Care Provider] - 7 Days Prescriptions: Clindamycin [Clindamycin CAP] 300 mg PO Q8H #21 cap
== END 2021-09-09 16:00 | disposition home health service (06) | DRG 603 ==
LOC: UNDOADMIN 11:31 → 3A 11:31
PROVIDERS: ADMIT Internal Medicine; ATTEND Internal Medicine
DX: L03.116 Cellulitis of left lower limb (principal); E11.51 Type 2 diabetes mellitus with diabetic peripheral angiopathy without gangrene; I10 Essential (primary) hypertension; E66.2 Morbid (severe) obesity with alveolar hypoventilation; Z68.37 Body mass index [BMI] 37.0-37.9, adult; E11.40 Type 2 diabetes mellitus with diabetic neuropathy, unspecified; G89.4 Chronic pain syndrome; E78.2 Mixed hyperlipidemia; Z88.8 Allergy status to other drugs, medicaments and biological substances; Z82.49 Family history of ischemic heart disease and other diseases of the circulatory system; Z89.612 Acquired absence of left leg above knee; Z79.4 Long term (current) use of insulin
CPT/HCPCS: 36415; 80053; 82962; 85007; 85025; G0378; Q9967; J0295; J1170; J1644; J1815

== ENCOUNTER 2021-10-10 12:25 | Inpatient (IN) | payer MEDICAID ==
[2021-10-10] MEDS ORDERED: ACETAMINOPHEN 325 MG TAB PO PRN (13:57)
[2021-10-10] MEDS ORDERED: ONDANSETRON 4 MG/2 ML INJ IV PRN (13:57)
[2021-10-10] MEDS ORDERED: HYDROcodone/ACETAMINOPHEN 5-325 MG TAB PO PRN (14:04)
[2021-10-10] MEDS ORDERED: METOCLOPRAMIDE 10 MG/2 ML INJ IV PRN (14:04)
[2021-10-10] MEDS ORDERED: SODIUM CHLORIDE 0.9% 1000 ML 1,000 ML IV SCH (14:15)
[2021-10-10] MEDS ORDERED: VANCOMYCIN PHARMACY TO DOSE IV SCH (15:00)
[2021-10-10 16:02] LABS: Basophils # (Auto) 0.1 K/mm3 (0.0-0.1); Basophils % (Auto) 1.4 % (0.0-1.8); Eosinophils # (Auto) 0.2 K/mm3 (0.0-0.4); Eosinophils % (Auto) 2.3 % (0.0-4.3); Hematocrit 51.4 % (35.5-45.6); Lymphocytes # (Auto) 1.9 K/mm3 (1.2-5.4); Lymphocytes % (Auto) 20.3 % (13.4-35.0); Mean Corpuscular HGB Conc 35 % (32-34); Mean Corpuscular Volume 92 fl (84-94); Monocytes # (Auto) 0.7 K/mm3 (0.0-0.8); Monocytes % (Auto) 7.3 % (0.0-7.3); Red Blood Count 5.61 M/mm3 (3.65-5.03); Red Cell Distribution Width 14.5 % (13.2-15.2)
[2021-10-10] MEDS: HYDROmorphone 0.5 MG/0.5 ML INJ IV PRN ×2 (16:45→20:40)
[2021-10-10] MEDS: HEPARIN 5,000 UNIT/1 ML VIAL SUB-Q SCH ×2 (16:50→22:57)
[2021-10-10] MEDS ORDERED: VANCOMYCIN 2,000 MG in SODIUM CHLORIDE 0.9% 500 ML 500 ML IV ONE (17:00)
[2021-10-10 17:20] LABS: Platelet Count 149 K/mm3 (140-440)
[2021-10-10] MEDS: AMPICILLIN/SULBACTA 3GM/100ML 3 GM/100 ML BAG IV SCH (17:24)
[2021-10-10] MEDS: FAMOTIDINE 20 MG TAB PO SCH ×2 (18:22→22:36)
[2021-10-10] MEDS ORDERED: ALPRAZolam 1 MG TAB PO PRN (18:40)
[2021-10-10] MEDS ORDERED: NON-FORMULARY EACH (Pregabalin [Lyrica] 200 MG Capsule) PO SCH (20:00)
[2021-10-10] MEDS: INSULIN LISPRO 100 UNIT/ML SUB-Q SCH ×2 (20:37→22:42)
[2021-10-10] MEDS: PREGABALIN 50 MG CAP PO SCH (21:35)
[2021-10-10] MEDS: dilTIAZem 30 MG TAB PO SCH (21:37)
[2021-10-10] MEDS ORDERED: NON-FORMULARY EACH (Fenofibrate [Fenofibrate] 160 MG Tablet) PO SCH (22:00)
[2021-10-10] MEDS: FENOFIBRATE 145 MG TAB PO SCH (22:38)
[2021-10-10] MEDS: METOPROLOL TARTRATE 100 MG TAB PO SCH (22:39)
[2021-10-10] MEDS: INSULIN GLARGINE 100 UNITS/ML SUB-Q SCH (22:44)
[2021-10-11] MEDS: HYDROmorphone 0.5 MG/0.5 ML INJ IV PRN (00:09)
[2021-10-11] MEDS: HYDROmorphone 2 MG/1 ML INJ IV PRN ×8 (00:10→23:17)
[2021-10-11 00:16] LABS: Alanine Aminotransferase 51 units/L (7-56); Albumin 4.1 g/dL (3.9-5); BUN/Creatinine Ratio 20; Blood Urea Nitrogen 12 mg/dL (9-20); Calcium 9.8 mg/dL (8.4-10.2); Hemolysis Index 37
[2021-10-11] MEDS: AMPICILLIN/SULBACTA 3GM/100ML 3 GM/100 ML BAG IV SCH ×5 (00:24→22:30)
[2021-10-11] MEDS: dilTIAZem 30 MG TAB PO SCH ×5 (01:00→23:21)
[2021-10-11] MEDS: INSULIN LISPRO 100 UNIT/ML SUB-Q SCH ×9 (02:08→22:31)
[2021-10-11 05:55] LABS: Basophils # (Auto) 0.1 K/mm3 (0.0-0.1); Basophils % (Auto) 0.8 % (0.0-1.8); Eosinophils # (Auto) 0.2 K/mm3 (0.0-0.4); Eosinophils % (Auto) 2.3 % (0.0-4.3); Hematocrit 48.7 % (35.5-45.6); Hemoglobin 16.2 gm/dl (11.8-15.2); Lymphocytes # (Auto) 0.7 K/mm3 (1.2-5.4); Lymphocytes % (Auto) 7.1 % (13.4-35.0); Mean Corpuscular HGB Conc 33 % (32-34); Mean Corpuscular Volume 92 fl (84-94); Monocytes # (Auto) 0.4 K/mm3 (0.0-0.8); Monocytes % (Auto) 4.3 % (0.0-7.3); Platelet Count 136 K/mm3 (140-440); Red Blood Count 5.31 M/mm3 (3.65-5.03); Red Cell Distribution Width 14.5 % (13.2-15.2)
[2021-10-11 06:07] LABS: Blood Urea Nitrogen 12 mg/dL (9-20); Calcium 9.4 mg/dL (8.4-10.2); Hemolysis Index 9
[2021-10-11 06:08] LABS: BUN/Creatinine Ratio 20
[2021-10-11] MEDS ORDERED: INSULIN ASPART 100 UNIT/ML SQ SCH (07:30)
[2021-10-11] MEDS: PREGABALIN 50 MG CAP PO SCH ×3 (08:00→21:33)
[2021-10-11] MEDS: VANCOMYCIN 2,000 MG in SODIUM CHLORIDE 0.9% 500 ML 500 ML IV SCH ×2 (08:04→17:04)
--- NOTE | 2021-10-11 08:10 | Progress Note ---
Assessment and Plan Assessment and plan: Assessment and Plan - Patient Problems (1) Right lower extremity cellulitis Current Visit: No Status: Acute Qualifiers: Site of cellulitis of extremity: lower extremity Laterality: left Plan to address problem: Patient gets recurrent right lower extremity cellulitis Possibly secondary to underlying venous stasis dermatitis CT of the right lower extremity requested MRI could not be ordered because of the metal implant in the right knee and left hip Continue IV antibiotics through October 16, 2021 (2) IDDM Current Visit: No Status: Acute Plan to address problem: Consistent carbohydrate diet, Accu-Chek, insulin protocol, hypoglycemia protocol, (3) Generalized anxiety disorder Current Visit: No Status: Chronic Plan to address problem: Benzodiazepine therapy as clinically indicated, supportive care (4) HLD (hyperlipidemia) Current Visit: No Status: Chronic Qualifiers: Hyperlipidemia type: mixed hyperlipidemia Qualified Code(s): E78.2 - Mixed hyperlipidemia Plan to address problem: Low-cholesterol diet, statin therapy is clinically indicated. (5) DVT prophylaxis Current Visit: No Status: Acute Plan to address problem: SCD to bilateral extremities while in bed (6) Advance care planning Current Visit: No Status: Acute Plan to address problem: Disease education conducted, care plan discussed, diagnoses discussed, prognosis discussed, patient is full code. Patient knowledges understanding and agreement with care plan, +30 minutes. Advance Directives: Yes (Full code) VTE prophylaxis?: Chemical Plan of care discussed with patient/family: Yes History Interval history: 61 YO Male with Obesity Hypoventilation Syndrome, HTN, DM complicated by Froylan ropathy, HLD, Chronic Pain Syndrome admitted directly.. Pt was seen and evaluated by PCP and found to have recurrentl Rt lower extremity cellulitis. Pt acknowledges pain and redness to his right leg. Patient treated with oral antibiotic therapy with persistent and worsening symptoms. Patient failed outpatient therapy. Patient seen and evaluated in his room. Pt denies fever, chills, CP, Palpitations, NVD, Trauma, falls, unilateral leg swelling, calf pain, hemoptysis, or recent ill contacts. Pt seen and evaluated upon arrival. Pt initiated on IV antibiotic therapy. CBC, CMP, ordered and pending at time of evaluation. 10/11/2022 Some improvement in the right lower extremity discoloration IV antibiotics through 10/16/2021 Hospitalist Physical - Constitutional Vitals: Temp Pulse Resp BP Pulse Ox 101.1 F H 83 18 144/78 92 10/11/21 04:49 10/11/21 05:24 10/11/21 04:49 10/11/21 05:24 10/11/21 04:49 General appearance: Present: mild distress - Extremities Extremities: abnormal (Right lower extremity. Cellulitis, erythema and supe rficial ulcers) Results - Labs CBC & Chem 7: 10/11/21 05:29 10/11/21 05:29 Labs: Laboratory Last Values WBC 10.4 K/mm3 (4.5-11.0) 10/11/21 05:29 RBC 5.31 M/mm3 (3.65-5.03) H 10/11/21 05:29 Hgb 16.2 gm/dl (11.8-15.2) H 10/11/21 05:29 Hct 48.7 % (35.5-45.6) H 10/11/21 05:29 MCV 92 fl (84-94) 10/11/21 05:29 MCH 30 pg (28-32) 10/11/21 05:29 MCHC 33 % (32-34) 10/11/21 05:29 RDW 14.5 % (13.2-15.2) 10/11/21 05:29 Plt Count 136 K/mm3 (140-440) L 10/11/21 05:29 Lymph % (Auto) 7.1 % (13.4-35.0) L 10/11/21 05:29 [place] % (Auto) 4.3 % (0.0-7.3) 10/11/21 05:29 Eos % (Auto) 2.3 % (0.0-4.3) 10/11/21 05:29 Baso % (Auto) 0.8 % (0.0-1.8) 10/11/21 05:29 Lymph # (Auto) 0.7 K/mm3 (1.2-5.4) L 10/11/21 05:29 [place] # (Auto) 0.4 K/mm3 (0.0-0.8) 10/11/21 05:29 Eos # (Auto) 0.2 K/mm3 (0.0-0.4) 10/11/21 05:29 Baso # (Auto) 0.1 K/mm3 (0.0-0.1) 10/11/21 05:29 Seg Neutrophils % 85.5 % (40.0-70.0) H 10/11/21 05:29 Seg Neutrophils # 8.9 K/mm3 (1.8-7.7) H 10/11/21 05:29 Sodium 138 mmol/L (137-145) 10/11/21 05:29 Potassium 4.1 mmol/L (3.6-5.0) 10/11/21 05:29 Chloride 103.2 mmol/L (98-107) 10/11/21 05:29 Carbon Dioxide 24 mmol/L (22-30) 10/11/21 05:29 Anion Gap 15 mmol/L 10/11/21 05:29 BUN 12 mg/dL (9-20) 10/11/21 05:29 Creatinine 0.6 mg/dL (0.8-1.3) L 10/11/21 05:29 Estimated GFR > 60 ml/min 10/11/21 05:29 BUN/Creatinine Ratio 20 % 10/11/21 05:29 Glucose 291 mg/dL (75-100) H 10/11/21 05:29 POC Glucose 294 mg/dL (70-105) H 10/11/21 02:50 Calcium 9.4 mg/dL (8.4-10.2) 10/11/21 05:29 Total Bilirubin 0.60 mg/dL (0.1-1.2) 10/10/21 23:33 AST 47 units/L (5-40) H 10/10/21 23:33 ALT 51 units/L (7-56) 10/10/21 23:33 Alkaline Phosphatase 104 units/L (35-129) 10/10/21 23:33 Total Protein 7.6 g/dL (6.3-8.2) 10/10/21 23:33 Albumin 4.1 g/dL (3.9-5) 10/10/21 23:33 Albumin/Globulin Ratio 1.2 % 10/10/21 23:33 Swanson/IV: Voiding Method Urinal Active Medications - Current Medications Current Medications: Generic Name Dose Route Start Last Admin Trade Name Freq PRN Reason Stop Dose Admin Acetaminophen 650 mg 10/10/21 13:57 10/11/21 05:15 Acetaminophen 325 Mg Tab PO 650 mg Q4H PRN Administration Pain MILD(1-3)/Fever >100.5/VILLARREAL Alprazolam 1 mg 10/10/21 18:40 Alprazolam 1 Mg Tab PO TID PRN Anxiety Atorvastatin Calcium 20 mg 10/10/21 22:00 10/10/21 22:36 Atorvastatin 20 Mg Tab PO 20 mg HS YAEL Administration Diltiazem HCl 30 mg 10/10/21 19:00 10/11/21 05:24 Diltiazem 30 Mg Tab PO 30 mg Q6HR YAEL Administration Famotidine 20 mg 10/10/21 16:00 10/10/21 22:36 Famotidine 20 Mg Tab PO 20 mg BID YAEL Administration Fenofibrate 145 mg 10/10/21 22:00 10/10/21 22:38 Fenofibrate 145 Mg Tab PO 145 mg HS YAEL Administration Heparin Sodium (Porcine) 5,000 unit 10/10/21 15:15 10/10/21 22:57 Heparin 5,000 Unit/1 Ml Vial SUB-Q 5,000 unit Q12HR YAEL Administration Hydromorphone HCl 2 mg 10/10/21 23:57 10/11/21 06:40 Hydromorphone 2 Mg/1 Ml Inj IV 2 mg Q3H PRN Administration Pain , Severe (7-10) Sodium Chloride 1,000 mls @ 75 mls/hr 10/10/21 14:15 10/10/21 16:51 Nacl 0.9% 1000 Ml IV 10/11/21 10:00 75 mls/hr DIRECT YAEL Administration Ampicillin Sodium/Sulbactam Sodium 3 gm in 100 mls @ 200 mls/hr 10/10/21 16:00 10/11/21 04:27 Unasyn/Ns 3 Gm/100 Ml IV 200 mls/hr Q6H YAEL Administration Protocol Vancomycin HCl 2,000 mg/ 540 mls @ 250 mls/hr 10/11/21 06:00 10/11/21 08:04 Sodium Chloride IV 250 mls/hr Q12H YAEL Administration Insulin Glargine 50 units 10/11/21 10:00 Insulin Glargine 100 Units/Ml SUB-Q QAM [facility] Insulin Glargine 100 units 10/10/21 22:00 10/10/21 22:44 Insulin Glargine 100 Units/Ml SUB-Q 100 units QHS YAEL Administration Insulin Human Lispro 0 unit 10/10/21 19:00 10/11/21 06:53 Insulin Lispro 100 Unit/Ml SUB-Q 10 unit Q4HR YAEL Administration Protocol Insulin Human Lispro 20 unit 10/11/21 07:30 Insulin Lispro 100 Unit/Ml SUB-Q AC YAEL Metoclopramide HCl 10 mg 10/10/21 14:04 Metoclopramide 10 Mg/2 Ml Inj IV Q6H PRN Nausea And Vomiting Metoprolol Tartrate 100 mg 10/10/21 22:00 10/10/21 22:39 Metoprolol Tartrate 100 Mg Tab PO 100 mg BID YAEL Administration Ondansetron HCl 4 mg 10/10/21 13:57 Ondansetron 4 Mg/2 Ml Inj IV Q3H PRN Nausea And Vomiting Oxycodone HCl 15 mg 10/10/21 18:53 Oxycodone 5 Mg Tab PO Q4H PRN Pain, Moderate (4-6) Pregabalin 200 mg 10/10/21 20:00 10/10/21 21:35 Pregabalin 50 Mg Cap PO 200 mg TID YAEL Administration Sodium Chloride 10 ml 10/10/21 15:00 10/10/21 22:58 Sodium Chloride 0.9% 10 Ml Flush Syringe IV 10 ml BID YAEL Administration Sodium Chloride 10 ml 10/10/21 14:57 Sodium Chloride 0.9% 10 Ml Flush Syringe IV PRN PRN LINE FLUSH
--- NOTE | 2021-10-11 08:31 | History and Physical Report ---
History of Present Illness Date of examination: 10/10/21 Date of admission: 10/10/21 14:32 Chief complaint: Rt Leg redness and blackness for one week History of present illness: History of present illness: 61 YO Male with Obesity Hypoventilation Syndrome, HTN, DM complicated by Neuropathy, HLD, Chronic Pain Syndrome admitted directly.. Pt was seen and evaluated by PCP and found to have recurrentl Rt lower extremity cellulitis. Pt acknowledges pain and redness to his right leg. Patient treated with oral antibiotic therapy with persistent and worsening symptoms. Patient failed outpatient therapy. Patient seen and evaluated in his room. Pt denies fever, chills, CP, Palpitations, NVD, Trauma, falls, unilateral leg swelling, calf pain, hemoptysis, or recent ill contacts. Pt seen and evaluated upon arrival. Pt initiated on IV antibiotic therapy. CBC, CMP, ordered and pending at time of evaluation. Past History Past Medical History: diabetes, hypertension, hyperlipidemia, PVD Past Surgical History: Other (left AKA) Social history: Family history: hypertension Review of Systems Constitutional: no weight loss, no weight gain, no fever, no chills Ears, nose, mouth and throat: no ear pain, no tinnitis Cardiovascular: no chest pain, no palpitations, no rapid/irregular heart beat, no edema Respiratory: no cough, no hemoptysis, no shortness of breath Gastrointestinal: no abdominal pain, no diarrhea, no change in bowel habits Genitourinary Male: no flank pain, no discharge, no urinary hesitancy, no nocturia Rectal: no pain, no incontinence Musculoskeletal: no neck pain, no arm numbness/tingling Integumentary: no rash, no sores, no jaundice Neurological: no transient paralysis, no parathesias, no tingling Psychiatric: no anxiety, no change in sleep habits, no insomnia Endocrine: no heat intolerance, no excessive thirst Medications and Allergies Allergies Allergy/AdvReac Type Severity Reaction Status Date / Time sulfamethoxazole Allergy Hives, Rash Verified 09/09/21 08:44 [From Bactrim] trimethoprim [From Bactrim] Allergy Hives, Rash Verified 09/09/21 08:44 Home Medications Medication Instructions Recorded Confirmed Last Taken Type ALPRAZolam [Xanax TAB] 1 mg PO TID PRN #12 07/13/19 10/11/21 2 Weeks Ago Rx ~04/05/22 AtorvaSTATin [Lipitor] 20 mg PO HS #30 07/13/19 10/11/21 09/04/21 Rx Metoprolol [Lopressor TAB] 100 mg PO BID #60 07/13/19 10/11/21 09/04/21 Rx Pregabalin [Lyrica] 200 mg PO TID #90 cap 07/13/19 10/11/21 09/04/21 Rx Fenofibrate 160 mg PO HS 07/17/20 10/11/21 09/04/21 History dilTIAZem [Cardizem] 30 mg PO Q6HR 30 Days #120 tablet 07/23/21 10/11/21 09/04/21 Rx Clindamycin [Clindamycin CAP] 300 mg PO Q8H #21 cap 09/09/21 10/11/21 Unknown Rx Insulin Aspart 35 unit SQ AC 09/09/21 10/11/21 09/04/21 History Insulin Glargine [Lantus VIAL] 50 unit SUB-Q QAM 09/09/21 10/11/21 09/04/21 History Insulin Glargine [Lantus VIAL] 100 unit SUB-Q QHS 09/09/21 10/11/21 09/04/21 History OXYCODONE hcl [Oxycodone] 15 mg PO Q4H PRN 09/09/21 10/11/21 1 Week Ago History ~09/02/21 Active Meds: Active Medications Acetaminophen (Acetaminophen 325 Mg Tab) 650 mg PO Q4H PRN PRN Reason: Pain MILD(1-3)/Fever >100.5/VILLARREAL Last Admin: 10/11/21 05:15 Dose: 650 mg Alprazolam (Alprazolam 1 Mg Tab) 1 mg PO TID PRN PRN Reason: Anxiety Atorvastatin Calcium (Atorvastatin 20 Mg Tab) 20 mg PO HS [facility] Last Admin: 10/10/21 22:36 Dose: 20 mg Diltiazem HCl (Diltiazem 30 Mg Tab) 30 mg PO Q6HR [facility] Last Admin: 10/11/21 05:24 Dose: 30 mg Famotidine (Famotidine 20 Mg Tab) 20 mg PO BID [facility] Last Admin: 10/10/21 22:36 Dose: 20 mg Fenofibrate (Fenofibrate 145 Mg Tab) 145 mg PO HS [facility] Last Admin: 10/10/21 22:38 Dose: 145 mg Heparin Sodium (Porcine) (Heparin 5,000 Unit/1 Ml Vial) 5,000 unit SUB-Q Q12HR [facility] Last Admin: 10/10/21 22:57 Dose: 5,000 unit Hydromorphone HCl (Hydromorphone 2 Mg/1 Ml Inj) 2 mg IV Q3H PRN PRN Reason: Pain , Severe (7-10) Last Admin: 10/11/21 06:40 Dose: 2 mg Sodium Chloride (Nacl 0.9% 1000 Ml) 1,000 mls @ 75 mls/hr IV DIRECT YAEL Stop: 10/11/21 10:00 Last Admin: 10/10/21 16:51 Dose: 75 mls/hr Ampicillin Sodium/Sulbactam Sodium (Unasyn/Ns 3 Gm/100 Ml) 3 gm in 100 mls @ 200 mls/hr IV Q6H [facility]; Protocol Last Admin: 10/11/21 04:27 Dose: 200 mls/hr Vancomycin HCl 2,000 mg/ (Sodium Chloride) 540 mls @ 250 mls/hr IV Q12H [facility] Last Admin: 10/11/21 08:04 Dose: 250 mls/hr Insulin Glargine (Insulin Glargine 100 Units/Ml) 50 units SUB-Q QAM [facility] Insulin Glargine (Insulin Glargine 100 Units/Ml) 100 units SUB-Q QHS [facility] Last Admin: 10/10/21 22:44 Dose: 100 units Insulin Human Lispro (Insulin Lispro 100 Unit/Ml) 0 unit SUB-Q Q4HR [facility]; Prot ocol Last Admin: 10/11/21 06:53 Dose: 10 unit Insulin Human Lispro (Insulin Lispro 100 Unit/Ml) 20 unit SUB-Q AC [facility] Metoclopramide HCl (Metoclopramide 10 Mg/2 Ml Inj) 10 mg IV Q6H PRN PRN Reason: Nausea And Vomiting Metoprolol Tartrate (Metoprolol Tartrate 100 Mg Tab) 100 mg PO BID [facility] Last Admin: 10/10/21 22:39 Dose: 100 mg Ondansetron HCl (Ondansetron 4 Mg/2 Ml Inj) 4 mg IV Q3H PRN PRN Reason: Nausea And Vomiting Oxycodone HCl (Oxycodone 5 Mg Tab) 15 mg PO Q4H PRN PRN Reason: Pain, Moderate (4-6) Pregabalin (Pregabalin 50 Mg Cap) 200 mg PO TID [facility] Last Admin: 10/10/21 21:35 Dose: 200 mg Sodium Chloride (Sodium Chloride 0.9% 10 Ml Flush Syringe) 10 ml IV BID [facility] Last Admin: 10/10/21 22:58 Dose: 10 ml Sodium Chloride (Sodium Chloride 0.9% 10 Ml Flush Syringe) 10 ml IV PRN PRN PRN Reason: LINE FLUSH Exam - Constitutional Vitals: Temp Pulse Resp BP Pulse Ox 101.1 F H 83 18 144/78 92 10/11/21 04:49 10/11/21 05:24 10/11/21 04:49 10/11/21 05:24 10/11/21 04:49 General appearance: Present: no acute distress, well-nourished - EENT Eyes: Present: PERRL ENT: hearing intact, clear oral mucosa - Neck Neck: Present: supple, normal ROM - Respiratory Respiratory effort: normal Respiratory: bilateral: CTA - Cardiovascular Heart rate: 78 Rhythm: regular Heart Sounds: Present: S1 & S2. Absent: rub, click - Extremities Extremities: pulses symmetrical, No edema, abnormal (Rt LE redness and blackness and multiple small ulcers on tibial region ) Extremity abnormal: other (Same as above ) Peripheral Pulses: within normal limits - Abdominal General gastrointestinal: Present: soft, non-tender, non-distended, normal bowel sounds Male genitourinary: Present: normal - Integumentary Integumentary: Present: clear, warm, dry - Musculoskeletal Musculoskeletal: gait normal, strength equal bilaterally - Psychiatric Psychiatric: appropriate mood/affect, intact judgment & insight - Neurologic Neurologic: CNII-XII intact, moves all extremities Results - Labs CBC & Chem 7: 10/11/21 05:29 10/11/21 05:29 Labs: Laboratory Last Values WBC 10.4 K/mm3 (4.5-11.0) 10/11/21 05:29 RBC 5.31 M/mm3 (3.65-5.03) H 10/11/21 05:29 Hgb 16.2 gm/dl (11.8-15.2) H 10/11/21 05:29 Hct 48.7 % (35.5-45.6) H 10/11/21 05:29 MCV 92 fl (84-94) 10/11/21 05:29 MCH 30 pg (28-32) 10/11/21 05:29 MCHC 33 % (32-34) 10/11/21 05:29 RDW 14.5 % (13.2-15.2) 10/11/21 05:29 Plt Count 136 K/mm3 (140-440) L 10/11/21 05:29 Lymph % (Auto) 7.1 % (13.4-35.0) L 10/11/21 05:29 [place] % (Auto) 4.3 % (0.0-7.3) 10/11/21 05:29 Eos % (Auto) 2.3 % (0.0-4.3) 10/11/21 05:29 Baso % (Auto) 0.8 % (0.0-1.8) 10/11/21 05:29 Lymph # (Auto) 0.7 K/mm3 (1.2-5.4) L 10/11/21 05:29 [place] # (Auto) 0.4 K/mm3 (0.0-0.8) 10/11/21 05:29 Eos # (Auto) 0.2 K/mm3 (0.0-0.4) 10/11/21 05:29 Baso # (Auto) 0.1 K/mm3 (0.0-0.1) 10/11/21 05:29 Seg Neutrophils % 85.5 % (40.0-70.0) H 10/11/21 05:29 Seg Neutrophils # 8.9 K/mm3 (1.8-7.7) H 10/11/21 05:29 Sodium 138 mmol/L (137-145) 10/11/21 05:29 Potassium 4.1 mmol/L (3.6-5.0) 10/11/21 05:29 Chloride 103.2 mmol/L (98-107) 10/11/21 05:29 Carbon Dioxide 24 mmol/L (22-30) 10/11/21 05:29 Anion Gap 15 mmol/L 10/11/21 05:29 BUN 12 mg/dL (9-20) 10/11/21 05:29 Creatinine 0.6 mg/dL (0.8-1.3) L 10/11/21 05:29 Estimated GFR > 60 ml/min 10/11/21 05:29 BUN/Creatinine Ratio 20 % 10/11/21 05:29 Glucose 291 mg/dL (75-100) H 10/11/21 05:29 POC Glucose 294 mg/dL (70-105) H 10/11/21 02:50 Calcium 9.4 mg/dL (8.4-10.2) 10/11/21 05:29 Total Bilirubin 0.60 mg/dL (0.1-1.2) 10/10/21 23:33 AST 47 units/L (5-40) H 10/10/21 23:33 ALT 51 units/L (7-56) 10/10/21 23:33 Alkaline Phosphatase 104 units/L (35-129) 10/10/21 23:33 Total Protein 7.6 g/dL (6.3-8.2) 10/10/21 23:33 Albumin 4.1 g/dL (3.9-5) 10/10/21 23:33 Albumin/Globulin Ratio 1.2 % 10/10/21 23:33 Swanson/IV: Voiding Method Urinal Assessment and Plan Assessment and plan: Assessment and Plan - Patient Problems (1) Right lower extremity cellulitis Current Visit: No Status: Acute Qualifiers: Site of cellulitis of extremity: lower extremity Laterality: left Plan to address problem: IV antibiotic therapy in the form of Unasyn and vancomycin, supportive care, surgery team consulted, continue medical management. CBC, CMP, serial physical exam. R/o Osteomyelitis (2) IDDM Current Visit: No Status: Acute Plan to address problem: Consistent carbohydrate diet, Accu-Chek, insulin protocol, hypoglycemia protocol, (3) Generalized anxiety disorder Current Visit: No Status: Chronic Plan to address problem: Benzodiazepine therapy as clinically indicated, supportive care (4) HLD (hyperlipidemia) Current Visit: No Status: Chronic Qualifiers: Hyperlipidemia type: mixed hyperlipidemia Qualified Code(s): E78.2 - Mixed hyperlipidemia Plan to address problem: Low-cholesterol diet, statin therapy is clinically indicated. (5) DVT prophylaxis Current Visit: No Status: Acute Plan to address problem: SCD to bilateral extremities while in bed (6) Advance care planning Current Visit: No Status: Acute Plan to address problem: Disease education conducted, care plan discussed, diagnoses discussed, prognosis discussed, patient is full code. Patient knowledges understanding and agreement with care plan, +30 minutes. Advance Directives: Yes (Full code) VTE prophylaxis?: Chemical Plan of care discussed with patient/family: Yes Advance Directives: Yes (Full code) VTE prophylaxis?: Chemical Plan of care discussed with patient/family: Yes
[2021-10-11] MEDS: METOPROLOL TARTRATE 100 MG TAB PO SCH ×2 (09:05→22:35)
[2021-10-11] MEDS: FAMOTIDINE 20 MG TAB PO SCH ×2 (09:05→22:34)
[2021-10-11] MEDS: INSULIN GLARGINE 100 UNITS/ML SUB-Q SCH ×2 (10:23→22:31)
[2021-10-11] MEDS: HEPARIN 5,000 UNIT/1 ML VIAL SUB-Q SCH ×2 (10:26→22:32)
[2021-10-11] MEDS: FENOFIBRATE 145 MG TAB PO SCH (22:34)
[2021-10-12] MEDS: INSULIN LISPRO 100 UNIT/ML SUB-Q SCH ×9 (01:50→21:54)
[2021-10-12] MEDS: HYDROmorphone 2 MG/1 ML INJ IV PRN ×6 (02:26→21:03)
[2021-10-12] MEDS: AMPICILLIN/SULBACTA 3GM/100ML 3 GM/100 ML BAG IV SCH ×4 (05:30→21:18)
[2021-10-12] MEDS: dilTIAZem 30 MG TAB PO SCH ×3 (05:32→17:47)
[2021-10-12] MEDS: VANCOMYCIN 2,000 MG in SODIUM CHLORIDE 0.9% 500 ML 500 ML IV SCH ×2 (06:22→18:39)
[2021-10-12] MEDS: PREGABALIN 50 MG CAP PO SCH ×3 (08:00→21:18)
[2021-10-12] MEDS: INSULIN GLARGINE 100 UNITS/ML SUB-Q SCH ×2 (09:53→21:55)
[2021-10-12] MEDS: METOPROLOL TARTRATE 100 MG TAB PO SCH ×2 (09:55→22:36)
[2021-10-12] MEDS: HEPARIN 5,000 UNIT/1 ML VIAL SUB-Q SCH ×2 (09:57→21:26)
[2021-10-12] MEDS: FAMOTIDINE 20 MG TAB PO SCH ×2 (09:58→22:37)
[2021-10-12] MEDS: FENOFIBRATE 145 MG TAB PO SCH (22:40)
[2021-10-13] MEDS: dilTIAZem 30 MG TAB PO SCH ×4 (00:04→18:47)
[2021-10-13] MEDS: HYDROmorphone 2 MG/1 ML INJ IV PRN ×8 (00:04→23:31)
[2021-10-13] MEDS: INSULIN LISPRO 100 UNIT/ML SUB-Q SCH ×9 (02:13→23:02)
[2021-10-13] MEDS: AMPICILLIN/SULBACTA 3GM/100ML 3 GM/100 ML BAG IV SCH ×4 (03:06→22:56)
[2021-10-13] MEDS: VANCOMYCIN 2,000 MG in SODIUM CHLORIDE 0.9% 500 ML 500 ML IV SCH ×2 (06:30→17:32)
[2021-10-13] MEDS: HEPARIN 5,000 UNIT/1 ML VIAL SUB-Q SCH ×2 (09:09→23:03)
[2021-10-13] MEDS: METOPROLOL TARTRATE 100 MG TAB PO SCH ×2 (09:09→23:07)
[2021-10-13] MEDS: PREGABALIN 50 MG CAP PO SCH ×3 (09:11→20:06)
[2021-10-13] MEDS: FAMOTIDINE 20 MG TAB PO SCH ×2 (09:11→22:06)
--- NOTE | 2021-10-13 09:54 | Consultation ---
History of Present Illness - Reason for Consult Consult date: 10/13/21 - History of Present Illness 61-year-old man past medical history obesity, diabetes, neuropathy, previous left AKA admitted to the hospital with recurrent right lower extremity cellulitis. He is well-known to me from previous with multiple episodes of cellulitis and prosthetic joint infections. Prior to this admission he was seen by his primary care doctor and was given antibiotics, this did not alleviate his symptoms. He complains of redness and pain to the right leg. One-time fever to 101, otherwise afebrile. Normal white count. Currently on Unasyn and vancomycin. Imaging personally reviewed: None Review of Systems: Bold if positive, otherwise negative General: fevers, chills, rigors HEENT: visual disturbance, diplopia, eye pain Respiratory: cough, sputum, hemoptysis, shortness of breath Cardiovascular: chest pain, syncope Gastrointestinal: nausea, vomiting, diarrhea, abdominal pain Genitourinary: dysuria, hematuria, flank pain Musculoskeletal: neck pain, back pain, joint pain, edema Neurologic: headaches, seizures Hematologic: easy bruising or bleeding Endocrine: night sweats, acute weight loss Skin: rash, jaundice, redness Psychiatric: suicidal, homicidal ideation Past History Past Medical History: other (See HPI) Past Surgical History: Other (Left AKA) Social history: denies: smoking Family history: diabetes Medications and Allergies Allergies Allergy/AdvReac Type Severity Reaction Status Date / Time sulfamethoxazole Allergy Hives, Rash Verified 09/09/21 08:44 [From Bactrim] trimethoprim [From Bactrim] Allergy Hives, Rash Verified 09/09/21 08:44 Home Medications Medication Instructions Recorded Confirmed Last Taken Type ALPRAZolam [Xanax TAB] 1 mg PO TID PRN #12 07/13/19 10/11/21 2 Weeks Ago Rx ~08/26/21 AtorvaSTATin [Lipitor] 20 mg PO HS #30 07/13/19 10/11/21 09/04/21 Rx Metoprolol [Lopressor TAB] 100 mg PO BID #60 07/13/19 10/11/21 09/04/21 Rx Pregabalin [Lyrica] 200 mg PO TID #90 cap 07/13/19 10/11/21 09/04/21 Rx Fenofibrate 160 mg PO HS 02/10/11/21 09/04/21 History dilTIAZem [Cardizem] 30 mg PO Q6HR 30 Days #120 tablet 07/23/21 10/11/21 09/04/21 Rx Clindamycin [Clindamycin CAP] 300 mg PO Q8H #21 cap 09/09/21 10/11/21 Unknown Rx Insulin Aspart 35 unit SQ AC 09/09/21 10/11/21 09/04/21 History Insulin Glargine [Lantus VIAL] 50 unit SUB-Q QAM 09/09/21 10/11/21 09/04/21 History Insulin Glargine [Lantus VIAL] 100 unit SUB-Q QHS 09/09/21 10/11/21 09/04/21 History OXYCODONE hcl [Oxycodone] 15 mg PO Q4H PRN 09/09/21 10/11/21 1 Week Ago History ~09/02/21 Active Meds: Active Medications Acetaminophen (Acetaminophen 325 Mg Tab) 650 mg PO Q4H PRN PRN Reason: Pain MILD(1-3)/Fever >100.5/VILLARREAL Last Admin: 10/11/21 05:15 Dose: 650 mg Alprazolam (Alprazolam 1 Mg Tab) 1 mg PO TID PRN PRN Reason: Anxiety Atorvastatin Calcium (Atorvastatin 20 Mg Tab) 20 mg PO HS [facility] Last Admin: 10/12/21 22:36 Dose: 20 mg Diltiazem HCl (Diltiazem 30 Mg Tab) 30 mg PO Q6HR [facility] Last Admin: 10/13/21 06:28 Dose: 30 mg Famotidine (Famotidine 20 Mg Tab) 20 mg PO BID [facility] Last Admin: 10/13/21 09:11 Dose: 20 mg Fenofibrate (Fenofibrate 145 Mg Tab) 145 mg PO HS [facility] Last Admin: 10/12/21 22:40 Dose: 145 mg Heparin Sodium (Porcine) (Heparin 5,000 Unit/1 Ml Vial) 5,000 unit SUB-Q Q12HR [facility] Last Admin: 10/13/21 09:09 Dose: 5,000 unit Hydromorphone HCl (Hydromorphone 2 Mg/1 Ml Inj) 2 mg IV Q3H PRN PRN Reason: Pain , Severe (7-10) Last Admin: 10/13/21 09:20 Dose: 2 mg Ampicillin Sodium/Sulbactam Sodium (Unasyn/Ns 3 Gm/100 Ml) 3 gm in 100 mls @ 200 mls/hr IV Q6H [facility]; Protocol Last Admin: 10/13/21 03:06 Dose: 200 mls/hr Vancomycin HCl 2,000 mg/ (Sodium Chloride) 540 mls @ 250 mls/hr IV Q12H [facility] Last Admin: 10/13/21 06:30 Dose: 250 mls/hr Insulin Glargine (Insulin Glargine 100 Units/Ml) 50 units SUB-Q QAM [facility] Last Admin: 10/12/21 09:53 Dose: 50 units Insulin Glargine (Insulin Glargine 100 Units/Ml) 100 units SUB-Q QHS [facility] Last Admin: 10/12/21 21:55 Dose: 100 units Insulin Human Lispro (Insulin Lispro 100 Unit/Ml) 0 unit SUB-Q Q4HR [facility]; Protocol Last Admin: 10/13/21 06:32 Dose: 4 unit Insulin Human Lispro (Insulin Lispro 100 Unit/Ml) 20 unit SUB-Q AC [facility] Last Admin: 10/13/21 09:08 Dose: 20 unit Metoclopramide HCl (Metoclopramide 10 Mg/2 Ml Inj) 10 mg IV Q6H PRN PRN Reason: Nausea And Vomiting Metoprolol Tartrate (Metoprolol Tartrate 100 Mg Tab) 100 mg PO BID [facility] Last Admin: 10/13/21 09:09 Dose: 100 mg Ondansetron HCl (Ondansetron 4 Mg/2 Ml Inj) 4 mg IV Q3H PRN PRN Reason: Nausea And Vomiting Oxycodone HCl (Oxycodone 5 Mg Tab) 15 mg PO Q4H PRN PRN Reason: Pain, Moderate (4-6) Pregabalin (Pregabalin 50 Mg Cap) 200 mg PO TID [facility] Last Admin: 10/13/21 09:11 Dose: 200 mg Sodium Chloride (Sodium Chloride 0.9% 10 Ml Flush Syringe) 10 ml IV BID [facility] Last Admin: 10/13/21 09:12 Dose: 10 ml Sodium Chloride (Sodium Chloride 0.9% 10 Ml Flush Syringe) 10 ml IV PRN PRN PRN Reason: LINE FLUSH Physical Examination - Physical Exam Narrative exam: Physical Exam: Constitutional: Alert, cooperative. No acute distress Head, Ears, Nose: Normocephalic, atraumatic. External ears, nose normal Eyes: Conjunctivae/corneas clear. No icterus. No ptosis. Neck: Supple, no meningeal signs Oral: dentition fair, no thrush Cardiovascular: S1, S2 normal. Respiratory: Good air entry, clear to auscultation bilaterally GI: Soft, non-tender; bowel sounds normal. No peritoneal signs. Musculoskeletal: Left AKA, RLE redness, swelling Skin: No rash or abscess Hem/Lymphatic: No palpable cervical or supraclavicular nodes. No lymphangitis Psych: Mood ok. Affect normal Neurological: Awake, alert, oriented. No gross abnormality - Constitutional Vitals: Vital Signs Temp Pulse Resp BP Pulse Ox 98.0 F 71 20 150/78 95 10/12/21 11:42 10/13/21 09:09 10/12/21 11:42 10/13/21 09:09 10/13/21 08:00 Temperature -Last 24 Hours Temperature 98.0 F Results - Labs CBC & Chem 7: 10/11/21 05:29 10/11/21 05:29 Labs: Abnormal lab results 10/12/21 10/12/21 10/12/21 Range/Units 05:16 09:58 14:45 POC Glucose 228 H 308 H 308 H (70-105) mg/dL 10/12/21 10/12/21 10/13/21 Range/Units 18:01 21:39 01:34 POC Glucose 305 H 258 H 273 H (70-105) mg/dL 10/13/21 Range/Units 05:46 POC Glucose 244 H (70-105) mg/dL Assessment and Plan Cultures: None A/P: 61-year-old man past medical history obesity, diabetes, neuropathy, previous left AKA #RLE cellulitis: with likely basis of venous stasis dermatitis underlying. No white count. Has had numerous episodes of this with frequent recurrences. #DM2 with neuropathy: tight glycemic control for best outcomes. Recs: -Continue vancomycin and UNasyn for now. -PLan to DC on Augmentin 875/125mg q12h for 10 days -Needs limb elevation and edema control for best outcomes. Thank you for the consult, we will continue to follow. MD Vineet [facility] ([facility] O: [phone] F: [phone]
[2021-10-13] MEDS: INSULIN GLARGINE 100 UNITS/ML SUB-Q SCH ×2 (13:00→23:03)
[2021-10-13] MEDS: FENOFIBRATE 145 MG TAB PO SCH (22:08)
[2021-10-14] MEDS: dilTIAZem 30 MG TAB PO SCH ×4 (00:47→18:06)
[2021-10-14] MEDS: INSULIN LISPRO 100 UNIT/ML SUB-Q SCH ×9 (02:55→22:18)
[2021-10-14] MEDS: HYDROmorphone 2 MG/1 ML INJ IV PRN ×7 (02:55→23:03)
[2021-10-14] MEDS: AMPICILLIN/SULBACTA 3GM/100ML 3 GM/100 ML BAG IV SCH ×4 (03:04→22:17)
[2021-10-14] MEDS: VANCOMYCIN 2,000 MG in SODIUM CHLORIDE 0.9% 500 ML 500 ML IV SCH ×2 (06:47→17:56)
--- NOTE | 2021-10-14 07:35 | Progress Note ---
Assessment and Plan Assessment and Plan - Patient Problems (1) Right lower extremity cellulitis Current Visit: No Status: Acute Qualifiers: Site of cellulitis of extremity: lower extremity Laterality: left Plan to address problem: Patient gets recurrent right lower extremity cellulitis Possibly secondary to underlying venous stasis dermatitis CT of the right lower extremity requested MRI could not be ordered because of the metal implant in the right knee and left hip Continue IV antibiotics through October 16, 2021 (2) IDDM Current Visit: No Status: Acute Plan to address problem: Consistent carbohydrate diet, Accu-Chek, insulin protocol, hypoglycemia protocol, (3) Generalized anxiety disorder Current Visit: No Status: Chronic Plan to address problem: Benzodiazepine therapy as clinically indicated, supportive care (4) HLD (hyperlipidemia) Current Visit: No Status: Chronic Qualifiers: Hyperlipidemia type: mixed hyperlipidemia Qualified Code(s): E78.2 - Mixed hyperlipidemia Plan to address problem: Low-cholesterol diet, statin therapy is clinically indicated. (5) DVT prophylaxis Current Visit: No Status: Acute Plan to address problem: SCD to bilateral extremities while in bed (6) Advance care planning Current Visit: No Status: Acute Plan to address problem: Disease education conducted, care plan discussed, diagnoses discussed, prognosis discussed, patient is full code. Patient knowledges understanding and agreement with care plan, +30 minutes. Advance Directives: Yes (Full code) VTE prophylaxis?: Chemical Plan of care discussed with patient/family: Yes Subjective Date of service: 10/13/21 Principal diagnosis: Right lower extremity cellulitis Interval history: 61 YO Male with Obesity Hypoventilation Syndrome, HTN, DM complicated by Neuro heber, HLD, Chronic Pain Syndrome admitted directly.. Pt was seen and evaluated by PCP and found to have recurrentl Rt lower extremity cellulitis. Pt acknowledges pain and redness to his right leg. Patient treated with oral antibiotic therapy with persistent and worsening symptoms. Patient failed outpatient therapy. Patient seen and evaluated in his room. Pt denies fever, chills, CP, Palpitations, NVD, Trauma, falls, unilateral leg swelling, calf pain, hemoptysis, or recent ill contacts. Pt seen and evaluated upon arrival. Pt initiated on IV antibiotic therapy. CBC, CMP, ordered and pending at time of evaluation. 10/13/2022 Some improvement in the right lower extremity discoloration IV antibiotics through 10/16/2021 Objective - Constitutional Vitals: Vital Signs - 12hr 05/23/22 05/23/22 05/23/22 22:00 22:14 23:07 Temperature 98.6 F Pulse Rate 68 68 Respiratory 20 Rate Blood Pressure 147/77 147/77 O2 Sat by Pulse 93 93 Oximetry 10/14/21 10/14/21 10/14/21 00:47 05:00 06:11 Temperature 98.6 F Pulse Rate 72 64 72 Respiratory 20 Rate Blood Pressure 165/77 113/56 164/77 O2 Sat by Pulse 94 Oximetry General appearance: Present: no acute distress, well-nourished - EENT Eyes: PERRL, EOM intact ENT: hearing intact, clear oral mucosa Ears: bilateral: normal - Neck Neck: supple, normal ROM - Respiratory Respiratory effort: normal Respiratory: bilateral: CTA - Breasts Breasts: normal - Cardiovascular Heart rate: 78 Rhythm: regular Heart Sounds: Present: S1 & S2. Absent: gallop, rub Extremities: pulses intact, No edema, normal color, Full ROM, abnormal (Right lower extremity redness and superficial ulcers--recurrent) - Gastrointestinal General gastrointestinal: Present: soft, non-tender, non-distended, normal bowel sounds - Genitourinary Male genitourinary: normal - Integumentary Integumentary: clear, warm, dry - Musculoskeletal Musculoskeletal: 1, strength equal bilaterally - Neurologic Neurologic: moves all extremities - Psychiatric Psychiatric: memory intact, appropriate mood/affect, intact judgment & insight - Labs CBC & Chem 7: 10/11/21 05:29 10/11/21 05:29 Labs: Abnormal lab results 10/13/21 10/13/21 10/13/21 Range/Units 05:46 11:14 14:13 POC Glucose 244 H 211 H 245 H (70-105) mg/dL 10/13/21 10/13/21 10/14/21 Range/Units 17:08 22:10 02:23 POC Glucose 232 H 207 H 286 H (70-105) mg/dL 10/14/21 10/14/21 Range/Units 06:22 06:23 POC Glucose 174 H 194 H (70-105) mg/dL
--- NOTE | 2021-10-14 07:35 | Progress Note ---
Assessment and Plan Assessment and Plan - Patient Problems (1) Right lower extremity cellulitis Current Visit: No Status: Acute Qualifiers: Site of cellulitis of extremity: lower extremity Laterality: left Plan to address problem: IV antibiotic therapy in the form of Unasyn and vancomycin, supportive care, surgery team consulted, continue medical management. CBC, CMP, serial physical exam. R/o Osteomyelitis (2) IDDM Current Visit: No Status: Acute Plan to address problem: Consistent carbohydrate diet, Accu-Chek, insulin protocol, hypoglycemia protocol, (3) Generalized anxiety disorder Current Visit: No Status: Chronic Plan to address problem: Benzodiazepine therapy as clinically indicated, supportive care (4) HLD (hyperlipidemia) Current Visit: No Status: Chronic Qualifiers: Hyperlipidemia type: mixed hyperlipidemia Qualified Code(s): E78.2 - Mixed hyperlipidemia Plan to address problem: Low-cholesterol diet, statin therapy is clinically indicated. (5) DVT prophylaxis Current Visit: No Status: Acute Plan to address problem: SCD to bilateral extremities while in bed (6) Advance care planning Current Visit: No Status: Acute Plan to address problem: Disease education conducted, care plan discussed, diagnoses discussed, prognosis discussed, patient is full code. Patient knowledges understanding and agreement with care plan, +30 minutes. Advance Directives: Yes (Full code) VTE prophylaxis?: Chemical Plan of care discussed with patient/family: Yes Subjective Date of service: 10/12/21 Principal diagnosis: Right lower extremity cellulitis Interval history: 61 YO Male with Obesity Hypoventilation Syndrome, HTN, DM complicated by Neuropathy, HLD, Chronic Pain Syndrome admitted directly.. Pt was seen and evaluated by PCP and found to have recurrentl Rt lower extremity cellulitis. Pt acknowledges pain and redness to his right leg. Patient treated with oral antibiotic therapy with persistent and worsening symptoms. Patient failed o utpatient therapy. Patient seen and evaluated in his room. Pt denies fever, chills, CP, Palpitations, NVD, Trauma, falls, unilateral leg swelling, calf pain, hemoptysis, or recent ill contacts. Pt seen and evaluated upon arrival. Pt initiated on IV antibiotic therapy. CBC, CMP, ordered and pending at time of evaluation. 10/11/2021 Some improvement in the right lower extremity discoloration IV antibiotics through 10/16/2021 10/12/2021 Some improvement in the right lower extremity discoloration IV antibiotics through 10/16/2021 Objective - Constitutional Vitals: Vital Signs - 12hr 10/13/21 10/13/21 10/13/21 22:00 22:14 23:07 Temperature 98.6 F Pulse Rate 68 68 Respiratory 20 Rate Blood Pressure 147/77 147/77 O2 Sat by Pulse 93 93 Oximetry 10/14/21 10/14/21 10/14/21 00:47 05:00 06:11 Temperature 98.6 F Pulse Rate 72 64 72 Respiratory 20 Rate Blood Pressure 165/77 113/56 164/77 O2 Sat by Pulse 94 Oximetry General appearance: Present: no acute distress, well-nourished - EENT Eyes: PERRL, EOM intact ENT: hearing intact, clear oral mucosa Ears: bilateral: normal - Neck Neck: supple, normal ROM - Respiratory Respiratory effort: normal Respiratory: bilateral: CTA - Breasts Breasts: normal - Cardiovascular Heart rate: 78 Rhythm: regular Heart Sounds: Present: S1 & S2. Absent: gallop, rub Extremities: pulses intact, No edema, normal color, Full ROM, abnormal (Right lower extremity swelling problems and social history ulcers) - Gastrointestinal General gastrointestinal: Present: soft, non-tender, non-distended, normal bowel sounds - Genitourinary Male genitourinary: normal - Integumentary Integumentary: clear, warm, dry - Musculoskeletal Musculoskeletal: 1, strength equal bilaterally - Neurologic Neurologic: moves all extremities - Psychiatric Psychiatric: memory intact, appropriate mood/affect, intact judgment & insight - Labs CBC & Chem 7: 10/11/21 05:29 10/11/21 05:29 Labs: Abnormal lab results 10/13/21 10/13/21 10/13/21 Range/Units 05:46 11:14 14:13 POC Glucose 244 H 211 H 245 H (70-105) mg/dL 10/13/21 10/13/21 10/14/21 Range/Units 17:08 22:10 02:23 POC Glucose 232 H 207 H 286 H (70-105) mg/dL 10/14/21 10/14/21 Range/Units 06:22 06:23 POC Glucose 174 H 194 H (70-105) mg/dL
[2021-10-14] MEDS: PREGABALIN 50 MG CAP PO SCH ×3 (08:30→20:25)
[2021-10-14 09:20] LABS: Blood Urea Nitrogen 9 mg/dL (9-20); Calcium 8.8 mg/dL (8.4-10.2); Hemolysis Index 37
[2021-10-14 09:21] LABS: BUN/Creatinine Ratio 23
[2021-10-14] MEDS: INSULIN GLARGINE 100 UNITS/ML SUB-Q SCH ×2 (10:09→22:20)
--- NOTE | 2021-10-14 11:26 | Cat Scan Report ---
CT lower extremity RT w con INDICATION: Recurrent cellulitis,Has metal implant--No MRI. TECHNIQUE: CT of the right foot with IV contrast. All CT scans at this location are performed using CT dose redu ction for [facility] by means of automated exposure control. COMPARISON: Prior CT on 07/19/2020 FINDINGS: There is generalized subcutaneous edema throughout the foot. There are no appreciable focal fluid col lections. There is no focal bone destruction to suggest osteomyelitis. Visualized muscles and tendons around the ankle and foot appear intact. There is moderate DJD in the mid foot articulations. There is mild DJD in the first MTP joint. IMPRESSION: 1. Generalized subcutaneous edema in the ankle and foot without focal fluid collection. 2. No evidence for osteomyelitis. Signer Name: Mitch Francois MD Signed: 10/14/2021 11:21 AM Workstation Name: [id number]
--- NOTE | 2021-10-14 11:31 | Progress Note ---
Assessment and Plan Assessment and plan: 61-year-old man past medical history obesity, diabetes, neuropathy, previous left AKA admitted to the hospital with recurrent right lower extremity cellulitis. The patient has had multiple episodes of cellulitis and prosthetic joint infections. Prior to this admission, he was seen by his primary care doctor and was given antibiotics, this did not alleviate his symptoms. He complains of redness and pain to the right leg. Right lower extremity cellulitis Diabetes mellitus type 2 Diabetic neuropathy 10/14/2021. Continue vancomycin and Unasyn per ID recommendations. We will likely discharge on Augmentin 875/125mg q12h for 10 days. History Interval history: No new issues overnight Hospitalist Physical - Constitutional Vitals: Temp Pulse Resp BP Pulse Ox 98.6 F 72 20 164/77 94 10/14/21 05:00 10/14/21 06:11 10/14/21 05:00 10/14/21 06:11 10/14/21 05:00 General appearance: Present: no acute distress, well-nourished - EENT Eyes: Present: PERRL, EOM intact ENT: hearing intact, clear oral mucosa, dentition normal - Neck Neck: Present: supple, normal ROM - Respiratory Respiratory effort: normal Respiratory: bilateral: CTA - Cardiovascular Rhythm: regular Heart Sounds: Present: S1 & S2. Absent: gallop, rub - Extremities Extremities: no ischemia, No edema, Full ROM - Abdominal General gastrointestinal: soft, non-tender, non-distended, normal bowel sounds - Integumentary Integumentary: Present: clear, warm, dry - Neurologic Neurologic: CNII-XII intact, moves all extremities Results - Labs CBC & Chem 7: 10/11/21 05:29 10/14/21 09:00 Labs: Laboratory Last Values WBC 10.4 K/mm3 (4.5-11.0) 10/11/21 05:29 RBC 5.31 M/mm3 (3.65-5.03) H 10/11/21 05:29 Hgb 16.2 gm/dl (11.8-15.2) H 10/11/21 05:29 Hct 48.7 % (35.5-45.6) H 10/11/21 05:29 MCV 92 fl (84-94) 10/11/21 05:29 MCH 30 pg (28-32) 10/11/21 05:29 MCHC 33 % (32-34) 10/11/21 05:29 RDW 14.5 % (13.2-15.2) 10/11/21 05:29 Plt Count 136 K/mm3 (140-440) L 10/11/21 05:29 Lymph % (Auto) 7.1 % (13.4-35.0) L 10/11/21 05:29 [place] % (Auto) 4.3 % (0.0-7.3) 10/11/21 05:29 Eos % (Auto) 2.3 % (0.0-4.3) 10/11/21 05:29 Baso % (Auto) 0.8 % (0.0-1.8) 10/11/21 05:29 Lymph # (Auto) 0.7 K/mm3 (1.2-5.4) L 10/11/21 05:29 [place] # (Auto) 0.4 K/mm3 (0.0-0.8) 10/11/21 05:29 Eos # (Auto) 0.2 K/mm3 (0.0-0.4) 10/11/21 05:29 Baso # (Auto) 0.1 K/mm3 (0.0-0.1) 10/11/21 05:29 Seg Neutrophils % 85.5 % (40.0-70.0) H 10/11/21 05:29 Seg Neutrophils # 8.9 K/mm3 (1.8-7.7) H 10/11/21 05:29 Sodium 138 mmol/L (137-145) 10/14/21 09:00 Potassium 4.4 mmol/L (3.6-5.0) 10/14/21 09:00 Chloride 102.6 mmol/L (98-107) 10/14/21 09:00 Carbon Dioxide 26 mmol/L (22-30) 10/14/21 09:00 Anion Gap 14 mmol/L 10/14/21 09:00 BUN 9 mg/dL (9-20) 10/14/21 09:00 Creatinine 0.4 mg/dL (0.8-1.3) L 10/14/21 09:00 Estimated GFR > 60 ml/min 10/14/21 09:00 BUN/Creatinine Ratio 23 % 10/14/21 09:00 Glucose 176 mg/dL (75-100) H 10/14/21 09:00 POC Glucose 143 mg/dL (70-105) H 10/14/21 07:40 Calcium 8.8 mg/dL (8.4-10.2) 10/14/21 09:00 Total Bilirubin 0.60 mg/dL (0.1-1.2) 10/10/21 23:33 AST 47 units/L (5-40) H 10/10/21 23:33 ALT 51 units/L (7-56) 10/10/21 23:33 Alkaline Phosphatase 104 units/L (35-129) 10/10/21 23:33 Total Protein 7.6 g/dL (6.3-8.2) 10/10/21 23:33 Albumin 4.1 g/dL (3.9-5) 10/10/21 23:33 Albumin/Globulin Ratio 1.2 % 10/10/21 23:33 Vancomycin Trough 10.4 ug/mL (5.0-20.0) 10/12/21 17:04 Swanson/IV: Voiding Method Urinal Active Medications - Current Medications Current Medications: Generic Name Dose Route Start Last Admin Trade Name Freq PRN Reason Stop Dose Admin Acetaminophen 650 mg 10/10/21 13:57 10/11/21 05:15 Acetaminophen 325 Mg Tab PO 650 mg Q4H PRN Administration Pain MILD(1-3)/Fever >100.5/VILLARREAL Alprazolam 1 mg 10/10/21 18:40 Alprazolam 1 Mg Tab PO TID PRN Anxiety Atorvastatin Calcium 20 mg 10/10/21 22:00 10/13/21 22:07 Atorvastatin 20 Mg Tab PO 20 mg HS YAEL Administration Diltiazem HCl 30 mg 10/10/21 19:00 10/14/21 06:11 Diltiazem 30 Mg Tab PO 30 mg Q6HR YAEL Administration Famotidine 20 mg 10/10/21 16:00 10/13/21 22:06 Famotidine 20 Mg Tab PO 20 mg BID YAEL Administration Fenofibrate 145 mg 10/10/21 22:00 10/13/21 22:08 Fenofibrate 145 Mg Tab PO 145 mg HS YAEL Administration Heparin Sodium (Porcine) 5,000 unit 10/10/21 15:15 10/13/21 23:03 Heparin 5,000 Unit/1 Ml Vial SUB-Q 5,000 unit Q12HR [facility] Administration Hydromorphone HCl 2 mg 10/10/21 23:57 10/14/21 09:16 Hydromorphone 2 Mg/1 Ml Inj IV 2 mg Q3H PRN Administration Pain , Severe (7-10) Ampicillin Sodium/Sulbactam Sodium 3 gm in 100 mls @ 200 mls/hr 10/10/21 16:00 10/14/21 03:04 Unasyn/Ns 3 Gm/100 Ml IV 200 mls/hr Q6H YAEL Administration Protocol Vancomycin HCl 2,000 mg/ 540 mls @ 250 mls/hr 10/11/21 06:00 10/14/21 06:47 Sodium Chloride IV 250 mls/hr Q12H [facility] Administration Insulin Glargine 50 units 10/11/21 10:00 10/14/21 10:09 Insulin Glargine 100 Units/Ml SUB-Q Not Given QAM [facility] Insulin Glargine 100 units 10/10/21 22:00 10/13/21 23:03 Insulin Glargine 100 Units/Ml SUB-Q 100 units QHS [facility] Administration Insulin Human Lispro 0 unit 10/10/21 19:00 10/14/21 10:09 Insulin Lispro 100 Unit/Ml SUB-Q Not Given Q4HR [facility] Protocol Insulin Human Lispro 20 unit 10/11/21 07:30 10/14/21 08:30 Insulin Lispro 100 Unit/Ml SUB-Q Not Given [facility] Metoclopramide HCl 10 mg 10/10/21 14:04 Metoclopramide 10 Mg/2 Ml Inj IV Q6H PRN Nausea And Vomiting Metoprolol Tartrate 100 mg 10/10/21 22:00 10/13/21 23:07 Metoprolol Tartrate 100 Mg Tab PO 100 mg BID YAEL Administration Ondansetron HCl 4 mg 10/10/21 13:57 Ondansetron 4 Mg/2 Ml Inj IV Q3H PRN Nausea And Vomiting Oxycodone HCl 15 mg 10/10/21 18:53 Oxycodone 5 Mg Tab PO Q4H PRN Pain, Moderate (4-6) Pregabalin 200 mg 10/10/21 20:00 10/14/21 08:30 Pregabalin 50 Mg Cap PO Not Given TID YAEL Sodium Chloride 10 ml 10/10/21 15:00 10/13/21 22:31 Sodium Chloride 0.9% 10 Ml Flush Syringe IV 10 ml BID YAEL Administration Sodium Chloride 10 ml 10/10/21 14:57 Sodium Chloride 0.9% 10 Ml Flush Syringe IV PRN PRN LINE FLUSH Nutrition/Malnutrition Assess - Dietary Evaluation Nutrition/Malnutrition Findings: Nutrition Notes Start: 10/13/21 18:42 Freq: Status: Active Protocol: Document 10/13/21 18:42 KRISTEN (Rec: 10/13/21 18:53 KRISTEN [id number]) Nutrition Notes Need for Assessment generated from: MD Order,Education Initial or Follow up Brief Note Current Diagnosis Diabetes,Hypertension, Hyperlipidemia Other Pertinent Diagnosis R-LE Cellulitis, PVD, s/p R- AKA, Anxiety, OHS. Current Diet Consistent Carbohydrates Diet (since D 10/10). Height 6 ft 1 in Weight 130 kg [place] Body Weight (kg) 83.63 BMI 37.8 Intake Prior to Admission Good Weight change and time frame Pt denies having loss body weight [employer]. Weight Status Obese Subjective/Other Information RD consult for nutrition education assessment. Pt's PO intake of meals has been Good (100%), according to ADL notes. Pt is on Room Air, O2 saturation @ 95%, according to Physical Assessment History notes. Pt still in critical condition , not a candidate for Nutrition Education at the time, will assess feasibility on F/U. Percent of energy/protein needs met: Prescribed Consistent Carbohydrates Diet provides for energy/protein needs (2, 061 Kcal/91 g) during LOS. Nutrition Intervention Follow-Up By: 10/20/21 Additional Comments Nutrition education will be provided on F/U, if feasible. Continue monitoring food tolerance, %PO intake of meals , and BM.
[2021-10-14] MEDS: HEPARIN 5,000 UNIT/1 ML VIAL SUB-Q SCH ×2 (12:49→22:19)
[2021-10-14] MEDS: FAMOTIDINE 20 MG TAB PO SCH ×2 (12:58→22:18)
[2021-10-14] MEDS: METOPROLOL TARTRATE 100 MG TAB PO SCH ×3 (12:58→22:25)
--- NOTE | 2021-10-14 17:45 | Progress Note ---
Assessment and Plan Cultures: None A/P: 61-year-old man past medical history obesity, diabetes, neuropathy, previous left AKA #RLE cellulitis: with likely basis of venous stasis dermatitis underlying. No white count. Has had numerous episodes of this with frequent recurrences. #DM2 with neuropathy: tight glycemic control for best outcomes. Recs: -Continue vancomycin and UNasyn for now. -PLan to DC on Augmentin 875/125mg q12h for 10 days -Needs limb elevation and edema control for best outcomes. -Has appointment with Dr. Alvarado which is essential Thank you for the consult, we will continue to follow. Treva Zaman MD [facility] ([facility]) O: [phone] F: [phone] Subjective Date of service: 10/14/21 Principal diagnosis: Right lower extremity cellulitis Interval history: Afebrile, normal white count. No new complaints. Imaging personally reviewed: CTLE: No abscess, no osteomyelitis Objective - Exam Narrative Exam: Physical Exam: Constitutional: Alert, cooperative. No acute distress Head, Ears, Nose: Normocephalic, atraumatic. External ears, nose normal Eyes: Conjunctivae/corneas clear. No icterus. No ptosis. Neck: Supple, no meningeal signs Oral: dentition fair, no thrush Cardiovascular: S1, S2 normal. Respiratory: Good air entry, clear to auscultation bilaterally GI: Soft, non-tender; bowel sounds normal. No peritoneal signs. Musculoskeletal: Left AKA, RLE redness, swelling Skin: No rash or abscess Hem/Lymphatic: No palpable cervical or supraclavicular nodes. No lymphangitis Psych: Mood ok. Affect normal Neurological: Awake, alert, oriented. No gross abnormality - Constitutional Vitals: Vital Signs Temp Pulse Resp BP Pulse Ox 98.4 F 94 H 18 116/73 94 10/14/21 17:00 10/14/21 17:00 10/14/21 17:00 10/14/21 17:00 10/14/21 11:39 Temperature -Last 24 Hours Temperature 98.4 F Temperature 98.3 F Temperature 98.6 F Temperature 98.6 F - Labs CBC & Chem 7: 10/11/21 05:29 10/14/21 09:00 Labs: Abnormal lab results 10/13/21 10/14/21 10/14/21 Range/Units 22:10 02:23 06:22 Creatinine (0.8-1.3) mg/dL Glucose (75-100) mg/dL POC Glucose 207 H 286 H 174 H (70-105) mg/dL 10/14/21 10/14/21 10/14/21 Range/Units 06:23 07:40 09:00 Creatinine 0.4 L (0.8-1.3) mg/dL Glucose 176 H (75-100) mg/dL POC Glucose 194 H 143 H (70-105) mg/dL 10/14/21 10/14/21 Range/Units 13:01 17:00 Creatinine (0.8-1.3) mg/dL Glucose (75-100) mg/dL POC Glucose 207 H 228 H (70-105) mg/dL
[2021-10-14] MEDS: oxyCODONE 5 MG TAB PO PRN (17:52)
[2021-10-14] MEDS: FENOFIBRATE 145 MG TAB PO SCH (22:18)
[2021-10-15] MEDS: dilTIAZem 30 MG TAB PO SCH ×4 (00:27→17:40)
[2021-10-15] MEDS: HYDROmorphone 2 MG/1 ML INJ IV PRN ×7 (02:05→21:39)
[2021-10-15] MEDS: INSULIN LISPRO 100 UNIT/ML SUB-Q SCH ×9 (02:23→22:19)
[2021-10-15] MEDS: AMPICILLIN/SULBACTA 3GM/100ML 3 GM/100 ML BAG IV SCH ×4 (04:39→22:31)
[2021-10-15] MEDS: VANCOMYCIN 2,000 MG in SODIUM CHLORIDE 0.9% 500 ML 500 ML IV SCH ×2 (05:08→18:38)
[2021-10-15] MEDS: oxyCODONE 5 MG TAB PO PRN (07:10)
[2021-10-15] MEDS: PREGABALIN 50 MG CAP PO SCH ×3 (08:34→22:20)
[2021-10-15] MEDS: HEPARIN 5,000 UNIT/1 ML VIAL SUB-Q SCH ×2 (09:08→22:20)
[2021-10-15] MEDS: FAMOTIDINE 20 MG TAB PO SCH ×2 (09:09→22:22)
[2021-10-15] MEDS: METOPROLOL TARTRATE 100 MG TAB PO SCH ×2 (09:09→22:21)
[2021-10-15] MEDS: INSULIN GLARGINE 100 UNITS/ML SUB-Q SCH ×2 (09:19→22:24)
--- NOTE | 2021-10-15 12:08 | Progress Note ---
Assessment and Plan Cultures: None A/P: 61-year-old man past medical history obesity, diabetes, neuropathy, previous left AKA #RLE cellulitis: with likely basis of venous stasis dermatitis underlying. No white count. Has had numerous episodes of this with frequent recurrences. #DM2 with neuropathy: tight glycemic control for best outcomes. Recs: -Continue vancomycin and UNasyn for now. -OK to DC on Augmentin 875/125mg q12h for 10 days -Needs limb elevation and edema control for best outcomes. Redness will not resolve given venous stasis -Has appointment with Dr. Alvarado which is essential Thank you for the consult, we will sign off. Please call with questions Treva Zaman MD [facility] ([facility]) O: [phone] F: [phone] Subjective Date of service: 10/15/21 Principal diagnosis: Right lower extremity cellulitis Interval history: Afebrile, no acute change or issues. Ongoing redness of the leg. Objective - Exam Narrative Exam: Physical Exam: Constitutional: Alert, cooperative. No acute distress Head, Ears, Nose: Normocephalic, atraumatic. Eyes: Conjunctivae/corneas clear. No icterus. No ptosis. Neck: Supple, no meningeal signs Oral: dentition fair, no thrush Cardiovascular: S1, S2 normal. Respiratory: Good air entry, clear to auscultation bilaterally GI: Soft, non-tender; bowel sounds normal. No peritoneal signs. Musculoskeletal: Left AKA, RLE redness, swelling, several small wounds Skin: No rash or abscess Hem/Lymphatic: No palpable cervical or supraclavicular nodes. No lymphangitis Psych: Mood ok. Affect normal Neurological: Awake, alert, oriented. No gross abnormality - Constitutional Vitals: Vital Signs Temp Pulse Resp BP Pulse Ox 98.4 F 66 16 146/77 97 10/15/21 05:15 10/15/21 09:23 10/15/21 09:23 10/15/21 09:23 10/15/21 09:23 Temperature -Last 24 Hours Temperature 98.4 F Temperature 98.5 F Temperature 98.4 F - Labs CBC & Chem 7: 10/11/21 05:29 10/14/21 09:00 Labs: Abnormal lab results 05/10/14/21 10/14/21 Range/Units 13:01 17:00 21:55 POC Glucose 207 H 228 H 238 H (70-105) mg/dL 10/15/21 10/15/21 10/15/21 Range/Units 02:18 05:12 10:06 POC Glucose 243 H 237 H 152 H (70-105) mg/dL
--- NOTE | 2021-10-15 13:26 | Progress Note ---
Assessment and Plan Assessment and plan: 61-year-old man past medical history obesity, diabetes, neuropathy, previous left AKA admitted to the hospital with recurrent right lower extremity cellulitis. The patient has had multiple episodes of cellulitis and prosthetic joint infections. Prior to this admission, he was seen by his primary care doctor and was given antibiotics, this did not alleviate his symptoms. He complains of redness and pain to the right leg. Right lower extremity cellulitis Diabetes mellitus type 2 Diabetic neuropathy 10/14/2021. Continue vancomycin and Unasyn per ID recommendations. We will likely discharge on Augmentin 875/125mg q12h for 10 days. 10/15/2021. ID recommends continuing vancomycin and Unasyn for now. We will DC on Augmentin in a.m. Continue limb elevation and edema control. Redness will n ot resolve given venous stasis disease. Follow-up with Dr. Alvarado as an outpatient History Interval history: No new issues overnight Hospitalist Physical - Constitutional Vitals: Temp Pulse Resp BP Pulse Ox 98.4 F 66 16 146/77 97 10/15/21 05:15 10/15/21 09:23 10/15/21 09:23 10/15/21 09:23 10/15/21 09:23 General appearance: Present: no acute distress, well-nourished - EENT Eyes: Present: PERRL, EOM intact ENT: hearing intact, clear oral mucosa, dentition normal - Neck Neck: Present: supple, normal ROM - Respiratory Respiratory effort: normal Respiratory: bilateral: CTA - Cardiovascular Rhythm: regular Heart Sounds: Present: S1 & S2. Absent: gallop, rub - Extremities Extremities: no ischemia, No edema, Full ROM - Abdominal General gastrointestinal: soft, non-tender, non-distended, normal bowel sounds - Integumentary Integumentary: Present: clear, warm, dry - Neurologic Neurologic: CNII-XII intact, moves all extremities Results - Labs CBC & Chem 7: 10/11/21 05:29 10/14/21 09:00 Labs: Laboratory Last Values WBC 10.4 K/mm3 (4.5-11.0) 10/11/21 05:29 RBC 5.31 M/mm3 (3.65-5.03) H 10/11/21 05:29 Hgb 16.2 gm/dl (11.8-15.2) H 10/11/21 05:29 Hct 48.7 % (35.5-45.6) H 10/11/21 05:29 MCV 92 fl (84-94) 10/11/21 05:29 MCH 30 pg (28-32) 10/11/21 05:29 MCHC 33 % (32-34) 10/11/21 05:29 RDW 14.5 % (13.2-15.2) 10/11/21 05:29 Plt Count 136 K/mm3 (140-440) L 10/11/21 05:29 Lymph % (Auto) 7.1 % (13.4-35.0) L 10/11/21 05:29 [place] % (Auto) 4.3 % (0.0-7.3) 10/11/21 05:29 Eos % (Auto) 2.3 % (0.0-4.3) 10/11/21 05:29 Baso % (Auto) 0.8 % (0.0-1.8) 10/11/21 05:29 Lymph # (Auto) 0.7 K/mm3 (1.2-5.4) L 10/11/21 05:29 [place] # (Auto) 0.4 K/mm3 (0.0-0.8) 10/11/21 05:29 Eos # (Auto) 0.2 K/mm3 (0.0-0.4) 10/11/21 05:29 Baso # (Auto) 0.1 K/mm3 (0.0-0.1) 10/11/21 05:29 Seg Neutrophils % 85.5 % (40.0-70.0) H 10/11/21 05:29 Seg Neutrophils # 8.9 K/mm3 (1.8-7.7) H 10/11/21 05:29 Sodium 138 mmol/L (137-145) 10/14/21 09:00 Potassium 4.4 mmol/L (3.6-5.0) 10/14/21 09:00 Chloride 102.6 mmol/L (98-107) 10/14/21 09:00 Carbon Dioxide 26 mmol/L (22-30) 10/14/21 09:00 Anion Gap 14 mmol/L 10/14/21 09:00 BUN 9 mg/dL (9-20) 10/14/21 09:00 Creatinine 0.4 mg/dL (0.8-1.3) L 10/14/21 09:00 Estimated GFR > 60 ml/min 10/14/21 09:00 BUN/Creatinine Ratio 23 % 10/14/21 09:00 Glucose 176 mg/dL (75-100) H 10/14/21 09:00 POC Glucose 152 mg/dL (70-105) H 10/15/21 10:06 Calcium 8.8 mg/dL (8.4-10.2) 10/14/21 09:00 Total Bilirubin 0.60 mg/dL (0.1-1.2) 10/10/21 23:33 AST 47 units/L (5-40) H 10/10/21 23:33 ALT 51 units/L (7-56) 10/10/21 23:33 Alkaline Phosphatase 104 units/L (35-129) 10/10/21 23:33 Total Protein 7.6 g/dL (6.3-8.2) 10/10/21 23:33 Albumin 4.1 g/dL (3.9-5) 10/10/21 23:33 Albumin/Globulin Ratio 1.2 % 10/10/21 23:33 Vancomycin Trough 10.4 ug/mL (5.0-20.0) 10/12/21 17:04 Swanson/IV: Voiding Method Urinal Active Medications - Current Medications Current Medications: Generic Name Dose Route Start Last Admin Trade Name Freq PRN Reason Stop Dose Admin Acetaminophen 650 mg 10/10/21 13:57 10/11/21 05:15 Acetaminophen 325 Mg Tab PO 650 mg Q4H PRN Administration Pain MILD(1-3)/Fever >100.5/VILLARREAL Alprazolam 1 mg 10/10/21 18:40 Alprazolam 1 Mg Tab PO TID PRN Anxiety Atorvastatin Calcium 20 mg 10/10/21 22:00 10/14/21 22:20 Atorvastatin 20 Mg Tab PO 20 mg HS YAEL Administration Diltiazem HCl 30 mg 10/10/21 19:00 10/15/21 11:23 Diltiazem 30 Mg Tab PO 30 mg Q6HR YAEL Administration Famotidine 20 mg 10/10/21 16:00 10/15/21 09:09 Famotidine 20 Mg Tab PO 20 mg BID YAEL Administration Fenofibrate 145 mg 10/10/21 22:00 10/14/21 22:18 Fenofibrate 145 Mg Tab PO 145 mg HS YAEL Administration Heparin Sodium (Porcine) 5,000 unit 10/10/21 15:15 10/15/21 09:08 Heparin 5,000 Unit/1 Ml Vial SUB-Q 5,000 unit Q12HR YAEL Administration Hydromorphone HCl 2 mg 10/10/21 23:57 10/15/21 12:19 Hydromorphone 2 Mg/1 Ml Inj IV 2 mg Q3H PRN Administration Pain , Severe (7-10) Ampicillin Sodium/Sulbactam Sodium 3 gm in 100 mls @ 200 mls/hr 10/10/21 16:00 10/15/21 11:21 Unasyn/Ns 3 Gm/100 Ml IV 200 mls/hr Q6H YAEL Administration Protocol Vancomycin HCl 2,000 mg/ 540 mls @ 250 mls/hr 10/11/21 06:00 10/15/21 05:08 Sodium Chloride IV 250 mls/hr Q12H YAEL Administration Insulin Glargine 50 units 10/11/21 10:00 10/15/21 09:19 Insulin Glargine 100 Units/Ml SUB-Q 50 units QAM YAEL Administration Insulin Glargine 100 units 10/10/21 22:00 10/14/21 22:20 Insulin Glargine 100 Units/Ml SUB-Q 100 units QHS YAEL Administration Insulin Human Lispro 0 unit 10/10/21 19:00 10/15/21 11:19 Insulin Lispro 100 Unit/Ml SUB-Q 3 unit Q4HR YAEL Administration Protocol Insulin Human Lispro 20 unit 10/11/21 07:30 10/15/21 11:20 Insulin Lispro 100 Unit/Ml SUB-Q 20 unit AC YAEL Administration Metoclopramide HCl 10 mg 10/10/21 14:04 Metoclopramide 10 Mg/2 Ml Inj IV Q6H PRN Nausea And Vomiting Metoprolol Tartrate 100 mg 10/10/21 22:00 10/15/21 09:09 Metoprolol Tartrate 100 Mg Tab PO 100 mg BID YAEL Administration Ondansetron HCl 4 mg 10/10/21 13:57 Ondansetron 4 Mg/2 Ml Inj IV Q3H PRN Nausea And Vomiting Oxycodone HCl 15 mg 10/10/21 18:53 10/15/21 07:10 Oxycodone 5 Mg Tab PO 15 mg Q4H PRN Administration Pain, Moderate (4-6) Pregabalin 200 mg 10/10/21 20:00 10/15/21 08:34 Pregabalin 50 Mg Cap PO 200 mg TID YAEL Administration Sodium Chloride 10 ml 10/10/21 15:00 10/15/21 09:12 Sodium Chloride 0.9% 10 Ml Flush Syringe IV 10 ml BID YAEL Administration Sodium Chloride 10 ml 10/10/21 14:57 Sodium Chloride 0.9% 10 Ml Flush Syringe IV PRN PRN LINE FLUSH Nutrition/Malnutrition Assess - Dietary Evaluation Nutrition/Malnutrition Findings: Nutrition Notes Start: 10/13/21 18:4 2 Freq: Status: Active Protocol: Document 10/13/21 18:42 KRISTEN (Rec: 10/13/21 18:53 KRISTEN [id number]) Nutrition Notes Need for Assessment generated from: MD Order,Education Initial or Follow up Brief Note Current Diagnosis Diabetes,Hypertension, Hyperlipidemia Other Pertinent Diagnosis R-LE Cellulitis, PVD, s/p R- AKA, Anxiety, OHS. Current Diet Consistent Carbohydrates Diet (since D 10/10). Height 6 ft 1 in Weight 130 kg [place] Body Weight (kg) 83.63 BMI 37.8 Intake Prior to Admission Good Weight change and time frame Pt denies having loss body weight [employer]. Weight Status Obese Subjective/Other Information RD consult for nutrition education assessment. Pt's PO intake of meals has been Good (100%), according to ADL notes. Pt is on Room Air, O2 saturation @ 95%, according to Physical Assessment History notes. Pt still in critical condition , not a candidate for Nutrition Education at the time, will assess feasibility on F/U. Percent of energy/protein needs met: Prescribed Consistent Carbohydrates Diet provides for energy/protein needs (2, 061 Kcal/91 g) during LOS. Nutrition Intervention Follow-Up By: 10/20/21 Additional Comments Nutrition education will be provided on F/U, if feasible. Continue monitoring food tolerance, %PO intake of meals , and BM.
[2021-10-15] MEDS: FENOFIBRATE 145 MG TAB PO SCH (22:21)
[2021-10-15] MEDS: guaiFENesin 100 MG/5 ML ORAL LIQD PO PRN (22:31)
[2021-10-16] MEDS: dilTIAZem 30 MG TAB PO SCH ×2 (00:24→05:19)
[2021-10-16] MEDS: HYDROmorphone 2 MG/1 ML INJ IV PRN ×3 (00:27→07:33)
[2021-10-16] MEDS: INSULIN LISPRO 100 UNIT/ML SUB-Q SCH ×4 (02:16→09:32)
[2021-10-16] MEDS: AMPICILLIN/SULBACTA 3GM/100ML 3 GM/100 ML BAG IV SCH ×2 (03:33→09:24)
[2021-10-16] MEDS: VANCOMYCIN 2,000 MG in SODIUM CHLORIDE 0.9% 500 ML 500 ML IV SCH (05:09)
[2021-10-16 05:19] VITALS: BP 111/64
[2021-10-16] MEDS: guaiFENesin 100 MG/5 ML ORAL LIQD PO PRN (05:38)
[2021-10-16] MEDS: oxyCODONE 5 MG TAB PO PRN (05:38)
--- NOTE | 2021-10-16 07:55 | Discharge Summary ---
Providers - Providers Date of Admission: 10/10/21 14:32 Date of discharge: 10/16/21 Attending physician: PAMELLA BELL 10/10/21 14:04 Consult to Physician [CONS] Routine Comment: Consulting Provider: KAREN JARVIS Physician Instructions: Reason For Exam: Recurrent cellulitis 10/10/21 14:16 PICC Line Placement [Consult to PICC Line RN] [CONS] Urgent Reason For Exam: poor IV access Type Line:: Midline 10/13/21 13:41 Consult to Dietitian/Nutrition [CONS] Routine Physician Instructions: Reason For Exam: Reason for Consult: Diet education Primary care physician: TELLY BOWENS Hospitalization Reason for admission: RLE cellulitis Hospital course: 61-year-old man past medical history obesity, diabetes, neuropathy, previous left AKA admitted to the hospital with recurrent right lower extremity cellulitis. The patient has had multiple episodes of cellulitis and prosthetic joint infections. Prior to this admission, he was seen by his primary care doctor and was given antibiotics, this did not alleviate his symptoms. He complained of redness and pain to the right leg. The patient was admitted with diagnosis below: Right lower extremity cellulitis Diabetes mellitus type 2 Diabetic neuropathy Hospital course: 10/14/2021. Continue vancomycin and Unasyn per ID recommendations. We will likely discharge on Augmentin 875/125mg q12h for 10 days. 10/15/2021. ID recommends continuing vancomycin and Unasyn for now. We will DC on Augmentin in a.m. Continue limb elevation and edema control. Redness will not resolve given venous stasis disease. Follow-up with Dr. Alvarado as an outpatient 10/16/2021. The patient will discharge today with Augmentin x10 days. Dedicated discharge time 35 minutes Disposition: HOME / SELF CARE / HOMELESS Final Discharge Diagnosis (Prints w/discharge instructions): Right lower extremity cellulitis, diabetes mellitus type 2, diabetic neuropathy Core Measure Documentation - Palliative Care Palliative Care/ Comfort Measures: Not Applicable - Core Measures Any of the following diagnoses?: none Exam - Constitutional Vitals: Temp Pulse Resp BP Pulse Ox 98.2 F 53 L 16 111/64 97 10/16/21 05:18 10/16/21 05:19 10/16/21 05:18 10/16/21 05:19 05/26/22 05:18 General appearance: Present: no acute distress, well-nourished - EENT Eyes: Present: PERRL ENT: hearing intact, clear oral mucosa - Neck Neck: Present: supple, normal ROM - Respiratory Respiratory effort: normal Respiratory: bilateral: CTA - Cardiovascular Heart Sounds: Present: S1 & S2. Absent: rub, click - Extremities Extremities: pulses symmetrical, No edema Peripheral Pulses: within normal limits - Abdominal General gastrointestinal: Present: soft, non-tender, non-distended, normal bowel sounds Male genitourinary: Present: normal - Integumentary Integumentary: Present: clear, warm, dry - Musculoskeletal Musculoskeletal: gait normal, strength equal bilaterally - Psychiatric Psychiatric: appropriate mood/affect, intact judgment & insight - Neurologic Neurologic: CNII-XII intact, moves all extremities Plan Activity: advance as tolerated Weight Bearing Status: Weight Bear as Tolerated Diet: diabetic Follow up with: TELLY BOWENS MD [Primary Care Provider] - 7 Days Prescriptions: Amoxicillin/K Clav Tab [Augmentin 875 mg] 1 tab PO Q12HR #20 tab dilTIAZem [Cardizem] 30 mg PO Q6HR 30 Days #120 tablet Fenofibrate 160 mg PO HS #30 tab AtorvaSTATin [Lipitor] 20 mg PO HS #30 Metoprolol [Lopressor TAB] 100 mg PO BID #60 Pregabalin [Lyrica] 200 mg PO TID #90 cap OXYCODONE hcl [Oxycodone] 15 mg PO Q4H PRN #8 tab PRN Reason: Pain, Moderate (4-6) ALPRAZolam [Xanax TAB] 1 mg PO TID PRN #12 PRN Reason: Anxiety
[2021-10-16] MEDS: PREGABALIN 50 MG CAP PO SCH (08:42)
[2021-10-16] MEDS: METOPROLOL TARTRATE 100 MG TAB PO SCH (09:12)
[2021-10-16] MEDS: FAMOTIDINE 20 MG TAB PO SCH (09:12)
[2021-10-16] MEDS: HEPARIN 5,000 UNIT/1 ML VIAL SUB-Q SCH (09:24)
[2021-10-16] MEDS: INSULIN GLARGINE 100 UNITS/ML SUB-Q SCH (09:31)
== END 2021-10-16 09:45 | disposition home or self-care (01) | DRG 603 ==
LOC: UNDOADMIN 12:25 → 3A 12:25
PROVIDERS: ADMIT Internal Medicine; ATTEND Hospitalist
DX: L03.115 Cellulitis of right lower limb (principal); E11.42 Type 2 diabetes mellitus with diabetic polyneuropathy; E78.2 Mixed hyperlipidemia; I10 Essential (primary) hypertension; E66.2 Morbid (severe) obesity with alveolar hypoventilation; E78.5 Hyperlipidemia, unspecified; F41.1 Generalized anxiety disorder; G89.4 Chronic pain syndrome; E11.51 Type 2 diabetes mellitus with diabetic peripheral angiopathy without gangrene; Z89.612 Acquired absence of left leg above knee; Z82.49 Family history of ischemic heart disease and other diseases of the circulatory system; Z79.899 Other long term (current) drug therapy; Z88.8 Allergy status to other drugs, medicaments and biological substances; Z68.41 Body mass index [BMI] 40.0-44.9, adult
CPT/HCPCS: 36415; 80048; 80053; 80202; 82962; 85025; G0378; Q9967; J0295; J1170; J1644; J1815; J2765; J3370; J7030; J7040